=== PATIENT | female | born 1950 | race Caucasian/White ===

== ENCOUNTER → 2016-09-08 | Outpatient (CLI) | payer OTHER ==
[~2016-09-08] MED LIST: AMOX875T PO; ARTIOIN OP; ASPI325T4 PO; BROM0.07 OPR; CHLO12TA2 PO; ERGO1CAP35 PO; FLUN0.02 NAE; FURO-85 PO; GLC/500 PO; HYDR-5688 PO; LEVO75TA PO; LISI-729 PO; POTA10CA28 PO; PRED1SUS3 OPR; VALA1TAB31 PO
[2016-09-08 19:31] LABS: ALB/GLOB RATIO 0.9 (0.9-2); ALKALINE PHOSPHATASE 74 U/L (45-117); ALT/SGPT 40 U/L (12-78); AST/SGOT 23 U/L (15-37); BLOOD UREA NITROGEN 14 mg/dl (7-18); BUN/CREATININE RATIO 12.7 (10-20); CALCIUM 8.8 mg/dl (8.5-10.1); CARBON DIOXIDE 27 mmol/L (21-32); CHLORIDE 100 mmol/L (98-107); CHOLESTEROL 221 mg/dl (0-200); CHOLESTEROL/HDL RATIO 4.9; GLUCOSE 384 mg/dl (70-99); HDL CHOLESTEROL 45 mg/dl; LDL CHOLESTEROL CALCULATED 131 mg/dl; POTASSIUM 4.4 mmol/L (3.5-5.1); SODIUM 135 mmol/L (136-145); TRIGLYCERIDES 226 mg/dl (0-150); VERY LOW DENSITY LIPOPROT CALC 45 mg/dl
[2016-09-08 19:59] LABS: BETA-HYDROXYBUTYRATE 0.94 mg/dL (0.2-2.81)
[2016-09-09 08:04] LABS: ESTIMATED AVERAGE GLUCOSE 280 mg/dl; HA1C FLAG Normal (Normal)
== END | disposition home or self-care (01) ==
LOC: C.LABPVFM 13:39
PROVIDERS: ATTEND Nurse Practitioner
DX: E11.9 Type 2 diabetes mellitus without complications (principal); I10 Essential (primary) hypertension; E55.9 Vitamin D deficiency, unspecified; E03.9 Hypothyroidism, unspecified

== ENCOUNTER → 2016-09-11 | Outpatient (CLI) | payer OTHER ==
--- NOTE | 2016-09-11 11:22 | DIAGNOSTIC IMAGING REPORT ---
ULTRASOUND ABDOMINAL WALL CLINICAL HISTORY: Umbilical hernia. COMPARISON STUDY: No priors. FINDINGS: Real-time grayscale sonography of the periumbilical abdominal wall is performed to assess 4 hernia. There is a large fat-containing umbilical hernia. The hernia measures up to 6 cm. The hernia orifice measures up to 2.4 cm. This was not reducible during the examination. No bowel or fluid was identified within the hernia. IMPRESSION: There is a large nonreducible fat-containing umbilical hernia as above. Electronically signed by: Severiano Pretty M.D. 09/11/2016 11:20 AM Dictated Date/Time: 09/11/2016 11:19 AM
== END | disposition home or self-care (01) ==
LOC: C.ULTRBC 10:53
PROVIDERS: ATTEND Nurse Practitioner
DX: K42.9 Umbilical hernia without obstruction or gangrene (principal)

== ENCOUNTER 2016-11-03 05:06 | Day surgery (SDC) | payer OTHER ==
[2016-10-17 12:52] VITALS: BMI 42.0
--- NOTE | 2016-10-17 13:37 | PAT Medication Instructions ---
Service Date October 17, 2016. Current Home Medication List Flunisolide (Nasal) (Flunisolide), 1 SPRY BERNICE TID PRN for N Furosemide (Lasix), 10 MG PO DAILY PRN Levothyroxine Sodium (Synthroid), 75 MCG PO QAM Lisinopril (Prinivil), 5 MG PO QAM Metformin Hcl (Glucophage), 1,000 MG PO BID Potassium Chloride (Micro-K Ext Rel), 10 MEQ PO PRN Medication Instructions For Your Scheduled Surgery - Check with surgeon for instructions: Aspirin 325mg QAM - Hold the following medications 48 hours prior to surgery: Metformin Hcl (Glucophage), 1,000 MG PO BID - Hold the following medications the morning of surgery: Potassium Chloride (Micro-K Ext Rel), 10 MEQ PO PRN Lisinopril (Prinivil), 5 MG PO QAM Furosemide (Lasix), 10 MG PO DAILY PRN - Take the following medications the morning of surgery with a sip of water: Levothyroxine Sodium (Synthroid), 75 MCG PO QAM Flunisolide (Nasal) (Flunisolide), 1 SPRY BERNICE TID PRN for N - Take the following medications as scheduled the night before surgery: Potassium Chloride (Micro-K Ext Rel), 10 MEQ PO PRN Furosemide (Lasix), 10 MG PO DAILY PRN Flunisolide (Nasal) (Flunisolide), 1 SPRY BERNICE TID PRN for N If you have any questions please call us at [phone] (Latonia Guzman PA-C) or [phone] or [phone]
[2016-10-17 14:12] LABS: BASO % 0.3 %; BASO ABS # 0.03 K/uL (0-0.2); COMPLETE YES; EOS % 1.9 %; ESTIMATED AVERAGE GLUCOSE 220 mg/dl; HA1C FLAG Normal (Normal); HEMATOCRIT 45.1 % (37-47); IG% 0.6 %; LYMPH % 28.2 %; LYMPH ABS # 2.55 K/uL (1.2-3.4); MEAN CORPUSCULAR HEMOGLOBIN 29.6 pg (25-34); MEAN CORPUSCULAR HGB CONC 32.2 g/dl (32-36); MEAN PLATELET VOLUME 10.5 fL (7.4-10.4); MONO % 4.8 %; NEUT % 64.2 %; PLATELET COUNT 236 K/uL (130-400); WHITE BLOOD COUNT 9.03 K/uL (4.8-10.8)
[2016-10-17 15:41] LABS: CALCIUM 8.7 mg/dl (8.5-10.1); POTASSIUM 3.9 mmol/L (3.5-5.1)
[~2016-11-03] VITALS: Ht 167.6 cm; Wt 118.4 kg
[2016-11-03] VITALS (7 sets, daily range): BP systolic 165–184; BP diastolic 76–86; PULSE 70–85; TEMP 36–37.1; O2SAT 92–93; Ht 167.6 cm; Wt 118.4 kg
[~2016-11-03 05:06] MED LIST changes: -AMOX875T PO; -ARTIOIN OP; -ASPI325T4 PO; -BROM0.07 OPR; -CHLO12TA2 PO; -ERGO1CAP35 PO; -FURO-85 PO; -GLC/500 PO; -HYDR-5688 PO; -LEVO75TA PO; -LISI-729 PO; -POTA10CA28 PO; -PRED1SUS3 OPR; -VALA1TAB31 PO
[2016-11-03] MEDS ORDERED: LACTATED RINGER'S 1000ML 1,000 ML IV SCH ×2 (06:00)
[2016-11-03] MEDS ORDERED: CEFAZOLIN 2000 MG/60 ML D5W IV SCH (06:00)
[2016-11-03] MEDS ORDERED: DEXAMETHASONE SOD INJ 4 MG/ML VIAL ONE (06:41)
[2016-11-03] MEDS ORDERED: PROPOFOL IV EMULSION 10 MG/ML 20 ML VIAL IV ONE (06:41)
[2016-11-03] MEDS ORDERED: ONDANSETRON INJ 2 MG/ML 2 ML VIAL ONE ×2 (06:41→07:24)
[2016-11-03] MEDS ORDERED: LIDOCAINE HCL 2% 2 ML VIAL (20MG/ML) ONE (06:41)
[2016-11-03] MEDS ORDERED: MIDAZOLAM HCL 1 MG/ML 2ML VIAL ONE (06:42)
[2016-11-03] MEDS ORDERED: FENTANYL CITRATE INJ 50 MCG/1 ML 2 ML VIAL ONE (06:42)
[2016-11-03] MEDS ORDERED: SCOPOLAMINE 1.5 MG TDSY TD ONE (06:54)
[2016-11-03] MEDS ORDERED: BUPIVACAINE/EPINEPHRINE 0.5% MPF 1:200,000 30 ML VIAL ONE (06:55)
--- NOTE | 2016-11-03 06:55 | History & Physical Bridge Note ---
H&P Re-Evaluation Bridge Note: I have examined the patient, reviewed the History & Physical and in the interval since the performance of the History & Physical I have noted the following changes of clinical significance: No changes noted
[2016-11-03] MEDS ORDERED: NURSING VERBAL MED ORDER ONE ×4 (07:00→10:30)
[2016-11-03] MEDS ORDERED: ACETAMINOPHEN 1000 MG/100 ML IV IV ONE (07:09)
[2016-11-03] MEDS ORDERED: KETOROLAC TROMETHAMINE 30 MG/ML VIAL ONE (07:24)
[2016-11-03] MEDS ORDERED: FLUMAZENIL 0.1 MG/1 ML 10 ML VIAL IV PRN (07:30)
[2016-11-03] MEDS ORDERED: ATROPINE SULFATE 0.1 MG/ML 5ML SYR IV PRN (07:30)
[2016-11-03] MEDS ORDERED: EpHEDrine SULFATE INJ 50 MG/ML AMP IV PRN (07:30)
[2016-11-03] MEDS ORDERED: NALOXONE HCL 0.4 MG/1 ML VIAL/CARP IV PRN (07:30)
[2016-11-03] MEDS ORDERED: LABETALOL HCL IV 5 MG/ML 20ML IV PRN (07:30)
[2016-11-03] MEDS ORDERED: ONDANSETRON INJ 2 MG/ML 2 ML VIAL IV PRN ×2 (07:30→08:15)
[2016-11-03] MEDS ORDERED: MEPERIDINE HCL 25 MG/ML CARP IV PRN (07:30)
[2016-11-03] MEDS ORDERED: HYDROmorphone INJ 2 MG/ML SYR/VIAL IV PRN (07:30)
[2016-11-03] MEDS ORDERED: PHENYLEPHRINE 100MCG/ML 5ML SYR IV PRN (07:30)
[2016-11-03] MEDS: FENTANYL CITRATE INJ 50 MCG/1 ML 2 ML VIAL IV PRN ×4 (08:05→08:20)
--- NOTE | 2016-11-03 08:05 | [facility] Operative Report ---
Operative Report Operative Date Nov 03, 2016. Pre-Operative Diagnosis Umbilical Hernia Post-Operative Diagnosis umbilical hernia with omental incarceration Procedure(s) Performed open umbilical hernia repair Surgeon Dr. Guido Medical Nurse Surgeon(s) Sara Breaux Estimated Blood Loss 5 ml Findings small hernia with large amount of omental incarceration Specimens None per surgeon Anesthesia LMA Complication(s) None Disposition Recovery Room / PACU I attest to the content of the Intraoperative Record and any orders documented therein. Any exceptions are noted below.
[2016-11-03] MEDS ORDERED: HYDR-5688 PO (08:06)
--- NOTE | 2016-11-03 08:08 | Discharge Instructions ---
Discharge Instructions Date of Service Nov 03, 2016. Admission Reason for Admission: Umbilical Hernia Discharge Discharge Diagnosis / Problem: Umbilical Hernia Discharge Goals Goal(s): Decrease discomfort, Improve function Activity Recommendations Activity Limitations: as noted below Lifting Limitations: no more than 10 pounds Exercise/Sports Limitations: until after follow-up appointment May Resume Sexual Activity: after follow-up appointment Shower/Bathe: tomorrow . Instructions / Follow-Up Instructions / Follow-Up Please follow-up with Dr. Guido in the office in 1-2 weeks. Please call the office at [phone] to make a follow-up appointment if you do not have one already. Please call the office with any questions or concerns at [phone]. Current Hospital Diet Patient's current hospital diet: Discharge Diet Recommended Diet: Regular Diet Procedures Procedures Performed: Open Umbilical Hernia Repair Pending Studies Studies pending at discharge: no Laboratory Results Hemoglobin A1c Test 10/17/16 13:47 Range/Units Estimated Average Glucose 220 mg/dl Hemoglobin A1c 9.3 H 4.5-5.6 % Lipid Panel Test 09/08/16 13:43 Range/Units Triglycerides Level 226 H 0-150 mg/dl Cholesterol Level 221 H 0-200 mg/dl HDL Cholesterol 45 mg/dl Cholesterol/HDL Ratio 4.9 LDL Cholesterol, Calculated 131 mg/dl Medical Emergencies . Who to Call and When: Medical Emergencies: If at any time you feel your situation is an emergency, please call 911 immediately. . Non-Emergent Contact Non-Emergency issues call your: Primary Care Provider, Surgeon Call Non-Emergent contact if: temperature is above 101.5, your pain is not controlled, wound has increased drainage, wound has increased redness . "Provider Documentation" section prepared by Sara Wynn. . VTE Core Measure Inpt VTE Proph given/why not?: SCD's [place] Drug Monitoring Program Search Results: patient reviewed within database, no issues identified
[2016-11-03] MEDS ORDERED: SODIUM CHLORIDE 0.9% 1000ML 1,000 ML IV SCH (08:10)
[2016-11-03] MEDS ORDERED: HYDROCODONE/ACETAMOPHEN 5/325MG TAB PO PRN ×2 (08:15)
--- NOTE | 2016-11-03 08:55 | Anesthesiology Progress Note ---
Anesthesia Post Op Note Date & Time Nov 03, 2016 at 08:54 Vital Signs Pain Intensity: 2 Vital Signs Past 12 Hours Date Time Temp Pulse Resp B/P (MAP) Pulse Ox O2 Delivery O2 Flow Rate FiO2 11/03/16 08:42 70 16 169/76 98 11/03/16 08:42 71 16 11/03/16 08:38 36.3 71 16 152/88 97 Mask 2 11/03/16 08:37 71 15 152/88 96 11/03/16 08:37 72 15 11/03/16 08:35 158/73 11/03/16 08:32 71 18 11/03/16 08:32 70 18 144/106 97 11/03/16 08:27 73 12 11/03/16 08:27 81 12 155/83 97 11/03/16 08:22 70 12 11/03/16 08:22 70 12 150/69 97 11/03/16 08:21 69 10 11/03/16 08:21 70 10 98 11/03/16 08:17 163/77 11/03/16 08:16 71 20 99 11/03/16 08:16 71 20 11/03/16 08:12 152/84 11/03/16 08:11 72 14 11/03/16 08:11 72 14 95 11/03/16 08:07 140/86 11/03/16 08:06 71 18 11/03/16 08:06 71 18 96 11/03/16 08:02 166/75 11/03/16 08:01 74 17 11/03/16 08:01 74 17 99 11/03/16 07:58 165/92 11/03/16 07:56 36.0 78 16 165/92 99 Mask 10 11/03/16 05:41 37.1 80 22 184/86 (118) 93 Room Air Notes Mental Status: alert / awake / arousable, participated in evaluation Pt Amnestic to Procedure: Yes Nausea / Vomiting: adequately controlled, improving with treatment Pain: adequately controlled Airway Patency, RR, SpO2: stable & adequate BP & HR: stable & adequate Hydration State: stable & adequate Anesthetic Complications: no major complications apparent The patient is awake and comfortable.
[2016-11-03] MEDS ORDERED: PROMETHAZINE HCL INJ 12.5 MG in SODIUM CHLORIDE 0.9% 50ML 50 ML IV ONE (09:00)
[2016-11-03] MEDS ORDERED: NovoLIN-R INSULIN PER UNIT CHARGE ONE ×2 (09:35→10:32)
[2016-11-03] MEDS ORDERED: NovoLIN-R INSULIN PER UNIT CHARGE SQ SCH (10:45)
--- NOTE | 2016-11-03 10:58 | OPERATIVE REPORT ---
DATE OF OPERATION: 11/03/2016 PREOPERATIVE DIAGNOSIS: Umbilical hernia. POSTOPERATIVE DIAGNOSIS: Same with omental incarceration. PROCEDURE PERFORMED: Open umbilical hernia repair without mesh. SURGEON: Robert Guido DO FLIGHT DISPATCHER: Sara Wynn PA-C ESTIMATED BLOOD LOSS: Approximately 5 mL. COMPLICATIONS: No immediate. ANESTHESIA: General laryngeal mask airway. DESCRIPTION OF PROCEDURE: After informed consent was obtained, the patient was taken to the operating suite and placed in supine position. After successful placement of laryngeal mask airway, the abdomen was sterilely prepped and draped in usual fashion. An infraumbilical curvilinear incision was made with a 15 blade scalpel and carried down through the soft tissue using electrocautery. We immediately encountered a hernia sac, which we divided. There was a large amount of omentum within it. We continued to take down the entire sac and took down soft tissue to the fascia. The umbilicus was lifted off the fascia. Because of large amount of omentum, we were going to be unable to place it back into the abdominal cavity without making the hernia larger. Therefore, I used Amina clamps with 2-0 Vicryl ties to divide the incarcerated omentum. The small stalk was then able to be easily dunked back into the abdominal cavity. The hernia itself was rather small considering the size of the hernia sac and contents. We were able to grasp the periphery with Allis clamps. The defect itself was right around 2 cm. Because of her age and activity level, I opted to not use mesh. I used a #1 Ethibond in an interrupted [id number] fashion to primarily close the defect. This was done quite readily without much tension at all. We then thoroughly irrigated the wound. I used 0 Vicryl to reattach the umbilical stalk back down to the fascia. There was adequate hemostasis at the end of case. We closed the deep layers with 3-0 Vicryl and skin with 4-0 Monocryl. Marcaine with epinephrine was injected around the incision for postoperative analgesia and skin glue used as a dressing. The patient was awakened, extubated, and transferred to recovery in stable condition. I attest to the content of the Intraoperative Record and any orders documented therein. Any exception s are noted below.
[2016-11-03] MEDS ORDERED: CHECK SCOPOLAMINE PATCH PLACEMENT SCH (16:00)
[2017-04-03] MEDS ORDERED: FURO-85 PO (11:19)
[2017-04-03] MEDS ORDERED: LEVO75TA PO (11:19)
[2017-04-03] MEDS ORDERED: GLC/500 PO (11:19)
[2017-04-03] MEDS ORDERED: POTA10CA28 PO (12:51)
[2017-04-03] MEDS ORDERED: LISI-729 PO (12:51)
[2017-04-03] MEDS ORDERED: ASPI325T4 PO (13:47)
== END 2016-11-03 11:46 | disposition home or self-care (01) ==
LOC: C.ACU 05:06
PROVIDERS: ATTEND Surgery
DX: K42.9 Umbilical hernia without obstruction or gangrene (principal); I10 Essential (primary) hypertension; E11.9 Type 2 diabetes mellitus without complications; E66.01 Morbid (severe) obesity due to excess calories; E03.9 Hypothyroidism, unspecified; Z87.891 Personal history of nicotine dependence; Z98.890 Other specified postprocedural states; Z68.41 Body mass index [BMI] 40.0-44.9, adult; Z88.2 Allergy status to sulfonamides; Z90.89 Acquired absence of other organs; Z90.710 Acquired absence of both cervix and uterus; Z80.42 Family history of malignant neoplasm of prostate; Z84.89 Family history of other specified conditions

== ENCOUNTER 2017-04-03 18:28 | Emergency (ER) | payer OTHER ==
[~2017-04-03] VITALS: Ht 167.6 cm; Wt 119.7 kg
[~2017-04-03 18:28] MED LIST changes: +ASPI325T4 PO; +FURO-85 PO; +GLC/500 PO; +LEVO75TA PO; +LISI-729 PO; +POTA10CA28 PO
[2017-04-03 18:36] VITALS: TEMP 36.7
[2017-04-03] MEDS ORDERED: SODIUM CHLORIDE 0.9% 1000ML 1,000 ML IV SCH (19:41)
[2017-04-03 19:54] VITALS: Ht 167.6 cm; Wt 119.7 kg
[2017-04-03 20:17] LABS: BASO % 0.4 %; BASO ABS # 0.04 K/uL (0-0.2); COMPLETE YES; EOS % 3.7 %; HEMATOCRIT 42.8 % (37-47); LYMPH % 35.1 %; LYMPH ABS # 3.62 K/uL (1.2-3.4); MEAN CELL VOLUME 92.8 fL (80-100); MEAN CORPUSCULAR HEMOGLOBIN 31.5 pg (25-34); MEAN CORPUSCULAR HGB CONC 33.9 g/dl (32-36); MEAN PLATELET VOLUME 10.7 fL (7.4-10.4); MONO % 7.6 %; NEUT % 52.2 %; PLATELET COUNT 235 K/uL (130-400); RED BLOOD COUNT 4.61 M/uL (4.2-5.4); WHITE BLOOD COUNT 10.32 K/uL (4.8-10.8)
[2017-04-03 20:26] LABS: PROTHROMBIN TIME (PATIENT) 10.5 SECONDS (9.0-12.0)
[2017-04-03] MEDS ORDERED: AMOX875T PO (20:36)
[2017-04-03] MEDS ORDERED: CHLO12TA2 PO (20:37)
[2017-04-03 21:02] LABS: BUN/CREATININE RATIO 12.3 (10-20); CALCIUM 8.8 mg/dl (8.5-10.1); CKMB/CK RATIO 1.9 (0-3.0); CREATININE 0.86 mg/dl (0.60-1.20); MAGNESIUM 2.1 mg/dl (1.8-2.4); POTASSIUM 4.1 mmol/L (3.5-5.1)
[2017-04-03 21:07] LABS: LYME DISEASE AB IGM NEG (NEG)
--- NOTE | 2017-04-03 21:07 | DIAGNOSTIC IMAGING REPORT ---
BRAIN WITHOUT CONTRAST HISTORY: 67 years-old Female left neck pain, left facial palsy acute left-sided facial palsy and neck pain. COMPARISON: MRA of the head of same day TECHNIQUE: Multiplanar multisequence MRI of the brain was obtained without contrast FINDINGS: There is no restricted diffusion to suggest acute ischemia. The midline structures including the corpus callosum, brainstem, optic chiasm, pituitary gland, infundibulum and pineal gland are unremarkable in the sagittal T1 sequence. There is no cerebellar tonsillar herniation. No acute intracranial hemorrhage, midline shift, abnormal extra-axial collections, hydrocephalus or intracranial mass identified. Mild atrophy. Moderate multifocal patchy areas of T2/FLAIR prolongation noted within the subcortical, deep and periventricular white matter of the cerebral hemispheres bilaterally. The major flow voids at the level the skull base are patent. Mild polypoid mucosal thickening of the right maxillary antrum. Mild ethmoid sinus disease also noted. Mastoid air cells are clear. Orbits are symmetric and unremarkable. IMPRESSION: 1. No acute intracranial abnormality. No acute ischemia or hemorrhage. 2. Mild atrophy with moderate multifocal patchy T2/FLAIR prolongation within the subcortical, deep and periventricular white matter of the cerebral hemispheres bilaterally suggests chronic microvascular ischemic changes. 3. Mild paranasal sinus disease. The above report was generated using voice recognition software. It may contain grammatical, syntax or spelling errors. Electronically signed by: Duran Timmons M.D. 04/03/2017 9:06 PM Dictated Date/Time: 04/03/2017 9:02 PM
[2017-04-03 21:08] LABS: LYME DISEASE AB IGG NEG (NEG)
--- NOTE | 2017-04-03 21:12 | DIAGNOSTIC IMAGING REPORT ---
MRA HEAD WITHOUT CONTRAST HISTORY: 67 years-old Female left neck pain, left facial palsy acute left-sided facial palsy with left-sided neck pain COMPARISON: MRI brain of same day TECHNIQUE: MRA of the head was obtained without contrast with MIP reformats according to institutional protocol. FINDINGS: Bilateral internal carotid arteries appear normal and patent. Middle and anterior cerebral arteries as well as the anterior communicating artery are patent and unremarkable. Bilateral vertebral arteries are patent. The basilar and posterior cerebral arteries are patent and within normal limits. There is no high-grade stenosis, aneurysm or proximal branch occlusion. origin of the left posterior cerebral artery. Mild paranasal sinus disease incidentally noted. IMPRESSION: 1. Unremarkable MRA of the head without aneurysm, high-grade stenosis or proximal branch occlusion. 2. origin of the left posterior cerebral artery. The above report was generated using voice recognition software. It may contain grammatical, syntax or spelling errors. Electronically signed by: Duran Timmons M.D. 04/03/2017 9:11 PM Dictated Date/Time: 04/03/2017 9:06 PM
[2017-04-03] MEDS ORDERED: GADAVIST IV PRN (21:15)
--- NOTE | 2017-04-03 21:42 | DIAGNOSTIC IMAGING REPORT ---
MRA NECK COMBO CLINICAL HISTORY: 67 years-old Female with left neck pain, left facial palsy. Acute left-sided neck pain and left-sided facial palsy COMPARISON STUDY: MRI brain and MRA head same day. TECHNIQUE: Axial 2-D [id number] MR angiography of the neck is performed. Subsequently, following the IV administration of 12 cc of Gadavist coronal MR angiogram of the neck was performed to corroborate the findings. 3-D reformats are created and assessed. All measurements were calculated based on NASCET criteria. FINDINGS: The large [id number] data warehousing specialist localizer images demonstrate no gross abnormality of the head, neck or chest. The bilateral common and internal carotid arteries are patent without high-grade stenosis. Mild luminal narrowing involves the left carotid bulb, likely secondary to underlying atherosclerotic plaquing causing less than 50% narrowing (see image 51 series [id number]). There is mild tortuosity involving the proximal cervical portion of the right internal carotid artery without high-grade narrowing (see image 52 series [id number]). The bilateral vertebral arteries appear to be codominant and are patent. No high-grade stenosis, aneurysm or proximal branch occlusion. IMPRESSION: 1. No high-grade stenosis, aneurysm or proximal branch occlusion. 2. Mild luminal narrowing of the left carotid bulb, likely secondary to underlying atherosclerotic plaquing with no significant stenosis. 3. Mild tortuosity of the proximal cervical portion right internal carotid artery without high-grade narrowing. The above report was generated using voice recognition software. It may contain grammatical, syntax or spelling errors. Electronically signed by: Duran Timmons M.D. 04/03/2017 9:41 PM Dictated Date/Time: 04/03/2017 9:33 PM
[2017-04-03 21:54] LABS: URINE APPEARANCE CLEAR (CLEAR); URINE BILIRUBIN NEG (NEG); URINE COLOR YELLOW; URINE NITRITE NEG (NEG); URINE SPECIFIC GRAVITY 1.017 (1.000-1.030); UROBILINOGEN NEG (NEG); ZZUR CULT IF INDIC CLEAN CATCH NO
[2017-04-03 21:56] LABS: MANUAL MICROSCOPIC REQUIRED? NO; REVIEW REQ? NO
[2017-04-03] MEDS ORDERED: ARTIFICIAL TEARS OP OINT 3.5 GM TUBE OP ONE (22:15)
[2017-04-03] MEDS ORDERED: VALA1TAB31 PO (22:32)
[2017-04-03] MEDS ORDERED: ARTIOIN OP (22:32)
[2017-04-03 22:39] VITALS: BP 186/94; PULSE 70; O2SAT 97
--- NOTE | 2017-04-04 03:18 | EMERGENCY ROOM VISIT NOTE ---
History Report prepared by Josiahibceleste: Taylor Torres Under the Supervision of: Dr. Dick Dixon M.D. First contact with patient: 19:02 Chief Complaint: BELLS PALSY SYMPTOMS Stated Complaint: STROKE SYMPTOMS History of Present Illness The patient is a 67 year old female who presents to the Emergency Room with complaints of persistent bells palsy symptoms. She complains of a left sided facial droop and a feeling of numbness in her face for the past 2 days. She states 2 nights ago, she woke up to take a drink of water, and dribbled the water down her face, which is unusual for her. She was unable to make a puckering motion with her mouth the next morning and states she still cannot drink out of a bottle of water normally, so she decided to come to the ED. She currently complains of a minimal occasional headache and pain along the left side of her neck. She also reports the vision in her left eye is more blurry than normal, but she is still able to read with that eye. She may have a missed a dose of Synthroid earlier today, but states she has been taking her other medications as prescribed. Her states she may be slurring her words, but reports he is hard of hearing. The patient notes she was treated for a sinus infection and ear pain recently by a local urgent care clinic. She was given an antibiotic, Augmentin, and is taking it twice a day. The patient denies LOC, fevers, chills, diaphoresis, chest pain, breathing difficulties, nausea, vomiting, abdominal pain, back pain, melena, hematochezia, urinary symptoms, numbness or weakness in the extremities, lymphadenopathy, rash, or other complaints. Source of History: patient, spouse/significant other () Onset: 2 days DRUG SAFETY ASSOCIATE Position: other (global) Timing: other (persistent) Associated Symptoms: + headache, + neck pain (left sided neck pain), + weakness (left side of face), + numbness (in the face) Review of Systems See HPI for pertinent positives and negatives. A total of ten systems were reviewed and were otherwise negative. Past Medical & Surgical Medical Problems: (1) broken left foot (2) Contusion of foot (3) Diabetes (4) Hypertension (5) Kidney stones (6) Right foot infection (7) Right foot infection (8) Right foot pain Surgical Problems: (1) H/O: hysterectomy (2) History of appendectomy Social History Smoking Status: Former Smoker Alcohol Use: none Drug Use: none Marital Status: Housing Status: lives with family Occupation Status: retired Current/Historical Medications Scheduled Amoxicillin & Pot Clavulanate (Augmentin 875-125 mg), 1 TAB PO BID Aspirin (Aspirin), 325 MG PO QAM Levothyroxine Sodium (Synthroid), 75 MCG PO QAM Lisinopril (Prinivil), 5 MG PO QAM Metformin Hcl (Glucophage), 1,000 MG PO BID Potassium Chloride (Micro-K Ext Rel), 10 MEQ PO PRN Valacyclovir Hcl (Valtrex), 1 GM PO TID Scheduled PRN Artificial Tears Oph Oint (Lacri-Lube Sop Oph Oint), 0.25-0.5 INCH OP Q2H PRN for DRYNESS Chlorpheniramine Maleate (Chlor-Trimeton Allergy), 1 TAB PO DAILY PRN for Seasonal Allergies Flunisolide (Nasal) (Flunisolide), 1 SPRY BERNICE TID PRN for Nasal Congestion Furosemide (Lasix), 10 MG PO DAILY PRN Allergies Coded Allergies: Fenoprofen (Verified Allergy, Intermediate, HAND EDEMA, 11/03/16) Prednisone (Verified Allergy, Intermediate, FAST HEART BEAT, 11/03/16) Adhesives (Verified Allergy, Unknown, "Red welts", 11/03/16) Emmet (Verified Allergy, Unknown, WELTS WITH PEACH FUZZ, 11/03/16) Tomato (Verified Allergy, Unknown, WELTS WITH TOMATOES AND ORANGE JUICE, ) Levofloxacin (Verified Adverse Reaction, Intermediate, PNEUMONIA, 11/03/16) GIVEN LEVAQUIN FOR SINUS INFECTION X2 AND BOTH TIMES DEVELOPED PNEUMONIA Sulfa Antibiotics (Verified Adverse Reaction, Unknown, "SULFA DRUGS": ITCHING, 11/03/16) Physical Exam Vital Signs Date Time Temp Pulse Resp B/P (MAP) Pulse Ox O2 Delivery O2 Flow Rate FiO2 04/03/17 22:39 70 16 186/94 97 04/03/17 20:49 Room Air 04/03/17 18:36 36.7 77 20 176/99 97 Room Air Physical Exam GENERAL: Awake, alert, well appearing, no distress HENT: Normocephalic, atraumatic. TM's normal. Oropharynx unremarkable. EYES: PERRL. EOMI. Normal conjunctiva. Sclera non-icteric. NECK: Supple. No nuchal rigidity. FROM. No JVD or bruit. RESPIRATORY: CTA CARDIAC: RRR. No murmur. ABDOMEN: Soft, non distended. No tenderness to palpation. No rebound or guarding. No masses. RECTAL: Deferred. MUSCULOSKELETAL: Unremarkable. No edema. No discoloration. Gross motor strength symmetric. NEURO: Cranial nerves 2-12 grossly intact. Cranial nerve 7 with weakness in the left side, mild forehead involvement. Normal sensorium. No sensory or motor deficits noted. Speech normal. No pronator drift. Mildly unsteady gait. Negative Rhomberg. SKIN: No rash or jaundice noted. LYMPH: No adenopathy. Medical Decision & Procedures ER Provider Diagnostic Interpretation: Radiology results as stated below per my review and radiologist interpretation: BRAIN WITHOUT CONTRAST HISTORY: 67 years-old Female left neck pain, left facial palsy acute left-sided facial palsy and neck pain. COMPARISON: MRA of the head of same day TECHNIQUE: Multiplanar multisequence MRI of the brain was obtained without contrast FINDINGS: There is no restricted diffusion to suggest acute ischemia. The midline structures including the corpus callosum, brainstem, optic chiasm, pituitary gland, infundibulum and pineal gland are unremarkable in the sagittal T1 sequence. There is no cerebellar tonsillar herniation. No acute intracranial hemorrhage, midline shift, abnormal extra-axial collections, hydrocephalus or intracranial mass identified. Mild atrophy. Moderate multifocal patchy areas of T2/FLAIR prolongation noted within the subcortical, deep and periventricular white matter of the cerebral hemispheres bilaterally. The major flow voids at the level the skull base are patent. Mild polypoid mucosal thickening of the right maxillary antrum. Mild ethmoid sinus disease also noted. Mastoid air cells are clear. Orbits are symmetric and unremarkable. IMPRESSION: 1. No acute intracranial abnormality. No acute ischemia or hemorrhage. 2. Mild atrophy with moderate multifocal patchy T2/FLAIR prolongation within the subcortical, deep and periventricular white matter of the cerebral hemispheres bilaterally suggests chronic microvascular ischemic changes. 3. Mild paranasal sinus disease. The above report was generated using voice recognition software. It may contain grammatical, syntax or spelling errors. Electronically signed by: Duran Timmons M.D. 04/03/2017 9:06 PM MRA HEAD WITHOUT CONTRAST HISTORY: 67 years-old Female left neck pain, left facial palsy acute left-sided facial palsy with left-sided neck pain COMPARISON: MRI brain of same day TECHNIQUE: MRA of the head was obtained without contrast with MIP reformats according to institutional protocol. FINDINGS: Bilateral internal carotid arteries appear normal and patent. Middle and anterior cerebral arteries as well as the anterior communicating artery are patent and unremarkable. Bilateral vertebral arteries are patent. The basilar and posterior cerebral arteries are patent and within normal limits. There is no high-grade stenosis, aneurysm or proximal branch occlusion. origin of the left posterior cerebral artery. Mild paranasal sinus disease incidentally noted. IMPRESSION: 1. Unremarkable MRA of the head without aneurysm, high-grade stenosis or proximal branch occlusion. 2. origin of the left posterior cerebral artery. The above report was generated using voice recognition software. It may contain grammatical, syntax or spelling errors. Electronically signed by: Duran Timmons M.D. 04/03/2017 9:11 PM MRA NECK COMBO CLINICAL HISTORY: 67 years-old Female with left neck pain, left facial palsy. Acute left-sided neck pain and left-sided facial palsy COMPARISON STUDY: MRI brain and MRA head same day. TECHNIQUE: Axial 2-D [id number] MR angiography of the neck is performed. Subsequently, following the IV administration of 12 cc of Gadavist coronal MR angiogram of the neck was performed to corroborate the findings. 3-D reformats are created and assessed. All measurements were calculated based on NASCET criteria. FINDINGS: The large [id number] offal worker localizer images demonstrate no gross abnormality of the head, neck or chest. The bilateral common and internal carotid arteries are patent without high-grade stenosis. Mild luminal narrowing involves the left carotid bulb, likely secondary to underlying atherosclerotic plaquing causing less than 50% narrowing (see image 51 series [id number]). There is mild tortuosity involving the proximal cervical portion of the right internal carotid artery without high-grade narrowing (see image 52 series [id number]). The bilateral vertebral arteries appear to be codominant and are patent. No high-grade stenosis, aneurysm or proximal branch occlusion. IMPRESSION: 1. No high-grade stenosis, aneurysm or proximal branch occlusion. 2. Mild luminal narrowing of the left carotid bulb, likely secondary to underlying atherosclerotic plaquing with no significant stenosis. 3. Mild tortuosity of the proximal cervical portion right internal carotid artery without high-grade narrowing. The above report was generated using voice recognition software. It may contain grammatical, syntax or spelling errors. Electronically signed by: Duran Timmons M.D. 04/03/2017 9:41 PM Laboratory Results 04/03/17 20:00 Red Blood Count 4.61, Mean Corpuscular Volume 92.8, Mean Corpuscular Hemoglobin 31.5, Mean Corpuscular Hemoglobin Concent 33.9, Mean Platelet Volume 10.7, Neutrophils (%) (Auto) 52.2, Lymphocytes (%) (Auto) 35.1, Monocytes (%) (Auto) 7.6, Eosinophils (%) (Auto) 3.7, Basophils (%) (Auto) 0.4, Neutrophils # (Auto) 5.40, Lymphocytes # (Auto) 3.62, Monocytes # (Auto) 0.78, Eosinophils # (Auto) 0.38, Basophils # (Auto) 0.04 04/03/17 20:00 Test 04/03/17 00:00 04/03/17 20:00 Urine Color YELLOW Urine Appearance CLEAR (CLEAR) Urine pH 5.0 (4.5-7.5) Urine Specific [place] 1.017 (1.000-1.030) Urine Protein NEG (NEG) Urine Glucose (UA) NEG (NEG) Urine Ketones NEG (NEG) Urine Occult Blood NEG (NEG) Urine Nitrite NEG (NEG) Urine Bilirubin NEG (NEG) Urine Urobilinogen NEG (NEG) Urine Leukocyte Esterase TRACE (NEG) Urine WBC (Auto) 1-5 /hpf (0-5) Urine RBC (Auto) 0-4 /hpf (0-4) Urine Hyaline Casts (Auto) 0 /lpf (0-5) Urine Epithelial Cells (Auto) 10-20 /lpf (0-5) Urine Bacteria (Auto) NEG (NEG) White Blood Count 10.32 K/uL (4.8-10.8) Red Blood Count 4.61 M/uL (4.2-5.4) Hemoglobin 14.5 g/dL (12.0-16.0) Hematocrit 42.8 % (37-47) Mean Corpuscular Volume 92.8 fL (80-100) Mean Corpuscular Hemoglobin 31.5 pg (25-34) Mean Corpuscular Hemoglobin Concent 33.9 g/dl (32-36) Platelet Count 235 K/uL (130-400) Mean Platelet Volume 10.7 fL (7.4-10.4) Neutrophils (%) (Auto) 52.2 % Lymphocytes (%) (Auto) 35.1 % Monocytes (%) (Auto) 7.6 % Eosinophils (%) (Auto) 3.7 % Basophils (%) (Auto) 0.4 % Neutrophils # (Auto) 5.40 K/uL (1.4-6.5) Lymphocytes # (Auto) 3.62 K/uL (1.2-3.4) Monocytes # (Auto) 0.78 K/uL (0.11-0.59) Eosinophils # (Auto) 0.38 K/uL (0-0.5) Basophils # (Auto) 0.04 K/uL (0-0.2) RDW Standard Deviation 49.4 fL (36.4-46.3) RDW Coefficient of Variation 14.6 % (11.5-14.5) Immature Granulocyte % (Auto) 1.0 % Immature Granulocyte # (Auto) 0.10 K/uL (0.00-0.02) Prothrombin Time 10.5 SECONDS (9.0-12.0) Prothromb Time International Ratio 1.0 (0.9-1.1) Activated Partial Thromboplast Time 25.2 SECONDS (21.0-31.0) Partial Thromboplastin Ratio 1.0 Anion Gap 6.0 mmol/L (3-11) Est Creatinine Clear Calc Drug Dose 81.3 ml/min Estimated GFR () 79.9 Estimated GFR (Non- 68.9 BUN/Creatinine Ratio 12.3 (10-20) Calcium Level 8.8 mg/dl (8.5-10.1) Magnesium Level 2.1 mg/dl (1.8-2.4) Total Creatine Kinase 250 U/L (26-192) Creatine Kinase MB 4.8 ng/ml (0.5-3.6) Creatine Kinase MB Ratio 1.9 (0-3.0) Troponin I 0.044 ng/ml (0-0.045) Chemistry Specimen Hemolysis Lyme Disease IgG Antibody NEG (NEG) Lyme Disease IgM Antibody NEG (NEG) Laboratory results reviewed by me Medications Administered Medications (Trade) Dose Ordered Sig/Sacha Route Start Time Stop Time Status Last Admin Dose Admin Artificial Tears (Lacri-Lube Oph Oint) 1 appln NOW ONCE OP 04/03/17 22:15 04/03/17 22:18 DC 04/03/17 22:34 1 APPLN Valacyclovir HCl (Valtrex Tab) 1,000 mg NOW ONCE PO 04/03/17 22:15 04/03/17 22:18 DC 04/03/17 22:34 1,000 MG ECG Indication: weakness Rate (beats per minute): 68 Rhythm: normal sinus Findings: 1st degree AV block, nonspecific-ST abn, no acute ischemic change, no ectopy ED Course 1914: The patient was evaluated in room B9. A complete history and physical exam was performed. 2114: Gadavist 12 mmol IV. 2204: I reevaluated the patient. She is feeling well and resting comfortably. I discussed her results and discharge instructions and she verbalized complete understanding and agreement. 2214: Valtrex 1000 mg PO, Artificial Tears 1 application OP. Medical Decision Triage Nursing notes reviewed. The patient's presentation and history were concerning for facial weakness. Etiologies such as Kenney's palsy, TIA, CVA, metabolic, infection, hypo/ hyperglycemia, electrolyte abnormalities, cardiac sources, intracerebral event, toxicologic, neurologic, as well as others were entertained. The patient's physical examination was consistent with a facial nerve palsy. There was some complaints of left-sided pain and questionable slurred speech. Because of this additional workup was performed. The patient had MR imaging done. Her blood work was unremarkable. Lyme testing was negative. MR imaging did not reveal any evidence of aneurysm, dissection, CVA, tumor, or other pathology. The patient was reassessed and was doing well. She was prescribed Valtrex and the first dose given in the Emergency Room. Lacri-Lube was also given. Unfortunately the patient has experienced adverse reactions with prednisone in the past. She developed significant tachycardia on multiple occasions when prednisone was attempted. This was confirmed by the patient and family. Because of this problem the patient has experienced in the past prednisone was held.I gave my usual and customary discussion regarding this issue. The patient will need close outpatient follow-up. This appears to be a mild case of Kenney's palsy. By the evaluation outlined above other emergent etiologies such as those listed in the differential, as well as others, were deemed relatively unlikely. The patient was educated about the findings as listed above. All questions were answered and the patient was pleased with the treatment. Return instructions were outlined and the patient was discharged in stable condition. The patient was referred to her PCP for follow-up for a recheck of the current condition. Medication Reconcilliation Current Medication List: was personally reviewed by me Blood Pressure Screening Patient's blood pressure: Elevated blood pressure Blood pressure disposition: Referred to PCP Impression Primary Impression: Kenney's palsy Scribe Attestation The scribe's documentation has been prepared under my direction and personally reviewed by me in its entirety. I confirm that the note above accurately reflects all work, treatment, procedures, and medical decision making performed by me. Departure Information Dispostion Home / Self-Care Prescriptions Artificial Tears Oph Oint (Lacri-Lube Sop Oph Oint) Oint 0.25-0.5 INCH OP Q2H Y for DRYNESS, #1 TUBE TO THE AFFECTED EYE UP TO QID PRN Prov: Dick Dixon MD 04/03/17 Valacyclovir Hcl (VALTREX) 1 Gm Tab 1 GM PO TID, #20 TAB Prov: Dick Dixon MD 04/03/17 Referrals Mayra Kidd, C.R.N.P (PCP) Patient Instructions My [facility] Additional Instructions Valtrex 1000 mg 3 times a day for 7 days. Lacri-Lube every 2 hours as needed for dry eyes. Continue current medications. Follow-up with your primary physician on Thursday for recheck. Additional therapy or physical therapy may be necessary. Return to the ER for headache, passing out, difficulty breathing, fevers, numbness, tingling, worsening of your condition, or as needed.
== END 2017-04-03 22:40 ==
LOC: C.EDB 18:29
DX: G51.0 Bell's palsy (principal); I44.0 Atrioventricular block, first degree; E11.9 Type 2 diabetes mellitus without complications; I10 Essential (primary) hypertension; Z87.442 Personal history of urinary calculi; Z86.19 Personal history of other infectious and parasitic diseases; Z90.710 Acquired absence of both cervix and uterus; Z98.890 Other specified postprocedural states; Z87.891 Personal history of nicotine dependence; Z79.82 Long term (current) use of aspirin; Z79.84 Long term (current) use of oral hypoglycemic drugs; Z79.899 Other long term (current) drug therapy; Z88.2 Allergy status to sulfonamides; Z88.8 Allergy status to other drugs, medicaments and biological substances; Z91.018 Allergy to other foods; Z91.09 Other allergy status, other than to drugs and biological substances

== ENCOUNTER 2018-11-09 16:14 | Inpatient (IN) ==
[2018-11-09] MEDS ORDERED: ASPIRIN CHEW 324 MG PO STA (16:47)
[2018-11-09] MEDS ORDERED: MAGNESIUM SULFATE / D5W 1 GM/100 ML BAG IV ONE (16:47)
[2018-11-09 17:17] LABS: Partial Thromboplastin Ratio 0.8; Partial Thromboplastin Time 21.8 Seconds (21.0-31.0); Prothrombin Time 10.7 Seconds (9.0-12.0)
[2018-11-09 17:18] LABS: Albumin Level 3.6 gm/dl (3.4-5.0); BUN Creatinine Ratio 11.7 (10-20); Calcium 9.3 mg/dl (8.5-10.1); Creatinine Clr Calc Pharmacy 59.2 ml/min; Est GFR (African American) 72.2; Est GFR (Non-African American) 62.3; Magnesium 2.1 mg/dl (1.8-2.4); Potassium 3.7 mmol/L (3.5-5.1)
[2018-11-09 17:20] LABS: Hematocrit (blood only) 22.2 % (37-47); Mean Corpuscular Volume 69.8 fL (80-100); Mean Platelet Volume 9.8 fL (7.4-10.4); Nucleated RBC # (auto) 0.11 K/uL (0-0); Nucleated RBC % (auto) 1.2 %; Platelet Count 266 K/uL (130-400); RDW Coefficient of Variation 17.8 % (11.5-14.5); RDW Standard Deviation 45.8 fL (36.4-46.3); Red Blood Count 3.18 M/uL (4.2-5.4); White Blood Count 8.55 K/uL (4.8-10.8)
[2018-11-09 17:20] LABS: Appearance Urine Clear (Clear); Bacteria Urine Automated Negative (Negative); Bilirubin Urine Negative (Negative); Blood Urine Negative (Negative); Color Urine Yellow; Epithelial Cell Urine Auto 20-30 /lpf (0-5); Glucose Urine UA Negative (Negative); Ketones Urine Negative (Negative); Leukocyte Esterase Urine Trace (Negative); Nitrite Urine Negative (Negative); Protein Urine Negative (Negative); RBC Urine Automated 0-4 /hpf (0-4); Specific Gravity Urine 1.013 (1.000-1.030); Urobilinogen Urine Negative (Negative)
[2018-11-09] MEDS ORDERED: SODIUM CHLORIDE 0.9% 250 ML IV PRN ×2 (17:20→20:25)
[2018-11-09 17:22] LABS: Albumin Globulin Ratio 0.9 (0.9-2); Bilirubin,Total 0.5 mg/dl (0.2-1); Total Protein 7.6 gm/dl (6.4-8.2); Troponin I 0.044 ng/ml (0-0.045)
[2018-11-09 17:23] LABS: Basophils # (auto) 0.04 K/uL (0-0.2); Basophils % (auto) 0.5 %; Eosinophils # (auto) 0.11 K/uL (0-0.5); Eosinophils % (auto) 1.3 %; Hypochromasia Present; Immature Granulocytes # (auto) 0.04 K/uL (0.00-0.02); Immature Granulocytes % (auto) 0.5 %; Lymphocytes # (auto) 1.87 K/uL (1.2-3.4); Lymphocytes % (auto) 21.9 %; Microcytosis Present; Monocytes # (auto) 0.64 K/uL (0.11-0.59); Monocytes % (auto) 7.5 %; Neutrophils # (auto) 5.85 K/uL (1.4-6.5); Neutrophils % (auto) 68.3 %; Polychromasia 1+
[2018-11-09] MEDS ORDERED: GADOBUTROL 65ML VIAL IV PRN (17:59)
--- NOTE | 2018-11-09 18:10 | Magnetic Resonance Report ---
MR angio head wo con HISTORY: 68 years-old Female Rt parietal lobe infarct acute strokelike symptoms COMPARISON: CT of the head of same day, MRA head 04/03/2017 TECHNIQUE: MRI of the head was obtained without the use of IV contrast utilizing 3-D [id number] s equencing with MIP reformats. All measurements were obtained according to NASCET criteria. FINDINGS: Cook Seafood localizer images demonstrate no gross extracranial abnormality. Cortically based increased sign al is noted about the right occipital lobe in the distribution of infarct described on CT of the head of same day. Bilateral internal carotid arteries, middle and anterior cerebral arteries are widely p atent and within normal limits. Study is mildly motion degraded. Imaged bilateral vertebral arteries and basilar artery appear normal and are widely patent. origin of the left posterior cerebral a rteries. There is decreased flow related signal about the distal branches of the right posterior cere bral artery. The proximal P1 segments bilaterally appear to be patent. No proximal branch occlusion, aneurysm, dissection or high-grade stenosis identified. IMPRESSION: 1. Decreased flow related signal about the distal branches of the right posterior cerebral artery wit hin the area of infarct described on CT head and MRI brain of same day is suggestive of a probable un derlying distal arterial occlusion or stenosis. 2. Otherwise unremarkable MRA without proximal branch occlusion, aneurysm, dissection or focal high-g rade stenosis identified. The above report was generated using voice recognition software. It may contain grammatical, syntax o r spelling errors. Electronically signed by: Duran Timmons M.D. 11/09/2018 6:09 PM
--- NOTE | 2018-11-09 18:25 | Magnetic Resonance Report ---
MR brain wo/w con HISTORY: 68 years-old Female Rt parietal lobe subacute strokelike symptoms COMPARISON: MRA head and neck and CT head of same day, brain MRI 04/03/2017 TECHNIQUE: Multiplanar multisequence MRI of the brain was obtained both with and without the use of 7 .5 mL Gadavist FINDINGS: Multifocal subcentimeter foci of restricted diffusion with intermediate signal on ADC map noted about the watershed distributions of the bilateral centrum semiovale and reyes radiata distributions. Add itionally, there is a 4.6 x 1.8 x 4.2 irregular focus of restricted diffusion about the right occipit al lobe, image 10 series 4 with a 1.8 cm area of restricted diffusion about the splenium of the right corpus callosum ill-defined enhancement is noted within several of these foci, notably within the ri ght occipital lobe focus. Additionally, moderate degree of laminar necrosis of the right occipital lo be infarct is also noted. There are no abnormal extra-axial collections, hydrocephalus or midline meenu ft. No definite intracranial mass identified. Moderate chronic microvascular ischemic disease with ag e-related involutional changes. Major flow voids appear patent. Mild mucosal thickening about the paranasal sinuses. Prior bilateral cataract repair. Skull and soft tissues are unremarkable. IMPRESSION: 1. Subacute appearing infarct of the right occipital lobe demonstrates laminar necrosis and enhanceme nt measuring up to approximately 4.6 cm. Multiple additional mostly subcentimeter subacute infarcts n oted about the centrum semiovale and reyes radiata of the cerebral hemispheres bilaterally. 2. Additional focal subacute infarct involves the splenium of the right corpus callosum. The above report was generated using voice recognition software. It may contain grammatical, syntax o r spelling errors. Electronically signed by: Duran Timmons M.D. 11/09/2018 6:22 PM
--- NOTE | 2018-11-09 18:33 | Magnetic Resonance Report ---
MR angio neck wo/w con HISTORY: 68 years-old Female Pt vision changes multiple subacute infarctions with acute vision perez es COMPARISON: MRA of the head and brain MRI of same day TECHNIQUE: MRA of the neck was obtained both with and without the use of 7.5 ml Gadavist utilizing 3- D [id number] sequencing with MIP reformats. All measurements were obtained according to NASCET cr iteria. FINDINGS: Telephone Operators Supervisor localizer images demonstrate no gross abnormality. Cardiomegaly noted. Mildly motion degraded e xam. The bilateral common carotid arteries appear widely patent. The bilateral internal carotid arter ies are unremarkable and are also widely patent. The vertebral arteries appear to be codominant and a re widely patent. No aneurysm, dissection, high-grade stenosis or proximal branch occlusion identifie d. Increased flow-related signal noted about the right occipital lobe infarct. IMPRESSION: Unremarkable MRA of the neck. The above report was generated using voice recognition software. It may contain grammatical, syntax o r spelling errors. Electronically signed by: Duran Timmons M.D. 11/09/2018 6:32 PM
--- NOTE | 2018-11-09 19:34 | History & Physical Report ---
Date of Service November 09, 2018 Assessment & Plan (1) Anemia: 68 y/o F Hx HTN, hypothyroidism, DM II. She has had blurry vision for the past 2 weeks. She presented to her eye doctor in addition to her GP with this complaint. She reports that she was told it may be related to her DM. Her primary MD ordered a CT of the head. Findings were suspicious for a posterior infarct and she was directed to the ER for further evaluation. An MRI/MRA head/neck were obtained elucidating the following: Subacute infarct of the right occipital lobe, multiple subcentimeter subacute infarcts about the centrum semiovale and reyes radiata bilaterally, focal subacute infarct involves the splenium of the right corpus callosum, decreased flow related signal about the distal branches of the right posterior cerebral artery. Initial labs were notable for microcytic anemia with a Hb of 6. She does not report any BRBPR or dark stools. She denies CP, SOB or lightheadedness. She states she was having frequent nose bleeds approximately one month ago and had visited the ER twice as she required packing to stop the bleeding. A guaiac exam in the ER was negative for occult blood. 1) CVA - this likely occurred 2 weeks ago - likely thrombotic considering the findings on her MRA. We will obtain an echo and request a neurology consult. Her vision is significantly impaired and complete recovery is not likely given the time frame. We will start her on daily ASA despite her anemia as we do not have evidence of bleeding. 2) Anemia - may have been due to epistaxis one month ago although she should likely have improved more since then. Microcytosis may indicate iron deficiency in addition, which in turn would have limited her regenerative capacity. Alternatively, her iron deficiency may be due to the epistaxis. Iron studies are pending. Hb will be trended. She will receive 2 units PRBC to start. We may want to consult GI although we have no evidence of a GI source at present. 3) DM II - placed on a SS 4) HTN - poorly controlled on arrival as she had skipped her meds the day of admission. We will provide a stat dose of her meds and metoprolol as her CVA likely occurred 2 weeks ago. Full code, SCDs due to blood loss anemia Total time for this admit including review of labs, meds, imaging, records - discussion with pt and ER attending - 39 min Present on Admission?: Yes (2) CVA (cerebral vascular accident): History of Present Illness Chief Complaint: anemia - blurry vion/CVA Primary Care Provider: GREGORY Velasquez 68 y/o F Hx HTN, hypothyroidism, DM II. She has had blurry vision for the past 2 weeks. She presented to her eye doctor in addition to her GP with this complaint. She reports that she was told it may be related to her DM. Her primary MD ordered a CT of the head. Findings were suspicious for a posterior infarct and she was directed to the ER for further evaluation. An MRI/MRA head/neck were obtained elucidating the following: Subacute infarct of the right occipital lobe, multiple subcentimeter subacute infarcts about the centrum semiovale and reyes radiata bilaterally, focal subacute infarct involves the splenium of the right corpus callosum, decreased flow related signal about the distal branches of the right posterior cerebral artery. Initial labs were notable for microcytic anemia with a Hb of 6. She does not report any BRBPR or dark stools. She denies CP, SOB or lightheadedness. She states she was having frequent nose bleeds approximately one month ago and had visited the ER twice as she required packing to stop the bleeding. A guaiac exam in the ER was negative for occult blood. PMH: 1) DM II 2) HTN 3) Hypothyroidism 4) Nephrolithiasis 5) Lower extremity edema 6) Vitamin D deficiency Surgical: 1) Hysterectomy 2) Appendectomy Social: Does not drink or smoke Family: Mother due to "heart problems" - possibly valvular disease Father - history of multiple CVAs Allergies Allergy/AdvReac Type Severity Reaction Status Date / Time fenoprofen Allergy Intermediate HAND EDEMA Verified 11/09/18 17:44 prednisone Allergy Intermediate FAST HEART Verified 11/09/18 17:44 BEAT adhesive Allergy Unknown "Red welts" Verified 11/09/18 17:44 peach Allergy Unknown WELTS WITH Verified 11/09/18 17:44 PEACH FUZZ tomato Allergy Unknown WELTS WITH Verified 11/09/18 17:44 TOMATOES AND ORANGE JUICE levofloxacin AdvReac Intermediate PNEUMONIA Verified 11/09/18 17:44 Sulfa (Sulfonamide AdvReac Unknown "SULFA Verified 11/09/18 17:44 Antibiotics) DRUGS": ITCHING Home Medications Home Medications Medication Instructions Recorded Confirmed Type furosemide 10 mg PO DAILY PRN 06/12/18 11/09/18 History levothyroxine 75 mcg PO DAILY 06/12/18 11/09/18 History lisinopril 10 mg PO DAILY 06/12/18 11/09/18 History cephalexin 500 mg capsule 500 mg PO TID #30 cap 11/01/18 11/09/18 Rx metformin ER 500 mg 1,000 mg PO BID #60 tab 11/01/18 11/09/18 Rx tablet,extended release 24 hr aspirin 500 mg PO DAILY 11/09/18 11/09/18 History insulin degludec [Tresiba 10 unit SUBCUT DAILY 11/09/18 11/09/18 History FlexTouch U-100] Past Med/Surg History Medical History Cervical lymphadenopathy (Acute) Ecchymosis (Acute) Edema (Acute) Epistaxis (Acute) 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 medications to get the blood sugars under better control. Patient agreeable to start basal insulin. She was given a sample tresiba. She actually gave herself the medication in the office today. She did well. She is able to read the numbers and manage the insulin pen. She will give it is 10 units once daily. She is to check her blood sugars twice daily and call 1 week with blood sugar readings. She is aware that will need to slowly increase her insulin to the blood sugars under better control. Check labs today she will be notified of those results. Reviewed hypoglycemia symptoms. Strongly encouraged her to stop the chocolate milk as well as her soda that she drinks several times a day. I would like to see h er back in 3 weeks. At that time of she is still having problems with lower extremity weakness will set her up with physical therapy. Laceration of lower leg, left (Acute) Low back pain (Acute) Sacroiliac strain (Acute) Sinus congestion (Acute) Type 2 diabetes mellitus (Chronic) Urinary frequency (Acute) Vitamin D deficiency (Acute) Broken foot (Acute) Contusion of foot Diabetes (Chronic) Hypertension (Chronic) Kidney stones (Resolved) Kenney's palsy (Acute) Right foot infection Right foot infection Right foot pain Surgical History H/O: hysterectomy (Resolved) History of appendectomy (Resolved) Family History Other No significant family history Social History Preferred Language: Telugu Feels Safe at Home: Yes Smoking Status: Former smoker Review of Systems 2 Review of Systems: Gen: Denies fevers, night sweats, rigors, fatigue, malaise, weight loss/gain ENT: Denies congestion, throat pain, hearing loss Eyes: Impaired vision x 2 weeks CV: Denies CP, palpitations Pulmonary: Denies SOB, cough, wheezing GI: Denies N/V, diarrhea, constipation Neuro: Denies acute or unilateral weakness, acute gait impairment, headache or acute visual changes Musculoskeletal: Denies joint pain, inflammation Endocrine: Denies polydipsia, polyuria Skin: Denies acute rashes or ulcers Physical Exam Physical Exam: General: AAO x 3, no distress ENT: No erythema or exudates, no thrush Eyes: PERLS, EOMI - see nuero exam Head and neck: Normocephalic, atraumatic, No JVD, neck is supple. Chest/heart: Nontender, S1,2, RRR, no murmurs, no gallops Lungs: CTAB, no wheezing or crackles Abdomen: Nontender, nondistended, BS+ Neuro: AAO x 3, speech is clear, no unilateral weakness or loss of sensation, coordination is affected by vision but otherwise intact Vision: L hemianopsia is present. Additionally, she cannot see at any appreciable distance - unable to count fingers at 2-3 feet Musculoskeletal: No joint inflammation, muscle tenderness, FROM Skin: No acute rashes or ulcers Extremities: No clubbing, cyanosis - BL edema Results & Data Vital Signs (Past 12 Hours) Vital Signs Temp Pulse Resp BP Pulse Ox 11/09/18 19:01 80 20 183/89 H 11/09/18 19:00 80 17 11/09/18 18:39 80 20 172/84 H 11/09/18 18:29 79 22 11/09/18 18:28 82 18 172/83 H 11/09/18 18:27 81 17 11/09/18 16:27 83 25 H 97 11/09/18 16:24 85 24 160/71 H 98 11/09/18 16:17 99.0 F 84 18 167/84 H 97 Diagnostic Findings MRI brain: 1. Subacute appearing infarct of the right occipital lobe demonstrates laminar necrosis and enhancement measuring up to approximately 4.6 cm. Multiple additional mostly subcentimeter subacute infarcts noted about the centrum semiovale and reyes radiata of the cerebral hemispheres bilaterally. 2. Additional focal subacute infarct involves the splenium of the right corpus callosum. MRA brain: Decreased flow related signal about the distal branches of the right posterior cerebral artery within the area of infarct described on CT head and MRI brain of same day is suggestive of a probable underlying distal arterial occlusion or stenosis. Otherwise unremarkable MRA neck: No gross abnormality. Cardiomegaly noted. Mildly motion degraded exam. The bilateral common carotid arteries appear widely patent. The bilateral internal carotid arteries are unremarkable and are also widely patent. The vertebral arteries appear to be codominant and are widely patent. PG Care Time/CCT Total # of Minutes Spent Total Time Spent with Patient: Total time spent is greater than 50% in coordination of care (as documented) at patient's floor/unit and/or counseling patient: (1) Anemia Anemia type: unspecified type Qualified Code(s): D64.9 - Anemia, unspecified (2) CVA (cerebral vascular accident) CVA mechanism: unspecified Qualified Code(s): I63.9 - Cerebral infarction, unspecified
[2018-11-09] MEDS ORDERED: METOPROLOL SUCC 25MG EXT REL TAB PO STA (21:15)
[2018-11-09] MEDS ORDERED: LISINOPRIL 10 MG TAB PO STA (21:15)
[2018-11-09] MEDS ORDERED: ONDANSETRON INJ 2 MG/ML 2 ML VIAL IV PRN (21:20)
[2018-11-09] MEDS ORDERED: ALUMINUM/MAGNESIUM SUSP 30 ML UDC PO PRN (21:20)
[2018-11-09] MEDS ORDERED: POLYETHYLENE (MIRALAX) 17 GM PACK PO PRN (21:20)
[2018-11-09] MEDS ORDERED: MAGNESIUM HYDROXIDE SUSP 30 ML UDC PO PRN (21:20)
[2018-11-09] MEDS ORDERED: CARBOHYDRATES FOR HYPOGLYCEMIA PO PRN (21:45)
[2018-11-09] MEDS ORDERED: GLUCOSE 10 TABS/TUBE PO PRN (21:45)
[2018-11-09] MEDS ORDERED: DEXTROSE 50% 50 ML SYRINGE IV PRN (21:45)
[2018-11-09] MEDS ORDERED: GLUCOSE 40% GEL 15 GM TUBE PO PRN (21:45)
[2018-11-09] MEDS ORDERED: GLUCAGON FOR INJ 1 MG VIAL IM PRN (21:45)
[2018-11-09 21:49] LABS: Iron 13 mcg/dl (35-150)
[2018-11-09] MEDS: INSULIN ASPART 100 UNITS/ML 3 ML PEN SC SCH (23:27)
[2018-11-09] MEDS ORDERED: LACTATED RINGER'S 1,000 ML IV SCH (23:55)
[2018-11-10] MEDS: INSULIN ASPART 100 UNITS/ML 3 ML PEN SC SCH ×4 (04:20→20:51)
--- NOTE | 2018-11-10 08:37 | Gastrointestinal Consultation ---
Date of Consultation November 10, 2018 Assessment & Plan (1) Iron deficiency anemia: 1. Will check Celiac serology with tomorrow's AM labs. Will also order stool for H Pylori. 2. GI bleeding such as ulcers, colon cancer are considered, however, she does not seem to be bleeding acutely. Other cause of anemia could be the nose bleeds that she experienced a month ago. Because of subacute stroke, she is at increased risk for complications from sedation. Due to this increased risk and lack of evidence of current bleeding. she would benefit from waiting a few weeks for endoscopy. 3. Our office will call her to arrange OP EGD and colonoscopy in 6-8 weeks. Pt is aware, agrees to this plan and will contact us if she experiences any black BM, vomiting or blood or coffee grounds or any bright red rectal bleeding. Endoscopy could be completed urgently if she begins with gross GI bleeding. 4. No GI contraindication to a regular diet. Present on Admission?: Yes Supervising Physician Co-Signing Physician Notes I have seen and examined the patient and discussed the management with GREGORY Ha. 68 yo fm admitted with blurry vision, imaging suggestive of posterior occipital stroke, mild neuro deficits on my exam of lack of left sided tracking of the finger during a cranial nerve assessment- being followed by neurology. GI consulted for anemia- no reports of current or recent active hematemesis, hematochezia, no abdominal pain, nausea, vomiting, no recent nsaid use, no history of liver problems. Her son is with her who endorses her history as she states it. Pmhx significant for htn, diabetes. PE - alert female in nad, heent- perrla, slight lack of tracking on the left side with cn assessment, abd - soft nt nd +bs, ext - no sofía Labs reviewed- hgb has improved Given recent stroke (potentially within the last 2 weeks)- egd/colonoscpy would be deferred for at least 6-8 weeks for further workup of her anemia. She and her son are in agreement with this, this will be arranged as an outpatient. Further work-up for her stroker per neurology- echo is pending. History of Present Illness Reason for Consultation: Microcytic Anemia Requesting Physician: Dr. Chua Attending Physician: Manoj Chua MD History of Present Illness Ms. Joanna Molina is a 68 yr old female pt of Mayra Bernabe, [employer] with a hx of DM II HTN, Hypothyroidism, HTN, who was directed to the ED on 11/09 after seeing her PCP for blurred vision and CT was suggestive of CVA. After workup during this admission, it is thought that she experienced a thrombotic stoke approx 2 weeks ago. GI is consulted for anemia as her Hb on arrival was 6.0, iron 13, MCV 69.8. She reports that about a month ago, she experienced several nose bleeds, one every day for about a week, resolving when she presented to the ED and the nose was packed. She mentions having had some fatigue but did not experience CP or SOB. Also denies any abdominal pain, nausea, vomiting, melena, hematochezia. She passed one formed brown BM this morning. Stool occult in the ED was (-). She received 2 units of RBCs and Hb today is 8.0. Allergies Allergy/AdvReac Type Severity Reaction Status Date / Time fenoprofen Allergy Intermediate HAND EDEMA Verified 11/09/18 17:44 prednisone Allergy Intermediate FAST HEART Verified 11/09/18 17:44 BEAT adhesive Allergy Unknown "Red welts" Verified 11/09/18 17:44 peach Allergy Unknown WELTS WITH Verified 11/09/18 17:44 PEACH FUZZ tomato Allergy Unknown WELTS WITH Verified 11/09/18 17:44 TOMATOES AND ORANGE JUICE levofloxacin AdvReac Intermediate PNEUMONIA Verified 11/09/18 17:44 Sulfa (Sulfonamide AdvReac Unknown "SULFA Verified 11/09/18 17:44 Antibiotics) DRUGS": ITCHING Home Medications Home Medications Medication Instructions Recorded Confirmed Type furosemide 10 mg PO DAILY PRN 06/12/18 11/09/18 History levothyroxine 75 mcg PO DAILY 06/12/18 11/09/18 History lisinopril 10 mg PO DAILY 06/12/18 11/09/18 History cephalexin 500 mg capsule 500 mg PO TID #30 cap 11/01/18 11/09/18 Rx metformin ER 500 mg 1,000 mg PO BID #60 tab 11/01/18 11/09/18 Rx tablet,extended release 24 hr aspirin 500 mg PO DAILY 11/09/18 11/09/18 History insulin degludec [Tresiba 10 unit SUBCUT DAILY 11/09/18 11/09/18 History FlexTouch U-100] Patient History Medical History Cervical lymphadenopathy (Acute) Ecchymosis (Acute) Edema (Acute) Epistaxis (Acute) 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 medications to get the blood sugars under better control. Patient agreeable to start basal insulin. She was given a sample tresiba. She actually gave herself the medication in the office today. She did well. She is able to read the numbers and manage the insulin pen. She will give it is 10 units once daily. She is to check her blood sugars twice daily and call 1 week with blood sugar readings. She is aware that will need to slowly increase her insulin to the blood sugars under better control. Check labs today she will be notified of those results. Reviewed hypoglycemia symptoms. Strongly encouraged her to stop the chocolate milk as well as her soda that she drinks several times a day. I would like to see her back in 3 weeks. At that time of she is still having problems with lower extremity weakness will set her up with physical therapy. Laceration of lower leg, left (Acute) Low back pain (Acute) Sacroiliac strain (Acute) Sinus congestion (Acute) Type 2 diabetes mellitus (Chronic) Urinary frequency (Acute) Vitamin D deficiency (Acute) Broken foot (Acute) Contusion of foot Diabetes (Chronic) Hypertension (Chronic) Kidney stones (Resolved) Kenney's palsy (Acute) Right foot infection Right foot infection Right foot pain Surgical History H/O: hysterectomy (Resolved) History of appendectomy (Resolved) Family History Other No significant family history Social History Preferred Language: Faroese Communication Ability: Effective Manager Emergency Required: No Beliefs That Will Affect Care: None Current Living Situation: Spouse Other Information That Helps Us Care for You: No Feels Safe at Home: Yes Safety Concerns: Feels Safe At This Time Smoking Status: Never smoker Do You Dip or Chew Tobacco: No Second Hand Exposure: No Tobacco Cessation Education Requested by Patient: No Hx Alcohol Use: No Hx Substance Use: No Review of Systems Review of Systems: ROS: Gen: Denies weakness, fevers, weight loss Eyes: No eye redness, or pain, no recent vision changes Resp: No SOB, no cough Cardio: No palpitations/irregular beats, no chest pain GI: No abdominal pain, no nausea/vomiting : Denies pain on urination Skin: No jaundice, itching or new rashes Physical Exam Constitutional: WD/WN, vitals as above + obese Very pleasant, conversational Eyes: PERRL, conjunctivae normal, anicteric sclerae ENMT: external ear and nose normal, oropharynx normal Neck: trachea midline, no thyromegaly Respiratory: normal respiratory effort, lungs clear to auscultation Cardiovascular: RRR, no murmur, no edema Gastrointestinal (Abdomen): normal bowel sounds, soft, nontender, no hepatosplenomegaly Musculoskeletal: no cyanosis or clubbing, extremities motor strength 5/5 Head/Neck/Chest: + head abnormal to inspection Skin: pale but no jaundice, no cyanosis Neurologic: PERRL, EOMI, accommodation nl, no face palsy, no dysarthria Psychiatric: A+Ox3, euthymic affect Lymphatic: no cervical or axillary lymphadenopathy Results & Data Vital Signs (Past 12 Hours) Vital Signs Temp Pulse Pulse Resp BP BP Pulse Ox 11/10/18 07:59 36.6 C 77 16 176/98 H 97 11/10/18 03:31 37 C 83 16 175/84 H 96 11/10/18 02:39 37.2 C 75 16 182/79 H 97 11/10/18 02:09 36.9 C 86 16 177/77 H 96 11/10/18 01:54 36.7 C 84 16 167/78 H 94 11/10/18 01:38 37.1 C 77 16 174/96 H 94 11/10/18 00:52 37.1 C 81 16 185/83 H 97 11/10/18 00:29 36.9 C 78 20 193/66 H 98 11/09/18 23:50 88 11/09/18 23:29 36.8 C 86 16 182/81 H 97 11/09/18 22:59 36.8 C 16 170/97 H 96 11/09/18 22:44 36.9 C 86 16 168/82 H 98 11/09/18 22:17 36.8 C 88 16 174/79 H 97 11/09/18 21:10 84 11/09/18 20:40 36.8 C 84 20 185/93 H 98
[2018-11-10] MEDS ORDERED: LISINOPRIL 10 MG TAB PO SCH (09:00)
[2018-11-10] MEDS: LEVOTHYROXINE SODIUM 75 MCG TABLET PO SCH (09:01)
[2018-11-10] MEDS: ASPIRIN 81 MG ECTAB PO SCH (09:02)
--- NOTE | 2018-11-10 09:50 | Neurology Consultation ---
Date of Consultation November 10, 2018 Assessment & Plan (1) CVA (cerebral vascular accident): Multiple subacute infarcts in both cerebral hemispheres, the largest of which involves the right occipital lobe and is producing a left homonymous hemianopsia. She has several subcentimeter infarcts within both cerebral hemispheres that do not appear to be producing an obvious focal neurological deficit although the patient does have some cognitive slowing, a mild frontal headache, and a feeling of imbalance that could be related. She does not have any evidence of a brainstem or cerebellar stroke on MRI. Stroke risk factors for this patient include diabetes mellitus, hypertension, and hyperlipidemia. I agree with daily low-dose aspirin for the time being as it sounds like she was not really taking daily aspirin consistently before this recent stroke. I would recommend a transthoracic echocardiogram with bubble study to potentially exclude a cardioembolic source as her stroke is multifocal and involves both cerebral hemispheres. Continue to monitor blood pressure. Systolic blood p ressure goal 140 to 160 mmHg for the time being. Consultations with PT/OT. Patient will need an outpatient visual field assessment as well. History of Present Illness Reason for Consultation: Stroke Requesting Physician: Manoj Chua MD Attending Physician: Gaby Llanos MD History of Present Illness The patient is a 68-year-old female with a chief complaint of vision loss that she believes began about 2 weeks ago. The patient is a bit uncertain of the exact onset of her vision difficulty but does believe the symptoms varied in intensity, at least initially but have been fairly persistent for over 1 week. She has some difficulty describing the exact character of her vision loss but does seem to indicate greater difficulty off to the left. She also complains of some associated unsteadiness on her feet. She denies any focal weakness or sensory loss to the limbs. She denies any dizziness or vertigo. She denies experiencing any double vision or change in speech or swallowing. She also denies experiencing any falls in the past few weeks. She does complain of a mild frontal headache which seems to be new as well. No nausea or light sensitivity. No history of migraine. Past medical history is notable for diabetes mellitus, hypertension, and anemia. The patient reports that she began taking a daily aspirin within the past 1 to 2 weeks. She is also prescribed lisinopril, furosemide, insulin, and metformin as an outpatient. She denies a history of heart attack, atrial fibrillation, or stroke. Allergies Allergy/AdvReac Type Severity Reaction Status Date / Time fenoprofen Allergy Intermediate HAND EDEMA Verified 11/09/18 17:44 prednisone Allergy Intermediate FAST HEART Verified 11/09/18 17:44 BEAT adhesive Allergy Unknown "Red welts" Verified 11/09/18 17:44 peach Allergy Unknown WELTS WITH Verified 11/09/18 17:44 PEACH FUZZ tomato Allergy Unknown WELTS WITH Verified 11/09/18 17:44 TOMATOES AND ORANGE JUICE levofloxacin AdvReac Intermediate PNEUMONIA Verified 11/09/18 17:44 Sulfa (Sulfonamide AdvReac Unknown "SULFA Verified 11/09/18 17:44 Antibiotics) DRUGS": ITCHING Home Medications Home Medications Medication Instructions Recorded Confirmed Type furosemide 10 mg PO DAILY PRN 06/12/18 11/09/18 History levothyroxine 75 mcg PO DAILY 06/12/18 11/09/18 History lisinopril 10 mg PO DAILY 06/12/18 11/09/18 History cephalexin 500 mg capsule 500 mg PO TID #30 cap 11/01/18 11/09/18 Rx metformin ER 500 mg 1,000 mg PO BID #60 tab 11/01/18 11/09/18 Rx tablet,extended release 24 hr aspirin 500 mg PO DAILY 11/09/18 11/09/18 History insulin degludec [Tresiba 10 unit SUBCUT DAILY 11/09/18 11/09/18 History FlexTouch U-100] Patient History Medical History Cervical lymphadenopathy (Acute) Ecchymosis (Acute) Edema (Acute) Epistaxis (Acute) 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 medications to get the blood sugars under better control. Patient agreeable to start basal insulin. She was given a sample tresiba. She actually gave herself the medication in the office today. She did well. She is able to read the numbers and manage the insulin pen. She will give it is 10 units once daily. She is to check her blood sugars twice daily and call 1 week with blood sugar readings. She is aware that will need to slowly increase her insulin to the blood sugars under better control. Check labs today she will be notified of those results. Reviewed hypoglycemia symptoms. Strongly encouraged her to stop the chocolate milk as well as her soda that she drinks several times a day. I would like to see her back in 3 weeks. At that time of she is still having problems with lower extremity weakness will set her up with physical therapy. Laceration of lower leg, left (Acute) Low back pain (Acute) Sacroiliac strain (Acute) Sinus congestion (Acute) Type 2 diabetes mellitus (Chronic) Urinary frequency (Acute) Vitamin D deficiency (Acute) Broken foot (Acute) Contusion of foot Diabetes (Chronic) Hypertension (Chronic) Kidney stones (Resolved) Kenney's palsy (Acute) Right foot infection Right foot infection Right foot pain Surgical History H/O: hysterectomy (Resolved) History of appendectomy (Resolved) Family History Other No significant family history Social History Preferred Language: Spanish Communication Ability: Effective Cloth Tester Quality Required: No Beliefs That Will Affect Care: None Current Living Situation: Spouse Other Information That Helps Us Care for You: No Feels Safe at Home: Yes Safety Concerns: Feels Safe At This Time Smoking Status: Never smoker Do You Dip or Chew Tobacco: No Second Hand Exposure: No Tobacco Cessation Education Requested by Patient: No Hx Alcohol Use: No Hx Substance Use: No Review of Systems Constitutional: no fever and no chills Eyes: as per Subjective / HPI and + blind spots; no diplopia Ear, Nose, Mouth, Throat: no hearing loss Respiratory: no cough and no dyspnea Cardiovascular: no chest pain and no palpitations Gastrointestinal: no nausea and no vomiting Genitourinary: no dysuria Musculoskeletal: no myalgia Integumentary: no rash and no lesions Neurologic: as per Subjective / HPI Psychiatric: no depression and no anxiety Hematologic / Lymphatic: no easy bleeding and no easy bruising Physical Exam Physical Exam: The patient is a well-developed, well-nourished elderly female. She is alert and fully oriented. Processing speed is somewhat slow. Recent and remote memory intact. Attention and concentration are normal. Patient is able to name objects and repeat phrases. She is able to read text from her newspaper but does have some difficulty following text off to the left of the paper. Patient exhibits an age-appropriate fund of knowledge and normal vocabulary. There is a left homonymous hemianopsia with confrontation testing of the visual wong. Visual acuity intact. Pupils equal round reactive to light and accommodation. Eye movements intact. Facial sensation intact. There is no facial droop or weakness. Hearing intact bilaterally. Palate elevates to midline. Shoulder shrug intact. Tongue protrudes to midline. Sensation intact to all modalities in all 4 limbs. Deep tendon reflexes are diminished throughout. Plantar responses silent bilaterally. There is no dysdiadochokinesia or dysmetria [id number] or [id number] bilaterally. Ophthalmoscopic examination reveals normal-appearing optic disks and posterior segments. No papilledema or hemorrhages. Carotid pulses normal bilaterally, no bruits to auscultation. Gait and station not tested due to safety concerns. Patient exhibits normal muscle strength and tone for all 4 limbs. No atrophy. No abnormal movements observed. Results & Data Vital Signs (Past 12 Hours) Vital Signs Temp Pulse Pulse Resp BP BP Pulse Ox 11/10/18 07:59 36.6 C 77 16 176/98 H 97 11/10/18 03:31 37 C 83 16 175/84 H 96 11/10/18 02:39 37.2 C 75 16 182/79 H 97 11/10/18 02:09 36.9 C 86 16 177/77 H 96 11/10/18 01:54 36.7 C 84 16 167/78 H 94 11/10/18 01:38 37.1 C 77 16 174/96 H 94 11/10/18 00:52 37.1 C 81 16 185/83 H 97 11/10/18 00:29 36.9 C 78 20 193/66 H 98 11/09/18 23:50 88 11/09/18 23:29 36.8 C 86 16 182/81 H 97 11/09/18 22:59 36.8 C 16 170/97 H 96 11/09/18 22:44 36.9 C 86 16 168/82 H 98 11/09/18 22:17 36.8 C 88 16 174/79 H 97 Laboratory Results Recent labs reviewed. WBC 8.55, hemoglobin 8.0, hematocrit 22.2, platelet count 266, sodium 139, potassium 3.7, BUN 11, creatinine 0.93, glucose 175, hemoglobin A1c 7.7, lipid panel from May revealed a mildly elevated total cholesterol of 209. Diagnostic Findings A CT of the head completed yesterday revealed a probable acute to subacute infarct involving the right occipital lobe. Images and report reviewed. Follow-up MRI of the brain confirmed the presence of a subacute infarct within the right occipital lobe with associated laminar necrosis and enhancement measuring 4.6 cm. There are several other subcentimeter subacute infarcts in the cerebral hemispheres bilaterally as well as an infarct within the splenium of the right corpus callosum. Images and report reviewed. MRA of the head revealed decreased flow in the distal branches of the right posterior cerebral artery and was otherwise unremarkable. MRA of the neck was unremarkable. An electrocardiogram completed yesterday revealed sinus rhythm with first-degree AV block, 80 bpm. (1) CVA (cerebral vascular accident) CVA mechanism: unspecified Qualified Code(s): I63.9 - Cerebral infarction, unspecified
[2018-11-10 10:10] LABS: Chol HDL Ratio 3; Cholesterol 135 mg/dl (0-200); HDL Cholesterol 42 mg/dl; LDL Cholesterol Calculated 70 mg/dl; Triglycerides 116 mg/dl (0-150); VLDL Cholesterol 23 mg/dl
[2018-11-10] MEDS: ACETAMINOPHEN 325 MG TAB PO PRN (11:10)
[2018-11-10] MEDS ORDERED: Nursing to Pharmacy Communication ONE (12:34)
[2018-11-10] MEDS ORDERED: LISINOPRIL 10 MG TAB PO ONE (13:45)
--- NOTE | 2018-11-10 15:57 | Hospitalist Progress Note ---
Date of Service November 10, 2018 Assessment & Plan (1) CVA (cerebral vascular accident): This patient is a 68 y/o female with a history of HTN, hypothyroidism, and DM II. She has had blurry vision for the past 2 weeks. She presented to her eye doctor in addition to her GP with this complaint. She reports that she was told it may be related to her DM. Her primary MD ordered a CT of the head. Findings were suspicious for a posterior infarct and she was directed to the ER for further evaluation. An MRI/MRA head/neck were obtained elucidating the following: Subacute infarct of the right occipital lobe, multiple subcentimeter subacute infarcts about the centrum semiovale and reyes radiata bilaterally, focal subacute infarct involves the splenium of the right corpus callosum, decreased flow related signal about the distal branches of the right posterior cerebral artery. CVA -multiple bilateral hemispheric strokes with the largest being in the right occipital lobe. This likely occurred 2 weeks ago - likely thrombotic considering the findings on her MRA, however given bilateral hemispheres, is likely from an embolic source. Echocardiogram without source of cardiac emboli or inter-atrial shunt So far, no atrial fibrillation or flutter on telemetry monitoring-will need lo ng-term cardiac monitoring after discharge to look for occult atrial fibrillation -Started on aspirin 81 mg daily-watch for epistaxis -Lipid panel very well controlled-she should be started on high intensity statin especially in the setting of diabetes -Her vision is significantly impaired with a left homonymous hemianopsia and complete recovery is not likely given the time frame -She will need formal visual field testing after discharge with ophthalmology-I advised her she is not allowed to drive at this time -Awaiting PT/OT evaluations as she is unsteady on her feet and has a visual field defect, she may end up needing acute rehab -Treat headache as needed with acetaminophen -Appreciate neurology consultation (2) Anemia: Initial labs were notable for microcytic anemia with a Hb of 6 and an MCV of 69. She does not report any BRBPR or dark stools, no hematemesis, no hematuria. She denies CP, SOB or lightheadedness. She states she was having frequent nose bleeds approximately one month ago almost daily for 2 to 3 weeks. She had a previous ER visit in May for which she required a Rhino Rocket placement. She never followed up with ENT as she was recommended to do so and did not seek care with her more recent recurrent epistaxis. A guaiac exam in the ER was negative for occult blood. She was transfused with 2 units of PRBCs and her hemoglobin is up to 8.0 today Iron studies are severely low and TIBC high, indicative of profound iron deficiency-unclear if this is all from epistaxis or if there is also occult GI bleeding Consulted GI-recommends outpatient EGD and colonoscopy after recovery from stroke in 6 to 8 weeks -Follow CBC in the morning -Will start on ferrous sulfate 325 mg p.o. twice daily (3) Acute blood loss anemia: Likely secondary to epistaxis as above (4) Hypertension: Blood pressures are higher than desired even in the setting of recent stroke We are now approximately 2 weeks out from her stroke and can tighten down the blood pressure control with a goal of 140-160/80-90 -Increase lisinopril to 20 mg daily -Continue Toprol-XL 25 mg p.o. nightly started yesterday evening upon admission (5) Hypothyroidism: TSH here is normal -Continue home dose of levothyroxine (6) Type 2 diabetes mellitus: Hemoglobin A1c is 7.7%, fairly well controlled and improved from previous -Continue Accu-Cheks, supplemental NovoLog -Holding home Tresiba and metformin (7) Epistaxis: With history as above, none currently -Watch for recurrent epistaxis since starting on daily baby aspirin (8) Cellulitis, finger: Much improved from previous as per patient With cat bite, will change to Augmentin 875/125 mg p.o. twice daily x2 more days (9) DVT prophylaxis: Given severe anemia and history of significant epistaxis, will avoid chemoprophylaxis at this time for DVT SCDs in place Disposition-remain on telemetry overnight, awaiting PT/OT evaluations and to see if needs rehab placement Discussed her care with multiple family members at the bedside including relative that is an internal medicine physician, her , her daughter, her son-in-law, and her brother Subjective Patient reports still feeling off balance. Does have a mild headache. She is having some difficulty with seeing off to the left of her field of vision. Denies chest pain or shortness of breath. She reports she had 2 to 3 weeks of daily nosebleeds that would last for 1 to 2 hours each time. The last of these nosebleeds was several weeks ago she reports, however she also reports she was recently in the ER-review of the chart shows that this ER visit she refers to was 6 months ago which was when her hemoglobin was last checked. She denies any black tarry stools or hematochezia, no hematemesis. No bleeding from anywhere else. She was previously taking a lot of aspirin and ibuprofen as needed for headaches and has stopped doing that. Telemetry with normal sinus rhythm with rates in the 70s to 80s, no atrial fibrillation Review of Systems Review of Systems: All systems reviewed & are unremarkable except as noted in HPI & below Patient reports right index finger redness and swelling and pain is still present but improved from previous since starting on antibiotics for a cat bite from several days ago She was taking Keflex at home for the last 9 days Physical Exam Constitutional: WD/WN, vitals as above + obese Eyes: PERRL, conjunctivae normal, anicteric sclerae ENMT: external ear and nose normal, oropharynx normal (No epistaxis) Neck: trachea midline, no thyromegaly Respiratory: normal respiratory effort, lungs clear to auscultation Cardiovascular: RRR, no murmur, no edema Gastrointestinal (Abdomen): normal bowel sounds, soft, nontender, no hepatosplenomegaly Musculoskeletal: Extremities: extremities normal to inspection; no cyanosis and no clubbing Skin: + wound (Right index finger with small puncture wounds and very mild tenderness to palpation of the distal phalanx with very mild erythema and minimal edema) Neurologic: moves all extremities and awake Psychiatric: A+Ox3, euthymic affect Results & Data Vital Signs (Past 12 Hours) Vital Signs Temp Pulse Pulse Resp BP Pulse Ox 11/10/18 15:18 36.7 C 84 18 157/91 H 98 11/10/18 09:00 74 11/10/18 07:59 36.6 C 77 16 176/98 H 97 Laboratory Results 11/10/18 11/10/18 11/10/18 Range/Units 20:19 16:21 11:35 Hgb (12.0-16.0) g/dL POC Glucose 200 H 141 H 177 H (70-99) Troponin I (0-0.045) ng/ml Triglycerides (0-150) mg/dl Cholesterol (0-200) mg/dl LDL Cholesterol, Calc mg/dl VLDL Cholesterol, Calc mg/dl HDL Cholesterol mg/dl Cholesterol/HDL Ratio Hepatitis C Ab Screen (Neg) Blood Type Antibody Screen Crossmatch 11/10/18 11/10/18 11/10/18 Range/Units 07:44 06:16 04:20 Hgb (12.0-16.0) g/dL POC Glucose 160 H 156 H (70-99) Troponin I (0-0.045) ng/ml Triglycerides 116 (0-150) mg/dl Cholesterol 135 (0-200) mg/dl LDL Cholesterol, Calc 70 mg/dl VLDL Cholesterol, Calc 23 mg/dl HDL Cholesterol 42 mg/dl Cholesterol/HDL Ratio 3 Hepatitis C Ab Screen (Neg) Blood Type Antibody Screen Crossmatch 11/10/18 11/10/18 11/10/18 Range/Units 04:20 04:20 04:20 Hgb 8.0 L (12.0-16.0) g/dL POC Glucose (70-99) Troponin I 0.045 (0-0.045) ng/ml Triglycerides (0-150) mg/dl Cholesterol (0-200) mg/dl LDL Cholesterol, Calc mg/dl VLDL Cholesterol, Calc mg/dl HDL Cholesterol mg/dl Cholesterol/HDL Ratio Hepatitis C Ab Screen Neg (Neg) Blood Type Antibody Screen Crossmatch 11/10/18 11/09/18 11/09/18 Range/Units 04:09 18:26 16:47 Hgb (12.0-16.0) g/dL POC Glucose 146 H 196 H (70-99) Troponin I (0-0.045) ng/ml Triglycerides (0-150) mg/dl Cholesterol (0-200) mg/dl LDL Cholesterol, Calc mg/dl VLDL Cholesterol, Calc mg/dl HDL Cholesterol mg/dl Cholesterol/HDL Ratio Hepatitis C Ab Screen (Neg) Blood Type A Positive Antibody Screen NEGATIVE Crossmatch See Detail Diagnostic Findings MRA neck-negative MRA head-IMPRESSION: 1. Decreased flow related signal about the distal branches of the right posterior cerebral artery within the area of infarct described on CT head and MRI brain of same day is suggestive of a probable underlying distal arterial occlusion or stenosis. 2. Otherwise unremarkable MRA without proximal branch occlusion, aneurysm, dissection or focal high-grade stenosis identified. MR brain wo/w con HISTORY: 68 years-old Female Rt parietal lobe subacute strokelike symptoms COMPARISON: MRA head and neck and CT head of same day, brain MRI 04/03/2017 TECHNIQUE: Multiplanar multisequence MRI of the brain was obtained both with and without the use of 7.5 mL Gadavist FINDINGS: Multifocal subcentimeter foci of restricted diffusion with intermediate signal on ADC map noted about the watershed distributions of the bilateral centrum semiovale and reyes radiata distributions. Additionally, there is a 4.6 x 1.8 x 4.2 irregular focus of restricted diffusion about the right occipital lobe, image 10 series 4 with a 1.8 cm area of restricted diffusion about the splenium of the right corpus callosum ill-defined enhancement is noted within several of these foci, notably within the right occipital lobe focus. Additionally, moderate degree of laminar necrosis of the right occipital lobe infarct is also noted. There are no abnormal extra-axial collections, hydrocephalus or midline shift. No definite intracranial mass identified. Moderate chronic microvascular ischemic disease with age-related involutional changes. Major flow voids appear patent. Mild mucosal thickening about the paranasal sinuses. Prior bilateral cataract repair. Skull and soft tissues are unremarkable. IMPRESSION: 1. Subacute appearing infarct of the right occipital lobe demonstrates laminar necrosis and enhancement measuring up to approximately 4.6 cm. Multiple additional mostly subcentimeter subacute infarcts noted about the centrum semiovale and reyes radiata of the cerebral hemispheres bilaterally. 2. Additional focal subacute infarct involves the splenium of the right corpus callosum. ECHO: No cardiac source of emboli found, grade 1 diastolic dysfunction, mildly elevated RVSP at 30-40 mmHg, normal LV function PG Care Time/CCT Total # of Minutes Spent Total Time Spent with Patient: Total time spent is greater than 50% in coordination of care (as documented) at patient's floor/unit and/or counseling patient: (1) Anemia Anemia type: unspecified type Qualified Code(s): D64.9 - Anemia, unspecified (2) CVA (cerebral vascular accident) CVA mechanism: unspecified Qualified Code(s): I63.9 - Cerebral infarction, unspecified
[2018-11-10] MEDS: AMOXICILLIN/CLAVULANATE 875 MG TAB PO SCH (17:21)
[2018-11-10] MEDS ORDERED: METOPROLOL SUCC 25MG EXT REL TAB PO SCH (21:00)
[2018-11-11] MEDS: ACETAMINOPHEN 325 MG TAB PO PRN ×2 (00:34→12:58)
[2018-11-11] MEDS: LEVOTHYROXINE SODIUM 75 MCG TABLET PO SCH (05:27)
[2018-11-11] MEDS: ASPIRIN 81 MG ECTAB PO SCH (07:50)
[2018-11-11] MEDS: AMOXICILLIN/CLAVULANATE 875 MG TAB PO SCH ×2 (07:50→17:34)
[2018-11-11] MEDS ORDERED: FERROUS SULFATE 325 MG TAB PO SCH (08:00)
[2018-11-11 08:04] LABS: Basophils # (auto) 0.05 K/uL (0-0.2); Basophils % (auto) 0.5 %; Eosinophils # (auto) 0.16 K/uL (0-0.5); Eosinophils % (auto) 1.7 %; Hematocrit (blood only) 27.2 % (37-47); Hemoglobin 8.1 g/dL (12.0-16.0); Immature Granulocytes # (auto) 0.07 K/uL (0.00-0.02); Immature Granulocytes % (auto) 0.7 %; Lymphocytes # (auto) 2.53 K/uL (1.2-3.4); Lymphocytes % (auto) 26.2 %; Mean Corpuscular Hgb Conc 29.8 g/dL (32-36); Mean Corpuscular Volume 72.3 fL (80-100); Mean Platelet Volume 10.5 fL (7.4-10.4); Monocytes # (auto) 0.81 K/uL (0.11-0.59); Monocytes % (auto) 8.4 %; Neutrophils # (auto) 6.03 K/uL (1.4-6.5); Neutrophils % (auto) 62.5 %; Nucleated RBC # (auto) 0.13 K/uL (0-0); Nucleated RBC % (auto) 1.4 %; Platelet Count 264 K/uL (130-400); RDW Coefficient of Variation 18.8 % (11.5-14.5); RDW Standard Deviation 49.7 fL (36.4-46.3); Red Blood Count 3.76 M/uL (4.2-5.4); White Blood Count 9.65 K/uL (4.8-10.8)
[2018-11-11 08:29] LABS: Anisocytosis Present
[2018-11-11 08:32] LABS: BUN Creatinine Ratio 10.3 (10-20); Calcium 9.5 mg/dl (8.5-10.1); Creatinine Clr Calc Pharmacy 71.9 ml/min; Est GFR (African American) 76.1; Est GFR (Non-African American) 65.7; Potassium 3.8 mmol/L (3.5-5.1)
[2018-11-11] MEDS: INSULIN ASPART 100 UNITS/ML 3 ML PEN SC SCH ×2 (08:40→12:22)
[2018-11-11] MEDS ORDERED: LISINOPRIL 20 MG TAB PO SCH (09:00)
[2018-11-11] MEDS ORDERED: ATORVASTATIN 40 MG TAB PO SCH (09:00)
[2018-11-11] MEDS ORDERED: METOPROLOL SUCC 25MG EXT REL TAB PO SCH (09:15)
--- NOTE | 2018-11-11 09:35 | Emergency Department Note ---
Entered by Valeri Malloy acting as a scribe for History of Present Illness General Chief complaint: Referred by Doctor Stated complaint: POSSIBLE STROKE Time Seen by Provider: 11/09/18 16:24 Source: patient History of Present Illness Onset (ago): week(s) 2 Location: eyes Pain Consistency: + constant Maximum Pain Intensity: 3 Quality: + other (blurry vision) Associated symptoms: + denies other symptoms (falls, abdominal pain); no headach es The patient is a 68 year old female who presents to the Emergency Room with c omplaints of constant blurry vision in both eyes for 2 weeks. She reports she told her PCP about her symptoms and he ordered for her to get a CT today which she had done around 1400 this afternoon. Her PCP called and told her to come to the ED because he saw some subacute changes on her CT. She denies headaches, abdominal pain, or recent falls. Home Medications Home Medications Medication Instructions Recorded Confirmed Type furosemide 10 mg PO DAILY PRN 06/12/18 11/09/18 History levothyroxine 75 mcg PO DAILY 06/12/18 11/09/18 History lisinopril 10 mg PO DAILY 06/12/18 11/09/18 History cephalexin 500 mg capsule 500 mg PO TID #30 cap 11/01/18 11/09/18 Rx metformin ER 500 mg 1,000 mg PO BID #60 tab 11/01/18 11/09/18 Rx tablet,extended release 24 hr insulin degludec [Tresiba 10 unit SUBCUT DAILY 11/09/18 11/09/18 History FlexTouch U-100] Allergies Allergy/AdvReac Type Severity Reaction Status Date / Time fenoprofen Allergy Intermediate HAND EDEMA Verified 11/09/18 17:44 prednisone Allergy Intermediate FAST HEART Verified 11/09/18 17:44 BEAT adhesive Allergy Unknown "Red welts" Verified 11/09/18 17:44 peach Allergy Unknown WELTS WITH Verified 11/09/18 17:44 PEACH FUZZ tomato Allergy Unknown WELTS WITH Verified 11/09/18 17:44 TOMATOES AND ORANGE JUICE levofloxacin AdvReac Intermediate PNEUMONIA Verified 11/09/18 17:44 Sulfa (Sulfonamide AdvReac Unknown "SULFA Verified 11/09/18 17:44 Antibiotics) DRUGS": ITCHING Past Med/Surg History Medical History Cervical lymphadenopathy (Acute) Ecchymosis (Acute) Edema (Acute) Epistaxis (Acute) 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 medications to get the blood sugars under better control. Patient agreeable to start basal insulin. She was given a sample tresiba. She actually gave herself the medication in the office today. She did well. She is able to read the numbers and manage the insulin pen. She will give it is 10 units once daily. She is to check her blood sugars twice daily and call 1 week with blood sugar readings. She is aware that will need to slowly increase her insulin to the blood sugars under better control. Check labs today she will be notified of those results. Reviewed hypoglycemia symptoms. Strongly encouraged her to stop the chocolate milk as well as her soda that she drinks several times a day. I would like to see her back in 3 weeks. At that time of she is still having problems with lower extremity weakness will set her up with physical therapy. Laceration of lower leg, left (Acute) Low back pain (Acute) Sacroiliac strain (Acute) Sinus congestion (Acute) Type 2 diabetes mellitus (Chronic) Urinary frequency (Acute) Vitamin D deficiency (Acute) Broken foot (Acute) Contusion of foot Diabetes (Chronic) Hypertension (Chronic) Kidney stones (Resolved) Kenney's palsy (Acute) Right foot infection Right foot infection Right foot pain Surgical History H/O: hysterectomy (Resolved) History of appendectomy (Resolved) Family History Other No significant family history Social History Preferred Language: Kinyarwanda Communication Ability: Effective Facilities Maintenance Technician Required: No Beliefs That Will Affect Care: None marital status: Current Living Situation: Spouse Other Information That Helps Us Care for You: No Feels Safe at Home: Yes Safety Concerns: Feels Safe At This Time Smoking Status: Never smoker Do You Dip or Chew Tobacco: No Second Hand Exposure: No Tobacco Cessation Education Requested by Patient: No Hx Alcohol Use: No Hx Substance Use: No Review of Systems See HPI for pertinent positives & negatives. and A total of 10 systems reviewed and were otherwise negative Physical Exam Vital Signs Vital Signs - 24 hr 11/09/18 16:17 11/09/18 16:24 11/09/18 16:27 Temperature 99.0 F Temperature Source Oral Sepsis Recent Fever Within 48 Hours No Sepsis New/Unexplained Change in Mental Status No Sepsis Action Taken by Nursing No Action Required Pulse Rate 84 85 83 Pulse Rate from SpO2 Sensor 86 82 Pulse Rhythm Regular Pulse Strength Normal Respiratory Rate 18 24 25 H Respiratory Effort / Characteristics Non-Labored Spontaneous Respiratory Depth Normal Respiratory Pattern Regular Blood Pressure 167/84 H 160/71 H Blood Pressure Mean 111 100 Blood Pressure Position Sitting Pulse Oximetry 97 98 97 Oxygen Delivery Method Room Air 11/09/18 18:27 11/09/18 18:28 11/09/18 18:29 Temperature Temperature Source Sepsis Recent Fever Within 48 Hours Sepsis New/Unexplained Change in Mental Status Sepsis Action Taken by Nursing Pulse Rate 81 82 79 Pulse Rate from SpO2 Sensor Pulse Rhythm Pulse Strength Respiratory Rate 17 18 22 Respiratory Effort / Characteristics Respiratory Depth Respiratory Pattern Blood Pressure 172/83 H Blood Pressure Mean 112 Blood Pressure Position Pulse Oximetry Oxygen Delivery Method 11/09/18 18:39 11/09/18 19:00 11/09/18 19:01 Temperature Temperature Source Sepsis Recent Fever Within 48 Hours Sepsis New/Unexplained Change in Mental Status Sepsis Action Taken by Nursing Pulse Rate 80 80 80 Pulse Rate from SpO2 Sensor Pulse Rhythm Pulse Strength Respiratory Rate 20 17 20 Respiratory Effort / Characteristics Respiratory Depth Respiratory Pattern Blood Pressure 172/84 H 183/89 H Blood Pressure Mean 113 120 Blood Pressure Position Pulse Oximetry Oxygen Delivery Method GENERAL: Awake, alert, well-appearing, in no acute distress HENT: Normocephalic, atraumatic. Oropharynx unremarkable. EYES: Normal conjunctiva. Sclera non-icteric. NECK: Supple. No nuchal rigidity. FROM. No JVD. RESPIRATORY: Clear to auscultation. CARDIAC: Regular rate, normal rhythm. Extremities warm and well perfused. Pulses equal. ABDOMEN: Soft, non-distended. No tenderness to palpation. No rebound or guarding. No masses. RECTAL: Deferred. MUSCULOSKELETAL: Chest examination reveals no tenderness. The back is symmetrical on inspection without obvious abnormality. There is no CVA tenderness to palpation. No joint edema. LOWER EXTREMITIES: Calves are equal size bilaterally and non-tender. No edema. No discoloration. NEURO: Normal sensorium. No sensory or motor deficits noted. SKIN: No rash or jaundice noted. Course 1625: The patient was evaluated in room B2. A complete history and physical exam was performed. 1829: I updated the patient on her test results. She is in agreement with the treatment plan. 1914: I discussed the patient's case with SPARKLE Quezada Hospitalist. He agrees to evaluate the patient for further management. Consultations Consultation #1: I discussed the patient's case with SPARKLE Quezada Hospitalist. He agrees to evaluate the patient for further management. Time: 19:15 Administered Medications Acetaminophen (Tylenol) 650 mg PO Q4H PRN PRN Reason: Pain or Fever Stop: 12/09/18 21:19 Last Admin: 11/11/18 00:34 Dose: 650 mg Documented by: [id number] Admin: 11/10/18 11:10 Dose: 650 mg Documented by: [id number] Amoxicillin/Clavulanate Potassium (Augmentin 875mg) [facility] Stop: 11/20/18 16:59 Last Admin: 11/11/18 07:50 Dose: 1 tab Documented by: [id number] Admin: 11/10/18 17:21 Dose: 1 tab Documented by: [id number] Aspirin (Ecotrin Ectab) 81 mg PO [facility] Stop: 12/10/18 08:59 Last Admin: 11/11/18 07:50 Dose: 81 mg Documented by: [id number] Admin: 11/10/18 09:02 Dose: 81 mg Documented by: [id number] Atorvastatin Calcium (Lipitor) 40 mg PO [facility] Stop: 12/11/18 08:59 Last Admin: 11/11/18 07:50 Dose: 40 mg Documented by: [id number] Ferrous Sulfate (Feosol) 325 [facility] Stop: 12/11/18 07:59 Last Admin: 11/11/18 07:50 Dose: 325 mg Documented by: [id number] Insulin Aspart (Novolog Flexpen) 0 units [facility] Stop: 12/10/18 16:29 Last Admin: 11/11/18 08:40 Dose: 1 units Documented by: [id number] Cosigned by: [id number] Admin: 11/10/18 20:51 Dose: 1 units Documented by: [id number] Cosigned by: [id number] Admin: 11/10/18 16:59 Dose: Not Given Documented by: [id number] Cosigned by: [id number] [facility] Stop: 12/10/18 06:29 Last Admin: 11/11/18 05:27 Dose: 75 mcg Documented by: [id number] Admin: 11/10/18 09:01 Dose: 75 mcg Documented by: [id number] Lisinopril (Zestril) 20 mg PO DAILY [facility] Stop: 12/11/18 08:59 Last Admin: 11/11/18 07:50 Dose: 20 mg Documented by: [id number] Discontinued Medications Aspirin (Aspirin) 324 mg PO NOW STA Stop: 11/09/18 16:48 Last Admin: 11/09/18 18:31 Dose: Not Given Documented by: [id number] Gadobutrol (Gadavist 65ml) 7.5 ml IV ONCE PRN PRN Reason: Interaction Checking Stop: 11/13/18 17:58 Last Admin: 11/09/18 17:59 Dose: 7.5 ml Documented by: [id number] Magnesium Sulfate/Dextrose (Magnesium Sulfate / D5w) 1 gm in 100 mls @ 100 mls/hr IV ONE ONE Stop: 11/09/18 17:46 Last Infusion: 11/09/18 19:48 Dose: 0 mls/hr Documented by: [id number] Admin: 11/09/18 18:34 Dose: 100 mls/hr Documented by: [id number] Lactated Ringer's (Lr) 1,000 mls @ 80 mls/hr IV .[id number] [facility] Stop: 11/10/18 12:24 Last Infusion: 11/10/18 14:00 Dose: 0 mls/hr Documented by: [id number] Admin: 11/10/18 04:03 Dose: 80 mls/hr Documented by: [id number] Insulin Aspart (Novolog Flexpen) 0 units SC Q6H [facility] Stop: 12/09/18 21:19 Last Admin: 11/10/18 07:55 Dose: Not Given Documented by: [id number] Cosigned by: [id number] Admin: 11/10/18 04:20 Dose: Not Given Documented by: [id number] Cosigned by: [id number] Admin: 11/09/18 23:27 Dose: Not Given Documented by: [id number] Cosigned by: [id number] Lisinopril (Zestril) 10 mg PO NOW STA Stop: 11/09/18 21:16 Last Admin: 11/09/18 23:26 Dose: 10 mg Documented by: [id number] Lisinopril (Zestril) 10 mg PO DAILY [facility] Stop: 12/10/18 08:59 Last Admin: 11/10/18 09:02 Dose: 10 mg Documented by: [id number] Lisinopril (Zestril) 10 mg PO ONE ONE Stop: 11/10/18 13:46 Last Admin: 11/10/18 14:09 Dose: 10 mg Documented by: [id number] Metoprolol Succinate (Toprol Xl) 25 mg PO NOW STA Stop: 11/09/18 21:16 Last Admin: 11/09/18 23:27 Dose: 25 mg Documented by: [id number] Metoprolol Succinate (Toprol Xl) 25 mg PO HS [facility] Stop: 12/10/18 20:59 Last Admin: 11/10/18 20:49 Dose: 25 mg Documented by: [id number] Medical Decision Making Differential Diagnosis Etiologies such as metabolic, infection, hypo/hyperglycemia, electrolyte abnormalities, cardiac sources, intracerebral event, toxicologic, neurologic, as well as others were entertained. Medical Records Attestation: I reviewed the patient's medical records. Home Medications Current Medication List: was personally reviewed by me Laboratory Data Attestation: I reviewed the patient's lab results. Result diagrams: 11/11/18 07:23 11/11/18 07:23 Lab Results 11/09/18 11/09/18 11/09/18 Range/Units 16:38 16:38 16:38 WBC 8.55 (4.8-10.8) K/uL RBC 3.18 L (4.2-5.4) M/uL Hgb 6.0 L* (12.0-16.0) g/dL Hct 22.2 L (37-47) % MCV 69.8 L (80-100) fL MCH 18.9 L (25-34) pg MCHC 27.0 L (32-36) g/dL RDW Std Deviation 45.8 (36.4-46.3) fL RDW Coeff of Per 17.8 H (11.5-14.5) % Plt Count 266 (130-400) K/uL MPV 9.8 (7.4-10.4) fL Immature Gran % (Auto) 0.5 % Neut % (Auto) 68.3 % Lymph % (Auto) 21.9 % Carbon % (Auto) 7.5 % Eos % (Auto) 1.3 % Baso % (Auto) 0.5 % Immature Gran # (Auto) 0.04 H (0.00-0.02) K/uL Neut # (Auto) 5.85 (1.4-6.5) K/uL Lymph # (Auto) 1.87 (1.2-3.4) K/uL Carbon # (Auto) 0.64 H (0.11-0.59) K/uL Eos # (Auto) 0.11 (0-0.5) K/uL Baso # (Auto) 0.04 (0-0.2) K/uL Absolute Nucleated RBC 0.11 H (0-0) K/uL Nucleated RBC % (auto) 1.2 % Polychromasia 1+ Hypochromasia Present Microcytosis Present PT 10.7 (9.0-12.0) Seconds INR 1.0 (0.9-1.1) APTT 21.8 (21.0-31.0) Seconds PTT Ratio 0.8 Sodium 139 (136-145) mmol/L Potassium 3.7 (3.5-5.1) mmol/L Chloride 105 (98-107) mmol/L Carbon Dioxide 26 (21-32) mmol/L Anion Gap 8.0 (3-11) BUN 11 (7-18) mg/dl Creatinine 0.93 (0.6-1.2) mg/dl Est Cr Clr Drug Dosing 59.2 ml/min Est GFR ( Amer) 72.2 Est GFR (Non-Af Amer) 62.3 BUN/Creatinine Ratio 11.7 (10-20) Glucose 175 H (70-99) mg/dl POC Glucose (70-99) Calcium 9.3 (8.5-10.1) mg/dl Magnesium 2.1 (1.8-2.4) mg/dl Iron (35-150) mcg/dl TIBC (250-450) mcg/dl Total Bilirubin 0.5 (0.2-1) mg/dl AST 13 L (15-37) U/L ALT 18 (12-78) U/L Alkaline Phosphatase 76 (45-117) U/L Troponin I 0.044 (0-0.045) ng/ml Total Protein 7.6 (6.4-8.2) gm/dl Albumin 3.6 (3.4-5.0) gm/dl Globulin 4.0 (2.5-4.0) gm/dl Albumin/Globulin Ratio 0.9 (0.9-2) Urine Color Urine Appearance (Clear) Urine pH (4.5-7.5) Ur Specific Jbphh (1.000-1.030) Urine Protein (Negative) Urine Glucose (UA) (Negative) Urine Ketones (Negative) Urine Blood (Negative) Urine Nitrite (Negative) Urine Bilirubin (Negative) Urine Urobilinogen (Negative) Ur Leukocyte Esterase (Negative) Urine WBC (Auto) (0-5) /hpf Urine RBC (Auto) (0-4) /hpf U Hyaline Cast (Auto) (0-5) /lpf U Epithel Cells (Auto) (0-5) /lpf Urine Bacteria (Auto) (Negative) Blood Type Antibody Screen Crossmatch 11/09/18 11/09/18 11/09/18 Range/Units 16:38 16:47 17:00 WBC (4.8-10.8) K/uL RBC (4.2-5.4) M/uL Hgb (12.0-16.0) g/dL Hct (37-47) % MCV (80-100) fL MCH (25-34) pg MCHC (32-36) g/dL RDW Std Deviation (36.4-46.3) fL RDW Coeff of Per (11.5-14.5) % Plt Count (130-400) K/uL MPV (7.4-10.4) fL Immature Gran % (Auto) % Neut % (Auto) % Lymph % (Auto) % Carbon % (Auto) % Eos % (Auto) % Baso % (Auto) % Immature Gran # (Auto) (0.00-0.02) K/uL Neut # (Auto) (1.4-6.5) K/uL Lymph # (Auto) (1.2-3.4) K/uL Carbon # (Auto) (0.11-0.59) K/uL Eos # (Auto) (0-0.5) K/uL Baso # (Auto) (0-0.2) K/uL Absolute Nucleated RBC (0-0) K/uL Nucleated RBC % (auto) % Polychromasia Hypochromasia Microcytosis PT (9.0-12.0) Seconds INR (0.9-1.1) APTT (21.0-31.0) Seconds PTT Ratio Sodium (136-145) mmol/L Potassium (3.5-5.1) mmol/L Chloride (98-107) mmol/L Carbon Dioxide (21-32) mmol/L Anion Gap (3-11) BUN (7-18) mg/dl Creatinine (0.6-1.2) mg/dl Est Cr Clr Drug Dosing ml/min Est GFR ( Amer) Est GFR (Non-Af Amer) BUN/Creatinine Ratio (10-20) Glucose (70-99) mg/dl POC Glucose 196 H (70-99) Calcium (8.5-10.1) mg/dl Magnesium (1.8-2.4) mg/dl Iron 13 L (35-150) mcg/dl TIBC 615 H (250-450) mcg/dl Total Bilirubin (0.2-1) mg/dl AST (15-37) U/L ALT (12-78) U/L Alkaline Phosphatase (45-117) U/L Troponin I (0-0.045) ng/ml Total Protein (6.4-8.2) gm/dl Albumin (3.4-5.0) gm/dl Globulin (2.5-4.0) gm/dl Albumin/Globulin Ratio (0.9-2) Urine Color Yellow Urine Appearance Clear (Clear) Urine pH 6.0 (4.5-7.5) Ur Specific Jbphh 1.013 (1.000-1.030) Urine Protein Negative (Negative) Urine Glucose (UA) Negative (Negative) Urine Ketones Negative (Negative) Urine Blood Negative (Negative) Urine Nitrite Negative (Negative) Urine Bilirubin Negative (Negative) Urine Urobilinogen Negative (Negative) Ur Leukocyte Esterase Trace H (Negative) Urine WBC (Auto) 1-5 (0-5) /hpf Urine RBC (Auto) 0-4 (0-4) /hpf U Hyaline Cast (Auto) 1-5 (0-5) /lpf U Epithel Cells (Auto) 20-30 H (0-5) /lpf Urine Bacteria (Auto) Negative (Negative) Blood Type Antibody Screen Crossmatch 11/09/18 Range/Units 18:26 WBC (4.8-10.8) K/uL RBC (4.2-5.4) M/uL Hgb (12.0-16.0) g/dL Hct (37-47) % MCV (80-100) fL MCH (25-34) pg MCHC (32-36) g/dL RDW Std Deviation (36.4-46.3) fL RDW Coeff of Per (11.5-14.5) % Plt Count (130-400) K/uL MPV (7.4-10.4) fL Immature Gran % (Auto) % Neut % (Auto) % Lymph % (Auto) % Carbon % (Auto) % Eos % (Auto) % Baso % (Auto) % Immature Gran # (Auto) (0.00-0.02) K/uL Neut # (Auto) (1.4-6.5) K/uL Lymph # (Auto) (1.2-3.4) K/uL Carbon # (Auto) (0.11-0.59) K/uL Eos # (Auto) (0-0.5) K/uL Baso # (Auto) (0-0.2) K/uL Absolute Nucleated RBC (0-0) K/uL Nucleated RBC % (auto) % Polychromasia Hypochromasia Microcytosis PT (9.0-12.0) Seconds INR (0.9-1.1) APTT (21.0-31.0) Seconds PTT Ratio Sodium (136-145) mmol/L Potassium (3.5-5.1) mmol/L Chloride (98-107) mmol/L Carbon Dioxide (21-32) mmol/L Anion Gap (3-11) BUN (7-18) mg/dl Creatinine (0.6-1.2) mg/dl Est Cr Clr Drug Dosing ml/min Est GFR ( Amer) Est GFR (Non-Af Amer) BUN/Creatinine Ratio (10-20) Glucose (70-99) mg/dl POC Glucose (70-99) Calcium (8.5-10.1) mg/dl Magnesium (1.8-2.4) mg/dl Iron (35-150) mcg/dl TIBC (250-450) mcg/dl Total Bilirubin (0.2-1) mg/dl AST (15-37) U/L ALT (12-78) U/L Alkaline Phosphatase (45-117) U/L Troponin I (0-0.045) ng/ml Total Protein (6.4-8.2) gm/dl Albumin (3.4-5.0) gm/dl Globulin (2.5-4.0) gm/dl Albumin/Globulin Ratio (0.9-2) Urine Color Urine Appearance (Clear) Urine pH (4.5-7.5) Ur Specific Jbphh (1.000-1.030) Urine Protein (Negative) Urine Glucose (UA) (Negative) Urine Ketones (Negative) Urine Blood (Negative) Urine Nitrite (Negative) Urine Bilirubin (Negative) Urine Urobilinogen (Negative) Ur Leukocyte Esterase (Negative) Urine WBC (Auto) (0-5) /hpf Urine RBC (Auto) (0-4) /hpf U Hyaline Cast (Auto) (0-5) /lpf U Epithel Cells (Auto) (0-5) /lpf Urine Bacteria (Auto) (Negative) Blood Type A Positive Antibody Screen NEGATIVE Crossmatch See Detail Imaging Data Radiologist's Impression: Radiology results as stated below per my review and the radiologist's interpretation: MR angio neck wo/w con HISTORY: 68 years-old Female Pt vision changes multiple subacute infarctions with acute vision changes COMPARISON: MRA of the head and brain MRI of same day TECHNIQUE: MRA of the neck was obtained both with and without the use of 7.5 ml Gadavist utilizing 3-D [id number] sequencing with MIP reformats. All measurements were obtained according to NASCET criteria. FINDINGS: Palliative Care Nurse Practitioner localizer images demonstrate no gross abnormality. Cardiomegaly noted. Mildly motion degraded exam. The bilateral common carotid arteries appear widely patent. The bilateral internal carotid arteries are unremarkable and are also widely patent. The vertebral arteries appear to be codominant and are widely patent. No aneurysm, dissection, high-grade stenosis or proximal branch occlusion identified. Increased flow-related signal noted about the right occipital lobe infarct. IMPRESSION: Unremarkable MRA of the neck. The above report was generated using voice recognition software. It may contain grammatical, syntax or spelling errors. Electronically signed by: Duran Timmons M.D. 11/09/2018 6:32 PM. MR angio head wo con HISTORY: 68 years-old Female Rt parietal lobe infarct acute strokelike symptoms COMPARISON: CT of the head of same day, MRA head 04/03/2017 TECHNIQUE: MRI of the head was obtained without the use of IV contrast utilizing 3-D [id number] sequencing with MIP reformats. All measurements were obtained according to NASCET criteria. FINDINGS: Palliative Care Nurse Practitioner localizer images demonstrate no gross extracranial abnormality. Cortically based increased signal is noted about the right occipital lobe in the distribution of infarct described on CT of the head of same day. Bilateral internal carotid arteries, middle and anterior cerebral arteries are widely patent and within normal limits. Study is mildly motion degraded. Imaged bilateral vertebral arteries and basilar artery appear normal and are widely patent. origin of the left posterior cerebral arteries. There is decreased flow related signal about the distal branches of the right posterior cerebral artery. The proximal P1 segments bilaterally appear to be patent. No proximal branch occlusion, aneurysm, dissection or high-grade stenosis identified. IMPRESSION: 1. Decreased flow related signal about the distal branches of the right posterior cerebral artery within the area of infarct described on CT head and MRI brain of same day is suggestive of a probable underlying distal arterial occlusion or stenosis. 2. Otherwise unremarkable MRA without proximal branch occlusion, aneurysm, dissection or focal high-grade stenosis identified. The above report was generated using voice recognition software. It may contain grammatical, syntax or spelling errors. Electronically signed by: Duran Timmons M.D. 11/09/2018 6:09 PM. MR brain wo/w con HISTORY: 68 years-old Female Rt parietal lobe subacute strokelike symptoms COMPARISON: MRA head and neck and CT head of same day, brain MRI 04/03/2017 TECHNIQUE: Multiplanar multisequence MRI of the brain was obtained both with and without the use of 7.5 mL Gadavist FINDINGS: Multifocal subcentimeter foci of restricted diffusion with intermediate signal on ADC map noted about the watershed distributions of the bilateral centrum semiovale and reyes radiata distributions. Additionally, there is a 4.6 x 1.8 x 4.2 irregular focus of restricted diffusion about the right occipital lobe, image 10 series 4 with a 1.8 cm area of restricted diffusion about the splenium of the right corpus callosum ill-defined enhancement is noted within several of these foci, notably within the right occipital lobe focus. Additionally, moderate degree of laminar necrosis of the right occipital lobe infarct is also noted. There are no abnormal extra-axial collections, hydrocephalus or midline shift. No definite intracranial mass identified. Moderate chronic microvascular ischemic disease with age-related involutional changes. Major flow voids appear patent. Mild mucosal thickening about the paranasal sinuses. Prior bilateral cataract repair. Skull and soft tissues are unremarkable. IMPRESSION: 1. Subacute appearing infarct of the right occipital lobe demonstrates laminar necrosis and enhancement measuring up to approximately 4.6 cm. Multiple additional mostly subcentimeter subacute infarcts noted about the centrum semiovale and reyes radiata of the cerebral hemispheres bilaterally. 2. Additional focal subacute infarct involves the splenium of the right corpus callosum. The above report was generated using voice recognition software. It may contain grammatical, syntax or spelling errors. Electronically signed by: Duran Timmons M.D. 11/09/2018 6:22 PM ECG Data Attestation: I personally reviewed and interpreted this ECG as follows: Indication: other (dizzy) Rate (beats per minute): 80 Rhythm: sinus rhythm Findings: + 1st degree AV block; no ST depression and no ST elevation Blood Pressure Blood Pressure Findings: Elevated blood pressure Blood Pressure Disposition: further management by hospitalist [facility] Narrative This is a 68-year-old female who presents emergency department complaining of vision changes and has been ongoing for the past 2 weeks. The patient had an outpatient CAT scan which was concerning for stroke. Based on this the patient was sent for an MRI of the head and neck along with MRA. Patient's hemoglobin was found to be grossly low. Her rectal exam reveals heme-negative stool. Because of the patient's anemia as well as her new stroke I did discuss the case with the hospitalist service who agreed to admit the patient. Patient family were in agreement with the treatment plan. Impression & Plan Anemia, CVA (cerebral vascular accident) Critical Care Time Critical Care Time: Yes Total Critical Care Time: 90 I have personally spent 90 minutes of critical care time in the direct management of this patient. This includes bedside care, interpretation of diagnostic studies, and testing, discussion with consultants, patient, and family members, and other required patient management activities. This 90 minutes is in excess of all separately billable procedures. Discharge Plan Visit Data *Final* Discharge Date/Time: 11/09/18 20:25 Chief Complaint: Referred by Doctor Stated Complaint: POSSIBLE STROKE ED Provider: Delmar Garcia Discharge Problem: Anemia, CVA (cerebral vascular accident) Patient Disposition: Admitted As Inpatient Discharge Instructions Interventions: ED Discharge Assessment Last Done: 11/09/18 20:25 Discharge Problem: Anemia Qualifiers: Anemia type: unspecified type Qualified Code(s): D64.9 - Anemia, unspecified CVA (cerebral vascular accident) Qualifiers: CVA mechanism: unspecified Qualified Code(s): I63.9 - Cerebral infarction, unspecified The scribe's documentation has been prepared under my direction and personally reviewed by me in its entirety. I confirm that the note above accurately reflects all work, treatment, procedures, and medical decision making performed by me.
--- NOTE | 2018-11-11 16:33 | Discharge Summary ---
Date of Service November 11, 2018 Admission HPI Per Admitting Provider 68 y/o F Hx HTN, hypothyroidism, DM II. She has had blurry vision for the past 2 weeks. She presented to her eye doctor in addition to her GP with this complaint. She reports that she was told it may be related to her DM. Her primary MD ordered a CT of the head. Findings were suspicious for a posterior infarct and she was directed to the ER for further evaluation. An MRI/MRA head/neck were obtained elucidating the following: Subacute infarct of the right occipital lobe, multiple subcentimeter subacute infarcts about the centrum semiovale and reyes radiata bilaterally, focal subacute infarct involves the splenium of the right corpus callosum, decreased flow related signal about the distal branches of the right posterior cerebral artery. Initial labs were notable for microcytic anemia with a Hb of 6. She does not report any BRBPR or dark stools. She denies CP, SOB or lightheadedness. She states she was having frequent nose bleeds approximately one month ago and had visited the ER twice as she required packing to stop the bleeding. A guaiac exam in the ER was negative for occult blood. PMH: 1) DM II 2) HTN 3) Hypothyroidism 4) Nephrolithiasis 5) Lower extremity edema 6) Vitamin D deficiency Surgical: 1) Hysterectomy 2) Appendectomy Social: Does not drink or smoke Family: Mother due to "heart problems" - possibly valvular disease Father - history of multiple CVAs Principal Diagnosis Acute ischemic CVAs, Severe acute blood loss anemia Discharge Exam Constitutional WD/WN, vitals as above + obese Eyes + anicteric sclerae; + abnormal visual field confrontation (complete loss of left field of vision OU), no eyelid abnormality and no conjunctival abnormality ENMT external ear and nose normal, oropharynx normal (No epistaxis) Neck trachea midline, no thyromegaly Respiratory normal respiratory effort, lungs clear to auscultation Cardiovascular RRR, no murmur, no edema Gastrointestinal (Abdomen) normal bowel sounds, soft, nontender, no hepatosplenomegaly Musculoskeletal Extremities: extremities normal to inspection; no cyanosis and no clubbing Skin no rashes, warm and dry + wound (Right index finger with small puncture wound,no erythema or edema) Neurologic moves all extremities and awake; + CN's not intact (loss of left visual field, otherwise normal) and no focal motor deficits Motor/Sensory: no tremor, normal movement and no sensory deficit able to name days of week backwards, needed assistance x 2 with months of year backwards and took a prolonged length of time Psychiatric A+Ox3, euthymic affect Discharge Data Allergies Allergy/AdvReac Type Severity Reaction Status Date / Time fenoprofen Allergy Intermediate HAND EDEMA Verified 11/09/18 17:44 prednisone Allergy Intermediate FAST HEART Verified 11/09/18 17:44 BEAT adhesive Allergy Unknown "Red welts" Verified 11/09/18 17:44 peach Allergy Unknown WELTS WITH Verified 11/09/18 17:44 PEACH FUZZ tomato Allergy Unknown WELTS WITH Verified 11/09/18 17:44 TOMATOES AND ORANGE JUICE levofloxacin AdvReac Intermediate PNEUMONIA Verified 11/09/18 17:44 Sulfa (Sulfonamide AdvReac Unknown "SULFA Verified 11/09/18 17:44 Antibiotics) DRUGS": ITCHING Consultations Gastroenterology Neurology Ordered Studies 11/09/18 16:30 MR angio head wo con Stat MR angio neck wo/w con Stat MR brain wo/w con Stat Hospital Course (1) CVA (cerebral vascular accident): This patient is a 68 y/o female with a history of HTN, hypothyroidism, and DM II. She has had blurry vision for the past 2 weeks. She presented to her eye doctor in addition to her GP with this complaint. She reports that she was told it may be related to her DM. Her primary MD ordered a CT of the head. Findings were suspicious for a posterior infarct and she was directed to the ER for further evaluation. An MRI/MRA head/neck were obtained elucidating the following: Subacute infarct of the right occipital lobe, multiple subcentimeter subacute infarcts about the centrum semiovale and reyes radiata bilaterally, focal subacute infarct involves the splenium of the right corpus callosum, decreased flow related signal about the distal branches of the right posterior cerebral artery. CVA -multiple bilateral hemispheric strokes with the largest being in the right occipital lobe. This likely occurred 2 weeks ago - likely thrombotic considering the findings on her MRA, however given bilateral hemispheres, is likely from an embolic source. Echocardiogram without source of cardiac emboli or inter-atrial shunt So far, no atrial fibrillation or flutter on telemetry monitoring-will need long-term cardiac monitoring after discharge to look for occult atrial fibrillation-PLEASE arrange fro 30 day event monitor at rehab facility [facility] -Started on aspirin 81 mg daily-watch for epistaxis -Lipid panel very well controlled-was started on high intensity statin especially in the setting of diabetes -Her vision is significantly impaired with a left homonymous hemianopsia and complete recovery is not likely given the time frame -She will need formal visual field testing after discharge with ophthalmology-I advised her she is not allowed to drive at this time -PT/OT evaluations recommend rehab -Treat headache as needed with acetaminophen -Appreciate neurology consultation-f/u with Neuro in 1 month -needs improved BP control and diabetes control-added meds as below (2) Anemia: Initial labs were notable for microcytic anemia with a Hb of 6 and an MCV of 69. She does not report any BRBPR or dark stools, no hematemesis, no hematuria. She denies CP, SOB or lightheadedness. She states she was having frequent nose bleeds approximately one month ago almost daily for 2 to 3 weeks. She had a previous ER visit in May for which she required a Rhino Rocket placement. She never followed up with ENT as she was recommended to do so and did not seek care with her more recent recurrent epistaxis. A guaiac exam in the ER was negative for occult blood. She was transfused with 2 units of PRBCs and her hemoglobin is up to 8.1 today Iron studies are severely low and TIBC high, indicative of profound iron de ficiency-unclear if this is all from epistaxis or if there is also occult GI bleeding Consulted GI-recommends outpatient EGD and colonoscopy after recovery from stroke in 6 to 8 weeks -Follow CBC in 1 week - started on ferrous sulfate 325 mg p.o. twice daily (3) Acute blood loss anemia: Likely secondary to epistaxis as above (4) Hypertension: Blood pressures are higher than desired even in the setting of recent stroke-now improved with increased dose of lisinopril and adding on Toprol We are now approximately 2 weeks out from her stroke and can tighten down the blood pressure control with a goal of 140-160/80-90 -Increased lisinopril to 20 mg daily -added Toprol-XL 25 mg p.o. bid (5) Hypothyroidism: TSH here is normal -Continue home dose of levothyroxine (6) Type 2 diabetes mellitus: Hemoglobin A1c is 7.7%, fairly well controlled and improved from previous -Continue Accu-Cheks, supplemental NovoLog -continue home Tresiba and metformin (7) Epistaxis: With history as above, none currently -Watch for recurrent epistaxis since starting on daily baby aspirin (8) Cellulitis, finger: Resolved and received total 10 days of po abx no further abx needed (9) DVT prophylaxis: Given severe anemia and history of significant epistaxis, avoided chemoprophylaxis at this time for DVT SCDs were provided Disposition-medically stable for dc to rehab Total Time Total Time Spent Total Time Spent (In Minutes): >30 min Total Time Includes: Examination of the Patient, Discharge Planning, Medication Reconciliation and Communication With Other Providers (Neurology) Discharge Plan Discharge Items Patient Disposition: Transfer Inpatient Rehab Fac Reason For Visit: CVA,ANEMIA Discharge Diagnosis: Acute CVA, Anemia Condition: Fair Discharge Goals: Diagnostic testing, Improve disease control, Learn about illness and Therapeutic intervention Activity: As commented below Lifting: Gradually increase as tolerated Bathing: No limitations Exercise/Sports: Gradually increase as tolerated Exercise Comment: with PT/OT Driving/Machine Use Comment: No driving Non-emergency contact: Primary Care Provider and Neurologist Call non-emergency contact if: you have any medication questions and your symptoms worsen Follow-up/Referrals: Mayra Kidd CRNP [Primary Care Provider] - Popeye Mcleod MD [Physician] - (Please follow up with Neurology within 1 month) Diet: Carb Consistent or DM2 and Heart Healthy Addtl Provider Instructions: You were admitted for vision loss and unsteadiness on your feet; you were found to have had multiple strokes on both sides of the brain, the largest being in the right occipital lobe which affects your vision. Because of your left sided visual field loss, you will need to have formal visual field testing with an Pie Filler in the near future. You should NOT be driving. You should continue on a baby aspirin once daily to prevent future strokes. You were also started on a medication for your cholesterol to prevent future strokes. You may have underlying atrial fibrillation which is an irregular heartbeat that can lead to strokes. We did not find any of that while you were here, but you should have a 30 day cardiac event monitor set up to look for this while you are at the rehab. Please follow up with the Neurologist within 1 month. You also had severe anemia which was likely from all of the recent nosebleeds you had. You were given a blood transfusion and started on an iron supplement. Please follow up with the GI doctor for an EGD and colonoscopy in 6-8 weeks to look for a source of bleeding in your gut. Please have a CBC checked in 1 week to ensure your hemoglobin level is continuing to improve. Risk Factors for Stroke: You can reduce your chances of stroke by working with your medical provider to adopt a healthy lifestyle. Some specific ways to lower your chance of stroke are: * If you are a smoker, now is the time to stop smoking cigarettes * If you are diabetic, improve the control of your blood sugars * Avoid excessive amounts of alcohol * Control high blood pressure * Lose weight if you are overweight * Be sure to lead an active lifestyle * Eat a healthy diet low in salt, cholesterol and fat You should know about other risk factors for stroke that you are unable to control. These include: * Age 55 years or older * Male gender * Certain racial groups: , or / * Family History of Stroke, Mini stroke or Heart Attack * Sickle Cell Disease Follow Up: It is important for you to keep your follow up appointments with your medical provider. Who to Call and When: Medical Emergencies: Call 911 immediately if you experience any of the following warning signs and symptoms of Stroke: * Sudden numbness or weakness of the face, arm or leg, especially on one side of the body * Sudden confusion, trouble speaking or understanding * Sudden trouble seeing in one or both eyes * Sudden trouble walking, dizziness, loss of balance or coordination * Sudden severe headache with no cause Do not delay calling 911 if you experience any warning signs or symptoms of a stroke. Delay in seeking medical attention may affect what treatments can be given to you. . Prescriptions: New atorvastatin 40 mg Tablet 40 mg PO QAM Qty: 30 RF: 0 lisinopril 20 mg Tablet 20 mg PO DAILY Qty: 30 RF: 0 aspirin [Ecotrin Low Strength] 81 mg Tablet,Delayed Release (Dr/Ec) 81 mg PO QAM Qty: 30 RF: 0 metoprolol succinate 25 mg Tablet Extended Release 24 Hr 25 mg PO BID Qty: 60 RF: 0 ferrous sulfate 325 mg (65 mg iron) Tablet,Delayed Release (Dr/Ec) 325 mg PO BIDM Qty: 60 RF: 0 Continued metformin 500 mg tablet extended release 24 hr 1,000 mg PO BID Qty: 60 RF: 5 levothyroxine 75 mcg tablet 75 mcg PO DAILY RF: 0 furosemide 20 mg Tablet 10 mg PO DAILY PRN (Reason: Fluid Retention) RF: 0 Changed Tresiba FlexTouch U-100 100 unit/mL (3 mL) insulin pen 8 unit subcut DAILY Qty: 0 RF: 0 Discontinued cephalexin [Keflex] 500 mg capsule 500 mg PO TID Qty: 30 RF: 0 lisinopril 10 mg tablet 10 mg PO DAILY RF: 0 Stand-Alone Forms: [facility] Discharge Orders: Discharge Order (Routine); Ordered 11/11/18 Ordered By: Gaby Llanos Skilled Items Patient informed of condition?: Yes DNR: No Discharge Level of Care: Acute rehab Communicable Disease: No Discharge Prognosis: Improving Admission Data Admit Date/Time: 11/09/18 19:53 Attending Provider: Gaby Llanos Admit Provider: Manoj Chua Primary Care Provider: Mayra Kidd Other Providers: Manoj Chua ; Mariella Sanabria ; Popeye Mcleod Service: Telemetry Other Pending Studies at Discharge: Yes (Celiac disease panel)
== END 2018-11-11 18:45 | DRG 65 ==
LOC: ED 16:14 → SUATTDRO 19:53 → 2S 19:53

== ENCOUNTER 2020-10-19 01:08 | Inpatient (IN) ==
[2020-10-19 02:18] LABS: Appearance Urine Cloudy (Clear); Bacteria Urine Automated 4+ (Negative); Bilirubin Urine Negative (Negative); Blood Urine 3+ (Negative); Color Urine Yellow; Epithelial Cell Urine Auto >30 /lpf (0-5); Glucose Urine UA 3+ (Negative); Ketones Urine 1+ (Negative); Leukocyte Esterase Urine 1+ (Negative); Nitrite Urine Positive (Negative); Protein Urine 2+ (Negative); RBC Urine Automated >30 /hpf (0-4); Urobilinogen Urine Negative (Negative); WBC Urine Automated >30 /hpf (0-5)
[2020-10-19 02:43] LABS: Hematocrit (blood only) 41.2 % (37-47); Hemoglobin 13.7 g/dL (12.0-16.0); Mean Corpuscular Hemoglobin 31.6 pg (25-34); Mean Corpuscular Hgb Conc 33.3 g/dL (32-36); Mean Corpuscular Volume 94.9 fL (80-100); Nucleated RBC # (auto) 0.03 K/uL (0-0); Nucleated RBC % (auto) 0.2 %; Platelet Count 130 K/uL (130-400); RDW Coefficient of Variation 14.2 % (11.5-14.5); RDW Standard Deviation 49.8 fL (36.4-46.3); Red Blood Count 4.34 M/uL (4.2-5.4); White Blood Count 13.57 K/uL (4.8-10.8)
[2020-10-19 02:57] LABS: INR 1.2 (0.9-1.1); Partial Thromboplastin Time 25.6 Seconds (21.0-31.0); Prothrombin Time 11.7 Seconds (9.0-12.0)
[2020-10-19 03:09] LABS: Albumin Globulin Ratio 0.7 (0.9-2); Albumin Level 2.9 gm/dl (3.4-5.0); BUN Creatinine Ratio 9.9 (10-20); Bilirubin,Total 1.5 mg/dl (0.2-1); Calcium 8.5 mg/dl (8.5-10.1); Creatinine Clr Calc Pharmacy 42.7 ml/min; Est GFR (African American) 37.5 ml/min; Est GFR (Non-African American) 32.3 ml/min; Globulin 3.9 gm/dl (2.5-4.0); Magnesium 1.3 mg/dl (1.8-2.4); Potassium 3.1 mmol/L (3.5-5.1); Total Protein 6.8 gm/dl (6.4-8.2)
[2020-10-19] MEDS ORDERED: SODIUM CHLORIDE 0.9% 500 ML IV ONE (03:11)
[2020-10-19 03:13] LABS: Basophils # (auto) 0.01 K/uL (0-0.2); Basophils % (auto) 0.1 %; Dohle Bodies 1+; Immature Granulocytes # (auto) 0.06 K/uL (0.00-0.02); Immature Granulocytes % (auto) 0.4 %; Lymphocytes # (auto) 0.35 K/uL (1.2-3.4); Lymphocytes % (auto) 2.6 %; Monocytes # (auto) 0.19 K/uL (0.11-0.59); Monocytes % (auto) 1.4 %; Neutrophils # (auto) 12.96 K/uL (1.4-6.5); Neutrophils % (auto) 95.5 %
[2020-10-19] MEDS ORDERED: PIPERACILL/TAZOBAC CONSULT ACTIVE PRN ×2 (03:14→06:00)
[2020-10-19] MEDS ORDERED: PIPERACILLIN/TAZOBACTAM 4.5 GM/120 ML BAG IV ONE (03:14)
[2020-10-19 03:20] LABS: Beta-Hydroxybutyrate 10.31 mg/dl (0.2-2.81)
--- NOTE | 2020-10-19 04:22 | History & Physical Report ---
Date of Service October 19, 2020 Assessment & Plan (1) Sepsis due to urinary tract infection: Sepsis due to UTI- Follow urine cultures and blood cultures and sensitivities Continue Zosyn 4 g IV every 8 hours begun in the ED NSS 100 mils per hour Patient will need PT and OT assessment due to general deconditioning. Suspect that she would have better overall care with her and son having additional help at home Present on Admission?: Yes (2) Acute kidney injury superimposed on CKD: Creatinine 1.58 upon admission, with range 0.8-0.9 Placed on IV fluids, repeat laboratories in a.m. Present on Admission?: Yes (3) Hypomagnesemia: Magnesium 1.3 upon admission. Give 3 g of magnesium sulfate IV, repeat labs in a.m. Present on Admission?: Yes (4) Hypokalemia: Potassium 3.1 upon admission. Not alert enough to take oral replacement, and did have irritation from an IV flush earlier. Placed on NSS + KCl 20 mEq 100 mils per hour repeat laboratories in a.m. Present on Admission?: Yes (5) Mixed dementia: Presently with delirium on top of her mixed dementia Present on Admission?: Yes (6) Hypertension: Hold lisinopril due to JEZ Continue metoprolol succinate 50 mg daily with hold parameters Present on Admission?: Yes (7) Type 2 diabetes mellitus: Hold Trulicity. Placed on Accu-Cheks before meals and at bedtime with NovoLog coverage per scale Very mild DKA with anion gap of 12. We will continue with coverage insulin and IV fluid rehydration and replacement of electrolytes Present on Admission?: Yes (8) Hypothyroidism: Levothyroxine 75 mcg daily Present on Admission?: Yes History of Present Illness Chief Complaint: The patient is brought to the emergency department by EMS after being found at home to be covered in feces and vomit. Primary Care Provider: GREGORY Velasquez Patient is a 70-year-old female with a past medical history including mixed dementia, hypertension, diabetes mellitus type 2, obesity, diabetes, hypertension, stroke with residual effects, UTI, hypothyroidism, vitamin D deficiency and morbid obesity. She lives at home with her and son, who been trying to take care of her, but EMS reports that the patient was lying in feces and vomit and the was sitting next to her using the remote to change the TV, seemingly unaware of how she was doing. Her son reports that she only moved to walk to the bathroom and with that there is difficulty due to her morbid obesity and previous stroke. Allergies Allergy/AdvReac Type Severity Reaction Status Date / Time fenoprofen Allergy Intermediate HAND EDEMA Verified 10/19/20 01:33 prednisone Allergy Intermediate FAST HEART Verified 10/19/20 01:33 BEAT adhesive Allergy Unknown "Red welts" Verified 10/19/20 01:33 peach Allergy Unknown WELTS WITH Verified 10/19/20 01:33 PEACH FUZZ tomato Allergy Unknown WELTS WITH Verified 10/19/20 01:33 TOMATOES AND ORANGE JUICE levofloxacin AdvReac Intermediate PNEUMONIA Verified 10/19/20 01:33 metformin AdvReac Mild Diarrhea Verified 10/19/20 01:33 Sulfa (Sulfonamide AdvReac Unknown "SULFA Verified 10/19/20 01:33 Antibiotics) DRUGS": ITCHING Home Medications Medication Instructions Recorded Confirmed Type acetaminophen 500 mg capsule 1,000 mg PO DIRECTED PRN 11/29/18 10/19/20 History atorvastatin 40 mg tablet 40 mg PO QAM #90 tab 01/02/20 10/19/20 Rx levothyroxine 75 mcg tablet 75 mcg PO QAM #90 tab 01/02/20 10/19/20 Rx lisinopril 20 mg tablet 20 mg PO DAILY #90 tab 01/02/20 10/19/20 Rx metoprolol succinate 50 mg 50 mg PO DAILY #90 tab 01/02/20 10/19/20 Rx tablet,extended release 24 hr blood sugar diagnostic #100 ea 05/07/20 06/28/20 Rx donepezil 5 mg tablet 5 mg PO DAILY #30 tab 06/28/20 10/19/20 Rx dulaglutide [Trulicity] 0.75 mg SUBCUT WK 10/19/20 10/19/20 History Past Med/Surg History Medical History Kenney's palsy Broken foot Cervical lymphadenopathy CVA (cerebral vascular accident) Edema Epistaxis Epistaxis, recurrent Excessive daytime sleepiness Hypertension Hypertrophy of nasal turbinates Kidney stones Loud snoring Low back pain Right foot infection Sacroiliac strain Stroke Type 2 diabetes mellitus Surgical History H/O: hysterectomy History of anesthesia reaction History of appendectomy History of cataract surgery History of colonoscopy History of oral surgery History of umbilical hernia repair Family History Father Stroke Hypertension Cancer Prostate cancer Mother Heart murmur Daughter Hypertension Sinusitis Denies family history of Ovarian cancer Myocardial infarction Adverse anesthesia outcome Breast cancer Bleeding disorder Hyperthermia Colorectal cancer Social History Smoking Status: Never smoker Second Hand Exposure: No; Hx Alcohol Use: No Hx Substance Use: No Preferred Language: Moldovan Communication Ability: Effective Visual Impairment: No Limitations Hearing Ability: Normal Caramel Cutter Machine Required: No Beliefs That Will Affect Care: None marital status: Current Living Situation: Spouse current occupational status: retired Feels Safe at Home: Yes caffeine: Yes (coffee) Dental Care, Regularly: Yes Physical Activity Frequency: Does not Exercise Seatbelt Use: always Sunscreen Use: Yes Assistive Devices: Glasses and Walker Review of Systems Review of Systems: Unobtainable due to cognitive status Physical Exam Physical Exam: The patient is lethargic an minimally responsive to questions. Her son answers most of the questions. normocephalic and atraumatic, lying in bed and in no acute distress. HEENT--PERRL, EOMI, mucous membranes and oropharynx dry. Neck--supple. No JVD. No bruits. Thyroid normal, trachea midline, no adenopathy. Heart--normal S1 and S2. No murmurs, rubs or gallops. Lungs--clear bilaterally, no respiratory distress, no accessory muscle use. Abdomen--normal bowel sounds and soft. Morbidly obese Extremities--chronic venous stasis dermatitis bilateral lower extremities with vacuoles and 2+ pretibial pitting edema Dermatologic--as noted above Neurologic--cranial nerves II through XII grossly intact. Rheumatologic--normal range of motion. Psychiatric--lethargic Results & Data Results & Data ([facility]) Vital Signs (Past 12 Hours) Vital Signs Temp Pulse Resp BP Pulse Ox 10/19/20 01:27 99.1 F 110 H 19 138/80 94 Laboratory Results Laboratory Results WBC 13.57 K/uL (4.8-10.8) H 10/19/20 02:32 RBC 4.34 M/uL (4.2-5.4) 10/19/20 02:32 Hgb 13.7 g/dL (12.0-16.0) 10/19/20 02:32 Hct 41.2 % (37-47) 10/19/20 02:32 MCV 94.9 fL (80-100) 10/19/20 02:32 MCH 31.6 pg (25-34) 10/19/20 02:32 MCHC 33.3 g/dL (32-36) 10/19/20 02:32 RDW Std Deviation 49.8 fL (36.4-46.3) H 10/19/20 02:32 RDW Coeff of Per 14.2 % (11.5-14.5) 10/19/20 02:32 Plt Count 130 K/uL (130-400) 10/19/20 02:32 MPV 11.0 fL (7.4-10.4) H 10/19/20 02:32 Immature Gran % (Auto) 0.4 % 10/19/20 02:32 Neut % (Auto) 95.5 % 10/19/20 02:32 Lymph % (Auto) 2.6 % 10/19/20 02:32 Waldo % (Auto) 1.4 % 10/19/20 02:32 Eos % (Auto) 0.0 % 10/19/20 02:32 Baso % (Auto) 0.1 % 10/19/20 02:32 Neut # (Auto) 12.96 K/uL (1.4-6.5) H 10/19/20 02:32 Lymph # (Auto) 0.35 K/uL (1.2-3.4) L 10/19/20 02:32 Waldo # (Auto) 0.19 K/uL (0.11-0.59) 10/19/20 02:32 Eos # (Auto) 0.00 K/uL (0-0.5) 10/19/20 02:32 Baso # (Auto) 0.01 K/uL (0-0.2) 10/19/20 02:32 Immature Gran # (Auto) 0.06 K/uL (0.00-0.02) H 10/19/20 02:32 Absolute Nucleated RBC 0.03 K/uL (0-0) H 10/19/20 02:32 Nucleated RBC % (auto) 0.2 % 10/19/20 02:32 Dohle Bodies 1+ 10/19/20 02:32 PT 11.7 Seconds (9.0-12.0) 10/19/20 02:32 INR 1.2 (0.9-1.1) H 10/19/20 02:32 APTT 25.6 Seconds (21.0-31.0) 10/19/20 02:32 PTT Ratio 1.0 10/19/20 02:32 Sodium 138 mmol/L (136-145) 10/19/20 02:32 Potassium 3.1 mmol/L (3.5-5.1) L 10/19/20 02:32 Chloride 105 mmol/L (98-107) 10/19/20 02:32 Carbon Dioxide 21 mmol/L (21-32) 10/19/20 02:32 Anion Gap 12.0 (3-11) H 10/19/20 02:32 BUN 16 mg/dl (7-18) 10/19/20 02:32 Creatinine 1.58 mg/dl (0.6-1.2) H 10/19/20 02:32 Est Cr Clr Drug Dosing 42.7 ml/min 10/19/20 02:32 Est GFR ( Amer) 37.5 ml/min 10/19/20 02:32 Est GFR (Non-Af Amer) 32.3 ml/min 10/19/20 02:32 BUN/Creatinine Ratio 9.9 (10-20) L 10/19/20 02:32 Glucose 363 mg/dl (70-99) H* 10/19/20 02:32 POC Glucose 319 mg/dl (70-99) H* 10/19/20 01:32 Lactate 5.7 mmol/L (0.4-2.0) H* 10/19/20 02:32 Calcium 8.5 mg/dl (8.5-10.1) 10/19/20 02:32 Magnesium 1.3 mg/dl (1.8-2.4) L 10/19/20 02:32 Total Bilirubin 1.5 mg/dl (0.2-1) H 10/19/20 02:32 AST 13 U/L (15-37) L 10/19/20 02:32 ALT 14 U/L (12-78) 10/19/20 02:32 Alkaline Phosphatase 246 U/L (45-117) H 10/19/20 02:32 Total Protein 6.8 gm/dl (6.4-8.2) 10/19/20 02:32 Albumin 2.9 gm/dl (3.4-5.0) L 10/19/20 02:32 Globulin 3.9 gm/dl (2.5-4.0) 10/19/20 02:32 Albumin/Globulin Ratio 0.7 (0.9-2) L 10/19/20 02:32 Beta-Hydroxybutyric Acd 10.31 mg/dl (0.2-2.81) H 10/19/20 02:32 Urine Color Yellow 10/19/20 01:28 Urine Appearance Cloudy (Clear) A 10/19/20 01:28 Urine pH 5.0 (4.5-7.5) 10/19/20 01:28 Ur Specific Douglas 1.020 (1.000-1.030) 10/19/20 01:28 Urine Protein 2+ (Negative) H 10/19/20 01:28 Urine Glucose (UA) 3+ (Negative) H 10/19/20 01:28 Urine Ketones 1+ (Negative) H 10/19/20 01: Urine Blood 3+ (Negative) H 10/19/20 01:28 Urine Nitrite Positive (Negative) A 10/19/20 01: Urine Bilirubin Negative (Negative) 10/19/20 01: Urine Urobilinogen Negative (Negative) 10/19/20 01:28 Ur Leukocyte Esterase 1+ (Negative) H 10/19/20 01:28 Urine WBC (Auto) >30 /hpf (0-5) H 10/19/20 01:28 Urine RBC (Auto) >30 /hpf (0-4) H 10/19/20 01:28 U Hyaline Cast (Auto) 1-5 /lpf (0-5) 10/19/20 01:28 U Epithel Cells (Auto) >30 /lpf (0-5) H 10/19/20 01:28 Urine Bacteria (Auto) 4+ (Negative) H 10/19/20 01:28 COVID-19 Eval Order Covid19 at [facility] 10/19/20 01:28 SARS-CoV-2 (PCR) NEGATIVE (Negative) 10/19/20 01:28 Diagnostic Findings [facility] Patient: KAIA RYDER (Female) : 46 Status: ER Date: 10/19/20 03:41 Room #: History: AMS, Slices: 66 Priors: Tech: Tierraade Alejandro @ [phone] Exams: CT HEAD Contrast: Accession Numbers: [id number] Preliminary Findings Only See Final Report For Complete Findings CT HEAD: Compared to MRI 11/09/18. No intracranial hemorrhage, mass effect, or midline shift. Involutional and presumably chronic ischemic changes. MRI may be considered if there is clinical concern. Radiologist: Mary Puga M.D. Study ready at 03:45 and initial results transmitted at 04:15 *This report constitutes a preliminary interpretation only. Non-acute findings felt to be unrelated to the clinical presentation may not be discussed in this report. The study will be interpreted and a final report will be generated by the local Radiologist the following shift. To reach the hospital radiology department call [phone]. If a discrepancy is found between the preliminary and final interpretations of this study, please notify us via our Client Portal at [email or web address] QA Exams.You can also fax this report with a description of the discrepancy, or include the final report, to our daytime fax number [phone].If faxing, please indicate the severity of discrepancy using one of the following categories: [ ] 1 - Agree/Informational [ ] 2 - Unlikely to Affect Management [ ] 3 - Possible Eventual Change of Management [ ] 4 - Probable Immediate Change of Management For all other patient related information, please fax us at [phone]. [id number] Code Status & VTE Plan Code Status Full code VTE Prophylaxis Plan VTE Prophylaxis will be ordered: Yes PG Care Time/CCT Total # of Minutes Spent Total Time Spent with Patient: Total time spent is greater than 50% in coordination of care (as documented) at patient's floor/unit and/or counseling patient: Coding Level of Care Code 90996 Initial Inpt Care Lvl 3 Diagnoses Sepsis due to urinary tract infection A41.9; N39.0 Acute kidney injury superimposed on CKD N17.9; N18.9 Hypomagnesemia E83.42 Hypokalemia E87.6 Mixed dementia G30.9; F01.50; F02.80 Hypertension I10 Type 2 diabetes mellitus E11.9 Hypothyroidism E03.9
--- NOTE | 2020-10-19 04:44 | Emergency Department Note ---
Impression & Plan Sepsis, DKA (diabetic ketoacidoses), Hypomagnesemia, Hypokalemia ED Provider Note NAME: KAIA RYDER AGE: 70 SEX: F ARRIVES VIA: Ambulance INFORMANT: Patient, her ED PROVIDER(S): Bren Segura DO CHIEF COMPLAINT: Altered mental status PLAN: Disposition: Admitted to the [facility] service Condition: Guarded MEDICAL DECISION MAKING: This is a 70-year-old female patient with a history of diabetes and dementia who presents to the emergency department by EMS after having episodes of vomiting and diarrhea and an altered mental status. On presentation to the emergency department, the patient was covered in feces and vomit. Patient was noted to have hyperglycemia with an elevated BHA. The explained that the patient vomited on Thursday and and then seemed to become extremely lethargic would not cooperate with taking her medications and could not get up off the couch. The patient had not been eating normally. Laboratory studies show evidence of acute kidney injury, hypokalemia and hypomagnesemia. Patient has an elevated lactate and evidence of urinary tract infection. Patient was treated with IV antibiotics. The UTI could be contributing to the patient's worsening mental status. [facility] for [facility] care. Triage Nursing notes reviewed and agree with them. Additional history obtained from the who was at the bedside Prior medical records reviewed Vital Signs: reviewed and remarkable for tachycardia Differential diagnosis: Stroke, hypoglycemia, hyperglycemia, sepsis, C. difficile, dehydration, DKA, or electrolyte abnormality ER treatment provided: IV normal saline IV piperacillin/tazobactam Diagnostics interpreted by me: ECG: Sinus tachycardia at a rate of 112 with first-degree AV block and a p rolonged QTC at [address] ms. There is some [address] segment depression in leads I and aVL. There is no ST segment elevation or signs of ischemia. Cardiac Monitoring: Sinus tachycardia at 110 Laboratory studies: See below Imaging studies: As per my interpretation Portable chest x-ray: No acute evidence of pulmonary infiltrates or opacities CT head: As per stat rad Compared to MRI 11/09/2018 No intracranial hemorrhage, mass-effect or midline shift. Involutional and presumably chronic ischemic changes. MRI may be considered if there is clinical concern. HPI: 70/F arrives for evaluation of altered mental. The explains that the patient developed an episode of vomiting on Thursday and again on . After the episode of vomiting on , the states that the patient fell back onto the couch and seemed to have a more altered mental status than usual. He explains that since her stroke 2 years ago, she has not been right with regards to her mental status. But since afternoon, she has been unable to get up off the couch and has not really been responding to him. She has had very little oral intake. ROS: Unable to complete a review of systems with the patient because of her altered mental status. PAST MEDICAL HISTORY:See Below PAST SURGICAL HISTORY:See Below FAMILY HISTORY:See Below SOCIAL HISTORY:See Below HOME MEDICATIONS:See list ALLERGIES:See list VITALS:See Below PHYSICAL EXAMINATION: HEENT: Head - normocephalic and atraumatic Pupils are equal, round, and reactive to light. Extraocular eye muscles are intact, and sclera are anicteric. Nose - moist nasal mucosa without discharge. Mouth - moist buccal mucosa. Oropharynx is nonerythematous and there is no tonsillar exudate or edema noted. Neck: Supple; no JVD, nuchal rigidity, cervical lymphadenopathy, or auscultated bruits. Heart: Tachycardic rate and regular rhythm. There is a normal S1 and S2 with no murmurs, clicks, or gallops appreciated. Lungs: Clear to auscultation bilaterally with no wheezes, rales, or rhonchi. Abdomen: Soft, completely nontender, nondistended, with good bowel sounds. There are no palpable pulsatile masses or hepatosplenomegaly. There is no guarding, rigidity, or rebound noted. Extremities: No evidence of cyanosis, clubbing, or edema. There are easily palpable peripheral pulses. Skin: Extremely dry skin that was very dirty with feces and vomit ED COURSE: Times/Reassessments: 0115: I initially went to the patient's room and nursing staff were cleansing the patient from feces and vomit. An order was placed for continuous cardiac monitoring. The patient was in a sinus tachycardia at a rate of 110. A twelve-lead EKG was obtained. The patient will go for CT scan of the brain. The patient was bolused with IV normal saline solution. A Perez catheter was placed. Urinalysis was obtained. It appears the patient has a urinary tract infection. I did review previous urine cultures and the urine was susceptible to piperacillin/tazobactam. So I ordered this antibiotic. 0245: I had a lengthy conversation with the patient's who arrived at the bedside. A portable chest x-ray was performed as described above. I discussed the case with the [facility] hospitalist and they will evaluate for further management. I have personally spent greater than 55 minutes of critical care time in the direct management of this patient. This includes bedside care, interpretation of diagnostic studies, and testing, discussion with consultants, patient, and family members, and other required patient management activities. This 55 minutes is in excess of all separately billable procedures. Bren Segura, DO Past Med/Surg History Medical History Kenney's palsy Broken foot Cervical lymphadenopathy CVA (cerebral vascular accident) Edema Epistaxis Epistaxis, recurrent Excessive daytime sleepiness Hypertension Hypertrophy of nasal turbinates Kidney stones Loud snoring Low back pain Right foot infection Sacroiliac strain Stroke Type 2 diabetes mellitus Surgical History H/O: hysterectomy History of anesthesia reaction History of appendectomy History of cataract surgery History of colonoscopy History of oral surgery History of umbilical hernia repair Family History Father Stroke Hypertension Cancer Prostate cancer Mother Heart murmur Daughter Hypertension Sinusitis Denies family history of Ovarian cancer Myocardial infarction Adverse anesthesia outcome Breast cancer Bleeding disorder Hyperthermia Colorectal cancer Social History Smoking Status: Never smoker Second Hand Exposure: No; Hx Alcohol Use: No Hx Substance Use: No Preferred Language: Mongolian Communication Ability: Effective Visual Impairment: No Limitations Hearing Ability: Normal Billet Recorder Required: No Beliefs That Will Affect Care: None marital status: Current Living Situation: Spouse current occupational status: retired Feels Safe at Home: Yes caffeine: Yes (coffee) Dental Care, Regularly: Yes Physical Activity Frequency: Does not Exercise Seatbelt Use: always Sunscreen Use: Yes Assistive Devices: Glasses and Walker Allergies Allergies Allergy/AdvReac Type Severity Reaction Status Date / Time fenoprofen Allergy Intermediate HAND EDEMA Verified 10/19/20 01:33 prednisone Allergy Intermediate FAST HEART Verified 10/19/20 01:33 BEAT adhesive Allergy Unknown "Red welts" Verified 10/19/20 01:33 peach Allergy Unknown WELTS WITH Verified 10/19/20 01:33 PEACH FUZZ tomato Allergy Unknown WELTS WITH Verified 10/19/20 01:33 TOMATOES AND ORANGE JUICE levofloxacin AdvReac Intermediate PNEUMONIA Verified 10/19/20 01:33 metformin AdvReac Mild Diarrhea Verified 10/19/20 01:33 Sulfa (Sulfonamide AdvReac Unknown "SULFA Verified 10/19/20 01:33 Antibiotics) DRUGS": ITCHING Home Meds Home Medications Medication Instructions Recorded Confirmed acetaminophen 500 mg capsule 1,000 mg PO DIRECTED PRN 11/29/18 10/19/20 dulaglutide [Trulicity] 0.75 mg SUBCUT WK 10/19/20 10/19/20 Previous Rx's Medication Instructions Recorded atorvastatin 40 mg tablet 40 mg PO QAM #90 tab 01/02/20 levothyroxine 75 mcg tablet 75 mcg PO QAM #90 tab 01/02/20 lisinopril 20 mg tablet 20 mg PO DAILY #90 tab 01/02/20 metoprolol succinate 50 mg 50 mg PO DAILY #90 tab 01/02/20 tablet,extended release 24 hr blood sugar diagnostic #100 ea 05/07/20 donepezil 5 mg tablet 5 mg PO DAILY #30 tab 06/28/20 Results & Data (ED) Vital Signs Vital Signs - 24 hr 10/19/20 01:27 Temperature 37.3 C Temperature Source Oral Pulse Rate 110 H Respiratory Rate 19 Respiratory Effort / Characteristics Non-Labored Respiratory Depth Normal Blood Pressure 138/80 Blood Pressure Mean 99 Blood Pressure Position Lying Pulse Oximetry 94 Oxygen Delivery Method Room Air Sepsis Recent Fever Within 48 Hours No Sepsis New/Unexplained Change in Mental Status N/A Sepsis Action Taken by Nursing No Action Required Laboratory Data Result diagrams: 10/19/20 02:32 10/19/20 02:32 Lab Results 10/19/20 10/19/20 10/19/20 Range/Units 01: 01:28 01:28 WBC (4.8-10.8) K/uL RBC (4.2-5.4) M/uL Hgb (12.0-16.0) g/dL Hct (37-47) % MCV (80-100) fL MCH (25-34) pg MCHC (32-36) g/dL RDW Std Deviation (36.4-46.3) fL RDW Coeff of Per (11.5-14.5) % Plt Count (130-400) K/uL MPV (7.4-10.4) fL Immature Gran % (Auto) % Neut % (Auto) % Lymph % (Auto) % [place] % (Auto) % Eos % (Auto) % Baso % (Auto) % Neut # (Auto) (1.4-6.5) K/uL Lymph # (Auto) (1.2-3.4) K/uL [place] # (Auto) (0.11-0.59) K/uL Eos # (Auto) (0-0.5) K/uL Baso # (Auto) (0-0.2) K/uL Immature Gran # (Auto) (0.00-0.02) K/uL Absolute Nucleated RBC (0-0) K/uL Nucleated RBC % (auto) % Dohle Bodies PT (9.0-12.0) Seconds INR (0.9-1.1) APTT (21.0-31.0) Seconds PTT Ratio Sodium (136-145) mmol/L Potassium (3.5-5.1) mmol/L Chloride (98-107) mmol/L Carbon Dioxide (21-32) mmol/L Anion Gap (3-11) BUN (7-18) mg/dl Creatinine (0.6-1.2) mg/dl Est Cr Clr Drug Dosing ml/min Est GFR ( Amer) ml/min Est GFR (Non-Af Amer) ml/min BUN/Creatinine Ratio (10-20) Glucose (70-99) mg/dl POC Glucose (70-99) mg/dl Lactate (0.4-2.0) mmol/L Calcium (8.5-10.1) mg/dl Magnesium (1.8-2.4) mg/dl Total Bilirubin (0.2-1) mg/dl AST (15-37) U/L ALT (12-78) U/L Alkaline Phosphatase (45-117) U/L Total Protein (6.4-8.2) gm/dl Albumin (3.4-5.0) gm/dl Globulin (2.5-4.0) gm/dl Albumin/Globulin Ratio (0.9-2) Beta-Hydroxybutyric Acd (0.2-2.81) mg/dl Urine Color Yellow Urine Appearance Cloudy A (Clear) Urine pH 5.0 (4.5-7.5) Ur Specific Cement 1.020 (1.000-1.030) Urine Protein 2+ H (Negative) Urine Glucose (UA) 3+ H (Negative) Urine Ketones 1+ H (Negative) Urine Blood 3+ H (Negative) Urine Nitrite Positive A (Negative) Urine Bilirubin Negative (Negative) Urine Urobilinogen Negative (Negative) Ur Leukocyte Esterase 1+ H (Negative) Urine WBC (Auto) >30 H (0-5) /hpf Urine RBC (Auto) >30 H (0-4) /hpf U Hyaline Cast (Auto) 1-5 (0-5) /lpf U Epithel Cells (Auto) >30 H (0-5) /lpf Urine Bacteria (Auto) 4+ H (Negative) COVID-19 Eval Order Covid19 at [facility] SARS-CoV-2 (PCR) NEGATIVE (Negative) 10/19/20 10/19/20 10/19/20 Range/Units 01:32 02:32 02:32 WBC 13.57 H (4.8-10.8) K/uL RBC 4.34 (4.2-5.4) M/uL Hgb 13.7 (12.0-16.0) g/dL Hct 41.2 (37-47) % MCV 94.9 (80-100) fL MCH 31.6 (25-34) pg MCHC 33.3 (32-36) g/dL RDW Std Deviation 49.8 H (36.4-46.3) fL RDW Coeff of Per 14.2 (11.5-14.5) % Plt Count 130 (130-400) K/uL MPV 11.0 H (7.4-10.4) fL Immature Gran % (Auto) 0.4 % Neut % (Auto) 95.5 % Lymph % (Auto) 2.6 % [place] % (Auto) 1.4 % Eos % (Auto) 0.0 % Baso % (Auto) 0.1 % Neut # (Auto) 12.96 H (1.4-6.5) K/uL Lymph # (Auto) 0.35 L (1.2-3.4) K/uL [place] # (Auto) 0.19 (0.11-0.59) K/uL Eos # (Auto) 0.00 (0-0.5) K/uL Baso # (Auto) 0.01 (0-0.2) K/uL Immature Gran # (Auto) 0.06 H (0.00-0.02) K/uL Absolute Nucleated RBC 0.03 H (0-0) K/uL Nucleated RBC % (auto) 0.2 % Dohle Bodies 1+ PT 11.7 (9.0-12.0) Seconds INR 1.2 H (0.9-1.1) APTT 25.6 (21.0-31.0) Seconds PTT Ratio 1.0 Sodium (136-145) mmol/L Potassium (3.5-5.1) mmol/L Chloride (98-107) mmol/L Carbon Dioxide (21-32) mmol/L Anion Gap (3-11) BUN (7-18) mg/dl Creatinine (0.6-1.2) mg/dl Est Cr Clr Drug Dosing ml/min Est GFR ( Amer) ml/min Est GFR (Non-Af Amer) ml/min BUN/Creatinine Ratio (10-20) Glucose (70-99) mg/dl POC Glucose 319 H* (70-99) mg/dl Lactate (0.4-2.0) mmol/L Calcium (8.5-10.1) mg/dl Magnesium (1.8-2.4) mg/dl Total Bilirubin (0.2-1) mg/dl AST (15-37) U/L ALT (12-78) U/L Alkaline Phosphatase (45-117) U/L Total Protein (6.4-8.2) gm/dl Albumin (3.4-5.0) gm/dl Globulin (2.5-4.0) gm/dl Albumin/Globulin Ratio (0.9-2) Beta-Hydroxybutyric Acd (0.2-2.81) mg/dl Urine Color Urine Appearance (Clear) Urine pH (4.5-7.5) Ur Specific Cement (1.000-1.030) Urine Protein (Negative) Urine Glucose (UA) (Negative) Urine Ketones (Negative) Urine Blood (Negative) Urine Nitrite (Negative) Urine Bilirubin (Negative) Urine Urobilinogen (Negative) Ur Leukocyte Esterase (Negative) Urine WBC (Auto) (0-5) /hpf Urine RBC (Auto) (0-4) /hpf U Hyaline Cast (Auto) (0-5) /lpf U Epithel Cells (Auto) (0-5) /lpf Urine Bacteria (Auto) (Negative) COVID-19 Eval Order SARS-CoV-2 (PCR) (Negative) 10/19/20 10/19/20 Range/Units 02:32 02:32 WBC (4.8-10.8) K/uL RBC (4.2-5.4) M/uL Hgb (12.0-16.0) g/dL Hct (37-47) % MCV (80-100) fL MCH (25-34) pg MCHC (32-36) g/dL RDW Std Deviation (36.4-46.3) fL RDW Coeff of Per (11.5-14.5) % Plt Count (130-400) K/uL MPV (7.4-10.4) fL Immature Gran % (Auto) % Neut % (Auto) % Lymph % (Auto) % [place] % (Auto) % Eos % (Auto) % Baso % (Auto) % Neut # (Auto) (1.4-6.5) K/uL Lymph # (Auto) (1.2-3.4) K/uL [place] # (Auto) (0.11-0.59) K/uL Eos # (Auto) (0-0.5) K/uL Baso # (Auto) (0-0.2) K/uL Immature Gran # (Auto) (0.00-0.02) K/uL Absolute Nucleated RBC (0-0) K/uL Nucleated RBC % (auto) % Dohle Bodies PT (9.0-12.0) Seconds INR (0.9-1.1) APTT (21.0-31.0) Seconds PTT Ratio Sodium 138 (136-145) mmol/L Potassium 3.1 L (3.5-5.1) mmol/L Chloride 105 (98-107) mmol/L Carbon Dioxide 21 (21-32) mmol/L Anion Gap 12.0 H (3-11) BUN 16 (7-18) mg/dl Creatinine 1.58 H (0.6-1.2) mg/dl Est Cr Clr Drug Dosing 42.7 ml/min Est GFR ( Amer) 37.5 ml/min Est GFR (Non-Af Amer) 32.3 ml/min BUN/Creatinine Ratio 9.9 L (10-20) Glucose 363 H* (70-99) mg/dl POC Glucose (70-99) mg/dl Lactate 5.7 H* (0.4-2.0) mmol/L Calcium 8.5 (8.5-10.1) mg/dl Magnesium 1.3 L (1.8-2.4) mg/dl Total Bilirubin 1.5 H (0.2-1) mg/dl AST 13 L (15-37) U/L ALT 14 (12-78) U/L Alkaline Phosphatase 246 H (45-117) U/L Total Protein 6.8 (6.4-8.2) gm/dl Albumin 2.9 L (3.4-5.0) gm/dl Globulin 3.9 (2.5-4.0) gm/dl Albumin/Globulin Ratio 0.7 L (0.9-2) Beta-Hydroxybutyric Acd 10.31 H (0.2-2.81) mg/dl Urine Color Urine Appearance (Clear) Urine pH (4.5-7.5) Ur Specific Cement (1.000-1.030) Urine Protein (Negative) Urine Glucose (UA) (Negative) Urine Ketones (Negative) Urine Blood (Negative) Urine Nitrite (Negative) Urine Bilirubin (Negative) Urine Urobilinogen (Negative) Ur Leukocyte Esterase (Negative) Urine WBC (Auto) (0-5) /hpf Urine RBC (Auto) (0-4) /hpf U Hyaline Cast (Auto) (0-5) /lpf U Epithel Cells (Auto) (0-5) /lpf Urine Bacteria (Auto) (Negative) COVID-19 Eval Order SARS-CoV-2 (PCR) (Negative) Administered Medications Discontinued Medications Sodium Chloride (Nss) 500 mls @ 999 mls/hr IV .Q31M ONE Stop: 10/19/20 03:41 Last Infusion: 10/19/20 04:39 Dose: 0 mls/hr Documented by: [id number] Admin: 10/19/20 03:53 Dose: 999 mls/hr Documented by: [id number] Piperacillin Sod/Tazobactam Sod (Zosyn) 4.5 gm in 120 mls @ 240 mls/hr IV NOW ONE Stop: 10/19/20 03:43 Last Infusion: 10/19/20 04:38 Dose: 0 mls/hr Documented by: [id number] Admin: 10/19/20 03:53 Dose: 240 mls/hr Documented by: [id number] Discharge Plan Visit Data Chief Complaint: Altered Mental Status Stated Complaint: ALTERED MENTAL STATUS/LETHARGY/VOMITING &DIARRHEA ED Provider: Bren Segura Discharge Problem: Sepsis, DKA (diabetic ketoacidoses), Hypomagnesemia, Hypokalemia Forms Stand Alone Forms: [employer] [facility] Instant Opinion Prescriptions Prescriptions: No Action (DME) FreeStyle Lite Strips Strip See Rx Instructions .ROUTE .MEDSUPPLY Qty: 100 RF: 11 acetaminophen 500 mg capsule 1,000 mg PO DIRECTED PRN (Reason: Pain) RF: 0 donepezil 5 mg tablet 5 mg PO DAILY Qty: 30 RF: 5 atorvastatin 40 mg tablet 40 mg PO QAM Qty: 90 RF: 3 levothyroxine 75 mcg tablet 75 mcg PO QAM Qty: 90 RF: 3 lisinopril 20 mg tablet 20 mg PO DAILY Qty: 90 RF: 3 metoprolol succinate 50 mg tablet extended release 24 hr 50 mg PO DAILY Qty: 90 RF: 3 Trulicity 0.75 mg/0.5 mL pen injector 0.75 mg subcut WK RF: 0 Discharge Problem: Sepsis Qualifiers: Sepsis type: sepsis due to unspecified organism Sepsis acute organ dysfunction status: unspecified Qualified Code(s): A41.9 - Sepsis, unspecified organism DKA (diabetic ketoacidoses) Qualifiers: Diabetes mellitus type: type 2 Diabetes mellitus complication detail: without coma Qualified Code(s): E11.10 - Type 2 diabetes mellitus with ketoacidosis without coma
[2020-10-19] MEDS ORDERED: GLUCOSE 10 TABS/TUBE PO PRN (06:00)
[2020-10-19] MEDS ORDERED: ONDANSETRON INJ 2 MG/ML 2 ML VIAL IV PRN (06:00)
[2020-10-19] MEDS ORDERED: GLUCOSE 40% GEL 15 GM TUBE PO PRN (06:00)
[2020-10-19] MEDS ORDERED: DEXTROSE 50% 50 ML SYRINGE IV PRN (06:00)
[2020-10-19] MEDS ORDERED: GLUCAGON FOR INJ 1 MG VIAL SQ PRN (06:00)
[2020-10-19] MEDS ORDERED: CARBOHYDRATES FOR HYPOGLYCEMIA PO PRN (06:00)
[2020-10-19] MEDS: NSS + 20MEQ KCL 20 MEQ/1,000 ML BAG IV SCH ×2 (06:30→16:57)
[2020-10-19] MEDS: MAGNESIUM SULFATE / D5W 1 GM/100 ML BAG IV SCH ×3 (06:32→10:01)
[2020-10-19] MEDS: FAMOTIDINE 20 MG in SYRINGE 3 ML IV SCH ×2 (06:34→17:30)
[2020-10-19] MEDS: HEPARIN SOD 5,000 UNIT/0.5 ML VIAL SQ SCH ×3 (06:35→21:06)
[2020-10-19] MEDS: LEVOTHYROXINE SODIUM 75 MCG TABLET PO SCH (06:35)
[2020-10-19] MEDS: ALBUMIN 25% 12.5 GM/50 ML VIAL IV SCH ×2 (06:45→07:39)
--- NOTE | 2020-10-19 06:59 | CT Scan Report ---
CT head/brain wo con CLINICAL HISTORY: Acute change in mental status COMPARISON STUDY: MRI dated 11/09/2018, head CT dated 11/09/2018 TECHNIQUE: Axial CT of the brain is performed from the vertex to the skull base. IV contrast was not administered for this examination. A dose lowering technique was utilized adhering to the principles of ALARA. CT DOSE: 614.27 mGy.cm FINDINGS: No intra or extra-axial mass lesions are visualized. There is no CT evidence of acute cortical infarc tion. There is no evidence of midline shift. There is no acute hemorrhage. No calvarial fractures ar e visualized. There are moderate white matter hypodensities likely on a small vessel basis. There is an old right o ccipital lobe infarct. There is no evidence of pathologic ventricular dilatation. There is no evidence of acute sinusitis IMPRESSION: 1. No acute intracranial findings 2. Old right occipital lobe infarct 3. Moderate white matter disease likely a small vessel ischemic basis. ACT 112: Negative or not required by law. Electronically signed by: Alphonso Israel M.D. 10/19/2020 6:58 AM
--- NOTE | 2020-10-19 07:12 | XRay Report ---
XR chest 1V portable CLINICAL HISTORY: SEPSIS COMPARISON STUDY: 10/16/2007 FINDINGS: The heart is enlarged. There is no focal pulmonary consolidation. There are no significant pleural effusions. There is mild nonspecific interstitial thickening.[ IMPRESSION: Cardiomegaly and mild nonspecific interstitial thickening. No evidence of focal pulmonary consolidation. ACT 112: Negative or not required by law. Electronically signed by: Alphonso Israel M.D. 10/19/2020 7:11 AM
[2020-10-19] MEDS ORDERED: INSULIN ASPART 100 UNITS/ML 3 ML PEN SC SCH ×2 (07:30→20:00)
[2020-10-19] MEDS ORDERED: SODIUM CHLORIDE 0.9% 1000ML 1,000 ML IV ONE (07:30)
[2020-10-19] MEDS ORDERED: PHARMACY GLYCEMIC MGMT CONSULT PRN (07:39)
[2020-10-19] MEDS ORDERED: PIPERACILLIN/TAZOBACTAM 4.5 GM in DEXTROSE 5% 100 ML IV SCH (08:00)
[2020-10-19] MEDS: POTASSIUM CHLORIDE / WTR 10 MEQ/100 ML PLCT IV SCH ×2 (08:08→09:24)
[2020-10-19] MEDS: ATORVASTATIN 40 MG TAB PO SCH (08:12)
[2020-10-19] MEDS: METOPROLOL SUCC 50MG EXT REL TAB PO SCH (08:12)
[2020-10-19] MEDS: ACETAMINOPHEN 325 MG TAB PO PRN (08:16)
[2020-10-19 08:34] LABS: Oxygen Saturation VBG 78.8 %; pH VBG 7.39 (7.36-7.41)
[2020-10-19] MEDS ORDERED: POTASSIUM CHLORIDE CRTAB 20 MEQ TABCR PO STA (08:36)
[2020-10-19 08:57] LABS: Estimated Average Glucose 255 mg/dl; Hemoglobin A1C 10.5 % (4.5-5.6)
[2020-10-19] MEDS ORDERED: DONEPEZIL HCL 5 MG TAB PO SCH (09:00)
[2020-10-19 09:03] LABS: BUN Creatinine Ratio 10.9 (10-20); Calcium 8.4 mg/dl (8.5-10.1); Creatinine Clr Calc Pharmacy 38.8 ml/min; Est GFR (African American) 36.1 ml/min; Est GFR (Non-African American) 31.2 ml/min; Potassium 3.1 mmol/L (3.5-5.1)
[2020-10-19 09:19] LABS: Beta-Hydroxybutyrate 5.77 mg/dl (0.2-2.81)
[2020-10-19] MEDS ORDERED: SEVERE STRESS LEVEL ONE (09:38)
[2020-10-19] MEDS ORDERED: INSULIN PROTOCOL GOAL RANGE ONE (09:38)
[2020-10-19] MEDS ORDERED: INSULIN REGULAR 250 UNITS in SODIUM CHLORIDE 0.9% 247.5 ML IV SCH (10:00)
[2020-10-19] MEDS ORDERED: INSULIN HUMAN REGULAR IV BOLUS 4 UNITS in SYRINGE 0 ML IV ONE (10:00)
--- NOTE | 2020-10-19 10:51 | Pharmacy Report ---
Pharmacy Glycemic Short Note 2 - Date of Service October 19, 2020 - Glycemic Short BSG Results (Last 24 hours): 10/19/20 10/19/20 10/19/20 01:32 02:32 07:22 Glucose 363 H* POC Glucose 319 H* 410 H* 10/19/20 10/19/20 10/19/20 07:24 08:16 10:15 Glucose 397 H* POC Glucose 384 H* 364 H* OUTPATIENT ANTIDIABETIC REGIMEN: * Trulicity 0.75mg SQ weekly * A1c = 10.5% on 10/19/20 ASSESSMENT: * 70yo T2DM female with poor outpatient control per A1c * Pt adm with UTI/Sepsis and HHS. * K+ LOW; will start IV insulin infusion when K+ > 3.3 meq/L. Pt ordered KCL 10Eq IV x 2 and 40 meq PO. AM BMP drawn before K+ given; d/w hospitalist- ok to start low dose IV insulin infusion after all K+ orders given. Will use the standard IV insulin infusion order set (~ 0.04 unit/kg/hr) instead of the DKA/HHS order set (0.1 unit/kg/hr) due to low K+. * Will transition to SQ basal bolus when transition criteria met * Outpatient regimen will need adjusted at [facility] to achieve goal A1c of ~8-8.5% PLAN FOR INPATIENT GLYCEMIC CONTROL: * Hold outpatient diabetes medications * IV insulin infusion per standard adult protocol * SEVERE stress * Goal range 140-180 mg/dl * Will use a fixed insulin to carb ratio or 1 unit for every 5g CHO consumed * Will transition to SQ basal bolus based on IV insulin infusion data and weight based calculations when criteria met * Tolerating PO, BSG < 180, labs WNL PLAN FOR DISCHARGE: * A1c = 10.5 % on 10/19/20 * Goal A1c = 8-8.5 % based on age and comorbidities * A1c is greater than or equal to 10% consider triple therapy with metformin + basal insulin + (GLP1-RA OR prandial insulin). * Unsure if patient has tried/failed metformin in the past * Basal insulin will be needed at [facility]. Formulation based on insurance coverage and dosing TBD. Will need to assess patient ability and willingness for basal insulin. * Pt is already on a GLP1RA. May consider titrating Trulicity dosing upwards; 1.5mg Sq weekly x 4 weeks then 3mg SQ weekly x 4 weeks, then to max dosing of 4.5mg SQ weekly if tolerated.
[2020-10-19] MEDS: INSULIN ASPART 100 UNITS/ML 3 ML PEN SC SCH ×2 (11:48→16:56)
[2020-10-19 14:39] LABS: BUN Creatinine Ratio 11.4 (10-20); Creatinine Clr Calc Pharmacy 40.7 ml/min; Est GFR (African American) 35.3 ml/min; Est GFR (Non-African American) 30.5 ml/min
[2020-10-19] MEDS ORDERED: INSULIN GLARGINE SOLOSTAR 100 UNITS/ML 3 ML PEN SC SCH ×2 (15:10→16:30)
--- NOTE | 2020-10-19 15:39 | Electrocardiogram Report ---
Test Reason : Blood Pressure : / mmHG Vent. Rate : 112 BPM Atrial Rate : 122 BPM P-R Int : 000 ms QRS Dur : 072 ms QT Int : 416 ms P-R-T Axes : 000 005 042 degrees QTc Int : 567 ms Poor data quality, interpretation may be adversely affected Sinus tachycardia Nonspecific ST and T wave abnormality Prolonged QT Abnormal ECG When compared with ECG of 09-NOV-2018 16:27, Nonspecific T wave abnormality, improved in Inferior leads T wave inversion less evident in Anterolateral leads Confirmed by Yuniel Rogers ([id number]) on 10/19/2020 3:38:56 PM Referred By: REFERRED SELF Confirmed By:Yuniel Rogers
[2020-10-19] MEDS: cefTRIAXone SODIUM 2,000 MG in DEXTROSE 5% 50 ML IV SCH (17:30)
--- NOTE | 2020-10-19 18:07 | Communication Note ---
Date of Service: October 19, 2020 Patient with sepsis secondary to UTI. Admitted same day therefore will not be billing for this encounter. Patient alert and orientated. She cannot tell me anything about why she came in however. No pain, diarrhea, cough, fever, chills. Additional diagnosis GNR bacteremia. Given prior e. coli. Low likelihood of pseudomonas. Patient appears much more stable than on admission and much more alert. Antibiotics switched to IV ceftriaxone. Started on insulin drip as potassium increasing. Addition 20meq KCl IV and 40 meq PO given. BMP to be taken q6h. VBG without acidosis and gap already closed.
[2020-10-19 20:37] LABS: BUN Creatinine Ratio 12.7 (10-20); Calcium 8.3 mg/dl (8.5-10.1); Creatinine Clr Calc Pharmacy 45.9 ml/min; Est GFR (African American) 40.9 ml/min; Est GFR (Non-African American) 35.3 ml/min; Potassium 3.8 mmol/L (3.5-5.1)
[2020-10-19] MEDS ORDERED: diphenhydrAMINE 50 MG/ML VIAL IM STA (23:56)
--- NOTE | 2020-10-19 23:58 | Communication Note ---
Date of Service: October 19, 2020 Called to bedside by nursing staff for concerns of agitation and aggressiveness towards clinical staff. Upon my arrival patient screaming and yelling at staff, attempting to bite, and attempting to spit on clinical staff at bedside. One-to-one sitter and already been placed earlier given agitation that patient was having prior to my arrival patient had also subsequently removed IV access sites from her arms. Patient unable to be redirected and unable to follow this provider or staff's commands. Upon chart review patient with recent EKG demonstrating QTc of 567. 50 mg of IM Benadryl was given at that time. Patient continuing to attempt to scratch and grab clinical staff, soft upper limb restraints ordered to prevent further removal of equipment including Perez catheter and patient. Patient noted to be sitting in her own stool and refusing to allow staff to help clean her up, nor acknowledging that this would be unsanitary to allow her to remain in. Given continued difficulty with redirection of patient, and disruption of other patients on the floor 2 mg IM Ativan was ordered. Instructed nursing staff to regain IV access as soon as p atient returned to somewhat calm baseline. Resident Activity Tracking Resident Involvement: Resident Care Provided Care Provided: Adult Hospital Medicine
[2020-10-20] MEDS: INSULIN ASPART 100 UNITS/ML 3 ML PEN SC SCH ×6 (00:09→21:08)
[2020-10-20] MEDS ORDERED: LORazepam 2 MG/ML VIAL (IM USE) IM STA (01:00)
[2020-10-20 02:11] LABS: Basophils # (auto) 0.02 K/uL (0-0.2); Basophils % (auto) 0.1 %; Eosinophils # (auto) 0.07 K/uL (0-0.5); Eosinophils % (auto) 0.4 %; Hematocrit (blood only) 34.9 % (37-47); Hemoglobin 11.8 g/dL (12.0-16.0); Immature Granulocytes # (auto) 0.08 K/uL (0.00-0.02); Immature Granulocytes % (auto) 0.5 %; Lymphocytes # (auto) 1.54 K/uL (1.2-3.4); Lymphocytes % (auto) 9.1 %; Mean Corpuscular Hemoglobin 30.8 pg (25-34); Mean Corpuscular Hgb Conc 33.8 g/dL (32-36); Mean Corpuscular Volume 91.1 fL (80-100); Mean Platelet Volume 10.6 fL (7.4-10.4); Monocytes # (auto) 0.83 K/uL (0.11-0.59); Monocytes % (auto) 4.9 %; Neutrophils # (auto) 14.32 K/uL (1.4-6.5); Platelet Count 123 K/uL (130-400); RDW Coefficient of Variation 14.4 % (11.5-14.5); RDW Standard Deviation 48.2 fL (36.4-46.3); Red Blood Count 3.83 M/uL (4.2-5.4); White Blood Count 16.86 K/uL (4.8-10.8)
[2020-10-20 02:38] LABS: Albumin Level 2.8 gm/dl (3.4-5.0); BUN Creatinine Ratio 13.6 (10-20); Calcium 8.3 mg/dl (8.5-10.1); Creatinine Clr Calc Pharmacy 50.4 ml/min; Est GFR (African American) 45.8 ml/min; Est GFR (Non-African American) 39.5 ml/min; Magnesium 2.1 mg/dl (1.8-2.4); Potassium 3.6 mmol/L (3.5-5.1)
[2020-10-20 02:41] LABS: BUN Creatinine Ratio 13.2 (10-20); Calcium 8.2 mg/dl (8.5-10.1); Creatinine Clr Calc Pharmacy 50.4 ml/min; Est GFR (African American) 45.8 ml/min; Est GFR (Non-African American) 39.5 ml/min; Potassium 3.7 mmol/L (3.5-5.1)
[2020-10-20 02:43] LABS: Albumin Globulin Ratio 0.7 (0.9-2); Bilirubin,Total 0.9 mg/dl (0.2-1); Globulin 3.8 gm/dl (2.5-4.0); Total Protein 6.6 gm/dl (6.4-8.2)
[2020-10-20] MEDS ORDERED: ACETAMINOPHEN 1000 MG/100 ML IV IV STA (05:17)
[2020-10-20] MEDS: HEPARIN SOD 5,000 UNIT/0.5 ML VIAL SQ SCH ×3 (05:48→21:13)
[2020-10-20] MEDS: LEVOTHYROXINE SODIUM 75 MCG TABLET PO SCH (05:48)
[2020-10-20] MEDS ORDERED: FUROSEMIDE 40 MG in SYRINGE 0 ML IV ONE (06:00)
[2020-10-20] MEDS: FAMOTIDINE 20 MG in SYRINGE 3 ML IV SCH ×2 (06:54→17:11)
--- NOTE | 2020-10-20 07:28 | XRay Report ---
XR chest 1V portable CLINICAL HISTORY: desats COMPARISON STUDY: Chest radiograph October 19, 2020. FINDINGS: Lung volumes are normal. There is no pneumothorax. Interstitial thickening has progressed. Cardiomegaly is unchanged. Patient is mildly rotated. There may be trace bilateral pleural effusions. Severe osteoarthritis of the right glenohumeral joint is incidentally noted. IMPRESSION: 1. Progression of interstitial thickening suggestive of pulmonary edema. 2. Trace bilateral pleural effusions. ACT 112: Negative or not required by law. Electronically signed by: Carlos Enrique Willis M.D. 10/20/2020 7:27 AM
[2020-10-20] MEDS ORDERED: INSULIN GLARGINE SOLOSTAR 100 UNITS/ML 3 ML PEN SC SCH ×3 (09:00→21:00)
--- NOTE | 2020-10-20 09:16 | Pharmacy Report ---
Pharmacy Glycemic Short Note 2 - Date of Service October 20, 2020 - Glycemic Short BSG Results (Last 24 hours): 10/19/20 10/19/20 10/19/20 10:15 11:43 12:45 Glucose POC Glucose 364 H* 348 H* 343 H* 10/19/20 10/19/20 10/19/20 13:51 13:52 14:10 Glucose 274 H POC Glucose 283 H 303 H* 10/19/20 10/19/20 10/19/20 14:48 15:55 16:54 Glucose POC Glucose 273 H 210 H 172 H 10/19/20 10/19/20 10/19/20 17:51 18:47 19:06 Glucose POC Glucose 148 H 133 H 114 H 10/19/20 10/19/20 10/19/20 19:21 19:40 19:53 Glucose 122 H POC Glucose 129 H 114 H 10/19/20 10/19/20 10/20/20 20:37 23:47 02:02 Glucose 133 H POC Glucose 129 H 134 H 10/20/20 10/20/20 10/20/20 02:02 03:53 08:18 Glucose 134 H POC Glucose 114 H 135 H OUTPATIENT ANTIDIABETIC REGIMEN: * Trulicity 0.75mg SQ weekly * A1c = 10.5% on 10/19/20 ASSESSMENT: 10/20: * Patient successfully transitioned off insulin gtt yesterday with Lantus 50 units SC x 1 * Fasting BSG of 135 mg/dL this morning * Patient did not eat breakfast or lunch, will utilize Lantus scale this evening to potentially provide reduced dose from yesterday * Zosyn changed to ceftriaxone for gram-negative bacteremia (awaiting culture results) 10/19: * 70yo T2DM female with poor outpatient control per A1c * Pt adm with UTI/Sepsis and HHS. * K+ LOW; will start IV insulin infusion when K+ > 3.3 meq/L. Pt ordered KCL 10Eq IV x 2 and 40 meq PO. AM BMP drawn before K+ given; d/w hospitalist- ok to start low dose IV insulin infusion after all K+ orders given. Will use the standard IV insulin infusion order set (~ 0.04 unit/kg/hr) instead of the DKA/HHS order set (0.1 unit/kg/hr) due to low K+. * Will transition to SQ basal bolus when transition criteria met * Outpatient regimen will need adjusted at [place] to achieve goal A1c of ~8-8.5% PLAN FOR INPATIENT GLYCEMIC CONTROL: * Hold outpatient diabetes medications * Basal insulin * 25 units SC x 1 this morning * 15-25 units SC HS (see EHR for details) - allowing for ~10-20% reduction of yesterday's basal dose * Bolus insulin ACHS, or q6h if NPO - loosen * Goal BSG Range: Low 110 mg/dL, High 140 mg/dL * Correction Factor: 20 mg/dL/unit * INS:CHO Ratio: 1unit per 6 gms CHO consumed PLAN FOR DISCHARGE: * A1c = 10.5 % on 10/19/20 * Goal A1c = 8-8.5 % based on age and comorbidities * A1c is greater than or equal to 10% consider triple therapy with metformin + basal insulin + (GLP1-RA OR prandial insulin). * Unsure if patient has tried/failed metformin in the past * Basal insulin will be needed at [place]. Formulation based on insurance coverage and dosing TBD. Will need to assess patient ability and willingness for basal insulin. * Pt is already on a GLP1RA. May consider titrating Trulicity dosing upwards; 1.5mg Sq weekly x 4 weeks then 3mg SQ weekly x 4 weeks, then to max dosing of 4.5mg SQ weekly if tolerated.
[2020-10-20] MEDS: NSS + 20MEQ KCL 20 MEQ/1,000 ML BAG IV SCH (09:18)
[2020-10-20] MEDS: ATORVASTATIN 40 MG TAB PO SCH (09:36)
[2020-10-20] MEDS: METOPROLOL SUCC 50MG EXT REL TAB PO SCH (09:37)
--- NOTE | 2020-10-20 10:44 | CT Scan Report ---
CT OF THE ABDOMEN AND PELVIS WITHOUT CONTRAST CLINICAL HISTORY: gram negative bacteremia/UTI; eval stone, etc. COMPARISON STUDY: Hernia ultrasound September 11, 2016. TECHNIQUE: Axial images of the abdomen and pelvis were obtained without IV contrast. Images were revi ewed in the axial, sagittal, and coronal planes. Automated exposure control was utilized for the rohit dy. A dose lowering technique was utilized adhering to the principles of ALARA. FINDINGS: Cardiomegaly is noted. There is a small hiatal hernia. Small left and trace right pleural e ffusions are noted. This exam is compromised by motion artifact. There is probable hepatic steatosis. There is slight nodularity of the liver surface. Lateral segment is enlarged. There are gallstones w ithin the gallbladder without evidence for acute cholecystitis. Unenhanced images of the spleen, adre nal glands and pancreas are unremarkable. There is no peripancreatic or pericholecystic infiltration. There is no biliary or pancreatic ductal dilatation. No urinary calculi are identified. There is mil d left hydroureteronephrosis. A Perez balloon is present within the bladder which is collapsed. There is bladder wall thickening with adjacent infiltration. There is also left perinephric infiltration. There is suspected urothelial thickening of the left collecting system. No fluid collection is identi fied on this unenhanced exam to suggest a renal abscess. There is colonic diverticulosis without evid ence for acute diverticulitis. Umbilical hernia is noted. No acute fracture or suspicious lesion is i dentified within the visualized skeletal structures. There is minimal presacral infiltration and flui d. There is no evidence for a bowel obstruction. IMPRESSION: 1. Mild left hydroureteronephrosis with suspected urothelial thickening of the left collecting system with left perinephric and periureteral infiltration. The findings favor an infectious process such a s pyelitis. Pyelonephritis cannot be excluded on this unenhanced exam. A recently passed calculus cou ld appear similar but is considered less likely. 2. Bladder wall thickening with adjacent infiltration suggestive of cystitis. 3. Small left and trace right pleural effusions. 4. Cholelithiasis. No evidence for acute cholecystitis. 5. Probable hepatic steatosis. Possible cirrhosis. ACT 112: Negative or not required by law. Electronically signed by: Carlos Enrique Willis M.D. 10/20/2020 10:43 AM
--- NOTE | 2020-10-20 13:47 | Hospitalist Progress Note ---
Date of Service October 20, 2020 Assessment & Plan (1) Bacteremia due to Gram-negative bacteria: source - UTI. CT a/p obtained today -- left-sided hydroureteronephrosis. either passed kidney stone vs pyelonephritis +/- pyelitis. however, no obstructing stone or mass seen. cont rocephin IV. follow blood/urine cx's. will need repeat blood cx's for test of cure. (2) Sepsis due to urinary tract infection: 2nd GNR in blood/urine as above. Rocephin 2gm IV daily while awaiting final cultures. (3) Acute kidney injury superimposed on CKD: Creatinine 1.58 upon admission, with baseline range 0.8-0.9. Likely sepsis-associated ATN. Supportive care. BMP am. (4) Hypomagnesemia: repleted resolved (5) Hypokalemia: repleted resolved (6) Dementia with behavioral disturbance: severe sundowning/delirium/agitation overnight requiring use of soft limb restraints and ativan IV. somnolent today from ativan. would avoid use of benzos moving forward. VBG obtained to exclude hypercarbia causing somnolence -- VBG wnl. for sundowning will start seroquel 25mg HS as repeat EKG today with near-normal QTc. (7) Metabolic encephalopathy: severe, 2nd to septicemia - all in setting of baseline dementia see above (8) Mixed dementia: noted (9) Hypertension: Hold lisinopril due to JEZ Hold metoprolol succinate due to inability to take PO meds (10) Type 2 diabetes mellitus: Hold Trulicity. pharmacy consulted for management - appreciate their assistance. lantus/novolog per their recs. recent a1c 10.5% - will need insulin at discharge. (11) Hypothyroidism: Levothyroxine 75 mcg daily no TSH since 12/2019 - check this admission (12) History of stroke: occipital lobe based on old imaging noted not on aspirin, plavix or other agent for secondary prevention?? will need to investigate records (13) Morbid obesity with BMI of 40.0-44.9, adult: BMI 41 (14) Prolonged QT interval: 2nd to severely low mag & K at admission. Both improved now. repeat EKG today with near-normal QTc (my reading). (15) DVT prophylaxis: heparin 7500 units TID daughter updated by phone Admission and Anticipated Discharge Date Admission Date: October 19, 2020 Subjective events of last 12-24 hours noted last night had severe delirium, agitation, and combativeness - spitting at staff, hitting, etc. ativan 2mg IV x 1 was given and soft limb restraints were placed 1:1 sitter was placed in room she slept for the remainder of the night during AM rounds she was severely somnolent she woke for 4-5 seconds when I called her name but was unable to provide any meaningful responses staff report she didn't wake up for breakfast or lunch tele overnight wnl Review of Systems Review of Systems: Unobtainable due to reduced consciousness Physical Exam Constitutional: + morbidly obese and + altered mental status; no acute distress ENMT: external ear and nose normal, oropharynx normal Respiratory: normal respiratory effort, lungs clear to auscultation Cardiovascular: Rate/Rhythm: regular rate and regular rhythm Heart Sounds: normal S1 and normal S2; no murmur Vessels: posterior tibial pulses present and dorsalis pedis pulses present; no JVD Extremities: no edema Gastrointestinal (Abdomen): normal bowel sounds, soft, nontender, no hepatosplenomegaly Psychiatric: Orientation: + not alert and + not oriented x 3 Results & Data Results & Data ([facility]) Vital Signs (Past 12 Hours) Vital Signs Temp Pulse Pulse Resp BP BP Pulse Ox 10/20/20 11:42 36.6 C 73 18 162/97 H 96 10/20/20 08:00 95 H 10/20/20 07:08 37.6 C H 90 18 167/96 H 94 10/20/20 06:18 38.1 C H 95 H 24 93 10/20/20 05:25 94 10/20/20 05:15 38.6 C H 96 H 30 H 177/94 H 83 L 10/20/20 03:55 36.8 C 104 H 20 199/78 H 90 Laboratory Results Laboratory Results - last 24 hr 10/19/20 10/19/20 10/19/20 13:51 13:52 14:10 WBC RBC Hgb Hct MCV MCH MCHC RDW Std Deviation RDW Coeff of Per Plt Count MPV Immature Gran % (Auto) Neut % (Auto) Lymph % (Auto) [place] % (Auto) Eos % (Auto) Baso % (Auto) Neut # (Auto) Lymph # (Auto) [place] # (Auto) Eos # (Auto) Baso # (Auto) Immature Gran # (Auto) Sodium 137 Potassium 4.0 D Chloride 107 Carbon Dioxide 24 Anion Gap 6.0 BUN 19 H Creatinine 1.66 H Est Cr Clr Drug Dosing 40.7 Est GFR ( Amer) 35.3 Est GFR (Non-Af Amer) 30.5 BUN/Creatinine Ratio 11.4 Glucose 274 H POC Glucose 283 H 303 H* Calcium 8.0 L Magnesium Total Bilirubin AST ALT Alkaline Phosphatase Total Protein Albumin Globulin Albumin/Globulin Ratio 10/19/20 10/19/20 10/19/20 14:48 15:55 16:54 WBC RBC Hgb Hct MCV MCH MCHC RDW Std Deviation RDW Coeff of Per Plt Count MPV Immature Gran % (Auto) Neut % (Auto) Lymph % (Auto) [place] % (Auto) Eos % (Auto) Baso % (Auto) Neut # (Auto) Lymph # (Auto) [place] # (Auto) Eos # (Auto) Baso # (Auto) Immature Gran # (Auto) Sodium Potassium Chloride Carbon Dioxide Anion Gap BUN Creatinine Est Cr Clr Drug Dosing Est GFR ( Amer) Est GFR (Non-Af Amer) BUN/Creatinine Ratio Glucose POC Glucose 273 H 210 H 172 H Calcium Magnesium Total Bilirubin AST ALT Alkaline Phosphatase Total Protein Albumin Globulin Albumin/Globulin Ratio 10/19/20 10/19/20 10/19/20 17:51 18:47 19:06 WBC RBC Hgb Hct MCV MCH MCHC RDW Std Deviation RDW Coeff of Per Plt Count MPV Immature Gran % (Auto) Neut % (Auto) Lymph % (Auto) [place] % (Auto) Eos % (Auto) Baso % (Auto) Neut # (Auto) Lymph # (Auto) [place] # (Auto) Eos # (Auto) Baso # (Auto) Immature Gran # (Auto) Sodium Potassium Chloride Carbon Dioxide Anion Gap BUN Creatinine Est Cr Clr Drug Dosing Est GFR ( Amer) Est GFR (Non-Af Amer) BUN/Creatinine Ratio Glucose POC Glucose 148 H 133 H 114 H Calcium Magnesium Total Bilirubin AST ALT Alkaline Phosphatase Total Protein Albumin Globulin Albumin/Globulin Ratio 10/19/20 10/19/20 10/19/20 19:21 19:40 19:53 WBC RBC Hgb Hct MCV MCH MCHC RDW Std Deviation RDW Coeff of Per Plt Count MPV Immature Gran % (Auto) Neut % (Auto) Lymph % (Auto) [place] % (Auto) Eos % (Auto) Baso % (Auto) Neut # (Auto) Lymph # (Auto) [place] # (Auto) Eos # (Auto) Baso # (Auto) Immature Gran # (Auto) Sodium 139 Potassium 3.8 Chloride 107 Carbon Dioxide 27 Anion Gap 5.0 BUN 19 H Creatinine 1.47 H Est Cr Clr Drug Dosing 45.9 Est GFR ( Amer) 40.9 Est GFR (Non-Af Amer) 35.3 BUN/Creatinine Ratio 12.7 Glucose 122 H POC Glucose 129 H 114 H Calcium 8.3 L Magnesium Total Bilirubin AST ALT Alkaline Phosphatase Total Protein Albumin Globulin Albumin/Globulin Ratio 10/19/20 10/19/20 10/20/20 20:37 23:47 02:02 WBC RBC Hgb Hct MCV MCH MCHC RDW Std Deviation RDW Coeff of Per Plt Count MPV Immature Gran % (Auto) Neut % (Auto) Lymph % (Auto) [place] % (Auto) Eos % (Auto) Baso % (Auto) Neut # (Auto) Lymph # (Auto) [place] # (Auto) Eos # (Auto) Baso # (Auto) Immature Gran # (Auto) Sodium 140 Potassium 3.7 Chloride 110 H Carbon Dioxide 23 Anion Gap 7.0 BUN 18 Creatinine 1.34 H Est Cr Clr Drug Dosing 50.4 Est GFR ( Amer) 45.8 Est GFR (Non-Af Amer) 39.5 BUN/Creatinine Ratio 13.2 Glucose 133 H POC Glucose 129 H 134 H Calcium 8.2 L Magnesium Total Bilirubin AST ALT Alkaline Phosphatase Total Protein Albumin Globulin Albumin/Globulin Ratio 10/20/20 10/20/20 10/20/20 02:02 02:02 03:53 WBC 16.86 H RBC 3.83 L Hgb 11.8 L Hct 34.9 L MCV 91.1 MCH 30.8 MCHC 33.8 RDW Std Deviation 48.2 H RDW Coeff of Per 14.4 Plt Count 123 L MPV 10.6 H Immature Gran % (Auto) 0.5 Neut % (Auto) 85.0 Lymph % (Auto) 9.1 [place] % (Auto) 4.9 Eos % (Auto) 0.4 Baso % (Auto) 0.1 Neut # (Auto) 14.32 H Lymph # (Auto) 1.54 [place] # (Auto) 0.83 H Eos # (Auto) 0.07 Baso # (Auto) 0.02 Immature Gran # (Auto) 0.08 H Sodium 141 Potassium 3.6 Chloride 111 H Carbon Dioxide 23 Anion Gap 7.0 BUN 18 Creatinine 1.34 H Est Cr Clr Drug Dosing 50.4 Est GFR ( Amer) 45.8 Est GFR (Non-Af Amer) 39.5 BUN/Creatinine Ratio 13.6 Glucose 134 H POC Glucose 114 H Calcium 8.3 L Magnesium 2.1 Total Bilirubin 0.9 D AST 24 ALT 14 Alkaline Phosphatase 77 Total Protein 6.6 Albumin 2.8 L Globulin 3.8 Albumin/Globulin Ratio 0.7 L 10/20/20 10/20/20 08:18 11:38 WBC RBC Hgb Hct MCV MCH MCHC RDW Std Deviation RDW Coeff of Per Plt Count MPV Immature Gran % (Auto) Neut % (Auto) Lymph % (Auto) [place] % (Auto) Eos % (Auto) Baso % (Auto) Neut # (Auto) Lymph # (Auto) [place] # (Auto) Eos # (Auto) Baso # (Auto) Immature Gran # (Auto) Sodium Potassium Chloride Carbon Dioxide Anion Gap BUN Creatinine Est Cr Clr Drug Dosing Est GFR ( Amer) Est GFR (Non-Af Amer) BUN/Creatinine Ratio Glucose POC Glucose 135 H 143 H Calcium Magnesium Total Bilirubin AST ALT Alkaline Phosphatase Total Protein Albumin Globulin Albumin/Globulin Ratio urine/blood cx's with GNR PG Care Time/CCT Total # of Minutes Spent Total Time Spent with Patient: Total time spent is greater than 50% in coordination of care (as documented) at patient's floor/unit and/or counseling patient: Coding Level of Care Code 56331 Subseq Hosp Care Lvl 3 Diagnoses Bacteremia due to Gram-negative bacteria R78.81 Sepsis due to urinary tract infection A41.9; N39.0 Acute kidney injury superimposed on CKD N17.9; N18.9 Hypomagnesemia E83.42 Hypokalemia E87.6 Dementia with behavioral disturbance F03.91 Dementia type: unspecified type Metabolic encephalopathy G93.41 Mixed dementia G30.9; F01.50; F02.80 Hypertension I10 Type 2 diabetes mellitus E11.9 Hypothyroidism E03.9 History of stroke Z86.73 Morbid obesity with BMI of 40.0-44.9, adult E66.01; Z68.41 Prolonged QT interval R94.31 DVT prophylaxis Z29.9 (1) Dementia with behavioral disturbance Dementia type: unspecified type Qualified Code(s): F03.91 - Unspecified dementia with behavioral disturbance
[2020-10-20 14:30] LABS: Base Excess VBG 4.5 mEq/L; HCO3 VBG 30 mmol/L; PCO2 VBG 50 mmHg (38-50); PO2 VBG 23 mmHg
[2020-10-20 14:36] LABS: Oxygen Saturation VBG < 60.0 %
[2020-10-20] MEDS: cefTRIAXone SODIUM 2,000 MG in DEXTROSE 5% 50 ML IV SCH (17:10)
[2020-10-20] MEDS: ACETAMINOPHEN 325 MG TAB PO PRN (19:46)
[2020-10-20] MEDS ORDERED: QUEtiapine FUMARATE 25 MG TABLET PO SCH (21:00)
[2020-10-21] MEDS: HEPARIN SOD 5,000 UNIT/0.5 ML VIAL SQ SCH ×3 (05:55→20:46)
[2020-10-21] MEDS: FAMOTIDINE 20 MG in SYRINGE 3 ML IV SCH ×2 (06:00→17:19)
[2020-10-21 06:47] LABS: Basophils # (auto) 0.02 K/uL (0-0.2); Basophils % (auto) 0.2 %; Eosinophils # (auto) 0.19 K/uL (0-0.5); Eosinophils % (auto) 2.3 %; Hematocrit (blood only) 35.1 % (37-47); Hemoglobin 11.3 g/dL (12.0-16.0); Immature Granulocytes # (auto) 0.03 K/uL (0.00-0.02); Immature Granulocytes % (auto) 0.4 %; Lymphocytes # (auto) 1.25 K/uL (1.2-3.4); Mean Corpuscular Hemoglobin 30.5 pg (25-34); Mean Corpuscular Hgb Conc 32.2 g/dL (32-36); Mean Corpuscular Volume 94.9 fL (80-100); Mean Platelet Volume 10.7 fL (7.4-10.4); Monocytes # (auto) 0.61 K/uL (0.11-0.59); Monocytes % (auto) 7.3 %; Neutrophils # (auto) 6.23 K/uL (1.4-6.5); Neutrophils % (auto) 74.8 %; Platelet Count 138 K/uL (130-400); RDW Coefficient of Variation 14.4 % (11.5-14.5); RDW Standard Deviation 50.9 fL (36.4-46.3); White Blood Count 8.33 K/uL (4.8-10.8)
[2020-10-21 07:31] LABS: RBC Morphology Unremarkable
[2020-10-21 07:34] LABS: BUN Creatinine Ratio 12.8 (10-20); Calcium 8.6 mg/dl (8.5-10.1); Creatinine Clr Calc Pharmacy 60.1 ml/min; Est GFR (African American) 58.7 ml/min; Est GFR (Non-African American) 50.7 ml/min
[2020-10-21] MEDS: INSULIN ASPART 100 UNITS/ML 3 ML PEN SC SCH ×4 (08:00→20:46)
[2020-10-21] MEDS: ATORVASTATIN 40 MG TAB PO SCH (08:57)
[2020-10-21] MEDS: METOPROLOL SUCC 50MG EXT REL TAB PO SCH (08:58)
[2020-10-21] MEDS ORDERED: INSULIN GLARGINE SOLOSTAR 100 UNITS/ML 3 ML PEN SC SCH ×2 (09:00→21:00)
[2020-10-21] MEDS: POTASSIUM CHLORIDE CRTAB 20 MEQ TABCR PO SCH ×3 (09:51→20:44)
--- NOTE | 2020-10-21 10:37 | Electrocardiogram Report ---
Test Reason : Blood Pressure : / mmHG Vent. Rate : 084 BPM Atrial Rate : 084 BPM P-R Int : 210 ms QRS Dur : 084 ms QT Int : 414 ms P-R-T Axes : 056 021 057 degrees QTc Int : 489 ms Sinus rhythm with sinus arrhythmia with 1st degree A-V block Low voltage QRS Nonspecific ST and T wave abnormality Prolonged QT Abnormal ECG When compared with ECG of 19-OCT-2020 01:55, No significant change was found Confirmed by Awais Ballesteros ([id number]) on 10/21/2020 10:37:26 AM Referred By: REFERRED SELF Confirmed By:Awais Ballesteros
--- NOTE | 2020-10-21 14:00 | Pharmacy Report ---
Pharmacy Glycemic Short Note 2 - Date of Service October 21, 2020 - Glycemic Short BSG Results (Last 24 hours): 10/20/20 10/20/20 10/21/20 16:14 20:11 01:26 Glucose POC Glucose 145 H 130 H 89 10/21/20 10/21/20 10/21/20 03:56 06:31 08:06 Glucose 98 POC Glucose 101 H 98 10/21/20 13:13 Glucose POC Glucose 133 H OUTPATIENT ANTIDIABETIC REGIMEN: * Trulicity 0.75mg SQ weekly * A1c = 10.5% on 10/19/20 ASSESSMENT: 10/21: * BSGs well-controlled yesterday with 35 units of basal only * Patient has poor oral intake at this time * Will continue with conservative Lantus dosing at this time 10/19: * 70yo T2DM female with poor outpatient control per A1c * Pt adm with UTI/Sepsis and HHS. * K+ LOW; will start IV insulin infusion when K+ > 3.3 meq/L. Pt ordered KCL 10Eq IV x 2 and 40 meq PO. AM BMP drawn before K+ given; d/w hospitalist- ok to start low dose IV insulin infusion after all K+ orders given. Will use the standard IV insulin infusion order set (~ 0.04 unit/kg/hr) instead of the DKA/HHS order set (0.1 unit/kg/hr) due to low K+. * Will transition to SQ basal bolus when transition criteria met * Outpatient regimen will need adjusted at [place] to achieve goal A1c of ~8-8.5% PLAN FOR INPATIENT GLYCEMIC CONTROL: * Hold outpatient diabetes medications * Basal insulin * 15 units SC x 1 this morning * 10-20 units SC BID starting this evening to provide up to an equivalent of yesterday's dose (see EHR for details) * Bolus insulin ACHS, or q6h if NPO * Goal BSG Range: Low 110 mg/dL, High 140 mg/dL * Correction Factor: 20 mg/dL/unit * INS:CHO Ratio: 1unit per 6 gms CHO consumed PLAN FOR DISCHARGE: * A1c = 10.5 % on 10/19/20 * Goal A1c = 8-8.5 % based on age and comorbidities * A1c is greater than or equal to 10% consider triple therapy with metformin + basal insulin + (GLP1-RA OR prandial insulin). * Unsure if patient has tried/failed metformin in the past (renal function adequate) * Basal insulin will be needed at [place]. Formulation based on insurance coverage and dosing TBD. Will need to assess patient ability and willingness for basal insulin. Will also need to assess oral intake at time of discharge. * Pt is already on a GLP1RA. May consider titrating Trulicity dosing upwards; 1.5mg Sq weekly x 4 weeks then 3mg SQ weekly x 4 weeks, then to max dosing of 4.5mg SQ weekly if tolerated.
[2020-10-21] MEDS ORDERED: FUROSEMIDE 20 MG in SYRINGE 0 ML IV ONE (16:15)
[2020-10-21] MEDS: cefTRIAXone SODIUM 2,000 MG in DEXTROSE 5% 50 ML IV SCH (16:33)
[2020-10-21] MEDS ORDERED: QUEtiapine FUMARATE 25 MG TABLET PO SCH (21:00)
--- NOTE | 2020-10-21 21:21 | Hospitalist Progress Note ---
Date of Service October 21, 2020 Assessment & Plan (1) Bacteremia due to Escherichia coli: source - UTI. overall improving albeit slowly. CT a/p obtained -- left-sided hydroureteronephrosis. either passed kidney stone vs pyelonephritis +/- pyelitis. however, no obstructing stone or mass seen. cont rocephin IV. switch to PO meds once she improves more. follow repeat blood cx's for test of cure. (2) Sepsis due to urinary tract infection: 2nd e.coli. Rocephin 2gm IV daily -- see above. (3) Acute kidney injury superimposed on CKD: Creatinine 1.58 upon admission, with baseline range 0.8-0.9. Likely sepsis-associated ATN. Cr today 1. IMPROVED. Supportive care. BMP am. (4) Hypomagnesemia: repleted resolved (5) Hypokalemia: repleted resolved give K supplementation w/ diuretics (6) Dementia with behavioral disturbance: severe sundowning/delirium/agitation 2 nights ago requiring use of soft limb restraints and ativan IV. was subsequently very somnolent from that ativan. would avoid use of benzos moving forward. VBG obtained to exclude hypercarbia causing somnolence -- VBG wnl. gave seroquel 25mg HS last night - helped her sleep, but still a little sedated today. will cut dose to 12.5mg HS and re-eval tomorrow. (7) Metabolic encephalopathy: severe, 2nd to septicemia - all in setting of baseline dementia see above (8) Mixed dementia: noted (9) Hypertension: Resume FERNANDO tomorrow. Resume metoprolol succinate today. (10) Type 2 diabetes mellitus: Hold Nubia. pharmacy consulted for management - appreciate their assistance. lantus/novolog per their recs. recent a1c 10.5% - will need insulin at discharge. (11) Hypothyroidism: Levothyroxine 75 mcg daily no TSH since 12/2019 - check this admission (12) History of stroke: occipital lobe based on old imaging noted not on aspirin, plavix or other agent for secondary prevention?? will need to investigate records (13) Morbid obesity with BMI of 40.0-44.9, adult: BMI 41 (14) Prolonged QT interval: 2nd to severely low mag & K at admission. Both improved now. repeat EKG with QTc near-normal. (15) Acute pulmonary edema: 2nd to volume resuscitation for sepsis and JEZ. improving. give another dose of IV lasix today. (16) DVT prophylaxis: heparin 7500 units TID daughter updated by phone yesterday updated at bedside today PT, OT Admission and Anticipated Discharge Date Admission Date: October 19, 2020 Subjective per staff pt slept through the night without need for sitter (1:1) or restraints this am ate a limited amount of breakfast and same for lunch has been calm on day shift - pleasantly confused at bedside during my rounds he reports dementia for at least 1 year or longer - diagnosed by [facility] Neu[facility] Review of Systems Review of Systems: Unobtainable due to cognitive status Physical Exam Constitutional: + morbidly obese and + altered mental status (sleepy, but wakes up and answers basic questions; this is improved ); no acute distress ENMT: external ear and nose normal, oropharynx normal Respiratory: Auscultation: + rales (fine - bases) Cardiovascular: Rate/Rhythm: regular rate and regular rhythm Heart Sounds: normal S1 and normal S2; no murmur Vessels: posterior tibial pulses present and dorsalis pedis pulses present; no JVD Extremities: + edema (chronic appearing lymphedema - 2+ b/l ) Gastrointestinal (Abdomen): normal bowel sounds, soft, nontender, no hepatosplenomegaly (minimal tenderness L flank ) Skin: stasis changes b/l shins WITHOUT any cellulitis Psychiatric: Orientation: alert and oriented to person; + not oriented to place and + not oriented to time Results & Data Results & Data ([facility]) Vital Signs (Past 12 Hours) Vital Signs Temp Pulse Pulse Resp BP BP Pulse Ox 10/21/20 19:18 36.8 C 79 18 156/88 H 91 10/21/20 16:00 82 10/21/20 15:53 36.9 C 82 20 143/81 H 92 10/21/20 10:57 36.6 C 77 20 153/79 H 96 Laboratory Results Laboratory Results - last 24 hr 10/21/20 10/21/20 10/21/20 01:26 03:56 06:31 WBC 8.33 RBC 3.70 L Hgb 11.3 L Hct 35.1 L MCV 94.9 MCH 30.5 MCHC 32.2 RDW Std Deviation 50.9 H RDW Coeff of Per 14.4 Plt Count 138 MPV 10.7 H Immature Gran % (Auto) 0.4 Neut % (Auto) 74.8 Lymph % (Auto) 15.0 Mingo % (Auto) 7.3 Eos % (Auto) 2.3 Baso % (Auto) 0.2 Neut # (Auto) 6.23 Lymph # (Auto) 1.25 [place]ingo # (Auto) 0.61 H Eos # (Auto) 0.19 Baso # (Auto) 0.02 Immature Gran # (Auto) 0.03 H RBC Morphology Unremarkable Sodium Potassium Chloride Carbon Dioxide Anion Gap BUN Creatinine Est Cr Clr Drug Dosing Est GFR ( Amer) Est GFR (Non-Af Amer) BUN/Creatinine Ratio Glucose POC Glucose 89 101 H Calcium 10/21/20 10/21/20 10/21/20 06:31 07:45 08:06 WBC RBC Hgb Hct MCV MCH MCHC RDW Std Deviation RDW Coeff of Per Plt Count MPV Immature Gran % (Auto) Neut % (Auto) Lymph % (Auto) M[place] % (Auto) Eos % (Auto) Baso % (Auto) Neut # (Auto) Lymph # (Auto) Mingo # (Auto) Eos # (Auto) Baso # (Auto) Immature Gran # (Auto) RBC Morphology Sodium 142 Potassium 3.2 L Chloride 108 H Carbon Dioxide 31 Anion Gap 3.0 BUN 14 Creatinine 1.09 Est Cr Clr Drug Dosing 60.1 Est GFR ( Amer) 58.7 Est GFR (Non-Af Amer) 50.7 BUN/Creatinine Ratio 12.8 Glucose 98 POC Glucose 98 Calcium 8.6 10/21/20 10/21/20 10/21/20 13:13 17:24 20:37 WBC RBC Hgb Hct MCV MCH MCHC RDW Std Deviation RDW Coeff of Per Plt Count MPV Immature Gran % (Auto) Neut % (Auto) Lymph % (Auto) Mingo % (Auto) Eos % (Auto) Baso % (Auto) Neut # (Auto) Lymph # (Auto) M[place] # (Auto) Eos # (Auto) Baso # (Auto) Immature Gran # (Auto) RBC Morphology Sodium Potassium Chloride Carbon Dioxide Anion Gap BUN Creatinine Est Cr Clr Drug Dosing Est GFR ( Amer) Est GFR (Non-Af Amer) BUN/Creatinine Ratio Glucose POC Glucose 133 H 137 H 124 H Calcium blood/urine cx's from admission - e.coli repeat blood cx's today pending PG Care Time/CCT Total # of Minutes Spent Total Time Spent with Patient: Total time spent is greater than 50% in coordination of care (as documented) at patient's floor/unit and/or counseling patient: Coding Level of Care Code 47312 Subseq Hosp Care Lvl 3 Diagnoses Bacteremia due to Escherichia coli R78.81; B96.20 Sepsis due to urinary tract infection A41.9; N39.0 Acute kidney injury superimposed on CKD N17.9; N18.9 Hypomagnesemia E83.42 Hypokalemia E87.6 Dementia with behavioral disturbance F03.91 Dementia type: unspecified type Metabolic encephalopathy G93.41 Mixed dementia G30.9; F01.50; F02.80 Hypertension I10 Type 2 diabetes mellitus E11.9 Hypothyroidism E03.9 History of stroke Z86.73 Morbid obesity with BMI of 40.0-44.9, adult E66.01; Z68.41 Prolonged QT interval R94.31 Acute pulmonary edema J81.0 DVT prophylaxis Z29.9 (1) Dementia with behavioral disturbance Dementia type: unspecified type Qualified Code(s): F03.91 - Unspecified dementia with behavioral disturbance
[2020-10-22] MEDS: FAMOTIDINE 20 MG in SYRINGE 3 ML IV SCH ×2 (05:38→17:44)
[2020-10-22] MEDS: HEPARIN SOD 5,000 UNIT/0.5 ML VIAL SQ SCH ×3 (05:38→22:02)
[2020-10-22] MEDS: LEVOTHYROXINE SODIUM 75 MCG TABLET PO SCH (05:38)
[2020-10-22 07:57] LABS: BUN Creatinine Ratio 11.9 (10-20); Calcium 8.2 mg/dl (8.5-10.1); Creatinine Clr Calc Pharmacy 71.2 ml/min; Est GFR (African American) 72.1 ml/min; Est GFR (Non-African American) 62.2 ml/min; Magnesium 2.1 mg/dl (1.8-2.4); Potassium 3.2 mmol/L (3.5-5.1)
[2020-10-22] MEDS: INSULIN GLARGINE SOLOSTAR 100 UNITS/ML 3 ML PEN SC SCH ×2 (08:30→22:01)
[2020-10-22] MEDS: INSULIN ASPART 100 UNITS/ML 3 ML PEN SC SCH ×4 (08:31→22:00)
[2020-10-22] MEDS: POTASSIUM CHLORIDE CRTAB 20 MEQ TABCR PO SCH ×3 (08:33→22:01)
[2020-10-22] MEDS: METOPROLOL SUCC 50MG EXT REL TAB PO SCH (08:33)
[2020-10-22] MEDS: ATORVASTATIN 40 MG TAB PO SCH (08:34)
[2020-10-22] MEDS ORDERED: POTASSIUM CHLORIDE CRTAB 20 MEQ TABCR PO STA (08:42)
[2020-10-22] MEDS ORDERED: FUROSEMIDE 20 MG in SYRINGE 0 ML IV ONE (09:00)
--- NOTE | 2020-10-22 10:09 | Pharmacy Report ---
Pharmacy Glycemic Short Note 2 - Date of Service October 22, 2020 - Glycemic Short BSG Results (Last 24 hours): 10/21/20 10/21/20 10/21/20 13:13 17:24 20:37 Glucose POC Glucose 133 H 137 H 124 H 10/22/20 10/22/20 06:45 07:06 Glucose 109 H POC Glucose 103 H OUTPATIENT ANTIDIABETIC REGIMEN: * Trulicity 0.75mg SQ weekly * A1c = 10.5% on 10/19/20 ASSESSMENT: 10/22 * Pt has received 37 units of insulin over the past 24hrs * 30 units of basal with Lantus * 7 units of bolus with NovoLog * BSGs [id number] mg/dl * AM fasting BSG in goal range with Lantus 15 units SQ BID- will change scale order to straight dose of 15 units BID * NovoLog dosing low secondary to reduced PO intake. No changes needed to CF/CR 10/21: * BSGs well-controlled yesterday with 35 units of basal only * Patient has poor oral intake at this time * Will continue with conservative Lantus dosing at this time 10/19: * 70yo T2DM female with poor outpatient control per A1c * Pt adm with UTI/Sepsis and HHS. * K+ LOW; will start IV insulin infusion when K+ > 3.3 meq/L. Pt ordered KCL 10Eq IV x 2 and 40 meq PO. AM BMP drawn before K+ given; d/w hospitalist- ok to start low dose IV insulin infusion after all K+ orders given. Will use the standard IV insulin infusion order set (~ 0.04 unit/kg/hr) instead of the DKA/HHS order set (0.1 unit/kg/hr) due to low K+. * Will transition to SQ basal bolus when transition criteria met * Outpatient regimen will need adjusted at [place] to achieve goal A1c of ~8-8.5% PLAN FOR INPATIENT GLYCEMIC CONTROL: * Hold outpatient diabetes medications * Basal insulin * Lantus 15 units SQ BID * Bolus insulin ACHS, or q6h if NPO * Goal BSG Range: Low 110 mg/dL, High 140 mg/dL * Correction Factor: 20 mg/dL/unit * INS:CHO Ratio: 1unit per 6 gms CHO consumed PLAN FOR DISCHARGE: * A1c = 10.5 % on 10/19/20 * Goal A1c = 8-8.5 % based on age and comorbidities * A1c is greater than or equal to 10% consider triple therapy with metformin + basal insulin + (GLP1-RA OR prandial insulin). * Previously tried Metformin but stopped d/t persistent diarrhea, even with ER version. Just Basal + Prandial + GLP-1 will be needed at [place] * Basal insulin will be needed at [place]. Formulation based on insurance coverage and dosing TBD. Will need to assess patient ability and willingness for basal insulin. Will also need to assess oral intake at time of discharge. Pt seems to be tolerating Lantus 15 units SQ BID well - could consider changing to 30 units SQ daily for less complicated administration. * Pt is already on a GLP1RA. May consider titrating Trulicity dosing upwards; 1.5mg Sq weekly x 4 weeks then 3mg SQ weekly x 4 weeks, then to max dosing of 4.5mg SQ weekly if tolerated.
[2020-10-22] MEDS ORDERED: lisinopril 20 MG TAB PO STA (10:37)
[2020-10-22] MEDS: cefTRIAXone SODIUM 2,000 MG in DEXTROSE 5% 50 ML IV SCH (15:46)
[2020-10-22] MEDS ORDERED: QUEtiapine FUMARATE 25 MG TABLET PO PRN (17:20)
--- NOTE | 2020-10-22 20:30 | Hospitalist Progress Note ---
Date of Service October 22, 2020 Assessment & Plan (1) Bacteremia due to Escherichia coli: source - UTI. overall improving slowly. CT a/p w/ left-sided hydroureteronephrosis. either passed kidney stone vs pyelonephritis +/- pyelitis. however, no obstructing stone or mass seen. cont rocephin IV. switch to PO meds once she improves - perhaps tomorrow? plan 14-day course of abx from date of first negative culture. follow repeat blood cx's thus far negative. (2) Sepsis due to urinary tract infection: 2nd e.coli. Rocephin 2gm IV daily -- see above. (3) Acute kidney injury superimposed on CKD: Creatinine 1.58 upon admission, with baseline range 0.8-0.9. Likely sepsis-associated ATN. JEZ RESOLVED -- Cr today 0.9. BMP am. (4) Acute pulmonary edema: 2nd to volume resuscitation for sepsis and JEZ. I cannot exclude that she already had some element of pulmonary edema at time of ER presentation. give another dose of IV lasix today 20mg x 1. check echo in am; last echo 2018 with diastolic dysfunction only. (5) Hypomagnesemia: repleted resolved (6) Hypokalemia: 2nd to diuretics replace again today repeat BMP am mag level today wnl (7) Dementia with behavioral disturbance: severe sundowning/delirium/agitation several nights ago requiring use of soft limb restraints and ativan IV. was subsequently very somnolent from that ativan. would avoid use of benzos moving forward. sundowning now resolved. has slept well last 2 nights. 25mg of seroquel gave her too much somnolence, however. dose changed to 12.5mg of seroquel - gave such last pm - but also had fair amount of AM somnolence today. thus, will make seroquel 12.5mg at HS NEEDED rather than standing. (8) Metabolic encephalopathy: severe, 2nd to septicemia - all in setting of baseline dementia see above (9) Mixed dementia: noted (10) Hypertension: Resume FERNANDO and metoprolol succinate today. (11) Type 2 diabetes mellitus: Hold Trulicity. pharmacy consulted for management - appreciate their assistance. lantus/novolog per their recs. recent a1c 10.5% - will need insulin at discharge. control is excellent w/ current regimen of meds. (12) Hypothyroidism: Levothyroxine 75 mcg daily no TSH since 12/2019 - check in am (13) History of stroke: b/l strokes 2019, with right-sided occipital lobe CVA the largest per records had large visual field cut from such follows with ophtho follows with Dr Mcleod - [facility] Neuro 03/2020 office note indicates she should be taking asa 81mg daily for secondary prevention will resume such in am (14) Morbid obesity with BMI of 40.0-44.9, adult: BMI 40-41 (15) Prolonged QT interval: 2nd to severely low mag & K at admission. Both improved now. repeat EKG with QTc near-normal. (16) Abnormal CT scan, liver: CT of abd/pelvis this admission with nodularity of liver. Given morbid obesity could have BUENO cirrhosis. EGD in 2019 suggested she had portal gastropathy. Given her sleepiness will check ammonia level in am to ensure no hepatic encephalopathy. (17) DVT prophylaxis: heparin 7500 units TID daughter updated by phone this weekend updated at bedside 10/21 son-in-law updated at bedside 10/22 cont PT, OT Admission and Anticipated Discharge Date Admission Date: October 19, 2020 Subjective pt's son-in-law was at bedside during the visit they seemed to be having a good visit/chat nursing said she was very sleepy this am but was more perky when her family visited today slept all night last pm with seroquel 12.5mg no owning, agitation, severe delirium patient very weak with any activity per nursing eating is poor, but patient did say she wanted pizza tele overnight wnl Review of Systems Constitutional: + fatigue and + anorexia Respiratory: no dyspnea Cardiovascular: no chest pain Gastrointestinal: no abdominal pain Musculoskeletal: no back pain Physical Exam Constitutional: + morbidly obese and + altered mental status (baseline confusion from dementia; much more awake/alert today ); no acute distress ENMT: external ear and nose normal, oropharynx normal Respiratory: Auscultation: + rales (fine - bases) Cardiovascular: Rate/Rhythm: regular rate and regular rhythm Heart Sounds: normal S1 and normal S2; no murmur Vessels: posterior tibial pulses present and dorsalis pedis pulses present; no JVD Extremities: + edema (chronic appearing lymphedema - 2+ b/l ) Gastrointestinal (Abdomen): normal bowel sounds, soft, nontender, no hepatosplenomegaly (no flank tenderness today ) Psychiatric: Orientation: alert and oriented to person; + not oriented to place and + not oriented to time didn't remember that her daughter had visited earlier in the day Results & Data Results & Data ([facility]) Vital Signs (Past 12 Hours) Vital Signs Temp Pulse Resp BP BP Pulse Ox 10/22/20 18:56 37.2 C 74 18 143/81 H 91 10/22/20 15:07 36.7 C 70 19 165/89 H 92 10/22/20 12:12 36.8 C 75 19 165/85 H 92 Laboratory Results Laboratory Results - last 24 hr 10/21/20 10/22/20 10/22/20 20:37 06:45 07:06 Sodium 139 Potassium 3.2 L Chloride 105 Carbon Dioxide 29 Anion Gap 5.0 BUN 11 Creatinine 0.92 Est Cr Clr Drug Dosing 71.2 Est GFR ( Amer) 72.1 Est GFR (Non-Af Amer) 62.2 BUN/Creatinine Ratio 11.9 Glucose 109 H POC Glucose 124 H 103 H Calcium 8.2 L Magnesium 2.1 10/22/20 10/22/20 11:24 16:11 Sodium Potassium Chloride Carbon Dioxide Anion Gap BUN Creatinine Est Cr Clr Drug Dosing Est GFR ( Amer) Est GFR (Non-Af Amer) BUN/Creatinine Ratio Glucose POC Glucose 104 H 117 H Calcium Magnesium Diagnostic Findings repeat blood cx's from 10/21/20 negative to date PG Care Time/CCT Total # of Minutes Spent Total Time Spent with Patient: Total time spent is greater than 50% in coordination of care (as documented) at patient's floor/unit and/or counseling patient: Coding Level of Care Code 32253 Subseq Hosp Care Lvl 3 Diagnoses Bacteremia due to Escherichia coli R78.81; B96.20 Sepsis due to urinary tract infection A41.9; N39.0 Acute kidney injury superimposed on CKD N17.9; N18.9 Acute pulmonary edema J81.0 Hypomagnesemia E83.42 Hypokalemia E87.6 Dementia with behavioral disturbance F03.91 Dementia type: unspecified type Metabolic encephalopathy G93.41 Mixed dementia G30.9; F01.50; F02.80 Hypertension I10 Type 2 diabetes mellitus E11.9 Hypothyroidism E03.9 History of stroke Z86.73 Morbid obesity with BMI of 40.0-44.9, adult E66.01; Z68.41 Prolonged QT interval R94.[address] scan, liver R93.2 DVT prophylaxis Z29.9 (1) Dementia with behavioral disturbance Dementia type: unspecified type Qualified Code(s): F03.91 - Unspecified dementia with behavioral disturbance
[2020-10-23] MEDS: HEPARIN SOD 5,000 UNIT/0.5 ML VIAL SQ SCH ×3 (06:13→19:47)
[2020-10-23] MEDS: LEVOTHYROXINE SODIUM 75 MCG TABLET PO SCH (06:13)
[2020-10-23] MEDS: ASPIRIN 81 MG ECTAB PO SCH (08:31)
[2020-10-23] MEDS: POTASSIUM CHLORIDE CRTAB 20 MEQ TABCR PO SCH ×3 (08:31→19:47)
[2020-10-23] MEDS: lisinopril 20 MG TAB PO SCH (08:32)
[2020-10-23] MEDS: METOPROLOL SUCC 50MG EXT REL TAB PO SCH (08:32)
[2020-10-23] MEDS: ATORVASTATIN 40 MG TAB PO SCH (08:33)
[2020-10-23] MEDS: INSULIN ASPART 100 UNITS/ML 3 ML PEN SC SCH ×4 (08:38→19:46)
[2020-10-23] MEDS ORDERED: INSULIN GLARGINE SOLOSTAR 100 UNITS/ML 3 ML PEN SC SCH ×2 (09:00→21:00)
--- NOTE | 2020-10-23 09:01 | Pharmacy Report ---
Pharmacy Glycemic Short Note 2 - Date of Service October 23, 2020 - Glycemic Short BSG Results (Last 24 hours): 10/22/20 10/22/20 10/22/20 11:24 16:11 20:46 POC Glucose 104 H 117 H 146 H 10/23/20 07:13 POC Glucose 162 H OUTPATIENT ANTIDIABETIC REGIMEN: * Trulicity 0.75mg SQ weekly * A1c = 10.5% on 10/19/20 ASSESSMENT: 10/23 * BSGs remain well controlled (103-146 mg/dL yesterday) * Received 39 units of insulin (30 units of basal and 9 units of prandial/correctional bolus) * Fasting BSG of 162 mg/dL this morning - will plan to increase basal insulin today 10/22 * Pt has received 37 units of insulin over the past 24hrs * 30 units of basal with Lantus * 7 units of bolus with NovoLog * BSGs 965-25-173-137-124-103 mg/dl * AM fasting BSG in goal range with Lantus 15 units SQ BID- will change scale order to straight dose of 15 units BID * NovoLog dosing low secondary to reduced PO intake. No changes needed to CF/CR 10/19: * 70yo T2DM female with poor outpatient control per A1c * Pt adm with UTI/Sepsis and HHS. * K+ LOW; will start IV insulin infusion when K+ > 3.3 meq/L. Pt ordered KCL 10Eq IV x 2 and 40 meq PO. AM BMP drawn before K+ given; d/w hospitalist- ok to start low dose IV insulin infusion after all K+ orders given. Will use the standard IV insulin infusion order set (~ 0.04 unit/kg/hr) instead of the DKA/HHS order set (0.1 unit/kg/hr) due to low K+. * Will transition to SQ basal bolus when transition criteria met * Outpatient regimen will need adjusted at [place] to achieve goal A1c of ~8-8.5% PLAN FOR INPATIENT GLYCEMIC CONTROL: * Hold outpatient diabetes medications * Basal insulin * Lantus 20 units SC qAM * Lantus scale HS to provide 10-20 units (see EHR for details) * Bolus insulin ACHS, or q6h if NPO * Goal BSG Range: Low 110 mg/dL, High 140 mg/dL * Correction Factor: 20 mg/dL/unit * INS:CHO Ratio: 1unit per 7 gms CHO consumed PLAN FOR DISCHARGE: * A1c = 10.5 % on 10/19/20 * Goal A1c = 8-8.5 % based on age and comorbidities * A1c is greater than or equal to 10% consider triple therapy with metformin + basal insulin + (GLP1-RA OR prandial insulin). * Previously tried Metformin but stopped d/t persistent diarrhea, even with ER version. Just Basal + Prandial + GLP-1 will be needed at [place] * Basal insulin will be needed at [place]. Formulation based on insurance coverage and dosing TBD. Will need to assess patient ability and willingness for basal insulin. Will also need to assess oral intake at time of discharge. Pt seems to be tolerating Lantus 15 units SQ BID well - could consider changing to 30 units SQ daily for less complicated administration. * Pt is already on a GLP1RA. May consider titrating Trulicity dosing upwards; 1.5mg Sq weekly x 4 weeks then 3mg SQ weekly x 4 weeks, then to max dosing of 4.5mg SQ weekly if tolerated.
[2020-10-23] MEDS ORDERED: METOPROLOL SUCC 25MG EXT REL TAB PO STA (09:26)
--- NOTE | 2020-10-23 09:49 | XCELERA ---
[id number]
[2020-10-23] MEDS ORDERED: HALOPERIDOL LACTATE 5 MG/ML 1 ML VIAL IM STA (12:24)
[2020-10-23] MEDS: cefTRIAXone SODIUM 2,000 MG in DEXTROSE 5% 50 ML IV SCH (16:26)
[2020-10-23 16:34] LABS: BUN Creatinine Ratio 12.9 (10-20); Calcium 8.8 mg/dl (8.5-10.1); Creatinine Clr Calc Pharmacy 65.2 ml/min; Est GFR (African American) 65.2 ml/min; Est GFR (Non-African American) 56.2 ml/min
[2020-10-23 16:39] LABS: Thyroid Stimulating Hormone 5.15 uIu/ml (0.300-4.500); Uric Acid 3.8 mg/dl (2.6-7.2)
[2020-10-23] MEDS ORDERED: KETOROLAC TROMETHAMINE 15 MG/ML VIAL IV ONE (16:48)
[2020-10-23] MEDS ORDERED: FUROSEMIDE 20 MG in SYRINGE 0 ML IV ONE (17:00)
--- NOTE | 2020-10-23 17:25 | XRay Report ---
XR knee LT 1 or 2V routine HISTORY: 70 years-old Female swollen, painful knee; check for CPPD, etc acute left knee pain COMPARISON: None TECHNIQUE: 3 views of the left knee FINDINGS: Soft tissue prominence of the distal thigh and lower leg. Arterial calcifications. Moderate sized kyle nt effusion. 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 No acute fracture, dislocation or osseous erosion. The lateral view is limited secondary to positioning. IMPRESSION: 1. Limited exam secondary to positioning. 2. Moderate joint effusion without acute fracture or dislocation. 3. Tricompartmental osteoarthritis. ACT 112: Negative or not required by law. The above report was generated using voice recognition software. It may contain grammatical, syntax o r spelling errors. Electronically signed by: Ovidio Timmons M.D. 10/23/2020 5:23 PM
[2020-10-23] MEDS ORDERED: COLCHICINE 0.6 MG TAB PO ONE (17:55)
--- NOTE | 2020-10-23 19:42 | Hospitalist Progress Note ---
Date of Service October 23, 2020 Assessment & Plan (1) Left knee pain: suspect gout or CPPD. check x-rays for CPPD changes. check uric acid level. toradol 15mg x1 now. colchicine 0.6mg x 1 now. I spoke with [facility] ortho PA - consult placed for consideration of arthrocentesis. Knee does not appear septic. (2) Bacteremia due to Escherichia coli: source - UTI. overall improving. CT a/p w/ left-sided hydroureteronephrosis. either passed kidney stone vs pyelonephritis +/- pyelitis. however, no obstructing stone or mass seen. cont rocephin IV. switch to PO meds once she reliably will take them - still refusing meds regularly. plan 14-day course of abx from date of first negative culture. follow repeat blood cx's continue to be negative. (3) Sepsis due to urinary tract infection: 2nd e.coli. Rocephin 2gm IV daily -- see above. (4) Acute kidney injury superimposed on CKD: Creatinine 1.58 upon admission, with baseline range 0.8-0.9. Likely sepsis-associated ATN. JEZ RESOLVED -- Cr today 1. (5) Acute pulmonary edema: 2nd to volume resuscitation for sepsis and JEZ. I cannot exclude that she already had some element of pulmonary edema at time of ER presentation. give another dose of IV lasix today 20mg x 1 given rales on exam and LE edema. echo pending. last echo 2018 with diastolic dysfunction only. (6) Hypomagnesemia: repleted resolved (7) Hypokalemia: repleted resolved (8) Dementia with behavioral disturbance: ongoing issues with sundowning, agitation, etc. 25mg of seroquel was too sedating -- give 12.5mg x 1 scheduled at HS (if she will take) haldol 2.5mg IM x 1 was given today with good results. (9) Metabolic encephalopathy: severe, 2nd to septicemia - all in setting of baseline dementia see above (10) Mixed dementia: noted (11) Hypertension: FERNANDO and metoprolol succinate. BPs still high - consider titration of above. (12) Type 2 diabetes mellitus: Hold Trulicity. pharmacy consulted for management - appreciate their assistance. lantus/novolog per their recs. recent a1c 10.5% - will need insulin at discharge. control is excellent w/ current regimen of meds. (13) Hypothyroidism: Levothyroxine 75 mcg daily TSH today 5 - would leave synthroid as is recheck as outpatient in a few weeks (14) History of stroke: b/l strokes 2018, with right-sided occipital lobe CVA the largest per records had large visual field cut from such follows with ophtho follows with Dr Mcleod - [facility] [place] Neuro 03/2020 office note indicates she should be taking asa 81mg daily for secondary prevention resumed today (15) Morbid obesity with BMI of 40.0-44.9, adult: BMI 40-41 (16) Prolonged QT interval: 2nd to severely low mag & K at admission. Both improved now. repeat EKG with QTc near-normal. (17) Abnormal CT scan, liver: CT of abd/pelvis this admission with nodularity of liver. Given morbid obesity could have BUENO cirrhosis. EGD in 2018 suggested she had portal gastropathy. Given her sleepiness checked ammonia level and was wnl (18) DVT prophylaxis: heparin 7500 units TID daughter updated at bedside today updated at bedside 10/21 son-in-law updated at bedside 10/22 cont PT, OT Admission and Anticipated Discharge Date Admission Date: October 19, 2020 Subjective pt's daughter at bedside during the visit earlier this am patient adamantly was refusing blood work, telling staff to leave she refused her seroquel last pm at bedtime patient agreeable to blood work while daughter was present, however patient was grimacing during the visit due to left knee pain pain started sometime this am any movement of the knee makes it hurt just having the sheet touching it seemed to make it hurt no dyspnea eating very poorly (hospital food) but did eat [employer] pizza that was brought by family last pm tele overnight wnl Review of Systems Respiratory: no cough and no dyspnea Cardiovascular: no chest pain Gastrointestinal: no abdominal pain Physical Exam Constitutional: + morbidly obese and + altered mental status (baseline confusion from dementia; she was directable during my visit ); no acute distress ENMT: external ear and nose normal, oropharynx normal Respiratory: Auscultation: + rales (fine - bases) Cardiovascular: Rate/Rhythm: regular rate and regular rhythm Heart Sounds: normal S1 and normal S2; no murmur Vessels: posterior tibial pulses present and dorsalis pedis pulses present; no JVD Extremities: + edema (chronic appearing lymphedema; 1-2+ b/l ) Gastrointestinal (Abdomen): normal bowel sounds, soft, nontender, no hepatosplenomegaly Musculoskeletal: left knee - mild warmth but no redness; tender to palpation and tender with mild ROM; moderate effusion present. Psychiatric: Orientation: alert and oriented to person; + not oriented to place and + not oriented to time Results & Data Results & Data ([facility]) Vital Signs (Past 12 Hours) Vital Signs Temp Pulse Pulse Resp BP BP Pulse Ox 10/23/20 18:53 37.1 C 70 18 162/79 H 93 10/23/20 15:58 37.1 C 69 18 173/83 H 90 10/23/20 15:21 69 10/23/20 12:16 37.2 C 71 17 179/94 H 91 10/23/20 08:00 70 Laboratory Results Laboratory Results - last 24 hr 10/22/20 10/23/20 10/23/20 20:46 07:13 11:38 Sodium Potassium Chloride Carbon Dioxide Anion Gap BUN Creatinine Est Cr Clr Drug Dosing Est GFR ( Amer) Est GFR (Non-Af Amer) BUN/Creatinine Ratio Glucose POC Glucose 146 H 162 H 151 H Uric Acid Calcium Ammonia TSH 10/23/20 10/23/20 10/23/20 15:48 15:48 15:48 Sodium 138 Potassium 4.0 D Chloride 105 Carbon Dioxide 29 Anion Gap 4.0 BUN 13 Creatinine 1.00 Est Cr Clr Drug Dosing 65.2 Est GFR ( Amer) 65.2 Est GFR (Non-Af Amer) 56.2 BUN/Creatinine Ratio 12.9 Glucose 190 H POC Glucose Uric Acid 3.8 Cancelled Calcium 8.8 Ammonia 26.0 TSH 5.150 H 10/23/20 16:22 Sodium Potassium Chloride Carbon Dioxide Anion Gap BUN Creatinine Est Cr Clr Drug Dosing Est GFR ( Amer) Est GFR (Non-Af Amer) BUN/Creatinine Ratio Glucose POC Glucose 197 H Uric Acid Calcium Ammonia TSH Diagnostic Findings Microbiology 10/21/20 09:12 Blood Aerobic Blood Culture - Preliminary No growth in Aerobic bottle after 48 hours. 10/21/20 09:12 Blood Anaerobic Blood Culture - Preliminary No growth in Anaerobic bottle after 48 hours. 10/21/20 09:26 Blood Aerobic Blood Culture - Preliminary No growth in Aerobic bottle after 48 hours. 10/21/20 09:26 Blood Anaerobic Blood Culture - Preliminary No growth in Anaerobic bottle after 48 hours. 10/19/20 01:28 Urine,Clean Catch Urine Culture - Final Escherichia coli 10/19/20 02:32 Blood Aerobic Blood Culture - Final Escherichia coli 10/19/20 02:32 Blood Anaerobic Blood Culture - Final Escherichia coli 10/19/20 02:31 Blood Aerobic Blood Culture - Preliminary No growth in Aerobic bottle after 48 hours. 10/19/20 02:31 Blood Anaerobic Blood Culture - Preliminary Escherichia coli PG Care Time/CCT Total # of Minutes Spent Total Time Spent with Patient: Total time spent is greater than 50% in coordination of care (as documented) at patient's floor/unit and/or counseling patient: Coding Level of Care Code 18109 Subseq Hosp Care Lvl 3 Diagnoses Left knee pain M25.562 Chronicity: acute Bacteremia due to Escherichia coli R78.81; B96.20 Sepsis due to urinary tract infection A41.9; N39.0 Acute kidney injury superimposed on CKD N17.9; N18.9 Acute pulmonary edema J81.0 Hypomagnesemia E83.42 Hypokalemia E87.6 Dementia with behavioral disturbance F03.91 Dementia type: unspecified type Metabolic encephalopathy G93.41 Mixed dementia G30.9; F01.50; F02.80 Hypertension I10 Type 2 diabetes mellitus E11.9 Hypothyroidism E03.9 History of stroke Z86.73 Morbid obesity with BMI of 40.0-44.9, adult E66.01; Z68.41 Prolonged QT interval R94.[address] scan, liver R93.2 DVT prophylaxis Z29.9 (1) Dementia with behavioral disturbance Dementia type: unspecified type Qualified Code(s): F03.91 - Unspecified dementia with behavioral disturbance (2) Left knee pain Chronicity: acute Qualified Code(s): M25.562 - Pain in left knee
[2020-10-23] MEDS ORDERED: QUEtiapine FUMARATE 25 MG TABLET PO SCH (21:00)
[2020-10-24] MEDS: LEVOTHYROXINE SODIUM 75 MCG TABLET PO SCH (05:43)
[2020-10-24] MEDS: HEPARIN SOD 5,000 UNIT/0.5 ML VIAL SQ SCH ×3 (05:43→20:34)
[2020-10-24] MEDS: METOPROLOL SUCC 50MG EXT REL TAB PO SCH (07:33)
[2020-10-24] MEDS: lisinopril 20 MG TAB PO SCH (07:34)
[2020-10-24] MEDS ORDERED: METOPROLOL SUCC 25MG EXT REL TAB PO ONE (08:00)
[2020-10-24] MEDS: ATORVASTATIN 40 MG TAB PO SCH (08:49)
[2020-10-24] MEDS: ASPIRIN 81 MG ECTAB PO SCH (08:49)
[2020-10-24] MEDS: POTASSIUM CHLORIDE CRTAB 20 MEQ TABCR PO SCH ×2 (08:49→13:59)
[2020-10-24] MEDS: INSULIN ASPART 100 UNITS/ML 3 ML PEN SC SCH ×5 (08:59→20:45)
[2020-10-24] MEDS: INSULIN GLARGINE SOLOSTAR 100 UNITS/ML 3 ML PEN SC SCH (09:00)
[2020-10-24] MEDS ORDERED: OPTIRAY 320 150ml IV ONE (11:13)
--- NOTE | 2020-10-24 11:32 | CT Scan Report ---
CT knee LT w con CT DOSE: 192.74 mGy.cm CLINICAL HISTORY: acute arthropathy; suspected gout TECHNIQUE: Helical images were acquired in the transverse plane. The patient was scanned following ad ministration of 100 cc of Optiray 320 Sagittal and coronal reformatted images were acquired A dose l owering technique was utilized adhering to the principles of ALARA. COMPARISON STUDY: X-ray study dated 10/23/2020 FINDINGS: There are moderate vascular calcifications present. No acute fractures are visualized. There is a small suprapatellar joint effusion. There are tricompartment osteoarthritic changes, most pronounced involving the medial joint compartme nt and patellofemoral joint. There are no destructive lesions. There is no evidence of articular erosive disease. IMPRESSION: 1. No acute fractures 2. Tricompartment osteoarthritis most pronounced involving the medial joint compartment patellofemora l joint. 3. Small joint effusion 4. No destructive lesions identified. No evidence of articular erosive disease. ACT 112: Negative or not required by law. Electronically signed by: Alphonso Israel M.D. 10/24/2020 11:30 AM
--- NOTE | 2020-10-24 13:50 | Consultation Report ---
DATE OF CONSULTATION: 10/24/2020 HISTORY OF PRESENT ILLNESS: The patient is a 70-year-old white female who we were asked to evaluate for her left knee. Apparently, she was complaining of knee pain previously on questioning today. The patient relates having no knee pain and that her knee feels better, although that she does have a history of dementia. PHYSICAL EXAMINATION: On her knee exam, no evidence of redness. She has severe end-stage tricompartmental degenerative joint disease via radiographs and via clinical exam. I discussed aspiration with her. She was not interested in allowing me to aspirate her knee as she says her knee does not hurt. We will discuss this with the primary service as well as JANUARY Gill, and we will make further recommendations. ASSESSMENT: Severe tricompartmental degenerative joint disease, left knee. PLAN: Possible aspiration pending her continued symptoms or a lack thereof.
[2020-10-24] MEDS ORDERED: COLCHICINE 0.6 MG TAB PO STA (14:23)
--- NOTE | 2020-10-24 15:12 | Pharmacy Report ---
Pharmacy Glycemic Short Note 2 - Date of Service October 24, 2020 - Glycemic Short BSG Results (Last 24 hours): 10/23/20 10/23/20 10/23/20 15:48 16:22 20:54 Glucose 190 H POC Glucose 197 H 164 H 10/24/20 10/24/20 08:11 12:14 Glucose POC Glucose 164 H 182 H OUTPATIENT ANTIDIABETIC REGIMEN: * Trulicity 0.75mg SQ weekly * A1c = 10.5% on 10/19/20 ASSESSMENT: 10/24 * BSGs have been trending upward, patient refused evening lantus last PM and continued to refuse meal time bolus today * Patient did receive 25 units of insulin this morning, will set scale for PM dosing if patient will agree to dose * If patient continues to refuse insulin consider signing off. 10/23 * BSGs remain well controlled (103-146 mg/dL yesterday) * Received 39 units of insulin (30 units of basal and 9 units of prandial/corre ctional bolus) * Fasting BSG of 162 mg/dL this morning - will plan to increase basal insulin today 10/22 * Pt has received 37 units of insulin over the past 24hrs * 30 units of basal with Lantus * 7 units of bolus with NovoLog * BSGs 096-78-317-137-124-103 mg/dl * AM fasting BSG in goal range with Lantus 15 units SQ BID- will change scale order to straight dose of 15 units BID * NovoLog dosing low secondary to reduced PO intake. No changes needed to CF/CR 10/19: * 70yo T2DM female with poor outpatient control per A1c * Pt adm with UTI/Sepsis and HHS. * K+ LOW; will start IV insulin infusion when K+ > 3.3 meq/L. Pt ordered KCL 10Eq IV x 2 and 40 meq PO. AM BMP drawn before K+ given; d/w hospitalist- ok to start low dose IV insulin infusion after all K+ orders given. Will use the standard IV insulin infusion order set (~ 0.04 unit/kg/hr) instead of the DKA/HHS order set (0.1 unit/kg/hr) due to low K+. * Will transition to SQ basal bolus when transition criteria met * Outpatient regimen will need adjusted at [facility] to achieve goal A1c of ~8-8.5% PLAN FOR INPATIENT GLYCEMIC CONTROL: * Hold outpatient diabetes medications * Basal insulin * Lantus 25 units SC qAM * Lantus scale HS to provide 5-10 units (see EHR for details) * Bolus insulin ACHS, or q6h if NPO * Goal BSG Range: Low 110 mg/dL, High 140 mg/dL * Correction Factor: 20 mg/dL/unit * INS:CHO Ratio: 1unit per 7 gms CHO consumed PLAN FOR DISCHARGE: * A1c = 10.5 % on 10/19/20 * Goal A1c = 8-8.5 % based on age and comorbidities * A1c is greater than or equal to 10% consider triple therapy with metformin + basal insulin + (GLP1-RA OR prandial insulin). * Previously tried Metformin but stopped d/t persistent diarrhea, even with ER version. Just Basal + Prandial + GLP-1 will be needed at [facility] * Basal insulin will be needed at [facility]. Formulation based on insurance coverage and dosing TBD. Will need to assess patient ability and willingness for basal insulin. Will also need to assess oral intake at time of discharge. Pt seems to be tolerating Lantus 15 units SQ BID well - could consider changing to 30 units SQ daily for less complicated administration. * Pt is already on a GLP1RA. May consider titrating Trulicity dosing upwards; 1.5mg Sq weekly x 4 weeks then 3mg SQ weekly x 4 weeks, then to max dosing of 4.5mg SQ weekly if tolerated.
[2020-10-24] MEDS: cefTRIAXone SODIUM 2,000 MG in DEXTROSE 5% 50 ML IV SCH (16:17)
[2020-10-24] MEDS ORDERED: FUROSEMIDE 40 MG TAB PO ONE (19:00)
[2020-10-24] MEDS: risperiDONE ODT 0.5 MG SOLTAB PO SCH (20:33)
[2020-10-24] MEDS ORDERED: INSULIN GLARGINE SOLOSTAR 100 UNITS/ML 3 ML PEN SC SCH (21:00)
--- NOTE | 2020-10-24 21:16 | Hospitalist Progress Note ---
Date of Service October 24, 2020 Assessment & Plan (1) Bacteremia due to Escherichia coli: source - UTI. continues to improve. CT a/p w/ left-sided hydroureteronephrosis. either passed kidney stone vs pyelonephritis +/- pyelitis. however, no obstructing stone or mass seen. we have no IV access - refusing to have one put back in. d/c rocephin, change to augmentin BID. plan 14-day course of abx from date of first negative culture. thus, today is day #4 of abx. (2) Sepsis due to urinary tract infection: 2nd e.coli. sepsis resolved. see above. (3) Acute kidney injury superimposed on CKD: Creatinine 1.58 upon admission, with baseline range 0.8-0.9. Likely sepsis-associated ATN. JEZ RESOLVED. (4) Left knee pain: suspected gout or OA flare. favor former. x-rays neg for CPPD changes. severe OA noted. moderate effusion. although uric acid level was normal this does not rule out gout. cont colchicine. cont nsaids. [facility] saw in consult - patient refused arthrocentesis. Again the knee continues to not appear septic. (5) Acute pulmonary edema: 2nd to volume resuscitation for sepsis and JEZ. I cannot exclude that she already had some element of pulmonary edema at time of ER presentation. continue diuresis. repeat labs am. echo last echo 2018 with diastolic dysfunction only. echo now with worsening pulm HTN, grade 2 diastolic dysfunction, RV dilatation w/ preserved systolic function. (6) Hypomagnesemia: repleted resolved (7) Hypokalemia: repleted resolved repeat bmp am (8) Dementia with behavioral disturbance: ongoing issues with sundowning, agitation, etc. often refuses to swallow the seroquel. change to risperdal ODT - 0.5mg HS. re-eval in am. (9) Metabolic encephalopathy: severe, 2nd to septicemia - all in setting of baseline dementia see above (10) Mixed dementia: noted (11) Hypertension: FERNANDO and metoprolol succinate. BPs still high - increase metoprolol succinate to 75mg daily. (12) Type 2 diabetes mellitus: Hold Trulicity. pharmacy consulted for management - appreciate their assistance. lantus/novolog per their recs. recent a1c 10.5% - will need insulin at discharge. control is excellent (13) Hypothyroidism: Levothyroxine 75 mcg daily TSH today 5 - would leave synthroid as is recheck as outpatient in a few weeks (14) History of stroke: b/l strokes 2019, with right-sided occipital lobe CVA the largest per records had large visual field cut from such follows with ophtho follows with Dr Mcleod - [facility] [place] Neuro cont asa for secondary prevention (15) Morbid obesity with BMI of 40.0-44.9, adult: BMI 40-41 (16) Prolonged QT interval: 2nd to severely low mag & K at admission. Both improved now and QTc near-normal. (17) Abnormal CT scan, liver: CT of abd/pelvis this admission with nodularity of liver. Given morbid obesity could have BUENO cirrhosis. EGD in 2019 suggested she had portal gastropathy. Ammonia level wnl. (18) DVT prophylaxis: heparin 7500 units TID daughter updated at bedside yesterday son updated at bedside today updated at bedside 10/21 son-in-law updated at bedside 10/22 cont PT, OT Admission and Anticipated Discharge Date Admission Date: October 19, 2020 Subjective patient had agitation again overnight refused to take seroquel was a bit agitated during the day today as well eating fair at best refused left knee arthrocentesis by orthopedics lost IV access son at bedside during the visit - he is pleased how she is doing he commented that her LE edema is the best it has been in quite some time he reported that her was admitted to the hospital and she voiced she wanted to see him Review of Systems Respiratory: no cough and no dyspnea Cardiovascular: no chest pain Gastrointestinal: no abdominal pain Physical Exam Constitutional: + morbidly obese and + altered mental status (mental status a bit better than yesterday ); no acute distress ENMT: external ear and nose normal, oropharynx normal Respiratory: no respiratory distress Auscultation: + rales (fine - bases); no wheezes Cardiovascular: Rate/Rhythm: regular rate and regular rhythm Heart Sounds: normal S1 and normal S2; no murmur Vessels: posterior tibial pulses present and dorsalis pedis pulses present; no JVD Extremities: + edema (chronic appearing lymphedema; 1+ b/l ) Gastrointestinal (Abdomen): normal bowel sounds, soft, nontender, no hepatosplenomegaly Musculoskeletal: left knee - effusion slightly better today, less discomfort with palpation or passive ROM; minimal warmth, no erythema Skin: venous stasis changes b/l Psychiatric: Orientation: alert, oriented to person and oriented to place; + not oriented to time Results & Data Results & Data ([facility]) Vital Signs (Past 12 Hours) Vital Signs Temp Pulse Resp BP Pulse Ox 10/24/20 15:42 37.3 C 68 17 160/76 H 93 10/24/20 09:45 69 154/84 H 94 PG Care Time/CCT Total # of Minutes Spent Total Time Spent with Patient: Total time spent is greater than 50% in coordination of care (as documented) at patient's floor/unit and/or counseling patient: Coding Level of Care Code 65716 Subseq Hosp Care Lvl 3 Diagnoses Bacteremia due to Escherichia coli R78.81; B96.20 Sepsis due to urinary tract infection A41.9; N39.0 Acute kidney injury superimposed on CKD N17.9; N18.9 Left knee pain M25.562 Chronicity: acute Acute pulmonary edema J81.0 Hypomagnesemia E83.42 Hypokalemia E87.6 Dementia with behavioral disturbance F03.91 Dementia type: unspecified type Metabolic encephalopathy G93.41 Mixed dementia G30.9; F01.50; F02.80 Hypertension I10 Type 2 diabetes mellitus E11.9 Hypothyroidism E03.9 History of stroke Z86.73 Morbid obesity with BMI of 40.0-44.9, adult E66.01; Z68.41 Prolonged QT interval R94.[address] scan, liver R93.2 DVT prophylaxis Z29.9 (1) Dementia with behavioral disturbance Dementia type: unspecified type Qualified Code(s): F03.91 - Unspecified dementia with behavioral disturbance (2) Left knee pain Chronicity: acute Qualified Code(s): M25.562 - Pain in left knee
[2020-10-25] MEDS: LEVOTHYROXINE SODIUM 75 MCG TABLET PO SCH (05:10)
[2020-10-25] MEDS: HEPARIN SOD 5,000 UNIT/0.5 ML VIAL SQ SCH ×3 (05:10→20:33)
[2020-10-25 08:07] LABS: Hematocrit (blood only) 39.6 % (37-47); Hemoglobin 12.9 g/dL (12.0-16.0); Mean Corpuscular Hemoglobin 30.6 pg (25-34); Mean Corpuscular Hgb Conc 32.6 g/dL (32-36); Mean Corpuscular Volume 93.8 fL (80-100); Mean Platelet Volume 10.2 fL (7.4-10.4); Nucleated RBC # (auto) 0.03 K/uL (0-0); Nucleated RBC % (auto) 0.3 %; Platelet Count 226 K/uL (130-400); RDW Coefficient of Variation 14.4 % (11.5-14.5); RDW Standard Deviation 49.4 fL (36.4-46.3); Red Blood Count 4.22 M/uL (4.2-5.4); White Blood Count 9.38 K/uL (4.8-10.8)
[2020-10-25 08:37] LABS: BUN Creatinine Ratio 18.3 (10-20); Creatinine Clr Calc Pharmacy 78.6 ml/min; Est GFR (African American) 81.7 ml/min; Est GFR (Non-African American) 70.4 ml/min; Potassium 3.5 mmol/L (3.5-5.1)
[2020-10-25] MEDS ORDERED: METOPROLOL SUCC 25MG EXT REL TAB PO SCH (09:00)
[2020-10-25] MEDS: ASPIRIN 81 MG ECTAB PO SCH (09:22)
[2020-10-25] MEDS: ATORVASTATIN 40 MG TAB PO SCH (09:22)
[2020-10-25] MEDS: AMOXICILLIN/CLAVULANATE 875 MG TAB PO SCH ×2 (09:22→18:35)
[2020-10-25] MEDS: lisinopril 20 MG TAB PO SCH (09:22)
[2020-10-25] MEDS: INSULIN ASPART 100 UNITS/ML 3 ML PEN SC SCH ×4 (09:30→20:32)
[2020-10-25] MEDS: INSULIN GLARGINE SOLOSTAR 100 UNITS/ML 3 ML PEN SC SCH (09:31)
[2020-10-25] MEDS ORDERED: METOPROLOL TARTRATE 25 MG TAB PO STA (11:09)
[2020-10-25] MEDS ORDERED: POTASSIUM CHLORIDE CRTAB 20 MEQ TABCR PO STA (11:09)
[2020-10-25] MEDS ORDERED: FUROSEMIDE 40 MG TAB PO ONE (11:09)
[2020-10-25] MEDS: risperiDONE ODT 0.5 MG SOLTAB PO SCH ×2 (20:33→23:13)
--- NOTE | 2020-10-25 22:55 | Hospitalist Progress Note ---
Date of Service October 25, 2020 Assessment & Plan (1) Bacteremia due to Escherichia coli: source - UTI. resolved. day #5 of IV / PO abx since date of first negative culture - now on augmentin. 14 days planned. rocephin previously. CT a/p w/ left-sided hydroureteronephrosis. either passed kidney stone vs pyelonephritis +/- pyelitis. however, no obstructing stone or mass seen. (2) Sepsis due to urinary tract infection: 2nd e.coli. sepsis resolved. see above. (3) Acute kidney injury superimposed on CKD: Creatinine 1.58 upon admission, with baseline range 0.8-0.9. Likely sepsis-associated ATN. JEZ RESOLVED. (4) Left knee pain: suspected gout or OA flare. favor former. x-rays neg for CPPD changes. severe OA noted. moderate effusion. although uric acid level was normal this does not rule out gout. cont colchicine - pain/swelling improved w/ such. [facility] saw in consult - patient refused arthrocentesis. The knee never appeared septic. (5) Acute pulmonary edema: Improving very nicely with diuresis. repeat labs am. echo last echo 2018 with diastolic dysfunction only. echo now with worsening pulm HTN, grade 2 diastolic dysfunction, RV dilatation w/ preserved systolic function. would characterize this as acute/chronic diastolic CHF. cont lasix. cont K supplement. (6) Acute on chronic diastolic (congestive) heart failure: (7) Hypomagnesemia: repleted resolved (8) Hypokalemia: repleted resolved cont K supplement with her lasix (9) Dementia with behavioral disturbance: issues with sundowning, agitation, etc. during this admission. responds nicely to low-dose antipsychotic. rispderal 0.5mg HS. (10) Metabolic encephalopathy: resolved severe, 2nd to septicemia - all in setting of baseline dementia see above (11) Mixed dementia: noted (12) Hypertension: FERNANDO and metoprolol succinate. BPs still high - increase metoprolol succinate to 100mg daily. (13) Type 2 diabetes mellitus: Hold Nubia. pharmacy consulted for management - appreciate their assistance. lantus/novolog per their recs. recent a1c 10.5% - will need insulin at discharge. control is excellent (14) Hypothyroidism: Levothyroxine 75 mcg daily TSH this admission 5 - would leave synthroid as is recheck as outpatient in a few weeks (15) History of stroke: b/l strokes 2019, with right-sided occipital lobe CVA the largest per records had large visual field cut from such follows with ophtho follows with Dr Mcleod - [facility] [place] [facility] cont asa for secondary prevention (16) Morbid obesity with BMI of 40.0-44.9, adult: BMI 40-41 (17) Prolonged QT interval: 2nd to severely low mag & K at admission. Both improved now and QTc near-normal. (18) Abnormal CT scan, liver: CT of abd/pelvis this admission with nodularity of liver. Given morbid obesity could have BUENO cirrhosis. EGD in 2019 suggested she had portal gastropathy. Cont lasix to maintain euvolemia. Ammonia level wnl. (19) DVT prophylaxis: heparin 7500 units TID family extensively updated either by phone or at bedside on near-daily basis this week Admission and Anticipated Discharge Date Admission Date: October 19, 2020 Subjective pt with overall good day and good night she is more oriented and "feeling better" today eating is improved breathing improved edema improved agitation essetially resolved Review of Systems Constitutional: + weakness; no fever, no chills, no fatigue and no anorexia Respiratory: no cough and no dyspnea Cardiovascular: no chest pain Gastrointestinal: no abdominal pain, no nausea and no vomiting Neurologic: + generalized weakness Physical Exam Constitutional: + morbidly obese; no acute distress and no altered mental status (recalling remote and near-recent memories ) ENMT: external ear and nose normal, oropharynx normal Respiratory: normal respiratory effort, lungs clear to auscultation no respiratory distress Auscultation: + rales (fine - bases - minimal today ); no wheezes Cardiovascular: Rate/Rhythm: regular rate and regular rhythm Heart Sounds: normal S1 and normal S2; no murmur Vessels: posterior tibial pulses present and dorsalis pedis pulses present; no JVD Extremities: + edema (<1+ b/l ) Gastrointestinal (Abdomen): normal bowel sounds, soft, nontender, no hepatosplenomegaly Musculoskeletal: left knee - effusion improved, minimal tenderness with passive ROM Psychiatric: Orientation: alert, oriented to person, oriented to place and oriented to time (improved today ) Results & Data Results & Data ([facility]) Vital Signs (Past 12 Hours) Vital Signs Temp Pulse Resp BP Pulse Ox 10/25/20 22:42 37.5 C 69 18 135/80 92 10/25/20 16:10 36.9 C 63 16 130/77 93 Laboratory Results Laboratory Results - last 24 hr 10/25/20 10/25/20 10/25/20 07:47 07:47 08:16 WBC 9.38 RBC 4.22 Hgb 12.9 Hct 39.6 MCV 93.8 MCH 30.6 MCHC 32.6 RDW Std Deviation 49.4 H RDW Coeff of Per 14.4 Plt Count 226 MPV 10.2 Absolute Nucleated RBC 0.03 H Nucleated RBC % (auto) 0.3 Sodium 138 Potassium 3.5 Chloride 102 Carbon Dioxide 27 Anion Gap 9.0 BUN 15 Creatinine 0.83 Est Cr Clr Drug Dosing 78.6 Est GFR ( Amer) 81.7 Est GFR (Non-Af Amer) 70.4 BUN/Creatinine Ratio 18.3 Glucose 152 H POC Glucose 144 H Calcium 9.0 Magnesium 2.0 10/25/20 10/25/20 10/25/20 12:16 17:19 20:30 WBC RBC Hgb Hct MCV MCH MCHC RDW Std Deviation RDW Coeff of Per Plt Count MPV Absolute Nucleated RBC Nucleated RBC % (auto) Sodium Potassium Chloride Carbon Dioxide Anion Gap BUN Creatinine Est Cr Clr Drug Dosing Est GFR ( Amer) Est GFR (Non-Af Amer) BUN/Creatinine Ratio Glucose POC Glucose 173 H 134 H 121 H Calcium Magnesium PG Care Time/CCT Total # of Minutes Spent Total Time Spent with Patient: Total time spent is greater than 50% in coordination of care (as documented) at patient's floor/unit and/or counseling patient: Coding Level of Care Code 10474 Subseq Hosp Care Lvl 3 Diagnoses Bacteremia due to Escherichia coli R78.81; B96.20 Sepsis due to urinary tract infection A41.9; N39.0 Acute kidney injury superimposed on CKD N17.9; N18.9 Left knee pain M25.562 Chronicity: acute Acute pulmonary edema J81.0 Acute on chronic diastolic (congestive) heart failure I50.33 Hypomagnesemia E83.42 Hypokalemia E87.6 Dementia with behavioral disturbance F03.91 Dementia type: unspecified type Metabolic encephalopathy G93.41 Mixed dementia G30.9; F01.50; F02.80 Hypertension I10 Type 2 diabetes mellitus E11.9 Hypothyroidism E03.9 History of stroke Z86.73 Morbid obesity with BMI of 40.0-44.9, adult E66.01; Z68.41 Prolonged QT interval R94.[address] scan, liver R93.2 DVT prophylaxis Z29.9 (1) Dementia with behavioral disturbance Dementia type: unspecified type Qualified Code(s): F03.91 - Unspecified dementia with behavioral disturbance (2) Left knee pain Chronicity: acute Qualified Code(s): M25.562 - Pain in left knee
[2020-10-26] MEDS: HEPARIN SOD 5,000 UNIT/0.5 ML VIAL SQ SCH ×3 (05:17→21:41)
[2020-10-26] MEDS: LEVOTHYROXINE SODIUM 75 MCG TABLET PO SCH (05:17)
[2020-10-26 08:13] LABS: Calcium 9.1 mg/dl (8.5-10.1); Creatinine Clr Calc Pharmacy 68.6 ml/min; Est GFR (African American) 69.4 ml/min; Est GFR (Non-African American) 59.8 ml/min; Potassium 3.8 mmol/L (3.5-5.1)
[2020-10-26] MEDS: METOPROLOL SUCC 50MG EXT REL TAB PO SCH (08:52)
[2020-10-26] MEDS: lisinopril 20 MG TAB PO SCH (08:52)
[2020-10-26] MEDS: ATORVASTATIN 40 MG TAB PO SCH (08:52)
[2020-10-26] MEDS: AMOXICILLIN/CLAVULANATE 875 MG TAB PO SCH ×2 (08:52→17:55)
[2020-10-26] MEDS: INSULIN GLARGINE SOLOSTAR 100 UNITS/ML 3 ML PEN SC SCH (09:05)
[2020-10-26] MEDS: INSULIN ASPART 100 UNITS/ML 3 ML PEN SC SCH ×4 (09:05→20:44)
[2020-10-26] MEDS ORDERED: POTASSIUM CHLORIDE CRTAB 20 MEQ TABCR PO STA (09:13)
[2020-10-26] MEDS ORDERED: FUROSEMIDE 20 MG in SYRINGE 0 ML IV ONE (09:30)
[2020-10-26] MEDS: ASPIRIN 81 MG ECTAB PO SCH (09:34)
[2020-10-26] MEDS ORDERED: FUROSEMIDE 40 MG TAB PO ONE (09:58)
--- NOTE | 2020-10-26 11:10 | Pharmacy Report ---
Pharmacy Glycemic Short Note 2 - Date of Service October 26, 2020 - Glycemic Short BSG Results (Last 24 hours): 10/25/20 10/25/20 10/25/20 12:16 17:19 20:30 Glucose POC Glucose 173 H 134 H 121 H 10/26/20 10/26/20 07:10 08:18 Glucose 137 H POC Glucose 141 H OUTPATIENT ANTIDIABETIC REGIMEN: * Trulicity 0.75mg SQ weekly * A1c = 10.5% on 10/19/20 ASSESSMENT: 10/26/20: * Ms Molina did not refuse any of her insulin doses yesterday. BSGs have been relatively well-controlled (121-173 past 24 hours). * No changes at this time. 10/24 * BSGs have been trending upward, patient refused evening lantus last PM and continued to refuse meal time bolus today * Patient did receive 25 units of insulin this morning, will set scale for PM dosing if patient will agree to dose * If patient continues to refuse insulin consider signing off. 10/23 * BSGs remain well controlled (103-146 mg/dL yesterday) * Received 39 units of insulin (30 units of basal and 9 units of prandial/correctional bolus) * Fasting BSG of 162 mg/dL this morning - will plan to increase basal insulin today 10/22 * Pt has received 37 units of insulin over the past 24hrs * 30 units of basal with Lantus * 7 units of bolus with NovoLog * BSGs [phone] mg/dl * AM fasting BSG in goal range with Lantus 15 units SQ BID- will change scale order to straight dose of 15 units BID * NovoLog dosing low secondary to reduced PO intake. No changes needed to CF/CR 10/19 * 70yo T2DM female with poor outpatient control per A1c * Pt adm with UTI/Sepsis and HHS. * K+ LOW; will start IV insulin infusion when K+ > 3.3 meq/L. Pt ordered KCL 10Eq IV x 2 and 40 meq PO. AM BMP drawn before K+ given; d/w hospitalist- ok to start low dose IV insulin infusion after all K+ orders given. Will use the standard IV insulin infusion order set (~ 0.04 unit/kg/hr) instead of the DKA/HHS order set (0.1 unit/kg/hr) due to low K+. * Will transition to SQ basal bolus when transition criteria met * Outpatient regimen will need adjusted at [facility] to achieve goal A1c of ~8-8.5% PLAN FOR INPATIENT GLYCEMIC CONTROL: * Hold outpatient diabetes medications * Basal insulin * Lantus 25 units SC qAM * Bolus insulin ACHS, or q6h if NPO * Goal BSG Range: Low 110 mg/dL, High 140 mg/dL * Correction Factor: 20 mg/dL/unit * INS:CHO Ratio: 1unit per 7 gms CHO consumed PLAN FOR DISCHARGE: * A1c = 10.5 % on 10/19/20 * Goal A1c = 8-8.5 % based on age and comorbidities * A1c is greater than or equal to 10% consider triple therapy with metformin + basal insulin + (GLP1-RA OR prandial insulin). * Previously tried Metformin but stopped d/t persistent diarrhea, even with ER version. Just Basal + Prandial + GLP-1 will be needed at MA * Basal insulin will be needed at MA. Formulation based on insurance coverage and dosing TBD. Will need to assess patient ability and willingness for basal insulin. Will also need to assess oral intake at time of discharge. Pt seems to be tolerating Lantus 15 units SQ BID well - could consider changing to 30 units SQ daily for less complicated administration. * Pt is already on a GLP1RA. May consider titrating Trulicity dosing upwards; 1.5mg Sq weekly x 4 weeks then 3mg SQ weekly x 4 weeks, then to max dosing of 4.5mg SQ weekly if tolerated.
[2020-10-26] MEDS: risperiDONE ODT 0.5 MG SOLTAB PO SCH (20:40)
--- NOTE | 2020-10-26 20:54 | Hospitalist Progress Note ---
Date of Service October 26, 2020 Assessment & Plan (1) Bacteremia due to Escherichia coli: source - UTI. bacteremia resolved. repeat blood cx's 10/21/[address] a/p w/ left-sided hydroureteronephrosis. either she passed a kidney stone just prior to admission, or had L-sided pyelonephritis with pyelitis. however, no obstructing stone or mass seen. either way continue BID augmentin. PLAN - 14-day course of abx from date of first negative culture. thus, today is day #6 of abx. (2) Sepsis due to urinary tract infection: 2nd e.coli. sepsis resolved. see above. (3) Acute kidney injury superimposed on CKD: Creatinine 1.58 upon admission, with baseline range 0.8-0.9. Likely sepsis-associated ATN. JEZ RESOLVED. Cr today 0.9. (4) Left knee pain: suspected gout attack. knee never had septic appearance to it. x-rays neg for CPPD changes. severe OA noted. moderate effusion noted. cont colchicine daily until pain/swelling fully resolved - probably a few more days. [facility] saw in consult - patient refused arthrocentesis. (5) Acute pulmonary edema: 2nd to volume resuscitation for sepsis and JEZ. I cannot exclude that she already had some element of pulmonary edema at time of ER presentation. MUCH IMPROVED. significant weight loss since admission. continue diuresis. echo last echo 2018 with diastolic dysfunction only. echo now with worsening pulm HTN, grade 2 diastolic dysfunction, RV dilatation w/ preserved systolic function. (6) Hypomagnesemia: repleted resolved (7) Hypokalemia: repleted resolved repeat bmp am (8) Dementia with behavioral disturbance: cont risperdal ODT 0.5mg HS. doing well on this. (9) Metabolic encephalopathy: severe, 2nd to septicemia - all in setting of baseline dementia -- resolved with Rx of UTI/sepsis, use of risperdal, etc. (10) Mixed dementia: noted (11) Hypertension: FERNANDO and metoprolol succinate. Latter increased to 100mg daily and BPs have improved nicely. (12) Type 2 diabetes mellitus: Hold Nubia. pharmacy consulted for management - appreciate their assistance. lantus/novolog per their recs. recent a1c 10.5% - will need some insulin at discharge. control is excellent (13) Hypothyroidism: Levothyroxine 75 mcg daily. TSH this admission was 5 - would leave synthroid as is for now; simply repeat TSH in a few weeks as outpatient. (14) History of stroke: b/l strokes 2019, with right-sided occipital lobe CVA the largest per records had large visual field cut from such follows with ophtho follows with Dr Mcleod - [facility] [place] Neuro cont asa for secondary prevention (15) Morbid obesity with BMI of 40.0-44.9, adult: BMI 40-41 (16) Prolonged QT interval: 2nd to severely low mag & K at admission. Following repletion QTc near-normal. (17) Abnormal CT scan, liver: CT of abd/pelvis this admission with nodularity of liver. Given morbid obesity could have BUENO cirrhosis. EGD in 2019 suggested she had portal gastropathy. Ammonia level wnl. Cont BB. Cont lasix. (18) DVT prophylaxis: heparin 7500 units TID multiple family members - spouse, son, daughter - updated multiple times this week dispo - SNF for rehab at d/c Admission and Anticipated Discharge Date Admission Date: October 19, 2020 Subjective no issues overnight eating better she states "I'm doing well" mild left knee pain - improved from previous no agitation or severe sundowning per staff moving bowels Review of Systems Respiratory: no cough and no dyspnea Cardiovascular: no chest pain Gastrointestinal: no abdominal pain, no nausea and no vomiting Physical Exam Constitutional: + morbidly obese and + altered mental status (slight confusion - seems to be at baseline); no acute distress looks great today! ENMT: external ear and nose normal, oropharynx normal Respiratory: no respiratory distress Auscultation: + rales (fine - bases - minimal today ); no wheezes Cardiovascular: Rate/Rhythm: regular rate and regular rhythm Heart Sounds: normal S1 and normal S2; no murmur Vessels: posterior tibial pulses present and dorsalis pedis pulses present; no JVD Extremities: + edema (<1+ b/l ) Gastrointestinal (Abdomen): normal bowel sounds, soft, nontender, no hepatosplenomegaly Skin: venous stasis changes b/l shins - chronic, no change Psychiatric: Orientation: alert, oriented to person and oriented to place; + not oriented to time Results & Data Results & Data ([facility]) Vital Signs (Past 12 Hours) Vital Signs Temp Pulse Resp BP Pulse Ox 10/26/20 15:06 36.7 C 67 18 132/71 97 10/26/20 11:37 36.9 C 72 18 125/70 97 Laboratory Results Laboratory Results - last 24 hr 10/26/20 10/26/20 10/26/20 07:10 08:18 12:15 Sodium 136 Potassium 3.8 Chloride 103 Carbon Dioxide 27 Anion Gap 6.0 BUN 17 Creatinine 0.95 Est Cr Clr Drug Dosing 68.6 Est GFR ( Amer) 69.4 Est GFR (Non-Af Amer) 59.8 BUN/Creatinine Ratio 18.0 Glucose 137 H POC Glucose 141 H 141 H Calcium 9.1 Specimen Hemolysis 10/26/20 10/26/20 17:13 20:43 Sodium Potassium Chloride Carbon Dioxide Anion Gap BUN Creatinine Est Cr Clr Drug Dosing Est GFR ( Amer) Est GFR (Non-Af Amer) BUN/Creatinine Ratio Glucose POC Glucose 142 H 169 H Calcium Specimen Hemolysis PG Care Time/CCT Total # of Minutes Spent Total Time Spent with Patient: Total time spent is greater than 50% in coordination of care (as documented) at patient's floor/unit and/or counseling patient: Coding Level of Care Code 62272 Subseq Hosp Care Lvl 2 Diagnoses Bacteremia due to Escherichia coli R78.81; B96.20 Sepsis due to urinary tract infection A41.9; N39.0 Acute kidney injury superimposed on CKD N17.9; N18.9 Left knee pain M25.562 Chronicity: acute Acute pulmonary edema J81.0 Hypomagnesemia E83.42 Hypokalemia E87.6 Dementia with behavioral disturbance F03.91 Dementia type: unspecified type Metabolic encephalopathy G93.41 Mixed dementia G30.9; F01.50; F02.80 Hypertension I10 Type 2 diabetes mellitus E11.9 Hypothyroidism E03.9 History of stroke Z86.73 Morbid obesity with BMI of 40.0-44.9, adult E66.01; Z68.41 Prolonged QT interval R94.[address] scan, liver R93.2 DVT prophylaxis Z29.9 (1) Dementia with behavioral disturbance Dementia type: unspecified type Qualified Code(s): F03.91 - Unspecified dementia with behavioral disturbance (2) Left knee pain Chronicity: acute Qualified Code(s): M25.562 - Pain in left knee
[2020-10-27] MEDS: LEVOTHYROXINE SODIUM 75 MCG TABLET PO SCH (06:04)
[2020-10-27] MEDS: HEPARIN SOD 5,000 UNIT/0.5 ML VIAL SQ SCH ×3 (06:04→23:46)
[2020-10-27 07:25] LABS: BUN Creatinine Ratio 17.6 (10-20); Calcium 8.8 mg/dl (8.5-10.1); Creatinine Clr Calc Pharmacy 66.5 ml/min; Est GFR (African American) 66.8 ml/min; Est GFR (Non-African American) 57.6 ml/min; Potassium 3.8 mmol/L (3.5-5.1)
[2020-10-27] MEDS: AMOXICILLIN/CLAVULANATE 875 MG TAB PO SCH ×2 (08:52→17:38)
[2020-10-27] MEDS: ASPIRIN 81 MG ECTAB PO SCH (08:52)
[2020-10-27] MEDS: lisinopril 20 MG TAB PO SCH (08:53)
[2020-10-27] MEDS: METOPROLOL SUCC 50MG EXT REL TAB PO SCH (08:53)
[2020-10-27] MEDS: ATORVASTATIN 40 MG TAB PO SCH (08:53)
[2020-10-27] MEDS: POTASSIUM CHLORIDE CRTAB 20 MEQ TABCR PO SCH (08:56)
[2020-10-27] MEDS: COLCHICINE 0.6 MG TAB PO SCH (08:56)
[2020-10-27] MEDS: FUROSEMIDE 40 MG TAB PO SCH (08:56)
[2020-10-27] MEDS: INSULIN GLARGINE SOLOSTAR 100 UNITS/ML 3 ML PEN SC SCH (09:51)
[2020-10-27] MEDS: INSULIN ASPART 100 UNITS/ML 3 ML PEN SC SCH ×4 (09:52→20:37)
[2020-10-27] MEDS: risperiDONE ODT 0.5 MG SOLTAB PO SCH (20:38)
--- NOTE | 2020-10-27 20:49 | Hospitalist Progress Note ---
Date of Service October 27, 2020 Assessment & Plan (1) Bacteremia due to Escherichia coli: source - UTI. 10/19/20 blood cultures positive for e.coli. bacteremia resolved. day #7 of IV / PO abx since date of first negative culture (10/21/20) - now on augmentin. 14 days planned. rocephin previously. CT a/p w/ left-sided hydroureteronephrosis. either passed kidney stone vs pyelonephritis +/- pyelitis. however, no obstructing stone or mass seen. (2) Sepsis due to urinary tract infection: 2nd e.coli. sepsis resolved. see above. (3) Acute kidney injury superimposed on CKD: Creatinine 1.58 upon admission, with baseline range 0.8-0.9. Likely sepsis-associated ATN. JEZ RESOLVED. Cr today 0.9. (4) Left knee pain: suspected gout or OA flare. favor former. x-rays neg for CPPD changes. severe OA and moderate effusion noted on x-rays. pain/swelling has resolved with NSAIDs & colchicine. although uric acid level was normal this does not rule out gout. [facility] saw in consult - patient refused arthrocentesis. Continue colchicine another 3-4 days then stop. (5) Acute pulmonary edema: resolved echo with worsening pulm HTN, grade 2 diastolic dysfunction, RV dilatation w/ preserved systolic function. right heart findings and pulm HTN likely 2nd to untreated disordered night-time breathing. cont lasix. cont K supplement. (6) Acute on chronic diastolic (congestive) heart failure: acute component resolved. has lost at least 7kg of weight since admission. LE edema nearly completely resolved. cont lasix 40mg daily at discharge to maintain euvolemia. (7) Hypomagnesemia: repleted resolved (8) Hypokalemia: repleted resolved cont K supplement with her lasix (9) Dementia with behavioral disturbance: issues with sundowning, agitation, etc. during this admission. responds nicely to low-dose antipsychotic. cont rispderal 0.5mg HS. (10) Metabolic encephalopathy: resolved severe, 2nd to septicemia - all in setting of baseline dementia see above (11) Mixed dementia: noted (12) Hypertension: FERNANDO and metoprolol succinate. Bps now controlled with metoprolol succinate titration to 100mg/day. (13) Type 2 diabetes mellitus: Hold Nubia. pharmacy consulted for management - appreciate their assistance. lantus/novolog per their recs. recent a1c 10.5% - will need insulin at discharge. control is excellent at this time (14) Hypothyroidism: Levothyroxine 75 mcg daily TSH this admission 5 - would leave synthroid as is recheck as outpatient in a few weeks (15) History of stroke: b/l strokes 2019, with right-sided occipital lobe CVA the largest per records had large visual field cut from such follows with ophtho follows with Dr Mcleod - [facility] [place] Neuro cont asa for secondary prevention (16) Morbid obesity with BMI of 40.0-44.9, adult: BMI 40-41 (17) Prolonged QT interval: 2nd to severely low mag & K at admission. Both improved now and QTc near-normal on last EKG. (18) Abnormal CT scan, liver: CT of abd/pelvis this admission with nodularity of liver. Given morbid obesity could have BUENO cirrhosis. EGD in 2019 suggested she had portal gastropathy. Cont lasix to maintain euvolemia. Ammonia level wnl. (19) DVT prophylaxis: heparin 7500 units TID family extensively updated either by phone or at bedside on near-daily basis this week left message for pt's son on 10/27/20 Admission and Anticipated Discharge Date Admission Date: October 19, 2020 Subjective patient eating her meal during the visit good appetite feels very good denies any specific complaints left knee pain resolved voiding fine w/o difficulty very interactive during the visit recalls that her went to rehab following his hospital stay Review of Systems Respiratory: no dyspnea Cardiovascular: no chest pain Gastrointestinal: no abdominal pain, no nausea and no vomiting Physical Exam Constitutional: + morbidly obese; no acute distress and no altered mental status (recalling remote and near-recent memories ) ENMT: external ear and nose normal, oropharynx normal Respiratory: normal respiratory effort, lungs clear to auscultation no respiratory distress Cardiovascular: Rate/Rhythm: regular rate and regular rhythm Heart Sounds: normal S1 and normal S2; no murmur Vessels: posterior tibial pulses present and dorsalis pedis pulses present; no JVD Extremities: + edema (Trace b/l) Gastrointestinal (Abdomen): normal bowel sounds, soft, nontender, no hepatosplenomegaly Musculoskeletal: Knee: + effusion (Left - minimal ); no skin erythema, normal ROM of knee (Improved, with minimal pain with active ROM) and no joint line tenderness Skin: venous stasis changes b/l legs Psychiatric: Orientation: alert, oriented to person and oriented to place Results & Data Results & Data ([facility]) Vital Signs (Past 12 Hours) Vital Signs Temp Pulse Resp BP Pulse Ox 10/27/20 16:00 36.9 C 66 18 138/79 92 Laboratory Results Laboratory Results - last 24 hr 10/26/20 10/27/20 10/27/20 20:43 06:32 08:19 Sodium 139 Potassium 3.8 Chloride 104 Carbon Dioxide 28 Anion Gap 7.0 BUN 17 Creatinine 0.98 Est Cr Clr Drug Dosing 66.5 Est GFR ( Amer) 66.8 Est GFR (Non-Af Amer) 57.6 BUN/Creatinine Ratio 17.6 Glucose 166 H POC Glucose 169 H 164 H Calcium 8.8 10/27/20 10/27/20 10/27/20 12:06 17:11 20:35 Sodium Potassium Chloride Carbon Dioxide Anion Gap BUN Creatinine Est Cr Clr Drug Dosing Est GFR ( Amer) Est GFR (Non-Af Amer) BUN/Creatinine Ratio Glucose POC Glucose 157 H 153 H 146 H Calcium PG Care Time/CCT Total # of Minutes Spent Total Time Spent with Patient: Total time spent is greater than 50% in coordination of care (as documented) at patient's floor/unit and/or counseling patient: Coding Level of Care Code 46452 Subseq Hosp Care Lvl 2 Diagnoses Bacteremia due to Escherichia coli R78.81; B96.20 Sepsis due to urinary tract infection A41.9; N39.0 Acute kidney injury superimposed on CKD N17.9; N18.9 Left knee pain M25.562 Chronicity: acute Acute pulmonary edema J81.0 Acute on chronic diastolic (congestive) heart failure I50.33 Hypomagnesemia E83.42 Hypokalemia E87.6 Dementia with behavioral disturbance F03.91 Dementia type: unspecified type Metabolic encephalopathy G93.41 Mixed dementia G30.9; F01.50; F02.80 Hypertension I10 Type 2 diabetes mellitus E11.9 Hypothyroidism E03.9 History of stroke Z86.73 Morbid obesity with BMI of 40.0-44.9, adult E66.01; Z68.41 Prolonged QT interval R94.[address] scan, liver R93.2 DVT prophylaxis Z29.9 (1) Dementia with behavioral disturbance Dementia type: unspecified type Qualified Code(s): F03.91 - Unspecified dementia with behavioral disturbance (2) Left knee pain Chronicity: acute Qualified Code(s): M25.562 - Pain in left knee
[2020-10-28] MEDS: HEPARIN SOD 5,000 UNIT/0.5 ML VIAL SQ SCH ×3 (05:47→21:54)
[2020-10-28] MEDS: LEVOTHYROXINE SODIUM 75 MCG TABLET PO SCH (05:47)
[2020-10-28 07:30] LABS: BUN Creatinine Ratio 17.9 (10-20); Calcium 8.8 mg/dl (8.5-10.1); Creatinine Clr Calc Pharmacy 66.5 ml/min; Est GFR (African American) 66.8 ml/min; Est GFR (Non-African American) 57.6 ml/min; Magnesium 2.2 mg/dl (1.8-2.4)
[2020-10-28] MEDS: lisinopril 20 MG TAB PO SCH (08:42)
[2020-10-28] MEDS: METOPROLOL SUCC 50MG EXT REL TAB PO SCH (08:42)
[2020-10-28] MEDS: ATORVASTATIN 40 MG TAB PO SCH (08:42)
[2020-10-28] MEDS: FUROSEMIDE 40 MG TAB PO SCH (08:42)
[2020-10-28] MEDS: AMOXICILLIN/CLAVULANATE 875 MG TAB PO SCH ×2 (08:42→17:52)
[2020-10-28] MEDS: POTASSIUM CHLORIDE CRTAB 20 MEQ TABCR PO SCH (08:42)
[2020-10-28] MEDS: ADVANCED PROBIOTIC 1250 MG CAPSULE PO SCH (08:42)
[2020-10-28] MEDS: ASPIRIN 81 MG ECTAB PO SCH (08:42)
[2020-10-28] MEDS: COLCHICINE 0.6 MG TAB PO SCH (08:42)
[2020-10-28] MEDS: INSULIN ASPART 100 UNITS/ML 3 ML PEN SC SCH ×4 (09:28→21:48)
[2020-10-28] MEDS: INSULIN GLARGINE SOLOSTAR 100 UNITS/ML 3 ML PEN SC SCH (10:09)
[2020-10-28] MEDS: risperiDONE ODT 0.5 MG SOLTAB PO SCH (21:49)
--- NOTE | 2020-10-28 22:09 | Hospitalist Progress Note ---
Date of Service October 28, 2020 Assessment & Plan (1) Bacteremia due to Escherichia coli: source - UTI. 10/19/20 blood cultures positive for e.coli. bacteremia resolved. day #8 of IV / PO abx since date of first negative culture (10/21/20) - now on augmentin. 14 days planned. rocephin previously. CT a/p w/ left-sided hydroureteronephrosis. either passed kidney stone vs pyelonephritis +/- pyelitis. however, no obstructing stone or mass seen. (2) Sepsis due to urinary tract infection: 2nd e.coli. sepsis resolved. see above. (3) Acute kidney injury superimposed on CKD: Creatinine 1.58 upon admission, with baseline range 0.8-0.9. Likely sepsis-associated ATN. JEZ RESOLVED. Cr today 0.9. (4) Left knee pain: suspected gout or OA flare. favor former. x-rays neg for CPPD changes. severe OA and moderate effusion noted on x-rays. pain/swelling has resolved with NSAIDs & colchicine. although uric acid level was normal this does not rule out gout. [facility] saw in consult - patient refused arthrocentesis. Continue colchicine another 2-3 days then stop. (5) Acute pulmonary edema: resolved echo with worsening pulm HTN, grade 2 diastolic dysfunction, RV dilatation w/ preserved systolic function. right heart findings and pulm HTN likely 2nd to untreated disordered night-time breathing. cont lasix. cont K supplement. (6) Acute on chronic diastolic (congestive) heart failure: acute component resolved. has lost at least 7kg of weight since admission. LE edema nearly completely resolved. cont lasix 40mg daily at discharge to maintain euvolemia. (7) Hypomagnesemia: repleted resolved (8) Hypokalemia: repleted resolved cont K supplement with her lasix (9) Dementia with behavioral disturbance: issues with sundowning, agitation, etc. during this admission. responds nicely to low-dose antipsychotic. cont rispderal 0.5mg HS. (10) Metabolic encephalopathy: severe, 2nd to septicemia - all in setting of baseline dementia -- resolved with Rx of UTI/sepsis, use of risperdal, etc. (11) Mixed dementia: noted (12) Hypertension: FERNANDO and metoprolol succinate. Bps now controlled with metoprolol succinate titration to 100mg/day. (13) Type 2 diabetes mellitus: Hold Nubia. pharmacy consulted for management - appreciate their assistance. lantus/novolog per their recs. recent a1c 10.5% - will need insulin at discharge. control is excellent at this time (14) Hypothyroidism: Levothyroxine 75 mcg daily. TSH this admission was 5 - would leave synthroid as is for now; simply repeat TSH in a few weeks as outpatient. (15) History of stroke: b/l strokes 2019, with right-sided occipital lobe CVA the largest per records had large visual field cut from such follows with ophtho follows with Dr Mcleod - [facility] [place] Neuro cont asa for secondary prevention (16) Morbid obesity with BMI of 40.0-44.9, adult: BMI 40-41 (17) Prolonged QT interval: 2nd to severely low mag & K at admission. Both improved now and QTc near-normal on last EKG. (18) Abnormal CT scan, liver: CT of abd/pelvis this admission with nodularity of liver. Given morbid obesity could have BUENO cirrhosis. EGD in 2019 suggested she had portal gastropathy. Ammonia level wnl. Cont BB. Cont lasix. (19) DVT prophylaxis: heparin 7500 units TID family extensively updated either by phone or at bedside on near-daily basis this week left message for pt's son on 10/27/20 Admission and Anticipated Discharge Date Admission Date: October 19, 2020 Subjective Patient reports no new symptoms today. Review of Systems Review of Systems: All systems reviewed & are unremarkable except as noted in HPI & below Physical Exam Physical Exam: Constitutional: + morbidly obese; no acute distress and no altered mental status (recalling remote and near-recent memories ) ENMT: external ear and nose normal, oropharynx normal Respiratory: normal respiratory effort, lungs clear to auscultation no respiratory distress Cardiovascular: Rate/Rhythm: regular rate and regular rhythm Heart Sounds: normal S1 and normal S2; no murmur Vessels: posterior tibial pulses present and dorsalis pedis pulses present; no JVD Extremities: + edema (Trace b/l) Gastrointestinal (Abdomen): normal bowel sounds, soft, nontender, no hepatosplenomegaly Musculoskeletal: Knee: + effusion (Left - minimal ); no skin erythema, normal ROM of knee (Improved, with minimal pain with active ROM) and no joint line tenderness Skin: venous stasis changes b/l legs Psychiatric: Orientation: alert, oriented to person and oriented to place Results & Data Results & Data ([facility]) Vital Signs (Past 12 Hours) Vital Signs Temp Pulse Resp BP Pulse Ox 10/28/20 16:00 36.7 C 63 18 111/72 93 PG Care Time/CCT Total # of Minutes Spent Total Time Spent with Patient: Total time spent is greater than 50% in coordination of care (as documented) at patient's floor/unit and/or counseling patient: Coding Level of Care Code 47624 Subseq Hosp Care Lvl 3 Diagnoses Bacteremia due to Escherichia coli R78.81; B96.20 Sepsis due to urinary tract infection A41.9; N39.0 Acute kidney injury superimposed on CKD N17.9; N18.9 Left knee pain M25.562 Chronicity: acute Acute pulmonary edema J81.0 Acute on chronic diastolic (congestive) heart failure I50.33 Hypomagnesemia E83.42 Hypokalemia E87.6 Dementia with behavioral disturbance F03.91 Dementia type: unspecified type Metabolic encephalopathy G93.41 Mixed dementia G30.9; F01.50; F02.80 Hypertension I10 Type 2 diabetes mellitus E11.9 Hypothyroidism E03.9 History of stroke Z86.73 Morbid obesity with BMI of 40.0-44.9, adult E66.01; Z68.41 Prolonged QT interval R94.[address] scan, liver R93.2 DVT prophylaxis Z29.9 Time Spent (min) 35 Comment chart review (1) Dementia with behavioral disturbance Dementia type: unspecified type Qualified Code(s): F03.91 - Unspecified dementia with behavioral disturbance (2) Left knee pain Chronicity: acute Qualified Code(s): M25.562 - Pain in left knee
[2020-10-29] MEDS: HEPARIN SOD 5,000 UNIT/0.5 ML VIAL SQ SCH ×3 (06:14→22:35)
[2020-10-29] MEDS: LEVOTHYROXINE SODIUM 75 MCG TABLET PO SCH (06:15)
[2020-10-29 07:21] LABS: Basophils # (auto) 0.02 K/uL (0-0.2); Basophils % (auto) 0.2 %; Eosinophils # (auto) 0.18 K/uL (0-0.5); Eosinophils % (auto) 1.8 %; Hematocrit (blood only) 42.6 % (37-47); Hemoglobin 13.5 g/dL (12.0-16.0); Immature Granulocytes # (auto) 0.12 K/uL (0.00-0.02); Immature Granulocytes % (auto) 1.2 %; Lymphocytes % (auto) 25.3 %; Mean Corpuscular Hemoglobin 29.9 pg (25-34); Mean Corpuscular Hgb Conc 31.7 g/dL (32-36); Mean Corpuscular Volume 94.5 fL (80-100); Mean Platelet Volume 10.7 fL (7.4-10.4); Monocytes # (auto) 0.91 K/uL (0.11-0.59); Monocytes % (auto) 8.9 %; Neutrophils # (auto) 6.44 K/uL (1.4-6.5); Neutrophils % (auto) 62.6 %; Platelet Count 261 K/uL (130-400); RDW Coefficient of Variation 14.1 % (11.5-14.5); RDW Standard Deviation 48.8 fL (36.4-46.3); Red Blood Count 4.51 M/uL (4.2-5.4); White Blood Count 10.27 K/uL (4.8-10.8)
[2020-10-29 07:55] LABS: BUN Creatinine Ratio 18.6 (10-20); Calcium 8.9 mg/dl (8.5-10.1); Creatinine Clr Calc Pharmacy 58.6 ml/min; Est GFR (Non-African American) 47.5 ml/min; Potassium 3.7 mmol/L (3.5-5.1)
--- NOTE | 2020-10-29 08:39 | Pharmacy Report ---
Pharmacy Glycemic Short Note 2 - Date of Service October 29, 2020 - Glycemic Short BSG Results (Last 24 hours): 10/28/20 10/28/20 10/28/20 12:25 17:15 20:50 Glucose POC Glucose 136 H 184 H 204 H 10/29/20 10/29/20 06:22 08:08 Glucose 212 H POC Glucose 218 H OUTPATIENT ANTIDIABETIC REGIMEN: * Trulicity 0.75mg SQ weekly * A1c = 10.5% on 10/19/20 ASSESSMENT: 10/29 * BSGs trended upward throughout the day yesterday, 143, 136, 184, and 204 mg/dL * Will tighten Novolog parameters today * Fasting BSG elevated at 218 mg/dL - will increase basal insulin today * Continues on Augmentin for E.coli bacteremia 10/24 * BSGs have been trending upward, patient refused evening lantus last PM and continued to refuse meal time bolus today * Patient did receive 25 units of insulin this morning, will set scale for PM dosing if patient will agree to dose * If patient continues to refuse insulin consider signing off. 10/22 * Pt has received 37 units of insulin over the past 24hrs * 30 units of basal with Lantus * 7 units of bolus with NovoLog * BSGs [id number] mg/dl * AM fasting BSG in goal range with Lantus 15 units SQ BID- will change scale order to straight dose of 15 units BID * NovoLog dosing low secondary to reduced PO intake. No changes needed to CF/CR 10/19 * 70yo T2DM female with poor outpatient control per A1c * Pt adm with UTI/Sepsis and HHS. * K+ LOW; will start IV insulin infusion when K+ > 3.3 meq/L. Pt ordered KCL 10Eq IV x 2 and 40 meq PO. AM BMP drawn before K+ given; d/w hospitalist- ok to start low dose IV insulin infusion after all K+ orders given. Will use the standard IV insulin infusion order set (~ 0.04 unit/kg/hr) instead of the DKA/HHS order set (0.1 unit/kg/hr) due to low K+. * Will transition to SQ basal bolus when transition criteria met * Outpatient regimen will need adjusted at [facility] to achieve goal A1c of ~8-8.5% PLAN FOR INPATIENT GLYCEMIC CONTROL: * Basal insulin - increase * Lantus 30 units SC qAM * Bolus insulin ACHS, or q6h if NPO - tighten * Goal BSG Range: Low 110 mg/dL, High 140 mg/dL * Correction Factor: 18 mg/dL/unit * INS:CHO Ratio: 1unit per 6 gms CHO consumed PLAN FOR DISCHARGE: * A1c = 10.5 % on 10/19/20 * Goal A1c = 8-8.5 % based on age and comorbidities * A1c is greater than or equal to 10% consider triple therapy with metformin + basal insulin + (GLP1-RA OR prandial insulin). * Previously tried Metformin but stopped d/t persistent diarrhea, even with ER version. Just Basal + Prandial + GLP-1 will be needed at MD * Basal insulin will be needed at MD. Formulation based on insurance coverage and dosing TBD. Will need to assess patient ability and willingness for basal insulin. Will also need to assess oral intake at time of discharge. * At this point, suggest initiating Lantus 30 units SC qAM * Pt is already on a GLP1RA. May consider titrating Trulicity dosing upwards; 1.5mg Sq weekly x 4 weeks then 3mg SQ weekly x 4 weeks, then to max dosing of 4.5mg SQ weekly if tolerated. * Further changes likely will be needed, but this can be done in the outpatient setting
[2020-10-29] MEDS: ASPIRIN 81 MG ECTAB PO SCH (09:02)
[2020-10-29] MEDS: POTASSIUM CHLORIDE CRTAB 20 MEQ TABCR PO SCH (09:02)
[2020-10-29] MEDS: ADVANCED PROBIOTIC 1250 MG CAPSULE PO SCH (09:02)
[2020-10-29] MEDS: AMOXICILLIN/CLAVULANATE 875 MG TAB PO SCH ×2 (09:03→17:41)
[2020-10-29] MEDS: ATORVASTATIN 40 MG TAB PO SCH (09:03)
[2020-10-29] MEDS: COLCHICINE 0.6 MG TAB PO SCH (09:03)
[2020-10-29] MEDS: FUROSEMIDE 40 MG TAB PO SCH (09:03)
[2020-10-29] MEDS: METOPROLOL SUCC 50MG EXT REL TAB PO SCH (09:03)
[2020-10-29] MEDS: lisinopril 20 MG TAB PO SCH (09:03)
[2020-10-29] MEDS: INSULIN GLARGINE SOLOSTAR 100 UNITS/ML 3 ML PEN SC SCH (09:04)
[2020-10-29] MEDS: INSULIN ASPART 100 UNITS/ML 3 ML PEN SC SCH ×4 (09:07→21:42)
--- NOTE | 2020-10-29 21:37 | Hospitalist Progress Note ---
Date of Service October 29, 2020 Assessment & Plan (1) Bacteremia due to Escherichia coli: source - UTI. 10/19/20 blood cultures positive for e.coli. bacteremia resolved. day #9 of IV / PO abx since date of first negative culture (10/21/20) - now on augmentin. 14 days planned. rocephin previously. CT a/p w/ left-sided hydroureteronephrosis. either passed kidney stone vs pyelonephritis +/- pyelitis. however, no obstructing stone or mass seen. (2) Sepsis due to urinary tract infection: 2nd e.coli. sepsis resolved. see above. (3) Acute kidney injury superimposed on CKD: Creatinine 1.58 upon admission, with baseline range 0.8-0.9. Likely sepsis-associated ATN. JEZ RESOLVED. Cr today 0.9. (4) Left knee pain: suspected gout or OA flare. favor former. x-rays neg for CPPD changes. severe OA and moderate effusion noted on x-rays. pain/swelling has resolved with NSAIDs & colchicine. although uric acid level was normal this does not rule out gout. [facility] saw in consult - patient refused arthrocentesis. Continue colchicine another 2-3 days then stop. (5) Acute pulmonary edema: resolved echo with worsening pulm HTN, grade 2 diastolic dysfunction, RV dilatation w/ preserved systolic function. right heart findings and pulm HTN likely 2nd to untreated disordered night-time breathing. cont lasix. cont K supplement. (6) Acute on chronic diastolic (congestive) heart failure: acute component resolved. has lost at least 7kg of weight since admission. LE edema nearly completely resolved. cont lasix 40mg daily at discharge to maintain euvolemia. (7) Hypomagnesemia: repleted resolved (8) Hypokalemia: repleted resolved cont K supplement with her lasix (9) Dementia with behavioral disturbance: issues with sundowning, agitation, etc. during this admission. responds nicely to low-dose antipsychotic. cont rispderal 0.5mg HS. (10) Metabolic encephalopathy: severe, 2nd to septicemia - all in setting of baseline dementia -- resolved with Rx of UTI/sepsis, use of risperdal, etc. (11) Mixed dementia: noted (12) Hypertension: FERNANDO and metoprolol succinate. Bps now controlled with metoprolol succinate titration to 100mg/day. (13) Type 2 diabetes mellitus: Hold Nubia. pharmacy consulted for management - appreciate their assistance. lantus/novolog per their recs. recent a1c 10.5% - will need insulin at discharge. control is excellent at this time (14) Hypothyroidism: Levothyroxine 75 mcg daily. TSH this admission was 5 - would leave synthroid as is for now; simply repeat TSH in a few weeks as outpatient. (15) History of stroke: b/l strokes 2019, with right-sided occipital lobe CVA the largest per records had large visual field cut from such follows with ophtho follows with Dr Mcleod - [facility] [place] Neuro cont asa for secondary prevention (16) Morbid obesity with BMI of 40.0-44.9, adult: BMI 40-41 (17) Prolonged QT interval: 2nd to severely low mag & K at admission. Both improved now and QTc near-normal on last EKG. (18) Abnormal CT scan, liver: CT of abd/pelvis this admission with nodularity of liver. Given morbid obesity could have BUENO cirrhosis. EGD in 2019 suggested she had portal gastropathy. Ammonia level wnl. Cont BB. Cont lasix. (19) DVT prophylaxis: heparin 7500 units TID family extensively updated either by phone or at bedside on near-daily basis this week left message for pt's son on 10/27/20 Admission and Anticipated Discharge Date Admission Date: October 19, 2020 Subjective Patient reports no new symptoms today. Review of Systems Review of Systems: All systems reviewed & are unremarkable except as noted in HPI & below Physical Exam Physical Exam: Constitutional: + morbidly obese; no acute distress and no altered mental status (recalling remote and near-recent memories ) ENMT: external ear and nose normal, oropharynx normal Respiratory: normal respiratory effort, lungs clear to auscultation no respiratory distress Cardiovascular: Rate/Rhythm: regular rate and regular rhythm Heart Sounds: normal S1 and normal S2; no murmur Vessels: posterior tibial pulses present and dorsalis pedis pulses present; no JVD Extremities: + edema (Trace b/l) Gastrointestinal (Abdomen): normal bowel sounds, soft, nontender, no hepatosplenomegaly Musculoskeletal: Knee: + effusion (Left - minimal ); no skin erythema, normal ROM of knee (Improved, with minimal pain with active ROM) and no joint line tenderness Skin: venous stasis changes b/l legs Psychiatric: Orientation: alert, oriented to person and oriented to place Results & Data Results & Data ([facility]) Vital Signs (Past 12 Hours) Vital Signs Temp Pulse Resp BP Pulse Ox 10/29/20 14:43 36.5 C 64 16 117/74 94 PG Care Time/CCT Total # of Minutes Spent Total Time Spent with Patient: Total time spent is greater than 50% in coordination of care (as documented) at patient's floor/unit and/or counseling patient: Coding Level of Care Code 57602 Subseq Hosp Care Lvl 2 Diagnoses Bacteremia due to Escherichia coli R78.81; B96.20 Sepsis due to urinary tract infection A41.9; N39.0 Acute kidney injury superimposed on CKD N17.9; N18.9 Left knee pain M25.562 Chronicity: acute Acute pulmonary edema J81.0 Acute on chronic diastolic (congestive) heart failure I50.33 Hypomagnesemia E83.42 Hypokalemia E87.6 Dementia with behavioral disturbance F03.91 Dementia type: unspecified type Metabolic encephalopathy G93.41 Mixed dementia G30.9; F01.50; F02.80 Hypertension I10 Type 2 diabetes mellitus E11.9 Hypothyroidism E03.9 History of stroke Z86.73 Morbid obesity with BMI of 40.0-44.9, adult E66.01; Z68.41 Prolonged QT interval R94.[address] scan, liver R93.2 DVT prophylaxis Z29.9 Time Spent (min) 25 Comment waiting for placement (1) Dementia with behavioral disturbance Dementia type: unspecified type Qualified Code(s): F03.91 - Unspecified dementia with behavioral disturbance (2) Left knee pain Chronicity: acute Qualified Code(s): M25.562 - Pain in left knee
[2020-10-29] MEDS: risperiDONE ODT 0.5 MG SOLTAB PO SCH (21:42)
[2020-10-29] MEDS: ACETAMINOPHEN 325 MG TAB PO PRN (22:42)
[2020-10-30] MEDS: HEPARIN SOD 5,000 UNIT/0.5 ML VIAL SQ SCH ×2 (06:19→13:37)
[2020-10-30] MEDS: LEVOTHYROXINE SODIUM 75 MCG TABLET PO SCH (06:20)
[2020-10-30 06:37] LABS: Hematocrit (blood only) 43.3 % (37-47); Hemoglobin 13.8 g/dL (12.0-16.0); Mean Corpuscular Hemoglobin 30.5 pg (25-34); Mean Corpuscular Hgb Conc 31.9 g/dL (32-36); Mean Corpuscular Volume 95.8 fL (80-100); Mean Platelet Volume 10.1 fL (7.4-10.4); Platelet Count 290 K/uL (130-400); RDW Coefficient of Variation 13.9 % (11.5-14.5); RDW Standard Deviation 49.2 fL (36.4-46.3); Red Blood Count 4.52 M/uL (4.2-5.4); White Blood Count 9.16 K/uL (4.8-10.8)
[2020-10-30 07:10] LABS: BUN Creatinine Ratio 15.9 (10-20); Calcium 9.1 mg/dl (8.5-10.1); Creatinine Clr Calc Pharmacy 65.5 ml/min; Est GFR (African American) 62.9 ml/min; Est GFR (Non-African American) 54.3 ml/min; Potassium 3.8 mmol/L (3.5-5.1)
[2020-10-30] MEDS: INSULIN ASPART 100 UNITS/ML 3 ML PEN SC SCH ×2 (09:52→13:33)
[2020-10-30] MEDS: INSULIN GLARGINE SOLOSTAR 100 UNITS/ML 3 ML PEN SC SCH (09:55)
[2020-10-30] MEDS: ASPIRIN 81 MG ECTAB PO SCH (09:59)
[2020-10-30] MEDS: AMOXICILLIN/CLAVULANATE 875 MG TAB PO SCH (10:00)
[2020-10-30] MEDS: ATORVASTATIN 40 MG TAB PO SCH (10:01)
[2020-10-30] MEDS: COLCHICINE 0.6 MG TAB PO SCH (10:01)
[2020-10-30] MEDS: FUROSEMIDE 40 MG TAB PO SCH (10:02)
[2020-10-30] MEDS: POTASSIUM CHLORIDE CRTAB 20 MEQ TABCR PO SCH (10:03)
[2020-10-30] MEDS: ADVANCED PROBIOTIC 1250 MG CAPSULE PO SCH (10:03)
[2020-10-30] MEDS: lisinopril 20 MG TAB PO SCH (10:04)
[2020-10-30] MEDS: METOPROLOL SUCC 50MG EXT REL TAB PO SCH (10:05)
--- NOTE | 2020-11-05 11:28 | Discharge Summary ---
Date of Service October 30, 2020 Admission HPI Per Admitting Provider Patient is a 70-year-old female with a past medical history including mixed dementia, hypertension, diabetes mellitus type 2, obesity, diabetes, hypertension, stroke with residual effects, UTI, hypothyroidism, vitamin D deficiency and morbid obesity. She lives at home with her and son, who been trying to take care of her, but EMS reports that the patient was lying in feces and vomit and the was sitting next to her using the remote to change the TV, seemingly unaware of how she was doing. Her son reports that she only moved to walk to the bathroom and with that there is difficulty due to her morbid obesity and previous stroke. Principal Diagnosis bacteremia due to E. coli Discharge Exam Constitutional: + morbidly obese; no acute distress and no altered mental status (recalling remote and near-recent memories ) ENMT: external ear and nose normal, oropharynx normal Respiratory: normal respiratory effort, lungs clear to auscultation no respiratory distress Cardiovascular: Rate/Rhythm: regular rate and regular rhythm Heart Sounds: normal S1 and normal S2; no murmur Vessels: posterior tibial pulses present and dorsalis pedis pulses present; no JVD Extremities: + edema (Trace b/l) Gastrointestinal (Abdomen): normal bowel sounds, soft, nontender, no hepatosplenomegaly Musculoskeletal: Knee: + effusion (Left - minimal ); no skin erythema, normal ROM of knee (Improved, with minimal pain with active ROM) and no joint line tenderness Skin: venous stasis changes b/l legs Psychiatric: Orientation: alert, oriented to person and oriented to place Discharge Data Allergies Allergy/AdvReac Type Severity Reaction Status Date / Time fenoprofen Allergy Intermediate HAND EDEMA Verified 10/19/20 01:33 prednisone Allergy Intermediate FAST HEART Verified 10/19/20 01:33 BEAT adhesive Allergy Unknown "Red welts" Verified 10/19/20 01:33 peach Allergy Unknown WELTS WITH Verified 10/19/20 01:33 PEACH FUZZ tomato Allergy Unknown WELTS WITH Verified 10/19/20 01:33 TOMATOES AND ORANGE JUICE orange Allergy Verified 10/19/20 18:24 orange juice Allergy Verified 10/19/20 18:24 levofloxacin AdvReac Intermediate PNEUMONIA Verified 10/19/20 01:33 metformin AdvReac Mild Diarrhea Verified 10/19/20 01:33 Sulfa (Sulfonamide AdvReac Unknown "SULFA Verified 10/19/20 01:33 Antibiotics) DRUGS": ITCHING Consultations 10/19/20 03:31 ED Decision to Admit Stat 10/23/20 18:38 Consult Orthopedic Surgery Routine Ordered Studies 10/19/20 01:24 CT head/brain wo con Urgent 10/20/20 09:34 CT abd pelvis wo con Urgent 10/23/20 19:34 CT knee LT w con Stat Diabetes Follow up Diabetes Follow-up Needed for HgbA1c >9% Hospital Course (1) Bacteremia due to Escherichia coli: source - UTI. 10/19/20 blood cultures positive for e.coli. bacteremia resolved. day #10 of IV / PO abx since date of first negative culture (10/21/20) - now on augmentin. 14 days planned. rocephin previously. CT a/p w/ left-sided hydroureteronephrosis. either passed kidney stone vs pyelonephritis +/- pyelitis. however, no obstructing stone or mass seen. (2) Sepsis due to urinary tract infection: 2nd e.coli. sepsis resolved. see above. (3) Acute kidney injury superimposed on CKD: Creatinine 1.58 upon admission, with baseline range 0.8-0.9. Likely sepsis-associated ATN. JEZ RESOLVED. Cr today 0.9. (4) Left knee pain: suspected gout or OA flare. favor former. x-rays neg for CPPD changes. severe OA and moderate effusion noted on x-rays. pain/swelling has resolved with NSAIDs & colchicine. although uric acid level was normal this does not rule out gout. [facility] ortho saw in consult - patient refused arthrocentesis. Continue colchicine another 2-3 days then stop. (5) Acute pulmonary edema: resolved echo with worsening pulm HTN, grade 2 diastolic dysfunction, RV dilatation w/ preserved systolic function. right heart findings and pulm HTN likely 2nd to untreated disordered night-time breathing. cont lasix. cont K supplement. (6) Acute on chronic diastolic (congestive) heart failure: acute component resolved. has lost at least 7kg of weight since admission. LE edema nearly completely resolved. cont lasix 40mg daily at discharge to maintain euvolemia. (7) Hypomagnesemia: repleted resolved (8) Hypokalemia: repleted resolved cont K supplement with her lasix (9) Dementia with behavioral disturbance: issues with sundowning, agitation, etc. during this admission. responds nicely to low-dose antipsychotic. cont rispderal 0.5mg HS. (10) Metabolic encephalopathy: severe, 2nd to septicemia - all in setting of baseline dementia -- resolved with Rx of UTI/sepsis, use of risperdal, etc. (11) Mixed dementia: noted (12) Hypertension: FERNANDO and metoprolol succinate. Bps now controlled with metoprolol succinate titration to 100mg/day. (13) Type 2 diabetes mellitus: Ruslan Delacruz. pharmacy consulted for management - appreciate their assistance. lantus/novolog per their recs. recent a1c 10.5% - will need insulin at discharge. control is excellent at this time (14) Hypothyroidism: Levothyroxine 75 mcg daily. TSH this admission was 5 - would leave synthroid as is for now; simply repeat TSH in a few weeks as outpatient. (15) History of stroke: b/l strokes 2019, with right-sided occipital lobe CVA the largest per records had large visual field cut from such follows with ophtho follows with Dr Mcleod [place] [facility] [place] [facility] [place] asa for secondary prevention (16) Morbid obesity with BMI of 40.0-44.9, adult: BMI 40-41 (17) Prolonged QT interval: 2nd to severely low mag & K at admission. Both improved now and QTc near-normal on last EKG. (18) Abnormal CT scan, liver: CT of abd/pelvis this admission with nodularity of liver. Given morbid obesity could have BUENO cirrhosis. EGD in 2019 suggested she had portal gastropathy. Ammonia level wnl. Cont BB. Cont lasix. (19) DVT prophylaxis: heparin 7500 units TID Total Time Total Time Spent Total Time Spent (In Minutes): 32 Total Time Includes: Examination of the Patient, Discharge Planning and Medication Reconciliation Discharge Plan Discharge Items Patient Disposition: Transfer Group Home Fac Reason For Visit: SEPSIS,UTI,DKA.,HYPOMAG,HYPOKAL,JEZ Discharge Diagnosis: Sepsis, UTI, DKA, JEZ Activity: Resume your previous activity Non-emergency contact: Primary Care Provider Call non-emergency contact if: you have any medication questions Follow-up/Referrals: Mayra Kidd CRNP [Primary Care Provider] - Diet: Carb Consistent or DM2 Addtl Attending Provider Instructions: You will be discharged with 5 more days of PO antibiotics. You will be started on Oral diuretics to help decrease your edema and leg swelling. Will recommend weekly labs: bmp. Recommend followup with PCP in 1-2 weeks Holding donepezil as we started risperdal. Will defer to PCP when to restart donepezil. May consider restarting once patient is back at home setting. Pending Studies at Discharge: No Stand-Alone Forms: My [facility] Skilled Items Patient informed of condition?: Yes DNR: No Discharge Level of Care: Skilled Communicable Disease: No Discharge Prognosis: Stable Lines: None Urinary Catheter: No Medications and DC Order Prescriptions: New aspirin 81 mg Tablet,Delayed Release (Dr/Ec) 81 mg PO QAM Qty: 30 RF: 0 amoxicillin-pot clavulanate [Augmentin] 875-125 mg Tablet 1 tab PO BIDM Qty: 10 RF: 0 furosemide 40 mg Tablet 40 mg PO QAM Qty: 30 RF: 0 potassium chloride [Klor-Con M20] 20 mEq Tablet,Er Particles/Crystals 20 meq PO QAM Qty: 30 RF: 0 risperidone 0.5 mg Tablet,Disintegrating 0.5 mg PO HS Qty: 30 RF: 0 Advanced Probiotic 625 mg (10 billion cell) Capsule 2 cap PO DAILY Qty: 30 RF: 0 Continued (DME) FreeStyle Lite Strips Strip See Rx Instructions .ROUTE .MEDSUPPLY Qty: 100 RF: 11 acetaminophen 500 mg capsule 1,000 mg PO DIRECTED PRN (Reason: Pain) RF: 0 atorvastatin 40 mg tablet 40 mg PO QAM Qty: 90 RF: 3 levothyroxine 75 mcg tablet 75 mcg PO QAM Qty: 90 RF: 3 lisinopril 20 mg tablet 20 mg PO DAILY Qty: 90 RF: 3 metoprolol succinate 50 mg tablet extended release 24 hr 50 mg PO DAILY Qty: 90 RF: 3 Trulicity 0.75 mg/0.5 mL pen injector 0.75 mg subcut WK RF: 0 Discontinued donepezil 5 mg tablet 5 mg PO DAILY Qty: 30 RF: 5 Discharge Orders: Discharge Order (Routine); Ordered 10/30/20 Ordered By: Ozzie Infante/Other Patient Handouts: High Blood Sugar (Hyperglycemia), Hypoglycemia (Low Blood Sugar), Managing Type 2 Diabetes, 5 Steps for Eating Healthier, A1C Admission Data Admit Date/Time: 10/19/20 04:21 Attending Provider: Ozzie Hoover Admit Provider: Jeremy Marsh Primary Care Provider: Mayra Kidd Other Providers: Jeremy Marsh ; Liban Dinero ; [place] Other Interventions: Discharge Summary Assessment (RN) Last Done: 10/30/20 15:38 Coding Level of Care Code D/C Day Management >30 mins Diagnoses Bacteremia due to Escherichia coli R78.81; B96.20 Sepsis due to urinary tract infection A41.9; N39.0 Acute kidney injury superimposed on CKD N17.9; N18.9 Left knee pain M25.562 Chronicity: acute Acute pulmonary edema J81.0 Acute on chronic diastolic (congestive) heart failure I50.33 Hypomagnesemia E83.42 Hypokalemia E87.6 Dementia with behavioral disturbance F03.91 Dementia type: unspecified type Metabolic encephalopathy G93.41 Mixed dementia G30.9; F01.50; F02.80 Hypertension I10 Type 2 diabetes mellitus E11.9 Hypothyroidism E03.9 History of stroke Z86.73 Morbid obesity with BMI of 40.0-44.9, adult E66.01; Z68.41 Prolonged QT interval R94.[address] scan, liver R93.2 DVT prophylaxis Z29.9
== END 2020-10-30 16:22 | DRG 871 ==
LOC: ED 01:08 → 2S 04:21 → SUATTDRO 04:21 → 2S 05:55 → 3W 10-23 18:45

== ENCOUNTER 2021-01-25 10:24 | Inpatient (IN) ==
[2021-01-25] MEDS ORDERED: ACETAMINOPHEN 1,000 MG/100 ML VIAL IV STA (10:48)
--- NOTE | 2021-01-25 10:53 | Emergency Department Note ---
History of Present Illness General Chief complaint: Fall Time Seen by Provider: 01/25/21 10:39 History of Present Illness Maximum Pain Intensity: 0 70-year-old female presents to the ED after a fall. The patient came from a local group home. The patient complains of headache as well as some nausea and was felt to be lethargic. The patient states that she was feeling fine prior to the fall. She does complain of a headache. She denies any neck or back pains. No additional complaints at this time. Nothing makes the pain better or worse. Home Medications Medication Instructions Recorded Confirmed Type acetaminophen 500 mg capsule 1,000 mg PO DIRECTED PRN 11/29/18 10/19/20 History atorvastatin 40 mg tablet 40 mg PO QAM #90 tab 01/02/20 10/19/20 Rx levothyroxine 75 mcg tablet 75 mcg PO QAM #90 tab 01/02/20 10/19/20 Rx lisinopril 20 mg tablet 20 mg PO DAILY #90 tab 01/02/20 10/19/20 Rx metoprolol succinate 50 mg 50 mg PO DAILY #90 tab 01/02/20 10/19/20 Rx tablet,extended release 24 hr blood sugar diagnostic (FreeStyle #100 ea 05/07/20 06/28/20 Rx Lite Strips) dulaglutide 0.75 mg/0.5 mL 0.75 mg SUBCUT WK 10/19/20 10/19/20 History subcutaneous pen injector (Trulicity) L.acidop,casei,lactis,rham-B.lact,belle 2 cap PO DAILY #30 cap 10/30/20 Rx 625 mg (10 billion cell) capsule (Advanced Probiotic) amoxicillin 875 mg-potassium 1 tab PO BIDM #10 tab 10/30/20 Rx clavulanate 125 mg tablet (Augmentin) aspirin 81 mg tablet,delayed 81 mg PO QAM #30 tab 10/30/20 Rx release furosemide 40 mg tablet 40 mg PO QAM #30 tab 10/30/20 Rx potassium chloride 20 mEq 20 meq PO QAM #30 tab 10/30/20 Rx tablet,extended release(part/cryst) (Klor-Con M) risperidone 0.5 mg disintegrating 0.5 mg PO HS #30 tab 10/30/20 Rx tablet Allergies Allergy/AdvReac Type Severity Reaction Status Date / Time fenoprofen Allergy Intermediate HAND EDEMA Verified 10/19/20 01:33 prednisone Allergy Intermediate FAST HEART Verified 10/19/20 01:33 BEAT adhesive Allergy Unknown "Red welts" Verified 10/19/20 01:33 peach Allergy Unknown WELTS WITH Verified 10/19/20 01:33 PEACH FUZZ tomato Allergy Unknown WELTS WITH Verified 10/19/20 01:33 TOMATOES AND ORANGE JUICE orange Allergy Verified 10/19/20 18:24 orange juice Allergy Verified 10/19/20 18:24 levofloxacin AdvReac Intermediate PNEUMONIA Verified 10/19/20 01:33 metformin AdvReac Mild Diarrhea Verified 10/19/20 01:33 Sulfa (Sulfonamide AdvReac Unknown "SULFA Verified 10/19/20 01:33 Antibiotics) DRUGS": ITCHING Past Med/Surg History Medical History Kenney's palsy MANY YRS AGO Broken foot Cervical lymphadenopathy CVA (cerebral vascular accident) occipital lobe Edema Epistaxis Epistaxis, recurrent Excessive daytime sleepiness Hypertension Hypertrophy of nasal turbinates Kidney stones PT DENIES Loud snoring Low back pain Right foot infection Sacroiliac strain Stroke ADMITTED [facility] 11/09/18-BLURRED VISION/SHORT TERM MEMORY LOSS-F/U DR MCLEOD [facility] [place] AFTER DISCHARGE Type 2 diabetes mellitus Surgical History H/O: hysterectomy History of anesthesia reaction History of appendectomy History of cataract surgery History of colonoscopy History of oral surgery History of umbilical hernia repair Family History Father Stroke Hypertension Cancer Prostate cancer Mother Heart murmur Daughter Hypertension Sinusitis Denies family history of Ovarian cancer Myocardial infarction Adverse anesthesia outcome Breast cancer Bleeding disorder Hyperthermia Colorectal cancer Social History Smoking Status: Never smoker Second Hand Exposure: No; Hx Alcohol Use: No Hx Substance Use: No Preferred Language: Latvian Communication Ability: Impaired Visual Impairment: No Limitations Hearing Ability: Normal Glass Grinder Required: No Beliefs That Will Affect Care: None marital status: Current Living Situation: Spouse and Family current occupational status: retired Feels Safe at Home: Yes caffeine: Yes (coffee) Dental Care, Regularly: Yes Physical Activity Frequency: Does not Exercise Seatbelt Use: always Sunscreen Use: Yes Assistive Devices: Glasses and Walker Review of Systems A total of 10 systems reviewed and were otherwise negative Physical Exam Vital Signs Vital Signs - 24 hr 01/25/21 10:42 01/25/21 11:38 01/25/21 11:39 Temperature 36.3 C L Temperature Source Oral Pulse Rate 71 74 Pulse Rate [Left] Pulse Rhythm [Left] Pulse Strength [Left] Respiratory Rate 16 18 Respiratory Effort / Characteristics Respiratory Depth Blood Pressure 101/44 L 99/58 L Blood Pressure [Left Arm] Blood Pressure Mean 63 71 Blood Pressure Mean [Left Arm] Blood Pressure Position [Left Arm] Pulse Oximetry 98 100 100 Oxygen Delivery Method Room Air Room Air Room Air Sepsis Recent Fever Within 48 Hours No Sepsis New/Unexplained Change in Mental Status No Sepsis Action Taken by Nursing No Action Required 01/25/21 11:59 Temperature Temperature Source Pulse Rate Pulse Rate [Left] 80 Pulse Rhythm [Left] Regular Pulse Strength [Left] Normal Respiratory Rate 18 Respiratory Effort / Characteristics Non-Labored Respiratory Depth Normal Blood Pressure Blood Pressure [Left Arm] 108/40 L Blood Pressure Mean Blood Pressure Mean [Left Arm] 62 Blood Pressure Position [Left Arm] Lying Pulse Oximetry 99 Oxygen Delivery Method Room Air Sepsis Recent Fever Within 48 Hours Sepsis New/Unexplained Change in Mental Status Sepsis Action Taken by Nursing CONSTITUTIONAL/VITAL SIGNS: Reviewed / noted above. GENERAL: Non-toxic in appearance. She does seem a little uncomfortable. INTEGUMENTARY: Warm, dry, and [place]. HEAD: Normocephalic. EYES: without scleral icterus or trauma. ENT/OROPHARYNX: clear and moist. LYMPHADENOPATHY/NECK: Is supple without lymphadenopathy or meningismus. RESPIRATORY: Clear to auscultation bilaterally. No increased work of breathing. CARDIOVASCULAR: Regular rate and rhythm. GI/ABDOMEN: Soft and nontender. No organomegaly or pulsatile mass. EXTREMITIES: Warm and well perfused. BACK: No CVA tenderness. No midline tenderness to the C, T, L-spine. NEUROLOGICAL: Intact without focal deficits. PSYCHIATRIC: normal affect. MUSCULOSKELETAL: Normally developed with good muscle tone. TRIAGE NURSING DOCUMENTATION REVIEWED. Course Administered Medications Discontinued Medications Sodium Chloride (Nss) 500 mls @ 999 mls/hr IV .Q31M JOSE Stop: 01/25/21 11:30 Last Infusion: 01/25/21 11:56 Dose: 0 mls/hr Documented by: [id number] Admin: 01/25/21 11:27 Dose: 999 mls/hr Documented by: [id number] Acetaminophen (Ofirmev) 1,000 mg in 100 mls @ 400 mls/hr IV NOW STA Stop: 01/25/21 11:02 Last Infusion: 01/25/21 11:56 Dose: 0 mls/hr Documented by: [id number] Admin: 01/25/21 11:27 Dose: 400 mls/hr Documented by: [id number] Critical Care Time Critical Care Time: Yes I have personally spent 30 minutes of critical care time in the direct management of this patient. This includes bedside care, interpretation of diagnostic studies, and testing, discussion with consultants, patient, and family members, and other required patient management activities. This 30 minutes is in excess of all separately billable procedures. Medical Decision Making Differential Diagnosis Differential includes acute coronary syndrome, myocardial infarction, CVA, TIA, anemia, infection, pneumonia, UTI, pyelonephritis, poor nutrition, dehydration, electrolyte disturbance,hypoglycemia. Medical Records Attestation: I reviewed the patient's medical records. Home Medications Current Medication List: was personally reviewed by me Laboratory Data Attestation: I reviewed the patient's lab results. Result diagrams: 01/25/21 10:48 01/25/21 10:48 Lab Results 01/25/21 01/25/21 Range/Units 10:48 10:48 WBC 9.62 (4.8-10.8) K/uL RBC 4.42 (4.2-5.4) M/uL Hgb 13.8 (12.0-16.0) g/dL Hct 42.7 (37-47) % MCV 96.6 (80-100) fL MCH 31.2 (25-34) pg MCHC 32.3 (32-36) g/dL RDW Std Deviation 55.3 H (36.4-46.3) fL RDW Coeff of Per 15.5 H (11.5-14.5) % Plt Count 190 (130-400) K/uL MPV 11.7 H (7.4-10.4) fL Immature Gran % (Auto) 0.2 % Neut % (Auto) 63.0 % Lymph % (Auto) 23.8 % [place] % (Auto) 10.8 % Eos % (Auto) 1.9 % Baso % (Auto) 0.3 % Neut # (Auto) 6.06 (1.4-6.5) K/uL Lymph # (Auto) 2.29 (1.2-3.4) K/uL [place] # (Auto) 1.04 H (0.11-0.59) K/uL Eos # (Auto) 0.18 (0-0.5) K/uL Baso # (Auto) 0.03 (0-0.2) K/uL Immature Gran # (Auto) 0.02 (0.00-0.02) K/uL Sodium 139 (136-145) mmol/L Potassium 7.0 H* (3.5-5.1) mmol/L Chloride 108 H (98-107) mmol/L Carbon Dioxide 28 (21-32) mmol/L Anion Gap 3.0 (3-11) BUN 78 H (7-18) mg/dl Creatinine 5.97 H* (0.6-1.2) mg/dl Est Cr Clr Drug Dosing 9.8 ml/min Est GFR ( Amer) 7.5 ml/min Est GFR (Non-Af Amer) 6.5 ml/min BUN/Creatinine Ratio 12.9 (10-20) Glucose 127 H (70-99) mg/dl Calcium 10.0 (8.5-10.1) mg/dl Total Bilirubin 0.9 (0.2-1) mg/dl AST 30 (15-37) U/L ALT 36 (12-78) U/L Alkaline Phosphatase 65 (45-117) U/L Total Protein 7.3 (6.4-8.2) gm/dl Albumin 3.6 (3.4-5.0) gm/dl Globulin 3.7 (2.5-4.0) gm/dl Albumin/Globulin Ratio 1.0 (0.9-2) Imaging Data Radiologist's Impression: Chest X-Ray 01/25/21 10:48 XR chest 1V portable HISTORY: weakness COMPARISON: Chest 10/20/2020. FINDINGS: The cardiac silhouette remains mildly enlarged. There is diffuse interstitial thickening which has improved. This could represent residual congestive change. No overt pulmonary edema. No new focal lung consolidations to suggest pneumonia. No pleural effusions. No pneumothorax. Advanced degenerative changes again noted within the right shoulder. IMPRESSION: Interval improvement in the pulmonary vascular congestion. No focal lung consolidations to suggest pneumonia. ACT 112: Negative or not required by law. Electronically signed by: Eagle Ryder M.D. 01/25/2021 11:[address] 01/25/21 10:[address] DOSE: 1087.60 mGycm HISTORY: fall, hit head, headache TECHNIQUE: Multiaxial CT images of the head were performed without the use of intravenous contrast. Automated exposure control was utilized for this study. A dose lowering technique was utilized adhering to the principles of ALARA. Comparison: Head CT 10/19/2020. Findings: Small retention cyst within the right maxillary sinus. The remaining paranasal sinuses and mastoid air cells are clear. The calvarium and skull base are intact. There is no mass, hematoma, midline shift, acute infarct. White matter hypodensity is nonspecific but suggestive of microvascular ischemic change. The ventricles and sulci demonstrate mild age-related involutional changes. Old right ELECTRIC TRUCKER territory infarct, unchanged. Impression: No significant change compared to the prior study. No acute intracranial abnormality. ACT 112: Negative or not required by law. Electronically signed by: Eagle Ryder M.D. 01/25/2021 11:56 AM MDM Narrative Patient presents after fall and headache. She also has generalized weakness and lethargy. Vital signs are stable. Physical exam did not reveal any obvious trauma. She is awake and oriented to person and place. The patient's BUN is 78 and creatinine is 5.97. Potassium is elevated 7.0. EKG shows a sinus rhythm at a rate of 80. First-degree AV block. No EKG findings suggesting hyperkalemia. CT scan of the brain did not show acute process. The patient was told the results of the test. The patient was provided IV fluids, IV bicarb, IV calcium, IV glucose and IV insulin. She will be seen by the hospitalist for further inpatient evaluation and care. Impression & Plan Acute renal failure, Acute hyperkalemia Discharge Plan Visit Data Chief Complaint: Fall ED Provider: Delmar Jacob Discharge Problem: Acute renal failure, Acute hyperkalemia Patient Disposition: Being Evaluated by Hospitalist Forms Stand Alone Forms: [facility] Prescriptions Prescriptions: No Action (DME) FreeStyle Lite Strips Strip See Rx Instructions .ROUTE .MEDSUPPLY Qty: 100 RF: 11 acetaminophen 500 mg capsule 1,000 mg PO DIRECTED PRN (Reason: Pain) RF: 0 atorvastatin 40 mg tablet 40 mg PO QAM Qty: 90 RF: 3 levothyroxine 75 mcg tablet 75 mcg PO QAM Qty: 90 RF: 3 lisinopril 20 mg tablet 20 mg PO DAILY Qty: 90 RF: 3 metoprolol succinate 50 mg tablet extended release 24 hr 50 mg PO DAILY Qty: 90 RF: 3 Trulicity 0.75 mg/0.5 mL pen injector 0.75 mg subcut WK RF: 0 aspirin 81 mg Tablet,Delayed Release (Dr/Ec) 81 mg PO QAM Qty: 30 RF: 0 amoxicillin-pot clavulanate [Augmentin] 875-125 mg Tablet 1 tab PO BIDM Qty: 10 RF: 0 furosemide 40 mg Tablet 40 mg PO QAM Qty: 30 RF: 0 potassium chloride [Klor-Con M20] 20 mEq Tablet,Er Particles/Crystals 20 meq PO QAM Qty: 30 RF: 0 risperidone 0.5 mg Tablet,Disintegrating 0.5 mg PO HS Qty: 30 RF: 0 Advanced Probiotic 625 mg (10 billion cell) Capsule 2 cap PO DAILY Qty: 30 RF: 0 Referrals Referrals: [facility] [Primary Care Provider] -
[2021-01-25] MEDS ORDERED: SODIUM CHLORIDE 0.9% 500 ML IV SCH (11:00)
[2021-01-25 11:17] LABS: Basophils # (auto) 0.03 K/uL (0-0.2); Basophils % (auto) 0.3 %; Eosinophils # (auto) 0.18 K/uL (0-0.5); Eosinophils % (auto) 1.9 %; Hematocrit (blood only) 42.7 % (37-47); Hemoglobin 13.8 g/dL (12.0-16.0); Immature Granulocytes # (auto) 0.02 K/uL (0.00-0.02); Immature Granulocytes % (auto) 0.2 %; Lymphocytes # (auto) 2.29 K/uL (1.2-3.4); Lymphocytes % (auto) 23.8 %; Mean Corpuscular Hemoglobin 31.2 pg (25-34); Mean Corpuscular Hgb Conc 32.3 g/dL (32-36); Mean Corpuscular Volume 96.6 fL (80-100); Mean Platelet Volume 11.7 fL (7.4-10.4); Monocytes # (auto) 1.04 K/uL (0.11-0.59); Monocytes % (auto) 10.8 %; Neutrophils # (auto) 6.06 K/uL (1.4-6.5); Platelet Count 190 K/uL (130-400); RDW Coefficient of Variation 15.5 % (11.5-14.5); RDW Standard Deviation 55.3 fL (36.4-46.3); Red Blood Count 4.42 M/uL (4.2-5.4); White Blood Count 9.62 K/uL (4.8-10.8)
--- NOTE | 2021-01-25 11:37 | XRay Report ---
XR chest 1V portable HISTORY: weakness COMPARISON: Chest 10/20/2020. FINDINGS: The cardiac silhouette remains mildly enlarged. There is diffuse interstitial thickening wh ich has improved. This could represent residual congestive change. No overt pulmonary edema. No new f ocal lung consolidations to suggest pneumonia. No pleural effusions. No pneumothorax. Advanced degene rative changes again noted within the right shoulder. IMPRESSION: Interval improvement in the pulmonary vascular congestion. No focal lung consolidations to suggest pn eumonia. ACT 112: Negative or not required by law. Electronically signed by: Eagle Ryder M.D. 01/25/2021 11:36 AM
--- NOTE | 2021-01-25 11:58 | CT Scan Report ---
HEAD CT NONCONTRAST CT DOSE: 1087.60 mGycm HISTORY: fall, hit head, headache TECHNIQUE: Multiaxial CT images of the head were performed without the use of intravenous contrast. A utomated exposure control was utilized for this study. A dose lowering technique was utilized adheri ng to the principles of ALARA. Comparison: Head CT 10/19/2020. Findings: Small retention cyst within the right maxillary sinus. The remaining paranasal sinuses and mastoid air cells are clear. The calvarium and skull base are intact. There is no mass, hematoma, mid line shift, acute infarct. White matter hypodensity is nonspecific but suggestive of microvascular is chemic change. The ventricles and sulci demonstrate mild age-related involutional changes. Old right BACK GRINDER territory infarct, unchanged. Impression: No significant change compared to the prior study. No acute intracranial abnormality. ACT 112: Negative or not required by law. Electronically signed by: Eagle Ryder M.D. 01/25/2021 11:56 AM
[2021-01-25 12:04] LABS: Albumin Level 3.6 gm/dl (3.4-5.0); BUN Creatinine Ratio 12.9 (10-20); Bilirubin,Total 0.9 mg/dl (0.2-1); Creatinine Clr Calc Pharmacy 9.8 ml/min; Est GFR (African American) 7.5 ml/min; Est GFR (Non-African American) 6.5 ml/min; Globulin 3.7 gm/dl (2.5-4.0); Total Protein 7.3 gm/dl (6.4-8.2)
[2021-01-25] MEDS ORDERED: CALCIUM GLUCONATE 1,000 MG/60 ML BAG IV STA (12:23)
[2021-01-25] MEDS ORDERED: NovoLIN-R INSULIN PER UNIT CHARGE IV STA (12:23)
[2021-01-25] MEDS ORDERED: SODIUM BICARB 8.4% INJ 50 MEQ/50 ML SYR IV STA (12:23)
[2021-01-25] MEDS ORDERED: DEXTROSE 50% 50 ML SYRINGE IV STA (12:23)
[2021-01-25] MEDS ORDERED: SODIUM POLYSTYRENE SULFONATE 15G/60ML SUSP PO STA (12:23)
[2021-01-25] MEDS ORDERED: cefTRIAXone SODIUM 2,000 MG/70 ML BAG IV STA (13:14)
[2021-01-25] MEDS ORDERED: SODIUM CHLORIDE 0.9% 500 ML IV ONE (13:17)
--- NOTE | 2021-01-25 13:17 | History & Physical Report ---
Date of Service January 25, 2021 Assessment & Plan (1) Acute renal failure: Plan: Possible UTI given recent E. coli bacteremia and positive urine culture. UA pending. Add blood cultures, CRP, ESR, procalcitonin and lactic acid. Empirically treat with cefepime. Most likely pre-renal given hypotension. IV NSS bolus 1.5L total to be given in ER. CT A/P to rule out obstruction. Place folay catheter, strict I&Os, daily weights (2) Acute hyperkalemia: Plan: Suspect secondary to JEZ as above and potassium supplementation Acute treatment given in ER with calcium gluconate, insulin/dextrose. Repeat BMP now Hold outpatient supplementation (3) Hematemesis: Plan: Gastric occult positive vomiting at her [facility] Hold ASA and VTE prophylaxis Famotidine 20mg IV Monitor H&H (4) Metabolic encephalopathy: Plan: Suspect secondary to uremia +/- infection as above (5) Dementia with behavioral disturbance: Plan: Monitor for worsening delirium (6) Chronic diastolic (congestive) heart failure: Plan: Hold lasix due to JEZ as above Monitor for worsening pulmonary edema as this occurred on her previous admission with IV fluids (7) History of stroke: Plan: Hold aspirin due to gastric occult blood positive Continue atorvastatin (8) Hypertension: Plan: Hold Lasix and lisinopril due to JEZ (9) Type 2 diabetes mellitus: Plan: HbA1C 10.5 in September Novolog: Goal BSG Range: Low 110 mg/dL, High 140 mg/dL Correction Factor: 45 mg/dL/unit Carbohydrate ratio = 15 g/unit BSGs ACHS if eating, q6h if npo (10) Hypothyroidism: Plan: Continue levothyroxine 75 mcg PO daily Plan: VTE prophylaxis - SCDs, will hold off heparin currently du to history of gastric occult positive and vomiting. Diet - NPO, until resolving metabolic encephalopathy, IV fluids to be ordered based on repeat labs and CT Disposition - Admit to PCU Admission and Anticipated Discharge Date Admission Date: January 25, 2021 History of Present Illness Chief Complaint: Headache, nausea, lethargy Primary Care Provider: Taylor Khan Joanna jin is a 70 year old female from [facility] who presents to the ER with headache, lethargy and nausea. Unable to get any history from the patient. Per [facility] notes. On 01/22 she had a fall. Patient was found lying on right side aof a fall mat. No bumps, bruises, cuts or lacerations noted. 01/25 5:15: resident discovered laying on fall mat on her left side when nurse went ot give morning medications. 9:33am patient having multiple emesis of brown liquid, tested positive for occult blood, recommended patient sent to ER for further evaluation. She has a relevant recent admission from October 19 - October 30, 2020 due to E. coli bacteremia. She also has a positive urine culture for E. coli on January 08. Per her daughter this was treated with Macrobid. Her daughter notes suring her last hospitalization she required haldol multiple times for delirium. In the ER she was noted to have acute renal failure with Cr 5.97 from 1.03 and p otassium 7.0. She was treated for the hyperkalemia and referred to medicine for admission and ongoing management of JEZ and hyperkalemia. Allergies Allergy/AdvReac Type Severity Reaction Status Date / Time fenoprofen Allergy Intermediate HAND EDEMA Verified 01/25/21 13:17 prednisone Allergy Intermediate FAST HEART Verified 01/25/21 13:17 BEAT adhesive Allergy Unknown "Red welts" Verified 01/25/21 13:17 peach Allergy Unknown WELTS WITH Verified 01/25/21 13:17 PEACH FUZZ tomato Allergy Unknown WELTS WITH Verified 01/25/21 13:17 TOMATOES AND ORANGE JUICE orange Allergy Verified 10/19/20 18:24 orange juice Allergy Verified 10/19/20 18:24 levofloxacin AdvReac Intermediate PNEUMONIA Verified 01/25/21 13:17 metformin AdvReac Mild Diarrhea Verified 01/25/21 13:17 Sulfa (Sulfonamide AdvReac Unknown "SULFA Verified 01/25/21 13:17 Antibiotics) DRUGS": ITCHING Home Medications Medication Instructions Recorded Confirmed Type blood sugar diagnostic (FreeStyle #100 ea 05/07/20 06/28/20 Rx Lite Strips) dulaglutide 0.75 mg/0.5 mL 0.75 mg SUBCUT WK 10/19/20 01/25/21 History subcutaneous pen injector (Trulicity) potassium chloride 20 mEq 20 meq PO QAM #30 tab 10/30/20 01/25/21 Rx tablet,extended release(part/cryst) (Klor-Con M) aspirin 81 mg tablet,delayed 81 mg PO QAM 01/25/21 01/25/21 History release (Aspirin Low Dose) atorvastatin 40 mg tablet (Lipitor) 40 mg PO HS 01/25/21 01/25/21 History bacitracin 500 unit/gram topical 1 applic TOPICAL HS 01/25/21 01/25/21 History ointment (Bacitraycin Plus) citalopram 10 mg tablet (Celexa) 5 mg PO HS 01/25/21 01/25/21 History furosemide 40 mg tablet (Lasix) 40 mg PO QAM 01/25/21 01/25/21 History insulin lispro 100 unit/mL See Rx Instructions .ROUTE .COMPLEX 01/25/21 01/25/21 History subcutaneous solution (Humalog U-100 Insulin) levothyroxine 75 mcg tablet 75 mcg PO DAILYBB 01/25/21 01/25/21 History (Synthroid) lisinopril 20 mg tablet (Prinivil) 20 mg PO QAM 01/25/21 01/25/21 History metoprolol succinate 50 mg 50 mg PO QAM 01/25/21 01/25/21 History tablet,extended release 24 hr (Toprol XL) nystatin 100,000 unit/gram topical 1 applic TOPICAL BID 01/25/21 01/25/21 History powder (Nyamyc) Past Med/Surg History Medical History Kenney's palsy MANY YRS AGO Broken foot Cervical lymphadenopathy CVA (cerebral vascular accident) occipital lobe Edema Epistaxis Epistaxis, recurrent Excessive daytime sleepiness Hypertension Hypertrophy of nasal turbinates Kidney stones PT DENIES Loud snoring Low back pain Right foot infection Sacroiliac strain Stroke ADMITTED [facility] 11/09/18-BLURRED VISION/SHORT TERM MEMORY LOSS-F/U DR MCLEOD THRU [facility]-TO REHAB AFTER DISCHARGE Type 2 diabetes mellitus Surgical History H/O: hysterectomy History of anesthesia reaction History of appendectomy History of cataract surgery History of colonoscopy History of oral surgery History of umbilical hernia repair Family History Father Stroke Hypertension Cancer Prostate cancer Mother Heart murmur Daughter Hypertension Sinusitis Denies family history of Ovarian cancer Myocardial infarction Adverse anesthesia outcome Breast cancer Bleeding disorder Hyperthermia Colorectal cancer Social History Smoking Status: Never smoker Second Hand Exposure: No; Do You Dip or Chew Tobacco: No; Tobacco Cessation Education Requested by Patient: No Hx Alcohol Use: No Hx Substance Use: No Preferred Language: Australian Communication Ability: Effective Visual Impairment: No Limitations Hearing Ability: Normal Cobol Mainframe Developer Required: No Beliefs That Will Affect Care: None marital status: Current Living Situation: Group Home current occupational status: retired Other Information That Helps Us Care for You: No Feels Safe at Home: Declines to Answer caffeine: Yes (coffee) Dental Care, Regularly: Yes Physical Activity Frequency: Does not Exercise Seatbelt Use: always Sunscreen Use: Yes Assistive Devices: Glasses and Walker Review of Systems Review of Systems: Unobtainable due to cognitive status Physical Exam Constitutional: well developed and + obese; + not well nourished and no acute distress Eyes: PERRL, conjunctivae normal, anicteric sclerae ENMT: Mouth: + dry oral mucous membranes Neck: trachea midline, no thyromegaly Respiratory: normal respiratory effort, lungs clear to auscultation Cardiovascular: Rate/Rhythm: regular rate and regular rhythm Vessels: no JVD Extremities: normal capillary refill; no calf tenderness and no pedal edema Gastrointestinal (Abdomen): Inspection/Auscultation: normal bowel sounds Percussion/Palpation: abdomen soft; abdomen nontender, no guarding and abdomen not rigid Skin: + ulcer (x2 open venous ulcers of b/l lower extremities) Neurologic: moves all extremities, awake and + confused Psychiatric: Orientation: alert; + not oriented x 3 Genitourinary: no CVA tenderness Results & Data Results & Data ([facility]) Vital Signs (Past 12 Hours) Vital Signs Temp Pulse Pulse Resp BP BP Pulse Ox 01/25/21 12:24 80 20 100/60 100 01/25/21 11:59 80 18 108/40 L 99 01/25/21 11:39 74 18 99/58 L 100 01/25/21 11:38 100 01/25/21 10:42 36.3 C L 71 16 101/44 L 98 Diagnostic Findings XR chest 1V portable FINDINGS: The cardiac silhouette remains mildly enlarged. There is diffuse interstitial thickening which has improved. This could represent residual congestive change. No overt pulmonary edema. No new focal lung consolidations to suggest pneumonia. No pleural effusions. No pneumothorax. Advanced degenerative changes again noted within the right shoulder. IMPRESSION: Interval improvement in the pulmonary vascular congestion. No focal lung consolidations to suggest pneumonia. HEAD CT NONCONTRAST Findings: Small retention cyst within the right maxillary sinus. The remaining paranasal sinuses and mastoid air cells are clear. The calvarium and skull base are intact. There is no mass, hematoma, midline shift, acute infarct. White matter hypodensity is nonspecific but suggestive of microvascular ischemic change. The ventricles and sulci demonstrate mild age-related involutional changes. Old right FOUNDRY FINISHER territory infarct, unchanged. Impression: No significant change compared to the prior study. No acute intracranial abnormality. CT SCAN OF THE ABDOMEN AND PELVIS WITHOUT CONTRAST Lower chest: Interval resolution of bilateral pleural effusion. Mild septal thickening and patchy areas of groundglass attenuation are seen within bilateral basis. Focal pericardial calcifications are again seen and might represent sequela from prior inflammatory process. Liver: The unenhanced liver is normal in size and attenuation. There is no intrahepatic biliary ductal dilatation. Redemonstration of lobulated contour of the liver which could be seen in liver cirrhosis. Gallbladder: Is fluid-filled with few calculi within its dependent portion. No pericholecystic edema is seen. Spleen: Normal in size and attenuation. Pancreas: Unremarkable. Adrenal glands: Unremarkable. Kidneys: The unenhanced kidneys are normal in size without hydronephrosis. Punctate calculus is seen within right renal parenchyma without evidence of obstruction and associated with focal area of cortical scarring. No obstructive nephrolithiasis is seen. Bowel: Mild to moderate hiatal hernia. Bowel loops are nondilated. Appendix shows normal morphology and gas filled. Minimal diverticulosis of sigmoid colon is seen without evidence of diverticulitis. Peritoneum: There is no intraperitoneal free air or abdominal ascites. Vasculature: The abdominal aorta is normal in course and caliber. Adenopathy: None. Pelvic viscera: Urinary bladder is decompressed with Perez balloon which limits evaluation. Uterus is surgically absent. Skeletal structures: Osteopenia. Multilevel degenerative changes of the spine. Possible mild anterolisthesis of L4 on L5. No definite aggressive osseous lesions are seen. IMPRESSION: 1. No evidence of hydronephrosis or obstructive nephrolithiasis. Punctate calculus within the right renal parenchyma is associated with focal cortical scarring. Evaluation is suboptimal due to lack of intravenous contrast. 2. No acute intra-abdominal process. 3. Liver shows cirrhotic morphology. 4. Cholelithiasis without cholecystitis. 5. Decompressed urinary bladder with Perez balloon within its lumen which limits evaluation. 6. The rest of findings as above. Medications Administered ER Medications Given: NSS 500 ml bolus Acetaminophen 1000mg IV Kayexalate 30g PO Sodium bicarbonate 8.4% 50 meq IV Dextrose 50% 50ml / Insulin 10 units IV Calcium gluconate 1g IV ECG Indication: other (hyperkalemia) Rate (beats per minute): 80 Rhythm: normal sinus Findings: + 1st degree AV block; no acute ischemic change Comparison ECG Date: from (October 20, 2020) Change: the following changes noted (increased T wave amplitude in lateral leads with slight peaking) Code Status & VTE Plan Code Status Full - per [facility] notes and confirmed with his daughter VTE Prophylaxis Plan VTE Prophylaxis will be ordered: Yes PG Care Time/CCT Total # of Minutes Spent Total Time Spent with Patient: Total time spent is greater than 50% in coordination of care (as documented) at patient's floor/unit and/or counseling patient: Coding Level of Care Code 08822 Initial Inpt Care Lvl 3 Diagnoses Acute renal failure N17.9 Acute renal failure type: unspecified Acute hyperkalemia E87.5 Chronic diastolic (congestive) heart failure I50.32 History of stroke Z86.73 Metabolic encephalopathy G93.41 Dementia with behavioral disturbance F03.91 Dementia type: unspecified type Hypertension I10 Type 2 diabetes mellitus E11.9 Hypothyroidism E03.9 Hematemesis K92.0 (1) Dementia with behavioral disturbance Dementia type: unspecified type Qualified Code(s): F03.91 - Unspecified dementia with behavioral disturbance (2) Acute renal failure Acute renal failure type: unspecified Qualified Code(s): N17.9 - Acute kidney failure, unspecified
[2021-01-25] MEDS ORDERED: CEFEPIME 2,000 MG/20 ML VIAL IV STA (13:24)
[2021-01-25] MEDS ORDERED: SODIUM CHLORIDE 0.9% 1000ML 1,000 ML IV ONE (13:26)
[2021-01-25] MEDS ORDERED: FAMOTIDINE 20MG/5ML IV PUSH IV STA (13:34)
[2021-01-25] MEDS ORDERED: LORazepam 0.5 MG/1 ML VIAL IV STA (14:26)
[2021-01-25 14:54] LABS: BUN Creatinine Ratio 12.7 (10-20); Blood Urea Nitrogen 75 mg/dl (7-18); C Reactive Protein < 0.29 mg/dl (0-0.29); Calcium 10.6 mg/dl (8.5-10.1); Carbon Dioxide 25 mmol/L (21-32); Chloride 109 mmol/L (98-107); Creatinine Clr Calc Pharmacy 9.8 ml/min; Est GFR (African American) 7.6 ml/min; Est GFR (Non-African American) 6.5 ml/min; Glucose 112 mg/dl (70-99); Magnesium 2.2 mg/dl (1.8-2.4); Potassium 5.8 mmol/L (3.5-5.1); Sodium 140 mmol/L (136-145)
[2021-01-25 15:32] LABS: Appearance Urine Cloudy (Clear); Bacteria Urine Automated 4+ (Negative); Bilirubin Urine Negative (Negative); Blood Urine Trace (Negative); Color Urine Yellow; Glucose Urine UA Negative (Negative); Ketones Urine Negative (Negative); Leukocyte Esterase Urine 3+ (Negative); Nitrite Urine Negative (Negative); RBC Urine Automated 0-4 /hpf (0-4); Specific Gravity Urine 1.016 (1.000-1.030); Urobilinogen Urine Negative (Negative); WBC Urine Automated >30 /hpf (0-5); pH Urine >= 9.0 (4.5-7.5)
[2021-01-25 15:40] LABS: Protein Urine 1+ (Negative)
--- NOTE | 2021-01-25 16:13 | CT Scan Report ---
CT SCAN OF THE ABDOMEN AND PELVIS WITHOUT CONTRAST CLINICAL HISTORY: JEZ, Hx stone, r/o obstruction COMPARISON STUDY: October 20, 2020 TECHNIQUE: CT scan of the abdomen and pelvis was performed from the lung bases to the proximal femurs . Images are reviewed in the axial, sagittal, and coronal planes. IV contrast was not administered fo r this examination. A dose lowering technique was utilized adhering to the principles of ALARA. CT DOSE: 1490.72 mGy.cm FINDINGS: Lower chest: Interval resolution of bilateral pleural effusion. Mild septal thickening and patchy are as of groundglass attenuation are seen within bilateral basis. Focal pericardial calcifications are a gain seen and might represent sequela from prior inflammatory process. Liver: The unenhanced liver is normal in size and attenuation. There is no intrahepatic biliary ducta l dilatation. Redemonstration of lobulated contour of the liver which could be seen in liver cirrhosi s. Gallbladder: Is fluid-filled with few calculi within its dependent portion. No pericholecystic edema is seen. Spleen: Normal in size and attenuation. Pancreas: Unremarkable. Adrenal glands: Unremarkable. Kidneys: The unenhanced kidneys are normal in size without hydronephrosis. Punctate calculus is seen within right renal parenchyma without evidence of obstruction and associated with focal area of corti radha scarring. No obstructive nephrolithiasis is seen. Bowel: Mild to moderate hiatal hernia. Bowel loops are nondilated. Appendix shows normal morphology a nd gas filled. Minimal diverticulosis of sigmoid colon is seen without evidence of diverticulitis. Peritoneum: There is no intraperitoneal free air or abdominal ascites. Vasculature: The abdominal aorta is normal in course and caliber. Adenopathy: None. Pelvic viscera: Urinary bladder is decompressed with Perez balloon which limits evaluation. Uterus is surgically absent. Skeletal structures: Osteopenia. Multilevel degenerative changes of the spine. Possible mild anteroli sthesis of L4 on L5. No definite aggressive osseous lesions are seen. IMPRESSION: 1. No evidence of hydronephrosis or obstructive nephrolithiasis. Punctate calculus within the right renal parenchyma is associated with focal cortical scarring. Evaluation is suboptimal due to lack of intravenous contrast. 2. No acute intra-abdominal process. 3. Liver shows cirrhotic morphology. 4. Cholelithiasis without cholecystitis. 5. Decompressed urinary bladder with Perez balloon within its lumen which limits evaluation. 6. The rest of findings as above. ACT 112: Negative or not required by law. The above report was generated using voice recognition software. It may contain grammatical, syntax o r spelling errors. Electronically signed by: Melba Resendiz DO 01/25/2021 4:09 PM
[2021-01-25] MEDS ORDERED: CEFEPIME CONSULT ACTIVE PRN (16:22)
[2021-01-25] MEDS ORDERED: ONDANSETRON INJ 2 MG/ML 2 ML VIAL IV PRN (16:22)
[2021-01-25] MEDS ORDERED: POLYETHYLENE (MIRALAX) 17 GM PACK PO PRN (16:22)
[2021-01-25] MEDS ORDERED: ACETAMINOPHEN 325 MG TAB PO PRN (16:22)
[2021-01-25] MEDS ORDERED: SODIUM CHLORIDE 0.45 % 1,000 ML IV SCH (18:00)
[2021-01-25] MEDS: SODIUM CHLORIDE 0.9% 1000ML 1,000 ML IV SCH (18:40)
[2021-01-25] MEDS: HALOPERIDOL LACTATE 5 MG/ML 1 ML VIAL IM PRN (18:49)
[2021-01-25] MEDS ORDERED: ACETAMINOPHEN 1,000 MG/100 ML VIAL IV PRN (19:03)
[2021-01-25] MEDS ORDERED: GLUCOSE 10 TABS/TUBE PO PRN (19:07)
[2021-01-25] MEDS ORDERED: DEXTROSE 50% 50 ML SYRINGE IV PRN (19:07)
[2021-01-25] MEDS ORDERED: GLUCAGON FOR INJ 1 MG VIAL SQ PRN (19:07)
[2021-01-25] MEDS ORDERED: CARBOHYDRATES FOR HYPOGLYCEMIA PO PRN (19:07)
[2021-01-25] MEDS ORDERED: GLUCOSE 40% GEL 15 GM TUBE PO PRN (19:07)
[2021-01-25] MEDS: INSULIN ASPART 100 UNITS/ML 3 ML PEN SC SCH (21:00)
[2021-01-25] MEDS ORDERED: ATORVASTATIN 40 MG TAB PO SCH (21:00)
[2021-01-25] MEDS: NYSTATIN POWDER 15GM BTL EXT SCH (21:12)
[2021-01-25] MEDS: BACITRACIN OINT 15 GM TUBE TOP SCH (21:13)
[2021-01-25] MEDS: CITALOPRAM 20 MG TAB PO SCH (21:13)
[2021-01-25 21:16] LABS: Hematocrit (blood only) 40.1 % (37-47); Hemoglobin 12.8 g/dL (12.0-16.0)
[2021-01-25 22:14] LABS: BUN Creatinine Ratio 13.8 (10-20); Calcium 9.9 mg/dl (8.5-10.1); Creatinine Clr Calc Pharmacy 11.4 ml/min; Est GFR (African American) 8.9 ml/min; Est GFR (Non-African American) 7.7 ml/min; Potassium 6.2 mmol/L (3.5-5.1)
[2021-01-26] MEDS: HALOPERIDOL LACTATE 5 MG/ML 1 ML VIAL IM PRN ×2 (00:30→07:35)
[2021-01-26] MEDS: SODIUM CHLORIDE 0.9% 1000ML 1,000 ML IV SCH ×3 (03:41→12:55)
[2021-01-26] MEDS: LEVOTHYROXINE SODIUM 75 MCG TABLET PO SCH (05:34)
[2021-01-26] MEDS ORDERED: DEXTROSE 50% 50 ML SYRINGE IV ONE (05:35)
[2021-01-26] MEDS ORDERED: INSULIN HUMAN REGULAR PER UNIT 10 UNITS in SYRINGE 0 ML IV ONE (05:35)
[2021-01-26 06:31] LABS: Basophils # (auto) 0.03 K/uL (0-0.2); Basophils % (auto) 0.5 %; Eosinophils # (auto) 0.15 K/uL (0-0.5); Eosinophils % (auto) 2.4 %; Hematocrit (blood only) 37.9 % (37-47); Hemoglobin 11.7 g/dL (12.0-16.0); Lymphocytes # (auto) 1.55 K/uL (1.2-3.4); Lymphocytes % (auto) 25.2 %; Mean Corpuscular Hemoglobin 30.7 pg (25-34); Mean Corpuscular Hgb Conc 30.9 g/dL (32-36); Mean Corpuscular Volume 99.5 fL (80-100); Mean Platelet Volume 11.4 fL (7.4-10.4); Monocytes % (auto) 3.3 %; Neutrophils # (auto) 4.21 K/uL (1.4-6.5); Neutrophils % (auto) 68.6 %; Platelet Count 155 K/uL (130-400); RDW Coefficient of Variation 15.5 % (11.5-14.5); RDW Standard Deviation 56.1 fL (36.4-46.3); Red Blood Count 3.81 M/uL (4.2-5.4); White Blood Count 6.14 K/uL (4.8-10.8)
--- NOTE | 2021-01-26 07:05 | Electrocardiogram Report ---
Test Reason : Blood Pressure : / mmHG Vent. Rate : 080 BPM Atrial Rate : 080 BPM P-R Int : 210 ms QRS Dur : 064 ms QT Int : 366 ms P-R-T Axes : 060 028 051 degrees QTc Int : 422 ms Poor data quality, interpretation may be adversely affected Sinus rhythm with 1st degree A-V block Low voltage QRS Borderline ECG When compared with ECG of 20-OCT-2020 18:22, Nonspecific T wave abnormality, improved in Anterolateral leads QT has shortened Confirmed by Lazaro Rangel ([id number]) on 01/26/2021 7:04:31 AM Referred By: REFERRED SELF Confirmed By:Lazaro Rangel
[2021-01-26 07:18] LABS: BUN Creatinine Ratio 13.8 (10-20); Calcium 9.2 mg/dl (8.5-10.1); Creatinine Clr Calc Pharmacy 12.4 ml/min; Est GFR (African American) 9.7 ml/min; Est GFR (Non-African American) 8.3 ml/min; Potassium 5.2 mmol/L (3.5-5.1)
[2021-01-26] MEDS: INSULIN ASPART 100 UNITS/ML 3 ML PEN SC SCH ×4 (07:30→21:32)
[2021-01-26 08:02] LABS: Estimated Average Glucose 166 mg/dl; Hemoglobin A1C 7.4 % (4.5-5.6)
[2021-01-26] MEDS ORDERED: LACTATED RINGER'S 1,000 ML IV SCH (08:45)
[2021-01-26] MEDS ORDERED: PIPERACILL/TAZOBAC CONSULT ACTIVE PRN (08:47)
[2021-01-26] MEDS ORDERED: OLANZapine 10 MG/2.1 ML SDV IM PRN (08:55)
--- NOTE | 2021-01-26 08:57 | Hospitalist Progress Note ---
Date of Service January 26, 2021 Assessment & Plan (1) Urinary tract infection: Plan: Recurrent; gram-negative rods in urine; switch to Zosyn for now due to acuityhave occasionally seen gram-negative rods cefepime resistant and Zosyn sensitive; noted last E. coli was nearly pansensitivede-escalate once confirmed (2) Acute renal failure: Plan: Probably hemodynamically mediated due to infective physiology and may be hypovolemia-volume and follow (3) Acute hyperkalemia: Plan: Improvingcan be followed at present (4) Hematemesis: Plan: Gastric occult positive vomiting at her [facility] care IV PPI; H&H in p.m.; SCDs etc.avoid pharmacologic DVT prevention at present (5) Dementia with behavioral disturbance: Plan: Monitor for worsening deliriumadd Zyprexa as needed (6) Chronic diastolic (congestive) heart failure: Plan: Hold lasix due to JEZ as above Monitor for worsening pulmonary edema as this occurred on her previous admission with IV fluids (7) History of stroke: Plan: Hold aspirin due to gastric occult blood positive At present statin held given risk of aspirationonly immediately essential medications (8) Hypertension: Plan: Hold Lasix and lisinopril due to AKIobserve (9) Type 2 diabetes mellitus: Plan: HbA1C 10.5 in September Novolog: Goal BSG Range: Low 110 mg/dL, High 140 mg/dL Correction Factor: 45 mg/dL/unit Carbohydrate ratio = 15 g/unit BSGs ACHS if eating, q6h if npo-sugars acceptable (10) Hypothyroidism: Plan: Continue levothyroxine 75 mcg PO daily (11) Toxic encephalopathy: Plan: due to UTI Plan: VTE prophylaxis - SCDs, will hold off heparin currently du to history of gastric occult positive and vomiting. Diet - NPO, until resolving metabolic encephalopathy, IV fluids to be ordered based on repeat labs and CT Disposition - Admit to PCU Admission and Anticipated Discharge Date Admission Date: January 25, 2021 Subjective Follow-up of presentation with fall, mental status changesstill quite ill; acutely delirious Physical Exam Physical Exam: Constitutional and general: Acutely delirious, looks biologic age Head and face: No puffiness, atraumatic Neck: Supple, no JVD Musculoskeletal: No acute joint swelling, no bony abnormalities Skin/dermatologic/integument: No rash, no purpura Hematologic and lymphatic: pallor +, no petechia Gastrointestinal/abdomen: Nondistended, soft, nonacute Neurologic: Grossly nonfocal except keeps right eye shut Psychiatry: Awake, alert, pleasant, communicative Cardiovascular: Heart rhythm regular, systolic murmur 2 x 6, no gallop Respiratory: Chest movements equal, no use of accessory muscles, no adventitious sounds Extremities: Edema with stasis changes right more than left, no cyanosis Results & Data Results & Data ([facility]) Vital Signs (Past 12 Hours) Vital Signs Temp Pulse Pulse Resp BP Pulse Ox 01/26/21 07:47 36.7 C 88 16 161/88 H 100 01/26/21 03:56 36.7 C 64 19 102/67 98 01/26/21 00:00 87 01/25/21 23:24 36.8 C 59 L 20 125/69 97 Laboratory Results Laboratory Results - last 24 hr 01/25/21 01/25/21 01/25/21 10:48 10:48 11:12 WBC 9.62 RBC 4.42 Hgb 13.8 Hct 42.7 MCV 96.6 MCH 31.2 MCHC 32.3 RDW Std Deviation 55.3 H RDW Coeff of Per 15.5 H Plt Count 190 MPV 11.7 H Immature Gran % (Auto) 0.2 Neut % (Auto) 63.0 Lymph % (Auto) 23.8 [place] % (Auto) 10.8 Eos % (Auto) 1.9 Baso % (Auto) 0.3 Neut # (Auto) 6.06 Lymph # (Auto) 2.29 [place] # (Auto) 1.04 H Eos # (Auto) 0.18 Baso # (Auto) 0.03 Immature Gran # (Auto) 0.02 ESR 45 H Sodium 139 Potassium 7.0 H* Chloride 108 H Carbon Dioxide 28 Anion Gap 3.0 BUN 78 H Creatinine 5.97 H* Est Cr Clr Drug Dosing 9.8 Est GFR ( Amer) 7.5 Est GFR (Non-Af Amer) 6.5 BUN/Creatinine Ratio 12.9 Glucose 127 H POC Glucose Estimat Average Glucose Hemoglobin A1c Lactate Calcium 10.0 Magnesium Total Bilirubin 0.9 AST 30 ALT 36 Alkaline Phosphatase 65 C-Reactive Protein Total Protein 7.3 Albumin 3.6 Globulin 3.7 Albumin/Globulin Ratio 1.0 Procalcitonin Urine Color Urine Appearance Urine pH Ur Specific Raymond Urine Protein Urine Glucose (UA) Urine Ketones Urine Blood Urine Nitrite Urine Bilirubin Urine Urobilinogen Ur Leukocyte Esterase Urine WBC (Auto) Urine RBC (Auto) U Hyaline Cast (Auto) U Epithel Cells (Auto) Urine Bacteria (Auto) COVID-19 Eval Order SARS-CoV-2 (PCR) 01/25/21 01/25/21 01/25/21 12:36 12:36 13:56 WBC RBC Hgb Hct MCV MCH MCHC RDW Std Deviation RDW Coeff of Per Plt Count MPV Immature Gran % (Auto) Neut % (Auto) Lymph % (Auto) [place] % (Auto) Eos % (Auto) Baso % (Auto) Neut # (Auto) Lymph # (Auto) [place] # (Auto) Eos # (Auto) Baso # (Auto) Immature Gran # (Auto) ESR Sodium Potassium Chloride Carbon Dioxide Anion Gap BUN Creatinine Est Cr Clr Drug Dosing Est GFR ( Amer) Est GFR (Non-Af Amer) BUN/Creatinine Ratio Glucose POC Glucose Estimat Average Glucose Hemoglobin A1c Lactate 2.3 H* Calcium Magnesium Total Bilirubin AST ALT Alkaline Phosphatase C-Reactive Protein Total Protein Albumin Globulin Albumin/Globulin Ratio Procalcitonin Urine Color Urine Appearance Urine pH Ur Specific Raymond Urine Protein Urine Glucose (UA) Urine Ketones Urine Blood Urine Nitrite Urine Bilirubin Urine Urobilinogen Ur Leukocyte Esterase Urine WBC (Auto) Urine RBC (Auto) U Hyaline Cast (Auto) U Epithel Cells (Auto) Urine Bacteria (Auto) COVID-19 Eval Order Covid19 at [facility] SARS-CoV-2 (PCR) NEGATIVE 01/25/21 01/25/21 01/25/21 13:56 13:56 15:08 WBC RBC Hgb Hct MCV MCH MCHC RDW Std Deviation RDW Coeff of Per Plt Count MPV Immature Gran % (Auto) Neut % (Auto) Lymph % (Auto) [place] % (Auto) Eos % (Auto) Baso % (Auto) Neut # (Auto) Lymph # (Auto) [place] # (Auto) Eos # (Auto) Baso # (Auto) Immature Gran # (Auto) ESR Sodium 140 Potassium 5.8 H D Chloride 109 H Carbon Dioxide 25 Anion Gap 6.0 BUN 75 H Creatinine 5.93 H* Est Cr Clr Drug Dosing 9.8 Est GFR ( Amer) 7.6 Est GFR (Non-Af Amer) 6.5 BUN/Creatinine Ratio 12.7 Glucose 112 H POC Glucose Estimat Average Glucose Hemoglobin A1c Lactate Calcium 10.6 H Magnesium 2.2 Total Bilirubin AST ALT Alkaline Phosphatase C-Reactive Protein < 0.29 Total Protein Albumin Globulin Albumin/Globulin Ratio Procalcitonin < 0.05 Urine Color Yellow Urine Appearance Cloudy A Urine pH >= 9.0 H Ur Specific [place] 1.016 Urine Protein 1+ H Urine Glucose (UA) Negative Urine Ketones Negative Urine Blood Trace H Urine Nitrite Negative Urine Bilirubin Negative Urine Urobilinogen Negative Ur Leukocyte Esterase 3+ H Urine WBC (Auto) >30 H Urine RBC (Auto) 0-4 U Hyaline Cast (Auto) 1-5 U Epithel Cells (Auto) 5-10 H Urine Bacteria (Auto) 4+ H COVID-19 Eval Order SARS-CoV-2 (PCR) 01/25/21 01/25/21 01/25/21 16:28 20:05 21:01 WBC RBC Hgb Hct MCV MCH MCHC RDW Std Deviation RDW Coeff of Per Plt Count MPV Immature Gran % (Auto) Neut % (Auto) Lymph % (Auto) [place] % (Auto) Eos % (Auto) Baso % (Auto) Neut # (Auto) Lymph # (Auto) [place] # (Auto) Eos # (Auto) Baso # (Auto) Immature Gran # (Auto) ESR Sodium 144 Potassium 6.2 H* Chloride 113 H Carbon Dioxide 27 Anion Gap 4.0 BUN 72 H Creatinine 5.19 H* D Est Cr Clr Drug Dosing 11.4 Est GFR ( Amer) 8.9 Est GFR (Non-Af Amer) 7.7 BUN/Creatinine Ratio 13.8 Glucose 99 POC Glucose 83 Estimat Average Glucose Hemoglobin A1c Lactate 2.5 H* Calcium 9.9 Magnesium Total Bilirubin AST ALT Alkaline Phosphatase C-Reactive Protein Total Protein Albumin Globulin Albumin/Globulin Ratio Procalcitonin Urine Color Urine Appearance Urine pH Ur Specific Raymond Urine Protein Urine Glucose (UA) Urine Ketones Urine Blood Urine Nitrite Urine Bilirubin Urine Urobilinogen Ur Leukocyte Esterase Urine WBC (Auto) Urine RBC (Auto) U Hyaline Cast (Auto) U Epithel Cells (Auto) Urine Bacteria (Auto) COVID-19 Eval Order SARS-CoV-2 (PCR) 01/25/21 01/26/21 01/26/21 21:01 05:41 06:04 WBC RBC Hgb 12.8 Hct 40.1 MCV MCH MCHC RDW Std Deviation RDW Coeff of Per Plt Count MPV Immature Gran % (Auto) Neut % (Auto) Lymph % (Auto) [place] % (Auto) Eos % (Auto) Baso % (Auto) Neut # (Auto) Lymph # (Auto) [place] # (Auto) Eos # (Auto) Baso # (Auto) Immature Gran # (Auto) ESR Sodium Potassium Chloride Carbon Dioxide Anion Gap BUN Creatinine Est Cr Clr Drug Dosing Est GFR ( Amer) Est GFR (Non-Af Amer) BUN/Creatinine Ratio Glucose POC Glucose 91 216 H Estimat Average Glucose Hemoglobin A1c Lactate Calcium Magnesium Total Bilirubin AST ALT Alkaline Phosphatase C-Reactive Protein Total Protein Albumin Globulin Albumin/Globulin Ratio Procalcitonin Urine Color Urine Appearance Urine pH Ur Specific [place] Urine Protein Urine Glucose (UA) Urine Ketones Urine Blood Urine Nitrite Urine Bilirubin Urine Urobilinogen Ur Leukocyte Esterase Urine WBC (Auto) Urine RBC (Auto) U Hyaline Cast (Auto) U Epithel Cells (Auto) Urine Bacteria (Auto) COVID-19 Eval Order SARS-CoV-2 (PCR) 01/26/21 01/26/21 01/26/21 06:10 06:10 06:10 WBC 6.14 RBC 3.81 L Hgb 11.7 L Hct 37.9 MCV 99.5 MCH 30.7 MCHC 30.9 L RDW Std Deviation 56.1 H RDW Coeff of Per 15.5 H Plt Count 155 MPV 11.4 H Immature Gran % (Auto) 0.0 Neut % (Auto) 68.6 Lymph % (Auto) 25.2 [place] % (Auto) 3.3 Eos % (Auto) 2.4 Baso % (Auto) 0.5 Neut # (Auto) 4.21 Lymph # (Auto) 1.55 [place] # (Auto) 0.20 Eos # (Auto) 0.15 Baso # (Auto) 0.03 Immature Gran # (Auto) 0.00 ESR Sodium 144 Potassium 5.2 H D Chloride 114 H Carbon Dioxide 25 Anion Gap 5.0 BUN 67 H Creatinine 4.85 H* D Est Cr Clr Drug Dosing 12.4 Est GFR ( Amer) 9.7 Est GFR (Non-Af Amer) 8.3 BUN/Creatinine Ratio 13.8 Glucose 192 H POC Glucose Estimat Average Glucose 166 Hemoglobin A1c 7.4 H Lactate Calcium 9.2 Magnesium Total Bilirubin AST ALT Alkaline Phosphatase C-Reactive Protein Total Protein Albumin Globulin Albumin/Globulin Ratio Procalcitonin Urine Color Urine Appearance Urine pH Ur Specific [place] Urine Protein Urine Glucose (UA) Urine Ketones Urine Blood Urine Nitrite Urine Bilirubin Urine Urobilinogen Ur Leukocyte Esterase Urine WBC (Auto) Urine RBC (Auto) U Hyaline Cast (Auto) U Epithel Cells (Auto) Urine Bacteria (Auto) COVID-19 Eval Order SARS-CoV-2 (PCR) 01/26/21 01/26/21 07:42 07:44 WBC RBC Hgb Hct MCV MCH MCHC RDW Std Deviation RDW Coeff of Per Plt Count MPV Immature Gran % (Auto) Neut % (Auto) Lymph % (Auto) [place] % (Auto) Eos % (Auto) Baso % (Auto) Neut # (Auto) Lymph # (Auto) [place] # (Auto) Eos # (Auto) Baso # (Auto) Immature Gran # (Auto) ESR Sodium Potassium Chloride Carbon Dioxide Anion Gap BUN Creatinine Est Cr Clr Drug Dosing Est GFR ( Amer) Est GFR (Non-Af Amer) BUN/Creatinine Ratio Glucose POC Glucose 68 L* 78 Estimat Average Glucose Hemoglobin A1c Lactate Calcium Magnesium Total Bilirubin AST ALT Alkaline Phosphatase C-Reactive Protein Total Protein Albumin Globulin Albumin/Globulin Ratio Procalcitonin Urine Color Urine Appearance Urine pH Ur Specific [place] Urine Protein Urine Glucose (UA) Urine Ketones Urine Blood Urine Nitrite Urine Bilirubin Urine Urobilinogen Ur Leukocyte Esterase Urine WBC (Auto) Urine RBC (Auto) U Hyaline Cast (Auto) U Epithel Cells (Auto) Urine Bacteria (Auto) COVID-19 Eval Order SARS-CoV-2 (PCR) Diagnostic Findings Chest X-Ray 01/25/21 10:48 XR chest 1V portable HISTORY: weakness COMPARISON: Chest 10/20/2020. FINDINGS: The cardiac silhouette remains mildly enlarged. There is diffuse interstitial thickening which has improved. This could represent residual congestive change. No overt pulmonary edema. No new focal lung consolidations to suggest pneumonia. No pleural effusions. No pneumothorax. Advanced degenerative changes again noted within the right shoulder. IMPRESSION: Interval improvement in the pulmonary vascular congestion. No focal lung consolidations to suggest pneumonia. ACT 112: Negative or not required by law. Electronically signed by: Eagle Ryder M.D. 01/25/2021 11:[address] 01/25/21 10:[address] DOSE: 1087.60 mGycm HISTORY: fall, hit head, headache TECHNIQUE: Multiaxial CT images of the head were performed without the use of intravenous contrast. Automated exposure control was utilized for this study. A dose lowering technique was utilized adhering to the principles of ALARA. Comparison: Head CT 10/19/2020. Findings: Small retention cyst within the right maxillary sinus. The remaining paranasal sinuses and mastoid air cells are clear. The calvarium and skull base are intact. There is no mass, hematoma, midline shift, acute infarct. White matter hypodensity is nonspecific but suggestive of microvascular ischemic change. The ventricles and sulci demonstrate mild age-related involutional ch anges. Old right PHARMACY ASSISTANT territory infarct, unchanged. Impression: No significant change compared to the prior study. No acute intracranial abnormality. ACT 112: Negative or not required by law. Electronically signed by: Eagle Ryder M.D. 01/25/2021 11:56 AM Abdomen/Pelvis CT 01/25/21 13:02 CT SCAN OF THE ABDOMEN AND PELVIS WITHOUT CONTRAST CLINICAL HISTORY: JEZ, Hx stone, r/o obstruction COMPARISON STUDY: October 20, 2020 TECHNIQUE: CT scan of the abdomen and pelvis was performed from the lung bases to the proximal femurs. Images are reviewed in the axial, sagittal, and coronal planes. IV contrast was not administered for this examination. A dose lowering technique was utilized adhering to the principles of ALARA. CT DOSE: 1490.72 mGy.cm FINDINGS: Lower chest: Interval resolution of bilateral pleural effusion. Mild septal thickening and patchy areas of groundglass attenuation are seen within bilateral basis. Focal pericardial calcifications are again seen and might represent sequela from prior inflammatory process. Liver: The unenhanced liver is normal in size and attenuation. There is no intrahepatic biliary ductal dilatation. Redemonstration of lobulated contour of the liver which could be seen in liver cirrhosis. Gallbladder: Is fluid-filled with few calculi within its dependent portion. No pericholecystic edema is seen. Spleen: Normal in size and attenuation. Pancreas: Unremarkable. Adrenal glands: Unremarkable. Kidneys: The unenhanced kidneys are normal in size without hydronephrosis. Punctate calculus is seen within right renal parenchyma without evidence of obstruction and associated with focal area of cortical scarring. No obstructive nephrolithiasis is seen. Bowel: Mild to moderate hiatal hernia. Bowel loops are nondilated. Appendix shows normal morphology and gas filled. Minimal diverticulosis of sigmoid colon is seen without evidence of diverticulitis. Peritoneum: There is no intraperitoneal free air or abdominal ascites. Vasculature: The abdominal aorta is normal in course and caliber. Adenopathy: None. Pelvic viscera: Urinary bladder is decompressed with Perez balloon which limits evaluation. Uterus is surgically absent. Skeletal structures: Osteopenia. Multilevel degenerative changes of the spine. Possible mild anterolisthesis of L4 on L5. No definite aggressive osseous lesions are seen. IMPRESSION: 1. No evidence of hydronephrosis or obstructive nephrolithiasis. Punctate calculus within the right renal parenchyma is associated with focal cortical scarring. Evaluation is suboptimal due to lack of intravenous contrast. 2. No acute intra-abdominal process. 3. Liver shows cirrhotic morphology. 4. Cholelithiasis without cholecystitis. 5. Decompressed urinary bladder with Perez balloon within its lumen which limits evaluation. 6. The rest of findings as above. ACT 112: Negative or not required by law. The above report was generated using voice recognition software. It may contain grammatical, syntax or spelling errors. Electronically signed by: Melba Resendiz DO 01/25/2021 4:09 PM PG Care Time/CCT Total # of Minutes Spent Total Time Spent with Patient: Total time spent is greater than 50% in coordination of care (as documented) at patient's floor/unit and/or counseling patient: Coding Level of Care Code 36812 Subseq Hosp Care Lvl 3 Diagnoses Acute renal failure N17.9 Acute renal failure type: unspecified Acute hyperkalemia E87.5 Hematemesis K92.0 Dementia with behavioral disturbance F03.91 Dementia type: unspecified type Chronic diastolic (congestive) heart failure I50.32 History of stroke Z86.73 Hypertension I10 Type 2 diabetes mellitus E11.9 Hypothyroidism E03.9 Toxic encephalopathy G92 Urinary tract infection N39.0 (1) Dementia with behavioral disturbance Dementia type: unspecified type Qualified Code(s): F03.91 - Unspecified dementia with behavioral disturbance (2) Acute renal failure Acute renal failure type: unspecified Qualified Code(s): N17.9 - Acute kidney failure, unspecified
[2021-01-26] MEDS ORDERED: PIPERACILLIN/TAZOBACTAM 2.25 GM in DEXTROSE 5% 100 ML IV SCH (09:00)
[2021-01-26] MEDS ORDERED: HEPARIN SOD 5,000 UNIT/0.5 ML VIAL SQ SCH (09:00)
[2021-01-26] MEDS ORDERED: METOPROLOL SUCC 50MG EXT REL TAB PO SCH (09:00)
[2021-01-26] MEDS: PANTOprazole 40 MG in SYRINGE 0 ML IV SCH ×2 (09:36→21:33)
[2021-01-26] MEDS: NYSTATIN POWDER 15GM BTL EXT SCH ×2 (09:37→21:33)
[2021-01-26] MEDS ORDERED: PIPERACILLIN/TAZOBACTAM 3.375 GM in DEXTROSE 5% 100 ML IV ONE (14:00)
[2021-01-26] MEDS ORDERED: CEFEPIME 500 MG in SYRINGE 0 ML IV SCH (14:00)
[2021-01-26 19:54] LABS: Hematocrit (blood only) 34.4 % (37-47); Hemoglobin 10.8 g/dL (12.0-16.0)
[2021-01-26 20:33] LABS: BUN Creatinine Ratio 12.8 (10-20); Calcium 8.7 mg/dl (8.5-10.1); Est GFR (African American) 10.2 ml/min; Est GFR (Non-African American) 8.8 ml/min; Potassium 5.5 mmol/L (3.5-5.1)
[2021-01-26] MEDS: CITALOPRAM 20 MG TAB PO SCH (21:30)
[2021-01-26] MEDS: LACTULOSE SYRUP 20 GM/30 ML UDC PO SCH (21:31)
[2021-01-26] MEDS: BACITRACIN OINT 15 GM TUBE TOP SCH (21:32)
[2021-01-26] MEDS: ATORVASTATIN 40 MG TAB PO SCH (21:33)
[2021-01-27] MEDS: SODIUM CHLORIDE 0.9% 1000ML 1,000 ML IV SCH (01:12)
[2021-01-27] MEDS: LEVOTHYROXINE SODIUM 75 MCG TABLET PO SCH (05:32)
[2021-01-27 05:53] LABS: Basophils # (auto) 0.04 K/uL (0-0.2); Basophils % (auto) 0.6 %; Eosinophils # (auto) 0.17 K/uL (0-0.5); Eosinophils % (auto) 2.7 %; Hematocrit (blood only) 34.1 % (37-47); Hemoglobin 10.7 g/dL (12.0-16.0); Immature Granulocytes # (auto) 0.01 K/uL (0.00-0.02); Immature Granulocytes % (auto) 0.2 %; Lymphocytes % (auto) 31.3 %; Mean Corpuscular Hemoglobin 31.2 pg (25-34); Mean Corpuscular Hgb Conc 31.4 g/dL (32-36); Mean Corpuscular Volume 99.4 fL (80-100); Monocytes # (auto) 0.84 K/uL (0.11-0.59); Monocytes % (auto) 13.2 %; Neutrophils # (auto) 3.32 K/uL (1.4-6.5); Platelet Count 135 K/uL (130-400); RDW Coefficient of Variation 15.8 % (11.5-14.5); RDW Standard Deviation 57.4 fL (36.4-46.3); Red Blood Count 3.43 M/uL (4.2-5.4); White Blood Count 6.38 K/uL (4.8-10.8)
[2021-01-27 06:44] LABS: Albumin Globulin Ratio 0.9 (0.9-2); Albumin Level 2.6 gm/dl (3.4-5.0); BUN Creatinine Ratio 12.3 (10-20); Bilirubin,Total 0.8 mg/dl (0.2-1); Calcium 8.5 mg/dl (8.5-10.1); Creatinine Clr Calc Pharmacy 14.4 ml/min; Est GFR (African American) 11.3 ml/min; Est GFR (Non-African American) 9.8 ml/min; Total Protein 5.6 gm/dl (6.4-8.2)
[2021-01-27] MEDS: PANTOprazole 40 MG in SYRINGE 0 ML IV SCH ×2 (08:07→21:18)
[2021-01-27] MEDS: NYSTATIN POWDER 15GM BTL EXT SCH ×2 (08:07→21:18)
[2021-01-27] MEDS: LACTULOSE SYRUP 20 GM/30 ML UDC PO SCH ×2 (08:08→21:18)
[2021-01-27] MEDS: INSULIN ASPART 100 UNITS/ML 3 ML PEN SC SCH ×4 (08:11→21:00)
[2021-01-27] MEDS: ADVANCED PROBIOTIC 1250 MG CAPSULE PO SCH (08:58)
[2021-01-27] MEDS: cefTRIAXone SODIUM 2,000 MG in DEXTROSE 5% 50 ML IV SCH (08:59)
--- NOTE | 2021-01-27 13:08 | XRay Report ---
KUB CLINICAL HISTORY: abdominal distension COMPARISON STUDY: CT of the abdomen and pelvis January 25, 2021. FINDINGS: Mild gaseous distention of the colon has developed since exam of January 25, 2021. There i s gas within the rectum. There is no evidence for a small bowel obstruction. Pelvic calcifications re flect phleboliths. IMPRESSION: Interval development of mild gaseous distention of the colon. Gas within the rectum. The findings may reflect an ileus. ACT 112: Negative or not required by law. Electronically signed by: Carlos Enrique Willis M.D. 01/27/2021 1:06 PM
--- NOTE | 2021-01-27 18:10 | Hospitalist Progress Note ---
Date of Service January 27, 2021 Assessment & Plan (1) Urinary tract infection: Plan: 2nd proteus. d/c zosyn. start rocephin 2gm IV daily. likely contributing to met encephalopathy. (2) Acute renal failure: Plan: Pre-renal etiology suspected. This was in the setting of FERNANDO inhibitor use and lasix. Slowly improving. Daily BMP. Cont gentle fluids. No evidence of volume overload. (3) Acute hyperkalemia: Plan: 2nd #2. resolved. (4) Hematemesis: Plan: Gastric occult positive stomach contents after vomiting at the [facility]. Remains on IV PPI. H/o gastropathy. H/H stable in comparison to yesterday but has dropped 3 grams since admission. if any further decrease then GI consultation. (5) Dementia with behavioral disturbance: Plan: Zyprexa IM as needed restraints (mitts) ordered for safety (6) Metabolic encephalopathy: Plan: 2nd to ARF, UTI, etc. supportive care. avoid benzos. zyprexa prn. (7) Chronic diastolic (congestive) heart failure: Plan: Hold lasix due to JEZ. No evidence of volume overload. (8) History of stroke: Plan: Hold aspirin due to gastric occult blood positive status. (9) Hypertension: Plan: Holding Lasix and lisinopril due to JEZ. BPs controlled without the above. (10) Type 2 diabetes mellitus: Plan: HbA1C 10.5 in September Cont novolog sliding scale and add basal insulin as needed (11) Hypothyroidism: Plan: Continue levothyroxine 75 mcg PO daily TSH 1.9 in November 2020 (12) Hyperammonemia: Plan: mild elevation (30s) no BM in several days remains on lactulose she has colonic gaseous distension on x-rays today - perhaps 2nd to lactulose will cont lactulose cautiously and repeat ammonia level am does have radiographic imaging c/w cirrhosis - [place]?? (13) Abdominal distension: Plan: 2nd to lactulose? 2nd to ileus? colonic gaseous distension on KUB today either way - supportive care (14) DVT prophylaxis: Plan: due #4 holding off on chemical DVT proph Plan: will update family by phone this evening Admission and Anticipated Discharge Date Admission Date: January 25, 2021 Subjective patient unable to provide any meaningful history or ROS thinks she is at [facility] denies pain in any location staff report no BM yesterday or today staff report VERY LITTLE PO intake no vomiting per staff tele overnight wnl Review of Systems Review of Systems: Unobtainable due to cognitive status Physical Exam Physical Exam: gen - looks sick, confused, tremors of arms noted mouth - MM dry neck - no JVD heart - RRR, s1 s2, no murmur lungs - decreased BS bases, no rales abd - high-pitched bowel sounds, no tenderness, mildly distended, no HSM ext - trace edema skin - pallor; tiny venous stasis ulcers x 3 over b/l shins; no cellulitis either triplett neuro - tremor with ?asterixis psych - a/o x 1 only Results & Data Results & Data ([facility]) Vital Signs (Past 12 Hours) Vital Signs Temp Pulse Pulse Resp BP Pulse Ox 01/27/21 15:23 37.0 C 81 16 118/73 94 01/27/21 12:05 91 H 01/27/21 11:09 36.8 C 85 18 115/75 98 01/27/21 08:00 93 H 01/27/21 07:05 37 C 86 18 112/71 95 Laboratory Results Laboratory Results - last 24 hr 01/26/21 01/26/21 01/26/21 19:44 19:44 20:13 WBC RBC Hgb 10.8 L Hct 34.4 L MCV MCH MCHC RDW Std Deviation RDW Coeff of Per Plt Count MPV Immature Gran % (Auto) Neut % (Auto) Lymph % (Auto) [place] % (Auto) Eos % (Auto) Baso % (Auto) Neut # (Auto) Lymph # (Auto) [place] # (Auto) Eos # (Auto) Baso # (Auto) Immature Gran # (Auto) Sodium 145 Potassium 5.5 H Chloride 117 H Carbon Dioxide 24 Anion Gap 4.0 BUN 59 H Creatinine 4.62 H* Est Cr Clr Drug Dosing 13.0 Est GFR ( Amer) 10.2 Est GFR (Non-Af Amer) 8.8 BUN/Creatinine Ratio 12.8 Glucose 135 H POC Glucose 125 H Calcium 8.7 Total Bilirubin AST ALT Alkaline Phosphatase Total Protein Albumin Globulin Albumin/Globulin Ratio 01/27/21 01/27/21 01/27/21 05:35 05:35 07:28 WBC 6.38 RBC 3.43 L Hgb 10.7 L Hct 34.1 L MCV 99.4 MCH 31.2 MCHC 31.4 L RDW Std Deviation 57.4 H RDW Coeff of Per 15.8 H Plt Count 135 MPV 11.0 H Immature Gran % (Auto) 0.2 Neut % (Auto) 52.0 Lymph % (Auto) 31.3 [place] % (Auto) 13.2 Eos % (Auto) 2.7 Baso % (Auto) 0.6 Neut # (Auto) 3.32 Lymph # (Auto) 2.00 [place] # (Auto) 0.84 H Eos # (Auto) 0.17 Baso # (Auto) 0.04 Immature Gran # (Auto) 0.01 Sodium 145 Potassium 5.0 Chloride 118 H Carbon Dioxide 22 Anion Gap 5.0 BUN 52 H Creatinine 4.26 H D Est Cr Clr Drug Dosing 14.4 Est GFR ( Amer) 11.3 Est GFR (Non-Af Amer) 9.8 BUN/Creatinine Ratio 12.3 Glucose 112 H POC Glucose 129 H Calcium 8.5 Total Bilirubin 0.8 AST 18 ALT 22 Alkaline Phosphatase 48 Total Protein 5.6 L D Albumin 2.6 L Globulin 3.0 Albumin/Globulin Ratio 0.9 01/27/21 01/27/21 11:47 16:14 WBC RBC Hgb Hct MCV MCH MCHC RDW Std Deviation RDW Coeff of Per Plt Count MPV Immature Gran % (Auto) Neut % (Auto) Lymph % (Auto) [place] % (Auto) Eos % (Auto) Baso % (Auto) Neut # (Auto) Lymph # (Auto) [place] # (Auto) Eos # (Auto) Baso # (Auto) Immature Gran # (Auto) Sodium Potassium Chloride Carbon Dioxide Anion Gap BUN Creatinine Est Cr Clr Drug Dosing Est GFR ( Amer) Est GFR (Non-Af Amer) BUN/Creatinine Ratio Glucose POC Glucose 150 H 108 H Calcium Total Bilirubin AST ALT Alkaline Phosphatase Total Protein Albumin Globulin Albumin/Globulin Ratio Diagnostic Findings 01/25/21 15:08 Urine Culture - Final Urine,Straight Cath Proteus mirabilis PG Care Time/CCT Total # of Minutes Spent Total Time Spent with Patient: Total time spent is greater than 50% in coor dination of care (as documented) at patient's floor/unit and/or counseling patient: Coding Level of Care Code 92176 Subseq Hosp Care Lvl 3 Diagnoses Urinary tract infection N39.0 Acute renal failure N17.9 Acute renal failure type: unspecified Acute hyperkalemia E87.5 Hematemesis K92.0 Dementia with behavioral disturbance F03.91 Dementia type: unspecified type Chronic diastolic (congestive) heart failure I50.32 History of stroke Z86.73 Hypertension I10 Type 2 diabetes mellitus E11.9 Hypothyroidism E03.9 Metabolic encephalopathy G93.41 DVT prophylaxis Z29.9 Hyperammonemia E72.20 Abdominal distension R14.0 (1) Acute renal failure Acute renal failure type: unspecified Qualified Code(s): N17.9 - Acute kidney failure, unspecified (2) Dementia with behavioral disturbance Dementia type: unspecified type Qualified Code(s): F03.91 - Unspecified dementia with behavioral disturbance
[2021-01-27] MEDS ORDERED: OLANZapine 10 MG/2.1 ML SDV IM PRN (18:11)
[2021-01-27] MEDS ORDERED: OLANZAPINE 2.5 MG TAB PO PRN (18:11)
[2021-01-27] MEDS: BACITRACIN OINT 15 GM TUBE TOP SCH (21:17)
[2021-01-27] MEDS: ATORVASTATIN 40 MG TAB PO SCH (21:17)
[2021-01-27] MEDS: CITALOPRAM 20 MG TAB PO SCH (21:18)
[2021-01-27] MEDS ORDERED: PIPERACILLIN/TAZOBACTAM 3.375 GM in DEXTROSE 5% 100 ML IV SCH (22:00)
--- NOTE | 2021-01-28 00:22 | Communication Note ---
Date of Service: January 28, 2021 Notified by nursing at 22:17 that patient had spontaneous epistaxis from the R nare that resolved after pressure was held for 5 minutes. No obvious trauma witnessed to the nare. With patient's history of gastric occult positive contents, unsure if previous epistaxis was original source vs upper GI bleed. -Continue to monitor vitals -Continue to trend H&H Resident Activity Tracking Resident Involvement: Resident Care Provided and Preschool Associate Teacher Coverage Note Care Provided: Adult Hospital Medicine
[2021-01-28] MEDS: SODIUM CHLORIDE 0.9% 1000ML 1,000 ML IV SCH (01:14)
[2021-01-28] MEDS: LEVOTHYROXINE SODIUM 75 MCG TABLET PO SCH ×2 (05:58→06:02)
[2021-01-28 07:39] LABS: Basophils # (auto) 0.03 K/uL (0-0.2); Basophils % (auto) 0.5 %; Eosinophils # (auto) 0.17 K/uL (0-0.5); Eosinophils % (auto) 2.8 %; Hematocrit (blood only) 34.4 % (37-47); Hemoglobin 10.6 g/dL (12.0-16.0); Immature Granulocytes # (auto) 0.02 K/uL (0.00-0.02); Immature Granulocytes % (auto) 0.3 %; Lymphocytes % (auto) 32.7 %; Mean Corpuscular Hemoglobin 30.7 pg (25-34); Mean Corpuscular Hgb Conc 30.8 g/dL (32-36); Mean Corpuscular Volume 99.7 fL (80-100); Mean Platelet Volume 11.1 fL (7.4-10.4); Monocytes # (auto) 0.54 K/uL (0.11-0.59); Monocytes % (auto) 8.8 %; Neutrophils # (auto) 3.35 K/uL (1.4-6.5); Neutrophils % (auto) 54.9 %; Platelet Count 126 K/uL (130-400); RDW Standard Deviation 58.3 fL (36.4-46.3); Red Blood Count 3.45 M/uL (4.2-5.4); White Blood Count 6.11 K/uL (4.8-10.8)
[2021-01-28 07:55] LABS: BUN Creatinine Ratio 11.6 (10-20); Creatinine Clr Calc Pharmacy 18.1 ml/min; Est GFR (African American) 14.8 ml/min; Est GFR (Non-African American) 12.8 ml/min; Potassium 4.5 mmol/L (3.5-5.1)
[2021-01-28] MEDS: INSULIN ASPART 100 UNITS/ML 3 ML PEN SC SCH ×4 (08:26→21:53)
[2021-01-28] MEDS: PANTOprazole 40 MG in SYRINGE 0 ML IV SCH ×2 (08:27→20:55)
[2021-01-28] MEDS: NYSTATIN POWDER 15GM BTL EXT SCH ×2 (08:27→20:58)
[2021-01-28] MEDS: cefTRIAXone SODIUM 2,000 MG in DEXTROSE 5% 50 ML IV SCH (08:30)
[2021-01-28] MEDS: LACTULOSE SYRUP 20 GM/30 ML UDC PO SCH ×3 (08:33→20:56)
[2021-01-28] MEDS: ADVANCED PROBIOTIC 1250 MG CAPSULE PO SCH (08:53)
[2021-01-28] MEDS: D5W AND 1/4NSS 1,000 ML IV SCH ×2 (10:43→22:55)
--- NOTE | 2021-01-28 12:13 | Hospitalist Progress Note ---
Date of Service January 28, 2021 Assessment & Plan (1) Urinary tract infection: Plan: 2nd proteus. was on zosyn - now rocephin; can likely transition to PO abx tomorrow if taking PO reliably. likely contributing to met encephalopathy. day #4 of abx. plan 7 days of Rx. (2) Acute renal failure: Plan: Pre-renal etiology suspected. This was in the setting of FERNANDO inhibitor use and lasix. Slowly improving. Cr now in low 3's. Peak was near 6. Daily BMP. Cont gentle fluids. Still No evidence of volume overload. (3) Acute hyperkalemia: Plan: 2nd #2. resolved. (4) Hematemesis: Plan: Gastric occult positive stomach contents after vomiting at the [facility]. Remains on IV PPI. H/o gastropathy. H/H again stable. (5) Dementia with behavioral disturbance: Plan: Zyprexa IM as needed Zyprexa PO as needed restraints (mitts) now off (6) Metabolic encephalopathy: Plan: 2nd to ARF, UTI, etc. modestly improved today cont supportive care. avoid benzos. zyprexa prn. (7) Chronic diastolic (congestive) heart failure: Plan: Holding lasix due to JEZ. No evidence of volume overload. (8) History of stroke: Plan: Hold aspirin due to gastric occult blood positive status. (9) Hypertension: Plan: Holding Lasix and lisinopril due to JEZ. BPs well controlled without the above. (10) Type 2 diabetes mellitus: Plan: HbA1C 10.5 in September Cont novolog sliding scale and add basal insulin as needed BSGs still wnl due to poor po intake (11) Hypothyroidism: Plan: Continue levothyroxine 75 mcg PO daily TSH 1.9 in November 2020 (12) Hyperammonemia: Plan: mild elevation (30s) s/p multiple doses of lactulose w/ several BMs repeat ammonia level am (13) Abdominal distension: Plan: was likely 2nd to gaseous build-up from lactulose resolved today moving bowels (14) DVT prophylaxis: Plan: due #4 holding off on chemical DVT proph (15) Hypernatremia: Plan: stop isotonic fluids change to D5 1/4 NS at 80cc/hr repeat bmp am (16) Epistaxis: Plan: resolved to help moisten nares -- bactroban BID to both nares saline spray to both nares BID Admission and Anticipated Discharge Date Admission Date: January 25, 2021 Subjective tele stable overnight patient awake during the visit, alert - but not oriented again a sitter is in the room during my assessment - she reports next to NO oral intake at meal-time even w/ encouragement pt does not know she is in the hospital and cannot provide meaningful history per staff she had multiple large bowel movements overnight of note - had episode of self-resolving epistaxis last pm staff note she likes to pick her nose Review of Systems Review of Systems: Unobtainable due to cognitive status Physical Exam Physical Exam: gen - looks a little better today but remains confused; tremors of arms improved today mouth - MM still a little dry neck - no JVD heart - RRR, s1 s2, no murmur lungs - decreased BS bases, no rales abd - distension resolved today; no tenderness, soft, BS+ ext - trace edema b/l skin - pallor; optifoams x 3 over b/l shins; no cellulitis either triplett neuro - tremor markedly improved overnight psych - a/o x 1 only (person) Results & Data Results & Data ([facility]) Vital Signs (Past 12 Hours) Vital Signs Temp Pulse Pulse Resp BP Pulse Ox 01/28/21 11:12 36.8 C 81 18 138/79 96 01/28/21 09:26 90 01/28/21 07:23 37.4 C 87 18 106/57 L 95 01/28/21 03:50 37.6 C H 92 H 20 120/58 L 96 Laboratory Results Laboratory Results - last 24 hr 01/28/21 01/28/21 01/28/21 07:06 07:06 07:15 WBC 6.11 RBC 3.45 L Hgb 10.6 L Hct 34.4 L MCV 99.7 MCH 30.7 MCHC 30.8 L RDW Std Deviation 58.3 H RDW Coeff of Per 16.0 H Plt Count 126 L MPV 11.1 H Immature Gran % (Auto) 0.3 Neut % (Auto) 54.9 Lymph % (Auto) 32.7 [place] % (Auto) 8.8 Eos % (Auto) 2.8 Baso % (Auto) 0.5 Neut # (Auto) 3.35 Lymph # (Auto) 2.00 [place] # (Auto) 0.54 Eos # (Auto) 0.17 Baso # (Auto) 0.03 Immature Gran # (Auto) 0.02 Sodium 150 H Potassium 4.5 Chloride 119 H Carbon Dioxide 23 Anion Gap 8.0 BUN 39 H Creatinine 3.40 H D Est Cr Clr Drug Dosing 18.1 Est GFR ( Amer) 14.8 Est GFR (Non-Af Amer) 12.8 BUN/Creatinine Ratio 11.6 Glucose 111 H POC Glucose 105 H Calcium 9.0 01/28/21 01/28/21 01/28/21 11:27 16:06 20:12 WBC RBC Hgb Hct MCV MCH MCHC RDW Std Deviation RDW Coeff of Per Plt Count MPV Immature Gran % (Auto) Neut % (Auto) Lymph % (Auto) [place] % (Auto) Eos % (Auto) Baso % (Auto) Neut # (Auto) Lymph # (Auto) [place] # (Auto) Eos # (Auto) Baso # (Auto) Immature Gran # (Auto) Sodium Potassium Chloride Carbon Dioxide Anion Gap BUN Creatinine Est Cr Clr Drug Dosing Est GFR ( Amer) Est GFR (Non-Af Amer) BUN/Creatinine Ratio Glucose POC Glucose 128 H 146 H 126 H Calcium PG Care Time/CCT Total # of Minutes Spent Total Time Spent with Patient: Total time spent is greater than 50% in coordination of care (as documented) at patient's floor/unit and/or counseling patient: Coding Level of Care Code 47202 Subseq Hosp Care Lvl 2 Diagnoses Urinary tract infection N39.0 Acute renal failure N17.9 Acute renal failure type: unspecified Acute hyperkalemia E87.5 Hematemesis K92.0 Dementia with behavioral disturbance F03.91 Dementia type: unspecified type Metabolic encephalopathy G93.41 Chronic diastolic (congestive) heart failure I50.32 History of stroke Z86.73 Hypertension I10 Type 2 diabetes mellitus E11.9 Hypothyroidism E03.9 Hyperammonemia E72.20 Abdominal distension R14.0 DVT prophylaxis Z29.9 Hypernatremia E87.0 Epistaxis R04.0 (1) Dementia with behavioral disturbance Dementia type: unspecified type Qualified Code(s): F03.91 - Unspecified dementia with behavioral disturbance (2) Acute renal failure Acute renal failure type: unspecified Qualified Code(s): N17.9 - Acute kidney failure, unspecified
[2021-01-28] MEDS: MUPIROCIN 2% OINT 22 GM TUBE EXT SCH ×2 (13:14→20:57)
[2021-01-28] MEDS: SODIUM CHLORIDE 0.65% NA SOLN 45 ML (OCEAN) SCH ×2 (13:15→20:56)
[2021-01-28] MEDS: ATORVASTATIN 40 MG TAB PO SCH (20:55)
[2021-01-28] MEDS: CITALOPRAM 20 MG TAB PO SCH (20:56)
[2021-01-28] MEDS: BACITRACIN OINT 15 GM TUBE TOP SCH (20:57)
[2021-01-29] MEDS: LEVOTHYROXINE SODIUM 75 MCG TABLET PO SCH (05:16)
[2021-01-29 05:38] LABS: Basophils # (auto) 0.02 K/uL (0-0.2); Basophils % (auto) 0.4 %; Eosinophils # (auto) 0.18 K/uL (0-0.5); Eosinophils % (auto) 3.3 %; Hematocrit (blood only) 33.6 % (37-47); Hemoglobin 10.3 g/dL (12.0-16.0); Immature Granulocytes # (auto) 0.01 K/uL (0.00-0.02); Immature Granulocytes % (auto) 0.2 %; Lymphocytes # (auto) 1.54 K/uL (1.2-3.4); Lymphocytes % (auto) 28.2 %; Mean Corpuscular Hemoglobin 30.8 pg (25-34); Mean Corpuscular Hgb Conc 30.7 g/dL (32-36); Mean Corpuscular Volume 100.6 fL (80-100); Mean Platelet Volume 11.1 fL (7.4-10.4); Neutrophils # (auto) 3.12 K/uL (1.4-6.5); Neutrophils % (auto) 56.9 %; Platelet Count 111 K/uL (130-400); RDW Coefficient of Variation 15.9 % (11.5-14.5); RDW Standard Deviation 58.1 fL (36.4-46.3); Red Blood Count 3.34 M/uL (4.2-5.4); White Blood Count 5.47 K/uL (4.8-10.8)
[2021-01-29 05:56] LABS: BUN Creatinine Ratio 10.7 (10-20); Calcium 8.2 mg/dl (8.5-10.1); Creatinine Clr Calc Pharmacy 21.1 ml/min; Est GFR (African American) 17.8 ml/min; Est GFR (Non-African American) 15.3 ml/min; Potassium 4.1 mmol/L (3.5-5.1)
[2021-01-29] MEDS: INSULIN ASPART 100 UNITS/ML 3 ML PEN SC SCH ×4 (07:48→21:46)
[2021-01-29] MEDS: PANTOprazole 40 MG in SYRINGE 0 ML IV SCH ×2 (08:45→20:17)
[2021-01-29] MEDS: LACTULOSE SYRUP 20 GM/30 ML UDC PO SCH (08:54)
[2021-01-29] MEDS: MUPIROCIN 2% OINT 22 GM TUBE EXT SCH ×2 (08:55→20:18)
[2021-01-29] MEDS: NYSTATIN POWDER 15GM BTL EXT SCH ×2 (08:56→20:19)
[2021-01-29] MEDS: SODIUM CHLORIDE 0.65% NA SOLN 45 ML (OCEAN) SCH ×2 (08:56→20:18)
[2021-01-29] MEDS: ADVANCED PROBIOTIC 1250 MG CAPSULE PO SCH (09:13)
[2021-01-29] MEDS: cephALEXin 250 MG CAP PO SCH ×3 (09:36→20:17)
[2021-01-29] MEDS: D5W AND 1/4NSS 1,000 ML IV SCH ×2 (11:01→22:54)
[2021-01-29] MEDS: ATORVASTATIN 40 MG TAB PO SCH (20:17)
[2021-01-29] MEDS: CITALOPRAM 20 MG TAB PO SCH (20:17)
[2021-01-29] MEDS: BACITRACIN OINT 15 GM TUBE TOP SCH (20:18)
--- NOTE | 2021-01-29 21:05 | Hospitalist Progress Note ---
Date of Service January 29, 2021 Assessment & Plan (1) Urinary tract infection: Plan: 2nd proteus. was on zosyn, then rocephin d/c rocephin - change to PO keflex likely contributed to met encephalopathy. day #5 of abx. plan 7 days of Rx. (2) Acute renal failure: Plan: Pre-renal etiology suspected. This was in the setting of FERNANDO inhibitor use and lasix. Both held. Cont to improve. Cr now <3 with adequate UOP. Peak was near 6. Daily BMP. Cont gentle fluids. (3) Acute hyperkalemia: Plan: 2nd #2. resolved. (4) Hematemesis: Plan: Gastric occult positive stomach contents after vomiting at the SNF. Remains on IV PPI with no signs of ongoing bleeding or active bleeding. Does have H/o gastropathy. H/H again stable today. Defer on GI consultation. can likely d/c IV PPI tomorrow; revert to PO PPI. (5) Dementia with behavioral disturbance: Plan: Zyprexa IM as needed Zyprexa PO as needed restraints (mitts) - removed and discontinued (6) Metabolic encephalopathy: Plan: 2nd to ARF, UTI, etc. again improved today cont supportive care. avoid benzos. zyprexa prn. (7) Chronic diastolic (congestive) heart failure: Plan: Holding lasix due to JEZ. No evidence of volume overload. Compensated. (8) History of stroke: Plan: Hold aspirin due to gastric occult blood positive status. (9) Hypertension: Plan: Holding Lasix and lisinopril due to JEZ. BPs well controlled without the above. (10) Type 2 diabetes mellitus: Plan: HbA1C 10.5 in September Cont novolog sliding scale BSGs still wnl event despite dextrose-containing fluids (11) Hypothyroidism: Plan: Continue levothyroxine 75 mcg PO daily TSH 1.9 in November 2020 (12) Hyperammonemia: Plan: mild elevation (30s) s/p multiple doses of lactulose w/ several BMs repeat ammonia level now normal today patient often refuses the lactulose - simply hold for now (13) Abdominal distension: Plan: was likely 2nd to gaseous build-up from lactulose resolved (14) DVT prophylaxis: Plan: due #4 holding off on chemical DVT proph (15) Hypernatremia: Plan: resolved with D5 1/4 NS repeat bmp am (16) Epistaxis: Plan: resolved cont bactroban BID to both nares cont saline spray to both nares BID Plan: called and updated Mr Molina this evening PT, OT when able Admission and Anticipated Discharge Date Admission Date: January 25, 2021 Subjective no events overnight mainly sleeping per staff does wake to her name being called did poorly with taking her meds this am; staff concerned about dysphagia speech consulted; swallow function intact no further epistaxis patient today knew she was in the hospital but otherwise could not offer any meaningful history Review of Systems Review of Systems: Unobtainable due to cognitive status Physical Exam Physical Exam: gen - confused, but knew she was in the hospital; speech fluent/clear; asked for orange juice; able to answer my questions mouth - MMM today neck - no JVD heart - RRR, s1 s2, no murmur lungs - decreased BS bases, no rales or wheeze abd - soft NT ND BS+ ext - trace edema b/l skin - pallor; optifoams x 3 over b/l shins; no cellulitis either triplett; background stasis changes b/l neuro - tremors present but mild today psych - a/o x 2 Results & Data Results & Data ([facility]) Vital Signs (Past 12 Hours) Vital Signs Temp Pulse Pulse Resp BP Pulse Ox 01/29/21 18:56 36.8 C 71 18 108/68 95 01/29/21 15:37 37.1 C 74 16 110/72 98 01/29/21 15:21 85 01/29/21 11:23 36.6 C 76 16 125/82 97 Laboratory Results Laboratory Results - last 24 hr 01/29/21 01/29/21 01/29/21 05:21 05:21 05:27 WBC 5.47 RBC 3.34 L Hgb 10.3 L Hct 33.6 L MCV 100.6 H MCH 30.8 MCHC 30.7 L RDW Std Deviation 58.1 H RDW Coeff of Per 15.9 H Plt Count 111 L MPV 11.1 H Immature Gran % (Auto) 0.2 Neut % (Auto) 56.9 Lymph % (Auto) 28.2 [place] % (Auto) 11.0 Eos % (Auto) 3.3 Baso % (Auto) 0.4 Neut # (Auto) 3.12 Lymph # (Auto) 1.54 [place] # (Auto) 0.60 H Eos # (Auto) 0.18 Baso # (Auto) 0.02 Immature Gran # (Auto) 0.01 Sodium 144 Potassium 4.1 Chloride 119 H Carbon Dioxide 25 Anion Gap 0 L BUN 31 H Creatinine 2.93 H D Est Cr Clr Drug Dosing 21.1 Est GFR ( Amer) 17.8 Est GFR (Non-Af Amer) 15.3 BUN/Creatinine Ratio 10.7 Glucose 130 H POC Glucose Calcium 8.2 L Ammonia 28.0 01/29/21 01/29/21 01/29/21 07:12 11:26 16:10 WBC RBC Hgb Hct MCV MCH MCHC RDW Std Deviation RDW Coeff of Per Plt Count MPV Immature Gran % (Auto) Neut % (Auto) Lymph % (Auto) [place] % (Auto) Eos % (Auto) Baso % (Auto) Neut # (Auto) Lymph # (Auto) [place] # (Auto) Eos # (Auto) Baso # (Auto) Immature Gran # (Auto) Sodium Potassium Chloride Carbon Dioxide Anion Gap BUN Creatinine Est Cr Clr Drug Dosing Est GFR ( Amer) Est GFR (Non-Af Amer) BUN/Creatinine Ratio Glucose POC Glucose 120 H 144 H 161 H Calcium Ammonia 01/29/21 20:07 WBC RBC Hgb Hct MCV MCH MCHC RDW Std Deviation RDW Coeff of Per Plt Count MPV Immature Gran % (Auto) Neut % (Auto) Lymph % (Auto) [place] % (Auto) Eos % (Auto) Baso % (Auto) Neut # (Auto) Lymph # (Auto) [place] # (Auto) Eos # (Auto) Baso # (Auto) Immature Gran # (Auto) Sodium Potassium Chloride Carbon Dioxide Anion Gap BUN Creatinine Est Cr Clr Drug Dosing Est GFR ( Amer) Est GFR (Non-Af Amer) BUN/Creatinine Ratio Glucose POC Glucose 97 Calcium Ammonia PG Care Time/CCT Total # of Minutes Spent Total Time Spent with Patient: Total time spent is greater than 50% in coordination of care (as documented) at patient's floor/unit and/or counseling patient: Coding Level of Care Code 14409 Subseq Hosp Care Lvl 2 Diagnoses Urinary tract infection N39.0 Acute renal failure N17.9 Acute renal failure type: unspecified Acute hyperkalemia E87.5 Hematemesis K92.0 Dementia with behavioral disturbance F03.91 Dementia type: unspecified type Metabolic encephalopathy G93.41 Chronic diastolic (congestive) heart failure I50.32 History of stroke Z86.73 Hypertension I10 Type 2 diabetes mellitus E11.9 Hypothyroidism E03.9 Hyperammonemia E72.20 Abdominal distension R14.0 DVT prophylaxis Z29.9 Hypernatremia E87.0 Epistaxis R04.0 (1) Dementia with behavioral disturbance Dementia type: unspecified type Qualified Code(s): F03.91 - Unspecified dementia with behavioral disturbance (2) Acute renal failure Acute renal failure type: unspecified Qualified Code(s): N17.9 - Acute kidney failure, unspecified
[2021-01-30] MEDS: LEVOTHYROXINE SODIUM 75 MCG TABLET PO SCH (06:13)
[2021-01-30 07:51] LABS: Basophils # (auto) 0.02 K/uL (0-0.2); Basophils % (auto) 0.3 %; Eosinophils % (auto) 4.9 %; Hematocrit (blood only) 32.5 % (37-47); Hemoglobin 10.1 g/dL (12.0-16.0); Immature Granulocytes # (auto) 0.02 K/uL (0.00-0.02); Immature Granulocytes % (auto) 0.3 %; Lymphocytes # (auto) 1.71 K/uL (1.2-3.4); Lymphocytes % (auto) 27.8 %; Mean Corpuscular Hemoglobin 30.5 pg (25-34); Mean Corpuscular Hgb Conc 31.1 g/dL (32-36); Mean Corpuscular Volume 98.2 fL (80-100); Mean Platelet Volume 11.3 fL (7.4-10.4); Monocytes # (auto) 0.72 K/uL (0.11-0.59); Monocytes % (auto) 11.7 %; Neutrophils # (auto) 3.39 K/uL (1.4-6.5); Platelet Count 112 K/uL (130-400); RDW Coefficient of Variation 15.4 % (11.5-14.5); RDW Standard Deviation 55.4 fL (36.4-46.3); Red Blood Count 3.31 M/uL (4.2-5.4); White Blood Count 6.16 K/uL (4.8-10.8)
[2021-01-30] MEDS: INSULIN ASPART 100 UNITS/ML 3 ML PEN SC SCH ×4 (07:56→20:31)
[2021-01-30 08:27] LABS: BUN Creatinine Ratio 10.3 (10-20); Calcium 8.4 mg/dl (8.5-10.1); Creatinine Clr Calc Pharmacy 27.2 ml/min; Est GFR (African American) 24.1 ml/min; Est GFR (Non-African American) 20.8 ml/min; Potassium 3.7 mmol/L (3.5-5.1)
[2021-01-30] MEDS: MUPIROCIN 2% OINT 22 GM TUBE EXT SCH ×2 (09:34→20:04)
[2021-01-30] MEDS: PANTOprazole 40 MG in SYRINGE 0 ML IV SCH ×2 (09:35→20:01)
[2021-01-30] MEDS: NYSTATIN POWDER 15GM BTL EXT SCH ×2 (09:35→20:03)
[2021-01-30] MEDS: SODIUM CHLORIDE 0.65% NA SOLN 45 ML (OCEAN) SCH ×2 (09:35→20:04)
[2021-01-30] MEDS: ADVANCED PROBIOTIC 1250 MG CAPSULE PO SCH (09:36)
[2021-01-30] MEDS: cephALEXin 250 MG CAP PO SCH ×2 (09:36→20:01)
[2021-01-30] MEDS: D5W AND 1/4NSS 1,000 ML IV SCH (12:42)
[2021-01-30] MEDS: risperiDONE ODT 0.5 MG SOLTAB PO SCH (20:01)
[2021-01-30] MEDS: CITALOPRAM 20 MG TAB PO SCH (20:01)
[2021-01-30] MEDS: ATORVASTATIN 40 MG TAB PO SCH (20:02)
[2021-01-30] MEDS: BACITRACIN OINT 15 GM TUBE TOP SCH (20:02)
--- NOTE | 2021-01-30 22:57 | Hospitalist Progress Note ---
Date of Service January 30, 2021 Assessment & Plan (1) Urinary tract infection: Plan: 2nd proteus. was on zosyn, then rocephin, now PO keflex likely contributed to met encephalopathy. day #6 of abx. plan 7 days of Rx. (2) Acute renal failure: Plan: Pre-renal etiology suspected. This was in the setting of FERNANDO inhibitor use and lasix. Both held. Cont to improve. Cr now nearing 2 with adequate UOP. Peak was near 6. Daily BMP. Cont gentle fluids. (3) Acute hyperkalemia: Plan: 2nd #2. resolved. (4) Hematemesis: Plan: Gastric occult positive stomach contents after vomiting at the SNF. Remains on IV PPI with no signs of ongoing bleeding or active bleeding. Does have H/o gastropathy. H/H again stable today. Defer on GI consultation. can likely d/c IV PPI tomorrow. change to PO PPI. (5) Dementia with behavioral disturbance: Plan: patient did well with low-dose risperdal during prior stay this summer will order risperdal 0.5mg at HS scheduled restraints not needed at this time and have been canceled earlier this week (6) Metabolic encephalopathy: Plan: 2nd to ARF, UTI, etc. slowly improving cont supportive care. avoid benzos. risperdal HS. (7) Chronic diastolic (congestive) heart failure: Plan: Holding lasix due to JEZ. No evidence of volume overload. Compensated. (8) History of stroke: Plan: Hold aspirin due to gastric occult blood positive status. (9) Hypertension: Plan: Holding Lasix and lisinopril due to JEZ. BPs well controlled without the above. (10) Type 2 diabetes mellitus: Plan: HbA1C 10.5 in September Cont novolog sliding scale BSGs still wnl event despite dextrose-containing fluids (11) Hypothyroidism: Plan: Continue levothyroxine 75 mcg PO daily TSH 1.9 in November 2020 (12) Hyperammonemia: Plan: mild elevation (30s) s/p multiple doses of lactulose w/ several BMs repeat ammonia level now normal patient often refuses the lactulose - simply hold (13) Abdominal distension: Plan: was likely 2nd to gaseous build-up from lactulose resolved (14) DVT prophylaxis: Plan: due #4 holding off on chemical DVT proph (15) Hypernatremia: Plan: resolved with D5 1/4 NS repeat bmp am (16) Epistaxis: Plan: resolved cont bactroban BID to both nares cont saline spray to both nares BID Plan: called and updated Mr Molina yesterday evening PT, OT when able Admission and Anticipated Discharge Date Admission Date: January 25, 2021 Subjective no events overnight pt has been a little verbally combative with staff this am but no physical combativeness during my assessment she said "you're not my friend any longer" and "don't call me ma'am!" denied any complaints eating poorly per staff tele normal overnight Review of Systems Review of Systems: Unobtainable due to cognitive status Physical Exam Physical Exam: gen - confused, but knew she was in the hospital; speech fluent/clear; a little agitated with me this am neck - no JVD mouth - MMM heart - RRR, s1 s2, no murmur lungs - decreased BS bases, no rales or wheeze abd - soft NT ND BS+ ext - trace edema b/l skin - optifoams x 3 over b/l shins; no cellulitis either triplett; background stasis changes neuro - minimal tremors of hands psych - a/o x 2; paranoid Results & Data Results & Data ([facility]) Vital Signs (Past 12 Hours) Vital Signs Temp Pulse Resp BP Pulse Ox 01/30/21 19:28 37.1 C 69 18 100/62 98 01/30/21 15:20 36.7 C 69 17 126/84 99 01/30/21 11:09 36.5 C 70 19 103/68 98 Laboratory Results Laboratory Results - last 24 hr 01/30/21 01/30/21 01/30/21 07:15 07:26 07:26 WBC 6.16 RBC 3.31 L Hgb 10.1 L Hct 32.5 L MCV 98.2 MCH 30.5 MCHC 31.1 L RDW Std Deviation 55.4 H RDW Coeff of Per 15.4 H Plt Count 112 L MPV 11.3 H Immature Gran % (Auto) 0.3 Neut % (Auto) 55.0 Lymph % (Auto) 27.8 [place] % (Auto) 11.7 Eos % (Auto) 4.9 Baso % (Auto) 0.3 Neut # (Auto) 3.39 Lymph # (Auto) 1.71 [place] # (Auto) 0.72 H Eos # (Auto) 0.30 Baso # (Auto) 0.02 Immature Gran # (Auto) 0.02 Sodium 143 Potassium 3.7 Chloride 113 H Carbon Dioxide 22 Anion Gap 8.0 BUN 24 H Creatinine 2.28 H D Est Cr Clr Drug Dosing 27.2 Est GFR ( Amer) 24.1 Est GFR (Non-Af Amer) 20.8 BUN/Creatinine Ratio 10.3 Glucose 125 H POC Glucose 118 H Calcium 8.4 L 01/30/21 01/30/21 01/30/21 11:18 16:30 20:29 WBC RBC Hgb Hct MCV MCH MCHC RDW Std Deviation RDW Coeff of Per Plt Count MPV Immature Gran % (Auto) Neut % (Auto) Lymph % (Auto) [place] % (Auto) Eos % (Auto) Baso % (Auto) Neut # (Auto) Lymph # (Auto) [place] # (Auto) Eos # (Auto) Baso # (Auto) Immature Gran # (Auto) Sodium Potassium Chloride Carbon Dioxide Anion Gap BUN Creatinine Est Cr Clr Drug Dosing Est GFR ( Amer) Est GFR (Non-Af Amer) BUN/Creatinine Ratio Glucose POC Glucose 111 H 112 H 114 H Calcium PG Care Time/CCT Total # of Minutes Spent Total Time Spent with Patient: Total time spent is greater than 50% in coordination of care (as documented) at patient's floor/unit and/or counseling patient: Coding Level of Care Code 33650 Subseq Hosp Care Lvl 2 Diagnoses Urinary tract infection N39.0 Acute renal failure N17.9 Acute renal failure type: unspecified Acute hyperkalemia E87.5 Hematemesis K92.0 Dementia with behavioral disturbance F03.91 Dementia type: unspecified type Metabolic encephalopathy G93.41 Chronic diastolic (congestive) heart failure I50.32 History of stroke Z86.73 Hypertension I10 Type 2 diabetes mellitus E11.9 Hypothyroidism E03.9 Hyperammonemia E72.20 Abdominal distension R14.0 DVT prophylaxis Z29.9 Hypernatremia E87.0 Epistaxis R04.0 (1) Dementia with behavioral disturbance Dementia type: unspecified type Qualified Code(s): F03.91 - Unspecified demen tia with behavioral disturbance (2) Acute renal failure Acute renal failure type: unspecified Qualified Code(s): N17.9 - Acute kidney failure, unspecified
[2021-01-31] MEDS: LEVOTHYROXINE SODIUM 75 MCG TABLET PO SCH (06:14)
[2021-01-31 06:33] LABS: Basophils # (auto) 0.01 K/uL (0-0.2); Basophils % (auto) 0.2 %; Eosinophils # (auto) 0.18 K/uL (0-0.5); Eosinophils % (auto) 2.7 %; Hemoglobin 10.8 g/dL (12.0-16.0); Immature Granulocytes # (auto) 0.02 K/uL (0.00-0.02); Immature Granulocytes % (auto) 0.3 %; Lymphocytes # (auto) 1.65 K/uL (1.2-3.4); Lymphocytes % (auto) 24.8 %; Mean Corpuscular Hemoglobin 30.9 pg (25-34); Mean Corpuscular Hgb Conc 31.8 g/dL (32-36); Mean Corpuscular Volume 97.1 fL (80-100); Mean Platelet Volume 11.2 fL (7.4-10.4); Monocytes # (auto) 0.67 K/uL (0.11-0.59); Monocytes % (auto) 10.1 %; Neutrophils # (auto) 4.13 K/uL (1.4-6.5); Neutrophils % (auto) 61.9 %; Platelet Count 125 K/uL (130-400); RDW Coefficient of Variation 15.3 % (11.5-14.5); RDW Standard Deviation 54.1 fL (36.4-46.3); White Blood Count 6.66 K/uL (4.8-10.8)
[2021-01-31 07:08] LABS: BUN Creatinine Ratio 9.1 (10-20); Calcium 8.2 mg/dl (8.5-10.1); Creatinine Clr Calc Pharmacy 29.4 ml/min; Est GFR (African American) 26.4 ml/min; Est GFR (Non-African American) 22.8 ml/min; Potassium 4.2 mmol/L (3.5-5.1)
[2021-01-31] MEDS: INSULIN ASPART 100 UNITS/ML 3 ML PEN SC SCH ×4 (08:17→21:16)
[2021-01-31] MEDS: D5W AND 1/4NSS 1,000 ML IV SCH (08:17)
[2021-01-31] MEDS: ADVANCED PROBIOTIC 1250 MG CAPSULE PO SCH (08:18)
[2021-01-31] MEDS: cephALEXin 250 MG CAP PO SCH ×2 (08:18→20:06)
[2021-01-31] MEDS: PANTOprazole 40 MG in SYRINGE 0 ML IV SCH (08:19)
[2021-01-31] MEDS: NYSTATIN POWDER 15GM BTL EXT SCH ×2 (08:19→20:13)
[2021-01-31] MEDS: MUPIROCIN 2% OINT 22 GM TUBE EXT SCH ×2 (08:19→20:13)
[2021-01-31] MEDS: SODIUM CHLORIDE 0.65% NA SOLN 45 ML (OCEAN) SCH ×2 (08:20→20:13)
--- NOTE | 2021-01-31 14:04 | Hospitalist Progress Note ---
Date of Service January 31, 2021 Assessment & Plan (1) Urinary tract infection: Plan: 2nd proteus. was on zosyn, then rocephin, now PO keflex likely contributed to met encephalopathy. day #7 of abx. plan 7 days of Rx. can d/c abx. (2) Acute renal failure: Plan: Improving nicely. Peak Cr was 5.9. Cr now 2.1. Daily BMP. Stop IV fluids. Prerenal etiology in setting of FERNANDO. Cont to hold FERNANDO. (3) Acute hyperkalemia: Plan: 2nd #2. resolved. (4) Hematemesis: Plan: Gastric occult positive stomach contents after vomiting at the SNF. Does have H/o gastropathy. No vomiting since admission. No hematemesis. No melena. H/Hs have been stable. Defer on GI consultation. d/c IV PPI and change to PO PPI. (5) Dementia with behavioral disturbance: Plan: patient did well with low-dose risperdal during prior stay this summer ordered risperdal 0.5mg at HS scheduled and she had good night with this (6) Metabolic encephalopathy: Plan: 2nd to ARF, UTI, etc. improving. risperdal HS. (7) Chronic diastolic (congestive) heart failure: Plan: Holding lasix due to JEZ. Compensated. (8) History of stroke: Plan: Hold aspirin due to gastric occult blood positive status. resume at discharge (9) Hypertension: Plan: Holding Lasix and lisinopril due to JEZ. BPs well controlled without the above. (10) Type 2 diabetes mellitus: Plan: HbA1C 10.5 in September Cont novolog sliding scale BSGs still wnl (11) Hypothyroidism: Plan: Continue levothyroxine 75 mcg PO daily TSH 1.9 in November 2020 (12) Hyperammonemia: Plan: mild elevation (30s) earlier this stay s/p multiple doses of lactulose w/ several BMs repeat ammonia level now normal (13) Abdominal distension: Plan: was likely 2nd to gaseous build-up from lactulose resolved (14) DVT prophylaxis: Plan: H/H have been stable start heparin in am if patient is not discharged platelets acceptable (15) Hypernatremia: Plan: resolved (16) Epistaxis: Plan: resolved occurred earlier this stay cont bactroban BID to both nares cont saline spray to both nares BID Plan: called and updated Mr Molina multiple times this week hopefully back to SNF this weekend Admission and Anticipated Discharge Date Admission Date: January 25, 2021 Subjective no events overnight slept well overnight per staff she has been calm, cooperative, and pleasant this am eating is better - much better - in comparison to previous days good UOP Review of Systems Review of Systems: patient denies feeling poorly, chest pain, abd pain, headache, or shortness of breath Physical Exam Physical Exam: gen - looks better today; cooperative, calm, even smiled today; knows she is in the hospital neck - no JVD mouth - MMM heart - RRR, s1 s2, no murmur lungs - CTA b/l; no rales or wheeze abd - soft NT ND BS+ ext - trace edema b/l skin - optifoams x 3 over b/l shins neuro - scant tremors of hands Results & Data Results & Data ([facility]) Vital Signs (Past 12 Hours) Vital Signs Temp Pulse Pulse Resp BP Pulse Ox 01/31/21 11:38 36.9 C 72 20 126/78 100 01/31/21 07:30 77 01/31/21 07:06 36.7 C 70 20 110/68 99 Laboratory Results Cr 2.1 today platelet 125 PG Care Time/CCT Total # of Minutes Spent Total Time Spent with Patient: Total time spent is greater than 50% in coordination of care (as documented) at patient's floor/unit and/or counseling patient: Coding Level of Care Code 76278 Subseq Hosp Care Lvl 2 Diagnoses Urinary tract infection N39.0 Acute renal failure N17.9 Acute renal failure type: unspecified Acute hyperkalemia E87.5 Hematemesis K92.0 Dementia with behavioral disturbance F03.91 Dementia type: unspecified type Metabolic encephalopathy G93.41 Chronic diastolic (congestive) heart failure I50.32 History of stroke Z86.73 Hypertension I10 Type 2 diabetes mellitus E11.9 Hypothyroidism E03.9 Hyperammonemia E72.20 Abdominal distension R14.0 DVT prophylaxis Z29.9 Hypernatremia E87.0 Epistaxis R04.0 (1) Dementia with behavioral disturbance Dementia type: unspecified type Qualified Code(s): F03.91 - Unspecified dementia with behavioral disturbance (2) Acute renal failure Acute renal failure type: unspecified Qualified Code(s): N17.9 - Acute kidney failure, unspecified
[2021-01-31] MEDS: ATORVASTATIN 40 MG TAB PO SCH (20:06)
[2021-01-31] MEDS: CITALOPRAM 20 MG TAB PO SCH (20:07)
[2021-01-31] MEDS: PANTOprazole 40 MG TAB PO SCH (20:10)
[2021-01-31] MEDS: risperiDONE ODT 0.5 MG SOLTAB PO SCH (20:10)
[2021-01-31] MEDS: BACITRACIN OINT 15 GM TUBE TOP SCH (20:14)
[2021-02-01] MEDS: LEVOTHYROXINE SODIUM 75 MCG TABLET PO SCH (06:08)
[2021-02-01 06:53] LABS: Platelet Count 126 K/uL (130-400)
[2021-02-01 07:30] LABS: BUN Creatinine Ratio 9.4 (10-20); Calcium 8.6 mg/dl (8.5-10.1); Est GFR (Non-African American) 26.7 ml/min; Potassium 4.1 mmol/L (3.5-5.1)
[2021-02-01] MEDS: INSULIN ASPART 100 UNITS/ML 3 ML PEN SC SCH ×4 (10:05→21:05)
[2021-02-01] MEDS: ADVANCED PROBIOTIC 1250 MG CAPSULE PO SCH (10:51)
[2021-02-01] MEDS: MUPIROCIN 2% OINT 22 GM TUBE EXT SCH ×3 (10:51→20:22)
[2021-02-01] MEDS: PANTOprazole 40 MG TAB PO SCH ×2 (10:51→20:18)
[2021-02-01] MEDS: SODIUM CHLORIDE 0.65% NA SOLN 45 ML (OCEAN) SCH ×2 (10:52→20:22)
[2021-02-01] MEDS: cephALEXin 250 MG CAP PO SCH (10:54)
[2021-02-01] MEDS: NYSTATIN POWDER 15GM BTL EXT SCH ×2 (10:59→20:22)
[2021-02-01] MEDS: risperiDONE ODT 0.5 MG SOLTAB PO SCH (20:18)
[2021-02-01] MEDS: ATORVASTATIN 40 MG TAB PO SCH (20:19)
[2021-02-01] MEDS: CITALOPRAM 20 MG TAB PO SCH (20:19)
[2021-02-01] MEDS ORDERED: cephALEXin 500 MG CAP PO SCH (21:00)
[2021-02-01] MEDS: BACITRACIN OINT 15 GM TUBE TOP SCH (21:05)
--- NOTE | 2021-02-01 23:40 | Hospitalist Progress Note ---
Date of Service February 01, 2021 Assessment & Plan (1) Urinary tract infection: Plan: 2nd proteus. completed course of IV/PO abx x 7 days likely contributed to met encephalopathy. remove haddad (2) Acute renal failure: Plan: Improving nicely. Peak Cr was 5.9. Cr now 1.8. Daily BMP. Prerenal etiology in setting of FERNANDO. Cont to hold FERNANDO. (3) Acute hyperkalemia: Plan: 2nd #2. resolved. (4) Hematemesis: Plan: Gastric occult positive stomach contents after vomiting at the SNF. Does have H/o gastropathy. No vomiting since admission. No hematemesis. No melena. H/Hs have been stable. Defer on GI consultation. Cont PPI. (5) Dementia with behavioral disturbance: Plan: patient did well with low-dose risperdal during prior stay this summer re-ordered risperdal 0.5mg at HS this admission and is tolerating this the risperdal certainly helps with paranoia and her agitation would cont on discharge (6) Metabolic encephalopathy: Plan: 2nd to ARF, UTI, etc. improving. risperdal HS. see #5 above (7) Chronic diastolic (congestive) heart failure: Plan: Holding lasix due to JEZ. still remains compensated. (8) History of stroke: Plan: resume asa no evidence of any bleeding (GI) h/h have been quite stable no hematemesis or melena stools (9) Hypertension: Plan: Holding Lasix and lisinopril due to JEZ. BPs well controlled without the above. may not need FERNANDO if BPs stay controlled (10) Type 2 diabetes mellitus: Plan: HbA1C 10.5 in September Cont novolog sliding scale BSGs wnl (11) Hypothyroidism: Plan: Continue levothyroxine 75 mcg PO daily TSH 1.9 in November 2020 (12) Hyperammonemia: Plan: mild elevation (30s) earlier this stay s/p multiple doses of lactulose w/ several BMs repeat ammonia level now normal (13) Abdominal distension: Plan: was likely 2nd to gaseous build-up from lactulose resolved (14) DVT prophylaxis: Plan: H/H have been stable start heparin in am if patient is not discharged platelets acceptable (15) Hypernatremia: Plan: resolved (16) Epistaxis: Plan: resolved occurred earlier this stay cont bactroban BID to both nares cont saline spray to both nares BID Plan: called and updated Mr Molina multiple times this week hopefully back to SNF this weekend Admission and Anticipated Discharge Date Admission Date: January 25, 2021 Subjective no events overnight or today ate poorly at breakfast, then better at lunch, and still better at dinner calm/cooperative per staff during rounds she was content, smiling - pleasantly confused as previous Review of Systems Review of Systems: Unobtainable due to cognitive status Physical Exam Physical Exam: gen - NAD, a/o to person, place but not time; no change from prior visits neck - no JVD mouth - MMM heart - RRR, s1 s2, no murmur lungs - CTA b/l; no rales or wheeze abd - soft NT ND BS+ ext - trace edema b/l skin - optifoams x 3 over b/l shins Results & Data Results & Data ([facility]) Vital Signs (Past 12 Hours) Vital Signs Temp Pulse Resp BP Pulse Ox 02/01/21 22:51 36.8 C 78 18 117/74 99 02/01/21 16:07 37.2 C 76 17 104/61 96 Laboratory Results Laboratory Results - last 24 hr 02/01/21 02/01/21 02/01/21 06:22 06:22 08:19 Plt Count 126 L Sodium 139 Potassium 4.1 Chloride 109 H Carbon Dioxide 25 Anion Gap 5.0 BUN 17 Creatinine 1.85 H Est Cr Clr Drug Dosing 34.0 Est GFR ( Amer) 31.0 Est GFR (Non-Af Amer) 26.7 BUN/Creatinine Ratio 9.4 L Glucose 120 H POC Glucose 127 H Calcium 8.6 Specimen Hemolysis 02/01/21 02/01/21 02/01/21 12:09 16:58 20:34 Plt Count Sodium Potassium Chloride Carbon Dioxide Anion Gap BUN Creatinine Est Cr Clr Drug Dosing Est GFR ( Amer) Est GFR (Non-Af Amer) BUN/Creatinine Ratio Glucose POC Glucose 130 H 134 H 137 H Calcium Specimen Hemolysis PG Care Time/CCT Total # of Minutes Spent Total Time Spent with Patient: Total time spent is greater than 50% in coordination of care (as documented) at patient's floor/unit and/or counseling patient: Coding Level of Care Code 65393 Subseq Hosp Care Lvl 2 Diagnoses Urinary tract infection N39.0 Acute renal failure N17.9 Acute renal failure type: unspecified Acute hyperkalemia E87.5 Hematemesis K92.0 Dementia with behavioral disturbance F03.91 Dementia type: unspecified type Metabolic encephalopathy G93.41 Chronic diastolic (congestive) heart failure I50.32 History of stroke Z86.73 Hypertension I10 Type 2 diabetes mellitus E11.9 Hypothyroidism E03.9 Hyperammonemia E72.20 Abdominal distension R14.0 DVT prophylaxis Z29.9 Hypernatremia E87.0 Epistaxis R04.0 (1) Dementia with behavioral disturbance Dementia type: unspecified type Qualified Code(s): F03.91 - Unspecified dementia with behavioral disturbance (2) Acute renal failure Acute renal failure type: unspecified Qualified Code(s): N17.9 - Acute kidney failure, unspecified
[2021-02-02] MEDS: LEVOTHYROXINE SODIUM 75 MCG TABLET PO SCH (05:47)
[2021-02-02 07:40] LABS: BUN Creatinine Ratio 8.3 (10-20); Calcium 8.7 mg/dl (8.5-10.1); Creatinine Clr Calc Pharmacy 35.3 ml/min; Est GFR (African American) 32.5 ml/min
[2021-02-02] MEDS: PANTOprazole 40 MG TAB PO SCH ×2 (09:05→09:11)
[2021-02-02] MEDS: NYSTATIN POWDER 15GM BTL EXT SCH (09:06)
[2021-02-02] MEDS: ADVANCED PROBIOTIC 1250 MG CAPSULE PO SCH ×2 (09:06→09:12)
[2021-02-02] MEDS: MUPIROCIN 2% OINT 22 GM TUBE EXT SCH (09:07)
[2021-02-02] MEDS: SODIUM CHLORIDE 0.65% NA SOLN 45 ML (OCEAN) SCH (09:07)
[2021-02-02] MEDS: INSULIN ASPART 100 UNITS/ML 3 ML PEN SC SCH ×3 (09:09→17:26)
--- NOTE | 2021-02-02 17:27 | Discharge Summary ---
Date of Service February 02, 2021 Admission HPI Per Admitting Provider Joanna jin is a 70 year old female from [employer] who presents to the ER with headache, lethargy and nausea. Unable to get any history from the patient. Per [facility] notes. On 01/22 she had a fall. Patient was found lying on right side aof a fall mat. No bumps, bruises, cuts or lacerations noted. 01/25 5:15: resident discovered laying on fall mat on her left side when nurse went ot give morning medications. 9:33am patient having multiple emesis of brown liquid, tested positive for occult blood, recommended patient sent to ER for further evaluation. She has a relevant recent admission from October 19 - October 30, 2020 due to E. coli bacteremia. She also has a positive urine culture for E. coli on January 08. Per her daughter this was treated with Macrobid. Her daughter notes suring her last hospitalization she required haldol multiple times for delirium. In the ER she was noted to have acute renal failure with Cr 5.97 from 1.03 and potassium 7.0. She was treated for the hyperkalemia and referred to medicine for admission and ongoing management of JEZ and hyperkalemia. Discharge Data Allergies Allergy/AdvReac Type Severity Reaction Status Date / Time fenoprofen Allergy Intermediate HAND EDEMA Verified 01/25/21 13:17 prednisone Allergy Intermediate FAST HEART Verified 01/25/21 13:17 BEAT adhesive Allergy Unknown "Red welts" Verified 01/25/21 13:17 peach Allergy Unknown WELTS WITH Verified 01/25/21 13:17 PEACH FUZZ tomato Allergy Unknown WELTS WITH Verified 01/25/21 13:17 TOMATOES AND ORANGE JUICE orange Allergy Verified 10/19/20 18:24 orange juice Allergy Verified 10/19/20 18:24 levofloxacin AdvReac Intermediate PNEUMONIA Verified 01/25/21 13:17 metformin AdvReac Mild Diarrhea Verified 01/25/21 13:17 Sulfa (Sulfonamide AdvReac Unknown "SULFA Verified 01/25/21 13:17 Antibiotics) DRUGS": ITCHING Consultations 01/25/21 12:37 ED Decision to Admit Stat Ordered Studies 01/25/21 10:48 CT head/brain wo con Stat 01/25/21 13:02 CT abd pelvis wo con Stat Hospital Course (1) Urinary tract infection: 2nd proteus. completed course of IV/PO abx x 7 days likely contributed to met encephalopathy. remove haddad (2) Acute renal failure: Improving nicely. Peak Cr was 5.9. Cr now 1.8. Daily BMP. Prerenal etiology in setting of FERNANDO. Cont to hold FERNANDO. (3) Acute hyperkalemia: 2nd #2. resolved. (4) Hematemesis: Gastric occult positive stomach contents after vomiting at the SNF. Does have H/o gastropathy. No vomiting since admission. No hematemesis. No melena. H/Hs have been stable. Defer on GI consultation. Cont PPI. (5) Dementia with behavioral disturbance: patient did well with low-dose risperdal during prior stay this summer re-ordered risperdal 0.5mg at HS this admission and is tolerating this the risperdal certainly helps with paranoia and her agitation would cont on discharge (6) Metabolic encephalopathy: 2nd to ARF, UTI, etc. improving. risperdal HS. see #5 above (7) Chronic diastolic (congestive) heart failure: Holding lasix due to JEZ. still remains compensated. (8) History of stroke: resume asa no evidence of any bleeding (GI) h/h have been quite stable no hematemesis or melena stools (9) Hypertension: Holding Lasix and lisinopril due to JEZ. BPs well controlled without the above. may not need FERNANDO if BPs stay controlled (10) Type 2 diabetes mellitus: HbA1C 10.5 in September Cont novolog sliding scale BSGs wnl (11) Hypothyroidism: Continue levothyroxine 75 mcg PO daily TSH 1.9 in November 2020 (12) Hyperammonemia: mild elevation (30s) earlier this stay s/p multiple doses of lactulose w/ several BMs repeat ammonia level now normal (13) Abdominal distension: was likely 2nd to gaseous build-up from lactulose resolved (14) DVT prophylaxis: H/H have been stable start heparin in am if patient is not discharged platelets acceptable (15) Hypernatremia: resolved (16) Epistaxis: resolved occurred earlier this stay cont bactroban BID to both nares cont saline spray to both nares BID Discharge Plan Discharge Items Patient Disposition: Transfer Group Home Fac Reason For Visit: ACUTE KIDNEY FAILURE, HYPERKALEMIA Discharge Diagnosis: 1. acute kidney failure - resolving. Peak Creatinine nearly 6. Creatinine day of discharge 1.7. 2. hyperkalemia 2nd to #1 - resolved. 3. urinary tract infection. 4. delirium/encephalopathy - improved. 5. cirrhosis of the liver - likely due to "BUENO." 6. mildly low platelets. 7. mild anemia. 8. one episode of epistaxis nose bleeding - resolved, did not recur. Activity: Resume your previous activity Non-emergency contact: Primary Care Provider Call non-emergency contact if: you have any medication questions, your symptoms worsen and you have a fever Follow-up/Referrals: [facility] [Primary Care Provider] - Diet: Carb Consistent or DM2 Diet Texture: Easy to Chew Addtl Attending Provider Instructions: Mrs Jin was treated for the problems listed above in "discharge diagnoses." Her acute kidney failure improved with use of IV fluids and discontinuing several blood pressure medications (lasix, lisinopril). Her UTI was treated with antibiotics. She completed a full 7-day course of antibiotics while here. She had complicating sundowning and delirium necessitating the use of risperdal low-dose at bedtime. Diabetes was under excellent control while here. She apparently had had an episode of emesis just prior to arrival at [facility] that may have contained blood. No episodes of hematemesis were seen while here. She never had abdominal pain or feeding intolerance. Hemoglobin was 10.8 on 01/26/21, and was 10.8 on 01/31/21. She had mildly low platelets during the stay - etiology uncertain. Discharge level of platelets was 125. Finally, she had 1 episode of nose bleeding (epistaxis) during the stay that self-resolved. We have been placing saline nasal drops into the nose twice daily to keep the nose moist. Recommendations - 1. recheck BMP (basic metabolic panel) and CBC with diff in 3 days. Results to medical laboratory technologist. 2. check blood sugars 4 times daily (meals & at bedtime). Pending Studies at Discharge: No Stand-Alone Forms: My [facility] Skilled Items Patient informed of condition?: Yes DNR: No Discharge Level of Care: Skilled Communicable Disease: No Discharge Prognosis: Stable Lines: None Urinary Catheter: No Medications and DC Order Prescriptions: New pantoprazole 40 mg Tablet,Delayed Release (Dr/Ec) 40 mg PO DIRECTED Qty: 60 RF: 2 risperidone 0.5 mg Tablet,Disintegrating 0.25 mg PO HS Qty: 30 RF: 0 sodium chloride [Saline Mist] 0.65 % Aerosol,[place] 2 spray NA BID 7 Days Qty: 1 RF: 0 metoprolol tartrate 25 mg tablet 12.5 mg PO BID Qty: 60 RF: 2 Continued (DME) FreeStyle Lite Strips Strip See Rx Instructions .ROUTE .MEDSUPPLY Qty: 100 RF: 11 citalopram [Celexa] 10 mg Tablet 5 mg PO HS RF: 0 bacitracin [Bacitraycin Plus] 500 unit/gram Ointment 1 applic TOPICAL HS RF: 0 nystatin [Nyamyc] 100,000 unit/gram powder 1 applic TOPICAL BID RF: 0 atorvastatin [Lipitor] 40 mg tablet 40 mg PO HS RF: 0 aspirin [Aspirin Low Dose] 81 mg tablet,delayed release (DR/EC) 81 mg PO QAM RF: 0 levothyroxine [Synthroid] 75 mcg tablet 75 mcg PO DAILYBB RF: 0 Trulicity 0.75 mg/0.5 mL pen injector 0.75 mg subcut WK RF: 0 Changed insulin lispro [Humalog U-100 Insulin] 100 unit/mL solution See Rx Instructions .ROUTE .COMPLEX Qty: 0 RF: 0 Discontinued furosemide [Lasix] 40 mg tablet 40 mg PO QAM RF: 0 metoprolol succinate [Toprol XL] 50 mg tablet extended release 24 hr 50 mg PO QAM RF: 0 lisinopril [Prinivil] 20 mg tablet 20 mg PO QAM RF: 0 potassium chloride [Klor-Con M20] 20 mEq Tablet,Er Particles/Crystals 20 meq PO QAM Qty: 30 RF: 0 Discharge Orders: Discharge Order (Routine); Ordered 02/02/21 Ordered By: Marcellus Infante/Other Patient Handouts: A1C Admission Data Admit Date/Time: 01/25/21 13:49 Attending Provider: Marcellus Sotelo Admit Provider: Marcellus Thornton Primary Care Provider: dEe Khan Other Providers: Ede Khan ; Marcellus Thornton Other Interventions: Discharge Summary Assessment (RN) Last Done: 02/02/21 13:21 Coding Diagnoses Urinary tract infection N39.0 Acute renal failure N17.9 Acute renal failure type: unspecified Acute hyperkalemia E87.5 Hematemesis K92.0 Dementia with behavioral disturbance F03.91 Dementia type: unspecified type Metabolic encephalopathy G93.41 Chronic diastolic (congestive) heart failure I50.32 History of stroke Z86.73 Hypertension I10 Type 2 diabetes mellitus E11.9 Hypothyroidism E03.9 Hyperammonemia E72.20 Abdominal distension R14.0 DVT prophylaxis Z29.9 Hypernatremia E87.0 Epistaxis R04.0
== END 2021-02-02 20:09 | DRG 682 ==
LOC: ED 10:24 → 2S 13:49 → SUATTDRO 13:49 → 2S 15:41 → 3W 01-31 14:04